=== PATIENT | male | born 1950 | race Caucasian/White ===

== ENCOUNTER 2023-11-18 13:12 | Observation (INO) | payer MEDICARE, SELFPAY ==
[2023-11-18 13:13] VITALS: BP 117/73; PULSE 103; RESP 20; TEMP 37.3; O2SAT 96; BMI 22.9
--- NOTE | 2023-11-18 14:10 | ED_ITS ---
<Statement entered by Marilyn Witt DO - 11/18/23 15:48> I was consulted by the RAMOS, and we discussed the complexity of the problems being addressed. I approved the treatment and management plan for this patient's care in the emergency department, thus performing a substantive portion of the medical decision making. Marilyn Witt DO Discharge Plan Disposition Patient Disposition: Admitted Condition: Fair Clinical Impressions Clinical Impression: Asthenia Chronic kidney disease Qualifiers: Chronic kidney disease stage: unspecified stage Qualified Code(s): N18.9 - Chronic kidney disease, unspecified Discharge ED Provider: Marilyn Witt General Adult HPI General Chief complaint: Weakness Stated complaint: Weakness Time Seen by Provider: 11/18/23 14:10 Mode of Arrival: Ambulatory Source of Information: Patient and EMS Limitations: No Limitations Description of Symptoms (Recalled from ER Triage Doc. by RN): pt [facility] and cc is weakness and dehydration, pt states he is also constipated and apolgizes for stinking as he has not been able to shower due to facility out of water. pt states only med hx is CVA and HTN. pt alox4 upon triage and vitals WNL History of Present Illness HPI narrative: [facility] after he was too weak to get off of the toilet. Patient states that he felt constipated and was sitting on the toilet for approximately 30 minutes but was unable to get up. Staff found him and called EMS for assistance. Patient denies any numbness tingling shortness of breath fever chills hemoptysis hematochezia melena nausea vomiting diarrhea. He does report having hard. Related Data Allergies Allergy/AdvReac Type Severity Reaction Status Date / Time Penicillins Allergy Verified 11/18/23 14:04 [facility] Disclaimer: The information contained in this section may have been updated after the patient was seen, as this information can be updated by other users. Social History (Updated 11/18/23 @ 15:30 by FARRAH Hill) Smoking Status: Current every day smoker alcohol intake: never current occupational status: retired Travel in the last 8 weeks: None ROS Obtained: Yes Systems reviewed as appropriate & no additional complaints except as documented Physical Exam General General appearance: alert, in no apparent distress and other (Patient has a strong odor of urine about his person) Head Head exam: atraumatic and normal inspection Eye Eye exam: Present normal appearance and EOMI ENT ENT exam: Present normal exam, normal oropharynx and mucous membranes moist Neck Neck exam: Present normal inspection and full ROM Respiratory Respiratory exam: Present normal lung sounds bilaterally Cardiovascular Cardiovascular exam: Present regular rate and normal rhythm Extremities Exam Extremities exam: Present normal inspection, full ROM (Passively) and normal capillary refill; Absent tenderness, edema or calf tenderness Back Exam Back exam: Present normal inspection and full ROM Neurological Exam Neurological exam: Present alert, oriented X3 and CN II-XII intact; Absent normal gait (Patient unable to arise unassisted from a seated position even with his cane and is unable to stand even with assistance.) or motor sensory deficit Psychiatric Psychiatric exam: Present normal affect and normal mood Skin Skin exam: Present warm, dry and normal color Medical Decision Making Medical Records Medical records reviewed: Yes I reviewed the patient's medical records. Damián Inquiry Pt receiving controlled substance: No Vital Signs: 11/18/23 13:13 Temperature 99.1 F Temperature Source Oral Pulse Rate [Right Radial] 103 H Respiratory Rate 20 Blood Pressure [Right Arm] 117/73 Blood Pressure Mean [Right Arm] 87 02 Sat by Pulse Oximetry 96 Oxygen Delivery Method Room Air Lab Data Lab results reviewed: Yes I reviewed the patient's lab results. Lab Results 11/18/23 13:25: WBC 9.3, RBC 4.73, Hgb 14.6, Hct 42.5, MCV 89.8, MCH 30.7, MCHC 34.2, RDW 14.1, Plt Count 259, MPV 7.9, Neut % (Auto) 74.5, Lymph % (Auto) 16.3, [place] % (Auto) 6.2, Eos % (Auto) 2.4, Baso % (Auto) 0.7, Neut # (Auto) 6.9, Lymph # (Auto) 1.5, [place] # (Auto) 0.6, Eos # (Auto) 0.2, Baso # (Auto) 0.1, Sodium 138, Potassium 4.1, Chloride 106, Carbon Dioxide 24, Anion Gap 12.1, BUN 30 H, C reatinine 1.80 H, Estimated Creat Clear 36, Estimated GFR 37 L, Est GFR ( Amer) 45 L, Glucose 106 H, Calcium 8.8, Magnesium 2.1, Total Bilirubin 0.7, AST 29, ALT 21, Alkaline Phosphatase 76, Total Creatine Kinase 51 L, Total Protein 7.1, Albumin 4.4, Globulin 2.7, Albumin/Globulin Ratio 1.6 11/18/23 13:25 11/18/23 13:25 Orders (Tests/Meds): ED MEDICATIONS Generic Name Dose Route Start Last Admin Trade Name Freq PRN Reason Stop Dose Admin Enoxaparin Sodium 40 mg 11/19/23 09:00 Enoxaparin 40mg/0.4ml Syringe SQ 12/19/23 08:59 DAILY JOHNATHAN Discontinued Medications Generic Name Dose Route Start Last Admin Trade Name Freq PRN Reason Stop Dose Admin Lactated Ringer's 1,000 mls @ 999 mls/hr 11/18/23 14:32 11/18/23 15:02 Lactated Ringer's 1000 Ml Bag IV 11/18/23 15:32 999 mls/hr .Q1H1M ONE Administration ORDERS Category Date Time Status CK [Creatine Kinase] Stat Lab 11/18/23 13:25 Completed CMP [Comprehensive Metabolic Panel] Stat Lab 11/18/23 13:25 Completed Complete Blood Count Auto Diff AMLAB Lab 11/19/23 06:00 Ordered Complete Blood Count Auto Diff Stat Lab 11/18/23 13:25 Completed Comprehensive Metabolic Panel AMLAB Lab 11/19/23 06:00 Ordered Hemoglobin A1C Stat Lab 11/18/23 13:25 Received Magnesium AMLAB Lab 11/19/23 06:00 Ordered Magnesium Stat Lab 11/18/23 13:25 Completed TSH [Thyroid Stimulating Hormone] Stat Lab 11/18/23 13:25 Received UA [Urinalysis and Microscopic] Stat Lab 11/18/23 14:32 Ordered Medical Decision Narrative: In summary patient is a 73-year-old male who presents to the emergency department for evaluation of dystonia. Patient is hemodynamically stable upon arrival, afebrile. Physical exam is remarkable for bilateral lower extremity asthenia without any focal deficits. Motor and sensory are intact however patient is too weak to stand unassisted, is too weak to stand assisted, cannot rise from a seated position unassisted.. Differential diagnosis includes a STEMI versus electrolyte abnormality versus urinary tract infection etc. Initial workup will be conducted with hematologic labs urinalysis PT OT evaluation. Initial interventions include crystalloid bolus. Initial workup reviewed by me shows that patient has elevated creatinine of 1.8 and a BUN of 30 with a GFR of 37 but an unknown baseline as we have no records upon review of his chart, magnesium of 2.1 calcium of 8.8 CK of 51 and the remainder of his hematologic labs are nonactionable. PT OT evaluation performed in the emergency department suggest that the patient is a high fall risk and unable to return to an assisted living which she currently resides and recommended placement. Management discussed with patient who is agreed to admission. Given that discussion with hospitalist about patient management and he has been admitted for further evaluation and care Critical Care Critical Care Time Critical Care Time: No
[2023-11-18 14:11] LABS: Basophils # 0.1 K/mm3 (0-0.2); Basophils % 0.7 % (0.1-2.0); Eosinophils # 0.2 K/mm3 (0.0-0.4); Eosinophils % 2.4 % (0.1-12.0); Hematocrit 42.5 % (42.0-52.0); Hemoglobin 14.6 g/dL (14.1-18.0); Lymphocytes # 1.5 K/mm3 (0.7-4.5); Lymphocytes % 16.3 % (10-50); Mean Corpuscular HGB Conc 34.2 g/dL (31.8-35.4); Mean Corpuscular Hemoglobin 30.7 pg (27.0-31.2); Mean Corpuscular Volume 89.8 fl (80-94); Mean Platelet Volume 7.9 fl (7.4-10.4); Monocytes # 0.6 K/mm3 (0.1-1.0); Monocytes % 6.2 % (1.7-9.3); Neutrophils # 6.9 K/mm3 (1.8-7.8); Neutrophils % 74.5 % (37.0-80.0); Platelet Count 259 K/mm3 (142-424); Red Blood Count 4.73 M/mm3 (4.60-6.20); Red Cell Distribution Width 14.1 % (11.5-17.5); White Blood Count 9.3 K/mm3 (4.8-10.8)
[2023-11-18 14:12] LABS: Albumin Level 4.4 g/dl (3.5-5.0); Chloride 106 mmol/L (98-107); Potassium 4.1 mmoL/L (3.5-5.1); Sodium 138 mmol/L (136-145)
[2023-11-18 14:15] LABS: Alanine Aminotransferase 21 U/L (12-78); Albumin/Globulin Ratio 1.6 (1.1-1.8); Alkaline Phosphatase 76 U/L (38-126); Anion Gap 12.1 mEq/L (5-15); Aspartate Amino Transferase 29 U/L (17-59); Bilirubin,Total 0.7 mg/dl (0.2-1.3); Blood Urea Nitrogen 30 mg/dl (9-20); Calcium 8.8 mg/dl (8.4-10.2); Carbon Dioxide 24 mmol/L (22.0-30.0); Creatinine Clearance Estimated 36 mL/min (50-200); Estimated Glomerular Filt Rate 37 ml/min (>60); GFR (African American) 45 ML/MIN (>60); Globulin 2.7 g/dL (1.3-3.2); Glucose 106 mg/dl (74-100); Total Protein,Serum 7.1 g/dl (6.3-8.2)
--- NOTE | 2023-11-18 14:37 | PC.NURSE ---
therapy notified of pt status
[2023-11-18 14:44] LABS: Creatine Kinase 51 U/L (55-170); Magnesium 2.1 mg/dl (1.6-2.3)
[2023-11-18] MEDS: LACTATED RINGERS 1000ML 1,000 ML 999 ML IV (15:02)
--- NOTE | 2023-11-18 15:05 | PC.NURSE ---
PER PT/OT eval patient should be placed somewhere for rehab, see the note per therapy
--- NOTE | 2023-11-18 15:06 | HMH.OTEV ---
OT Inpatient Evaluation Rehab OT IP Evaluation Start: 11/18/23 14:36 Freq: ONCE Status: Active Protocol: Document 11/18/23 15:02 PAULCONSTANCE (Rec: 11/18/23 15:06 PAULCONSTANCE [id number]) Rehab OT IP Assessment Subjective History : pt came from [facility] and cc is weakness and dehydration, pt states he is also constipated and apolgizes for stinking as he has not been able to shower due to facility out of water. pt states only med hx is CVA and HTN. pt alox4 upon triage and vitals WNL. Patient is a resident at [facility] here in [place], [place]. Patient reported being independent with ADLs and fx'l mobility prior to hospitalization. Patient uses a straight cane to ambulate. Hx of falling. Subjective I need some help. Instructed Patient on safety awareness during transfers, fx 'l mobility and dynamic standing balance requiring Mod A x2. Unsteadiness on B LE requiring Mod A to prevent fall risk. Objective Patient Orientation Person,Place,Name,Age,Year Right Upper Extremity Gross ROM WFL Left Upper Extremity Gross ROM WFL Transfer Training Sit/Stand Transfer Assist Level Moderate x 2 (50% assist) Chair Transfer Ability Moderate x 2 (50% assist) Chair Transfer Technique Sit to/from Ambulatory Chair Transfer Assistive Devices Straight Cane Rehab OT IP prob,goals,plan Problems Date of Evaluation: 11/18/23 OT IP Problems Bed Mobility,Transfers,Balance ,Self care,Safety Rehab Potential Rehab Potential Good Equipment Needs Assistive Devices Straight Cane Plan OT intervention Plan Bed Mobility,Transfers,Balance ,Self care,Safety,Therapeutic Exercise OT Plan Frequency Daily Duration LOS Discharge Goals Sit to Stand Chair Transfer Ability Moderate x 1 (50% assist) Chair Transfer Ability Moderate x 1 (50% assist) Chair Transfer Technique Sit to/from Ambulatory Chair Transfer Assistive Devices Straight Cane Discharge Plan OT Discharge Plan Due to unsteadiness balance and weakness, patient would not be safe to return back to [facility]. Recommend placement/ rehab prior to returning back to facility. Eval Complexity Eval Charge Codes 35658 - Low Complexity PHYSICIAN CERTIFICATION: I certify the specified therapy services for [facility] are required, authorized, and reviewed every 30 days.
--- NOTE | 2023-11-18 15:06 | PC.NURSE ---
I rounded on the pt, no new complaints noted. pt asked if I could call [facility] and ask if they could take his cell phone off the mixed crop farmer so it wouldn't get too hot. I attempted to call [facility] twice, I have not been able to reach them. call hart in reach.
--- NOTE | 2023-11-18 15:28 | PC.NURSE ---
ANNMARIE NIXON SPEAKING WITH DR DRIVER
--- NOTE | 2023-11-18 15:30 | PC.NURSE ---
SLAB WORKER NOTIFIED OF ADMISSION
--- NOTE | 2023-11-18 15:33 | P.HP_ITS ---
History of Present Illness *Admission Date: 11/18/23 *Reason for visit:: Constipation, weakness *History of present illness: Mr. Aguillon is a 73-year-old male who lives at [facility]. Presented to the ER after trying to go to the bathroom today, states he was on the toilet for an hour and then could not get up off the toilet. EMS brought him to the ER for further evaluation. On arrival, patient is frankly weak and unable to stand or ambulate independently. Workup concerning for ALAINA with BUN 30, creatinine 1.8. White count normal at 9.3. Patient stable on room air. States that he has been constipated and dehydrated lately. States he waited a day or 2 to go to the bathroom because they had not restocked to the bathrooms at his personal correction with toilet paper. Medicine was consulted for evaluation and placement as patient is not medically stable to discharge back to his personal care facility. On arrival to the floor, patient has not bathed in some time. His shoes have been on his feet for over a month. On room air. Afebrile. Denies any nausea, vomiting, diarrhea, chest pain, confusion beyond his baseline as he chuckles. [facility] Disclaimer: The information contained in this section may have been updated after the patient was seen, as this information can be updated by other users. Medical History (Updated 11/18/23 @ 16:56 by Deshaun Marie MD) Tobacco use disorder HTN (hypertension) Social History (Updated 11/18/23 @ 15:30 by FARRAH Hill) Smoking Status: Current every day smoker alcohol intake: never current occupational status: retired Travel in the last 8 weeks: None Review of Systems Review of Systems Review of systems (narrative): 14 point review of systems performed, pertinent positives and negatives as per HPI Meds Home Medications and Allergies New Prescriptions to Start Prescriptions: Allergies Allergy/AdvReac Type Severity Reaction Status Date / Time Penicillins Allergy Verified 11/18/23 14:04 Exam Data for Last 24 hours Vital signs and Labs for Last 24 Hours: Temp Pulse Resp BP Pulse Ox O2 Del Method 99.1 F 103 H 20 117/73 96 Room Air 11/18/23 13:13 11/18/23 13:13 11/18/23 13:13 11/18/23 13:13 11/18/23 13:13 11/18/23 13:13 Laboratory Results - last 24 hr 11/18/23 13:25: WBC 9.3, RBC 4.73, Hgb 14.6, Hct 42.5, MCV 89.8, MCH 30.7, MCHC 34.2, RDW 14.1, Plt Count 259, MPV 7.9, Neut % (Auto) 74.5, Lymph % (Auto) 16.3, [place] % (Auto) 6.2, Eos % (Auto) 2.4, Baso % (Auto) 0.7, Neut # (Auto) 6.9, Lymph # (Auto) 1.5, [place] # (Auto) 0.6, Eos # (Auto) 0.2, Baso # (Auto) 0.1, Sodium 13 8, Potassium 4.1, Chloride 106, Carbon Dioxide 24, Anion Gap 12.1, BUN 30 H, Creatinine 1.80 H, Estimated Creat Clear 36, Estimated GFR 37 L, Est GFR ( Amer) 45 L, Glucose 106 H, Calcium 8.8, Magnesium 2.1, Total Bilirubin 0.7, AST 29, ALT 21, Alkaline Phosphatase 76, Total Creatine Kinase 51 L, Total Protein 7.1, Albumin 4.4, Globulin 2.7, Albumin/Globulin Ratio 1.6 I & O for Last 24 hours: Intake & Output 11/15/23 11/16/23 11/17/23 11/18/23 23:59 23:59 23:59 23:59 Weight 72.575 kg Constitutional Constitutional: no acute distress, average body habitus, chronically ill appearing, disheveled and cooperative *Routine HEENT Exam Head: Present normocephalic Eye: Present EOMI and PERRL ENT: Present mucous membranes moist *Routine Neck Exam Neck: Present supple; Absent lymphadenopathy *Routine Respiratory Exam Respiratory: Present CTA bilaterally; Absent respiratory distress, rhonchi, stridor, wheezes or crackles *Routine Cardiovascular Exam Cardiovascular: Present RRR *Routine Abdominal Exam Abdominal: Present soft and normoactive bowel sounds; Absent tenderness *Routine Rectal Exam Rectal:: deferred *Routine Genitalia Exam Genitalia:: deferred *Routine Extremities Exam Extremities: Absent cyanosis, clubbing or edema Comments: Long unkempt toenails *Routine Skin Exam Skin: Present intact and warm; Absent rash *Routine Neurological Exam Neurological: Present alert, oriented X3 and moving all extremities; Absent altered mental status Comments: Globally weak, unable to stand independently Assessment and Plan *Assessment and plan (1) ALAINA (acute kidney injury): Status: Acute Category: Medical Code(s): N17.9 - Acute kidney failure, unspecified (2) Asthenia: Status: Acute Category: Medical Code(s): R53.1 - Weakness (3) Chronic kidney disease: Status: Acute Qualifiers: Chronic kidney disease stage: unspecified stage Qualified Code(s): N18.9 - Chronic kidney disease, unspecified Category: Medical Code(s): N18.9 - Chronic kidney disease, unspecified (4) Debility: Status: Acute Category: Medical Code(s): R53.81 - Other malaise (5) Tobacco use disorder: Status: Acute Category: Medical Code(s): F17.200 - Nicotine dependence, unspecified, uncomplicated (6) HTN (hypertension): Status: Acute Category: Medical Code(s): I10 - Essential (primary) hypertension (7) Constipation: Status: Acute Category: Medical Code(s): K59.00 - Constipation, unspecified Plan 73-year-old female who has been a resident of [facility] for the past 9 months. Presented to the ER after being unable to get off the toilet today. Was too weak to stand. Workup concerning for ALAINA and asthenia. Discussed case with ER physician, request admission for therapy eval and placement. I agreed to admit. Received liter of fluids in the ER. Problems addressed as follows: ALAINA -BUN 30, creatinine 1.8. Repeat CBC, CMP, magnesium ordered for the morning. Status post 1 L in the ER, will continue hydration orally. Constipation: Initiate MiraLAX x 1 and docusate senna tablet nightly Hypertension: Continue home regimen of carvedilol 12.5 mg twice daily, amlodipine 10 mg daily Anxiety/depression: Continue Lexapro 10 mg daily Full code Lovenox 40 mg subcu daily Cardiac diet Therapy eval for placement given patient's debility and mobility issues. These prevent him from being stable to return back to his personal [facility]
--- NOTE | 2023-11-18 15:44 | SW/DCPLANNER ---
Addendum entered by [facility] 11/20/23 14:56: Rito w/ [facility] stated that patient has been accepted for services. Addendum entered by [facility] 11/20/23 12:09: Patient will discharge back to [facility] today. I have called and updated [facility] and they will reviewing to see if transportation is available. I will also set patient up w/ [facility] services. Addendum entered by [facility] 11/20/23 09:29: Per [facility] this case did NOT meet criteria for investigation. Addendum entered by [facility] 11/19/23 13:56: Due to conditions at [facility] I have made a report to [facility] (ID#[id number]). Patient is alert and oriented stating that he has no running water at personal alf, there is no toilet paper available in bathrooms (led to him not using bathroom for a couple days), Medicaid lapsed, monthly payment taken out twice which caused him to overdraft in bank account and due to MEHNAZ lapse and no funds I am not able to establish placement for patient. PT did work with patient this afternoon and improvement shown. Per MD if improvement tomorrow the plan will be to return to [facility]. I will continue to follow up w/ patient, Yair Miller, ID# and MD. Addendum entered by [facility] 11/19/23 12:43: Delfina w/ [facility] is unable to accept this patient due to Medicaid insurance lapse and no funds in account. Jenae lerma/ [facility] stated no beds available at this time. Addendum entered by [facility] 11/19/23 09:56: Patient is alert and oriented x 4. Patient is agreeable to placement at this time. Patient information has been faxed to [facility] and [facility]. Original Note: [facility] no answer at this [facility]. Per Georgina lerma/ [facility] patient is over the income level for Medicaid. PT/OT evaluated patient and stated that patient will need SNF level of care. I will follow up w/ patient regarding placement under private pay.
--- NOTE | 2023-11-18 15:51 | PC.NURSE ---
attempted to call report to floor rn
--- NOTE | 2023-11-18 15:55 | HMH.PTEV ---
Physical Therapy Evaluation Rehab PT IP Evaluation Start: 11/18/23 14:36 Freq: ONCE Status: Active Protocol: Document 11/18/23 15:04 JAMARI (Rec: 11/18/23 15:55 JAMARI [id number]) Subjective/History History History Patient Biju Aguillon is a 73 yom presenting to the ER with chief complaint of weakness and dehydration, and constipated. Patient stated he currently resides at [facility]. Patients past medical history includes the following a CVA and HTN, he also is a smoker. Patient stated that he is unable to bathe himself but the staff [facility] do the cleaning and cooking for him. Patient states that his weakness has been occurring for a month and he has noticed that he keeps getting weaker. Patient did not verbalize any concerns with having pain at this time. He currently uses a cane to help assist him with ambulation. Subjective Subjective Patient states he is worried about his phone and was wanting to get in contact with someone, rehab staff informed him that nursing staff would be notified. Rehab PT IP Eval Objective Appearance Patient Behavior Cooperative,Passive,Talkative Patient Orientation Place,Name,Age,Birthday Speech Pattern Rambling,Patient Baseline Ambulation Patient Able to Ambulate Yes Ambulation Observation IP General Gait Pattern Observation Shuffling Step Ambulation Distance (feet) 15 Ambulation Assistive Device Straight Cane Ambulation Ability Minimal x 2 (25% assist) Balance Ability to Arise Able, uses arms to help Sitting Balance Leans or slides in chair Standing Balance Unsteady Dynamic Sitting Balance Ability Fair Dynamic Standing Balance Ability Fair Transfers Chair Transfer Ability Minimal x 2 (25% assist) Sit to Stand Chair Transfer Ability Minimal x 2 (25% assist) Rehab PT IP prob,goals,plan Problems Date of Evaluation: 11/18/23 PT IP Problems Transfers,Gait,Balance Rehab Potential Rehab Potential Good Plan PT Intervention Plan Bed Mobility,Transfers,Gait, Balance PT Plan Frequency Daily Duration LOS Discharge Goals Bed Transfer Ability Contact Guard/Hand Hold Sit to Stand Chair Transfer Ability Contact Guard/Hand Hold Ambulation Assistive Device Straight Cane Ambulation Distance (feet) 50 Discharge Plan PT Discharge Plan Patient is a good candidate at this time for skilled PT to address the concern with unsafe ambulation and unsteadiness. He will significantly benefit to address these concerns and improve gait cycle to decrease the possibility of future falls. Once medically stable it is recommended that the patient obtain home health to address LE weakness in addition to the mentioned concerns. Eval Complexity Eval Charge Codes 80622 - High Complexity PHYSICIAN CERTIFICATION: I certify the specified therapy services for [facility] are required, authorized, and reviewed every 30 days.
--- NOTE | 2023-11-18 15:57 | PC.NURSE ---
called report to Aminah on 2nd floor RN and answered all questions
[2023-11-18 15:58] VITALS: BP 117/73; PULSE 96; RESP 20; TEMP 37.2; O2SAT 96
[2023-11-18 16:00] VITALS: BP 175/83; PULSE 96; RESP 20; TEMP 36.4; O2SAT 95
--- NOTE | 2023-11-18 16:00 | PC.NURSE ---
arrived by w/c from ED
[2023-11-18 16:17] LABS: Thyroid Stimulating Hormone 2.08 uIU/mL (0.465-4.68)
[2023-11-18 17:29] LABS: Hemoglobin A1C 5.5 % (4.0-6.0)
[2023-11-18] MEDS: POLYETHYLENE GLYCOL 3350 17 GM PACKET PO (17:40)
[2023-11-18 18:05] LABS: Microscopic, Urine URINE MICROSCOPIC (MICROSCOPIC)
[2023-11-18 18:10] LABS: Appearance,Urine CLEAR (Clear); Bilirubin,Urine Negative (Negative); Blood, Urine TRACE-I (Negative); Color,Urine YELLOW (Yellow); Glucose,Urine (UA) Negative (Negative); Ketones,Urine Negative (Negative); Leukocyte Esterase,Urine Negative (Negative); Nitrate,Urine Negative (Negative); Protein,Urine 2+ (Negative); Specific Gravity, Urine 1.015 (1.005-1.030); Urobilinogen,Urine 0.2 EU/dl (0.2)
[2023-11-18 18:55] LABS: Bacteria,Urine 1+ /lpf
[2023-11-18 20:00] VITALS: BP 157/63; PULSE 91; RESP 16; TEMP 37; O2SAT 94
[2023-11-18] MEDS: CARVEDILOL 12.5MG TABLET 12.5 MG PO (20:08)
[2023-11-18] MEDS: SENNOSIDES 8.6MG/DOCUSATE 50MG TABLET 1 TAB PO (20:08)
[2023-11-19 04:00] VITALS: BP 135/71; PULSE 82; RESP 16; TEMP 36.4; O2SAT 92; BMI 24.7
--- NOTE | 2023-11-19 05:14 | PC.NURSE ---
Addendum entered by Azalia Matt RN 11/19/23 05:49: Urinal also at bedside; I myself emptied 575 mL of urine this shift. Original Note: Patient alert and oriented x4. Patient has rested well throughout the night. The skin on the patient's bilateral lower extremities was noticed to be flaky, very dry, and his feet had scattered yellow crusts on them. Lung sounds were clear upon auscultation and bowel sounds were active in all quadrants this shift. Patient stated that he was able to have a bowel movement earlier this shift and that the Miralax he received on day shift did the trick for his constipation concerns. Patient was also assisted to the bathroom to void. Patient was noticed to be very unsteady on his feet during ambulation. He requires another person on one side to hold him up while he uses his cane to assist him forward. Patient received his scheduled medications per JUN. Patient has not had any complaints this shift. He is currently resting supine in bed. Bed alarm on and call light within reach.
[2023-11-19 06:54] LABS: Basophils # 0.1 K/mm3 (0-0.2); Basophils % 0.7 % (0.1-2.0); Eosinophils # 0.2 K/mm3 (0.0-0.4); Eosinophils % 2.6 % (0.1-12.0); Hematocrit 41.1 % (42.0-52.0); Hemoglobin 13.8 g/dL (14.1-18.0); Lymphocytes % 24.1 % (10-50); Mean Corpuscular HGB Conc 33.5 g/dL (31.8-35.4); Mean Corpuscular Hemoglobin 30.5 pg (27.0-31.2); Mean Corpuscular Volume 90.9 fl (80-94); Mean Platelet Volume 7.8 fl (7.4-10.4); Monocytes # 0.7 K/mm3 (0.1-1.0); Monocytes % 8.1 % (1.7-9.3); Neutrophils # 5.2 K/mm3 (1.8-7.8); Neutrophils % 64.5 % (37.0-80.0); Platelet Count 227 K/mm3 (142-424); Red Blood Count 4.52 M/mm3 (4.60-6.20); White Blood Count 8.1 K/mm3 (4.8-10.8)
[2023-11-19 06:55] LABS: Albumin Level 3.7 g/dl (3.5-5.0); Chloride 108 mmol/L (98-107); Sodium 139 mmol/L (136-145)
[2023-11-19 06:58] LABS: Alanine Aminotransferase 14 U/L (12-78); Albumin/Globulin Ratio 1.5 (1.1-1.8); Alkaline Phosphatase 69 U/L (38-126); Aspartate Amino Transferase 26 U/L (17-59); Bilirubin,Total 0.7 mg/dl (0.2-1.3); Blood Urea Nitrogen 30 mg/dl (9-20); Calcium 8.5 mg/dl (8.4-10.2); Carbon Dioxide 28 mmol/L (22.0-30.0); Creatinine Clearance Estimated 42 mL/min (50-200); Estimated Glomerular Filt Rate 39 ml/min (>60); GFR (African American) 48 ML/MIN (>60); Globulin 2.5 g/dL (1.3-3.2); Glucose 96 mg/dl (74-100); Magnesium 2.2 mg/dl (1.6-2.3); Total Protein,Serum 6.2 g/dl (6.3-8.2)
--- NOTE | 2023-11-19 07:13 | HMH.PHAINT1 ---
Pharmacy Intervention Comments: home medication list verified using list from outpatient pharmacy
[2023-11-19 08:00] VITALS: BP 147/81; PULSE 77; RESP 17; TEMP 36.9; O2SAT 92
[2023-11-19] MEDS: ENOXAPARIN 40MG/0.4ML SYRINGE 40 MG SQ (08:33)
[2023-11-19] MEDS: AMLODIPINE 10MG TABLET 10 MG PO (08:34)
[2023-11-19] MEDS: LACTATED RINGERS 1000ML 1,000 ML 250 ML IV (08:34)
[2023-11-19] MEDS: CITALOPRAM 20MG TABLET 20 MG PO (08:34)
[2023-11-19] MEDS: CARVEDILOL 12.5MG TABLET 12.5 MG PO ×2 (08:35→20:54)
--- NOTE | 2023-11-19 15:23 | PC.NURSE ---
pt has been axox4 this shift. pt remains on room air. pt visited with pt today and advised pt to continue with activity throughout the shift. pt educated on need to walk, sit up to chair, and complete exercises to regain strength. regional education manager from [facility]( Aure Weiss) called to check up on . pt has had no complaints today. pt resting in bed with eyes closed. call light within reach, no new orders at this time.
[2023-11-19 16:00] VITALS: BP 163/74; PULSE 80; RESP 18; TEMP 36.7; O2SAT 93
--- NOTE | 2023-11-19 18:39 | P.PN_ITS ---
Subjective *Date: 11/19/23 *Time: 21:17 Interval history: Feeling a lot better this morning. Tolerated IV fluids. Tolerating p.o. intake. Had a bowel movement overnight. Denies any chest pain or shortness of breath. Medical Exam Vital signs and Labs for Last 24 Hours: Vital Signs Temp Pulse Resp BP Pulse Ox O2 Del Method 11/19/23 18:28 Room Air 11/19/23 17:00 Room Air 11/19/23 16:00 98.0 F 80 18 163/74 H 93 L Room Air 11/19/23 14:32 Room Air 11/19/23 12:40 Room Air 11/19/23 11:00 Room Air 11/19/23 09:00 Room Air 11/19/23 08:00 98.4 F 77 17 147/81 H 92 L Room Air 11/19/23 08:00 Room Air 11/19/23 06:48 Room Air 11/19/23 05:00 Room Air 11/19/23 04:00 97.6 F 82 16 135/71 92 L Room Air 11/19/23 03:00 Room Air 11/19/23 01:00 Room Air 11/18/23 23:00 Room Air 11/18/23 21:00 Room Air 11/18/23 20:00 98.6 F 91 H 16 157/63 H 94 L Room Air 11/18/23 20:00 91 H 94 L Room Air Intake and Output 11/19/23 11/19/23 11/19/23 07:59 15:59 23:59 Intake Total 100 / 1720 1200 / 1720 420 / 1720 Output Total 975 / 1525 250 / 1525 300 / 1525 Balance -875 / 195 950 / 195 120 / 195 Intake: Intake, Oral Amount 100 / 1720 1200 / 1720 420 / 1720 Output: Output, Urine Amount 975 / 1525 250 / 1525 300 / 1525 Other: Number of Unmeasured Voids 1 1 0 Number of Bowel Movements 1 Weight 78.471 kg Patient Weight 11/19/23 23:59 Weight 78.471 kg Laboratory Results - last 24 hr 11/18/23 18:00: Urine RBC 5-10, Urine WBC 3-5, Ur Squamous Epith Cells 3-5, Urine Bacteria 1+ 11/19/23 06:22: WBC 8.1, RBC 4.52 L, Hgb 13.8 L, Hct 41.1 L, MCV 90.9, MCH 30.5, MCHC 33.5, RDW 14.0, Plt Count 227, MPV 7.8, Neut % (Auto) 64.5, Lymph % (Auto) 24.1, [place] % (Auto) 8.1, Eos % (Auto) 2.6, Baso % (Auto) 0.7, Neut # (Auto) 5.2, Lymph # (Auto) 2.0, [place] # (Auto) 0.7, Eos # (Auto) 0.2, Baso # (Auto) 0.1, Sodium 139, Potassium 4.0, Chloride 108 H, Carbon Dioxide 28, Anion Gap 7.0, BUN 30 H, Creatinine 1.70 H, Estimated Creat Clear 42, Estimated GFR 39 L, Est GFR ( Amer) 48 L, Glucose 96, Calcium 8.5, Magnesium 2.2, Total Bilirubin 0.7, AST 26, ALT 14 D, Alkaline Phosphatase 69, Total Protein 6.2 L, Albumin 3.7 D, Globulin 2.5, Albumin/Globulin Ratio 1.5 I & O for Labs for Last 24 Hours: Intake & Output 11/16/23 11/17/23 11/18/23 11/19/23 23:59 23:59 23:59 23:59 Intake Total 1550 / 1650 1720 / 1720 Output Total 0 / 575 1525 / 1525 Balance 1550 / 1075 195 / 195 Weight 72.575 kg 78.471 kg Constitutional: Present no acute distress Respiratory: Present normal respiratory effort Cardiac: Present Reg Rate and Rhythm GI: Present normal bowel sounds; Absent tenderness Extremities: Present normal inspection and full ROM Skin: Present intact; Absent erythema Neuro: Present Grossly Intact, alert, awake, oriented x 3 and moves all extremities Comment:: Shuffling gait Assessment and Plan *Assessment and plan (1) ALAINA (acute kidney injury): Status: Acute Category: Medical Code(s): N17.9 - Acute kidney failure, unspecified (2) Asthenia: Status: Acute Category: Medical Code(s): R53.1 - Weakness (3) Chronic kidney disease: Status: Acute Qualifiers: Chronic kidney disease stage: unspecified stage Qualified Code(s): N18.9 - Chronic kidney disease, unspecified Category: Medical Code(s): N18.9 - Chronic kidney disease, unspecified (4) Debility: Status: Acute Category: Medical Code(s): R53.81 - Other malaise (5) Tobacco use disorder: Status: Acute Category: Medical Code(s): F17.200 - Nicotine dependence, unspecified, uncomplicated (6) HTN (hypertension): Status: Acute Category: Medical Code(s): I10 - Essential (primary) hypertension (7) Constipation: Status: Acute Category: Medical Code(s): K59.00 - Constipation, unspecified Plan 73-year-old female who has been a resident of [place] for the past 9 months. Presented to the ER after being unable to get off the toilet today. Was too weak to stand. Workup concerning for ALAINA and asthenia. Discussed case with ER physician, request admission for therapy eval and placement. I agreed to admit. Working with therapy. PT recommends placement. Case management assisting. Problems addressed as follows: ALAINA -Kidney function remains slightly abnormal, BUN 30, creatinine 1.7. Tolerating p.o. liquids. Repeat CBC, CMP, magnesium ordered for the morning. Constipation: Had a bowel movement, continue docusate senna tablet nightly Hypertension: Continue home regimen of carvedilol 12.5 mg twice daily, amlodipine 10 mg daily Anxiety/depression: Continue Lexapro 10 mg daily Full code Lovenox 40 mg subcu daily Cardiac diet
[2023-11-19 19:59] VITALS: BP 152/69; PULSE 81; RESP 16; TEMP 37.1; O2SAT 90
[2023-11-19] MEDS: SENNOSIDES 8.6MG/DOCUSATE 50MG TABLET 1 TAB PO (20:54)
[2023-11-20 04:00] VITALS: BP 148/90; PULSE 70; RESP 18; TEMP 36.6; O2SAT 93; BMI 24.4
--- NOTE | 2023-11-20 05:17 | PC.NURSE ---
73 yo male pt admitted with weakness. Pt is a/o X 3. He has been using urinal for voids through the night. Pt has been without complaints this shift and has rested most of the night.
[2023-11-20 06:55] LABS: Basophils # 0.1 K/mm3 (0-0.2); Basophils % 0.8 % (0.1-2.0); Eosinophils # 0.2 K/mm3 (0.0-0.4); Eosinophils % 2.1 % (0.1-12.0); Hematocrit 45.1 % (42.0-52.0); Hemoglobin 14.7 g/dL (14.1-18.0); Lymphocytes # 1.9 K/mm3 (0.7-4.5); Lymphocytes % 22.7 % (10-50); Mean Corpuscular HGB Conc 32.6 g/dL (31.8-35.4); Mean Corpuscular Hemoglobin 30.5 pg (27.0-31.2); Mean Corpuscular Volume 93.5 fl (80-94); Monocytes # 0.6 K/mm3 (0.1-1.0); Monocytes % 7.3 % (1.7-9.3); Neutrophils # 5.7 K/mm3 (1.8-7.8); Neutrophils % 67.2 % (37.0-80.0); Platelet Count 219 K/mm3 (142-424); Red Blood Count 4.82 M/mm3 (4.60-6.20); Red Cell Distribution Width 13.9 % (11.5-17.5); White Blood Count 8.5 K/mm3 (4.8-10.8)
[2023-11-20 07:09] LABS: Chloride 108 mmol/L (98-107)
[2023-11-20 07:10] LABS: Sodium 138 mmol/L (136-145)
[2023-11-20 07:13] LABS: Alanine Aminotransferase 15 U/L (12-78); Albumin/Globulin Ratio 1.5 (1.1-1.8); Alkaline Phosphatase 75 U/L (38-126); Aspartate Amino Transferase 28 U/L (17-59); Bilirubin,Total 0.8 mg/dl (0.2-1.3); Blood Urea Nitrogen 29 mg/dl (9-20); Calcium 8.7 mg/dl (8.4-10.2); Carbon Dioxide 24 mmol/L (22.0-30.0); Creatinine Clearance Estimated 41 mL/min (50-200); Estimated Glomerular Filt Rate 39 ml/min (>60); GFR (African American) 48 ML/MIN (>60); Globulin 2.6 g/dL (1.3-3.2); Glucose 92 mg/dl (74-100); Magnesium 2.1 mg/dl (1.6-2.3); Total Protein,Serum 6.6 g/dl (6.3-8.2)
[2023-11-20 07:40] VITALS: O2SAT 94
[2023-11-20 08:00] VITALS: BP 152/80; PULSE 76; RESP 18; TEMP 36.7; O2SAT 94
[2023-11-20] MEDS: ENOXAPARIN 40MG/0.4ML SYRINGE 40 MG SQ (08:20)
[2023-11-20] MEDS: CITALOPRAM 20MG TABLET 20 MG PO (08:20)
[2023-11-20] MEDS: AMLODIPINE 10MG TABLET 10 MG PO (08:20)
[2023-11-20] MEDS: NYSTATIN TOPICAL POWDER 30GM TP (08:20)
[2023-11-20] MEDS: CARVEDILOL 12.5MG TABLET 12.5 MG PO (08:20)
[2023-11-20] MEDS: LACTATED RINGERS 1000ML 1,000 ML 250 ML IV (10:19)
--- NOTE | 2023-11-20 12:03 | P.DS_ITS ---
General Admission date:: 11/18/23 Discharge date: 11/20/23 HPI HPI HPI: Mr. Aguillon is a 73-year-old male who lives at [facility]. Presented to the ER after trying to go to the bathroom today, states he was on the toilet for an hour and then could not get up off the toilet. EMS brought him to the ER for further evaluation. On arrival, patient is frankly weak and unable to stand or ambulate independently. Workup concerning for ALAINA with BUN 30, creatinine 1.8. White count normal at 9.3. Patient stable on room air. States that he has been constipated and dehydrated lately. States he waited a day or 2 to go to the bathroom because they had not restocked to the bathrooms at his personal f[facility] with toilet paper. Medicine was consulted for evaluation and placement as patient is not medically stable to discharge back to his personal care facility. On arrival to the floor, patient has not bathed in some time. His shoes have been on his feet for over a month. On room air. Afebrile. Denies any nausea, vomiting, diarrhea, chest pain, confusion beyond his baseline as he chuckles. Hospital Course Hospital Course Hospital Course: 73-year-old female who has been a resident of [place] for the past 9 months. Presented to the ER after being unable to get off the toilet today. Was too weak to stand. Workup concerning for ALAINA and asthenia. Discussed case with ER physician, request admission for therapy eval and placement. I agreed to admit. Worked with therapy daily. Showed improvement. Able to walk significant distance. Stable to return back to [facility] using walker. Will order home health. Problems addressed as follows: ALAINA -Kidney function remains slightly abnormal, BUN 29, creatinine 1.7 on day of discharge. Concerning may have CKD 3 versus ALAINA. Encourage hydration. Would benefit from repeat CBC, CMP, magnesium in 1 week. Constipation: Had a bowel movement during admission. Continue docusate/senna nightly to promote regular bowel movements. Hypertension: Continue home regimen of carvedilol 12.5 mg twice daily, amlodipine 10 mg daily Anxiety/depression: Continue Lexapro 10 mg daily Exam Data for Last 24 hours Vital signs and Labs for Last 24 Hours: Temp Pulse Resp BP Pulse Ox O2 Del Method 98.1 F 76 18 152/80 H 94 L Room Air 11/20/23 08:00 11/20/23 08:00 11/20/23 08:00 11/20/23 08:00 11/20/23 08:00 11/20/23 11:10 Laboratory Results - last 24 hr 11/20/23 06:06: WBC 8.5, RBC 4.82, Hgb 14.7, Hct 45.1, MCV 93.5, MCH 30.5, MCHC 32.6, RDW 13.9, Plt Count 219, MPV 8.0, Neut % (Auto) 67.2, Lymph % (Auto) 22.7, [place] % (Auto) 7.3, Eos % (Auto) 2.1, Baso % (Auto) 0.8, Neut # (Auto) 5.7, Lymph # (Auto) 1.9, [place] # (Auto) 0.6, Eos # (Auto) 0.2, Baso # (Auto) 0.1, Sodium 138, Potassium 4.0, Chloride 108 H, Carbon Dioxide 24, Anion Gap 10.0, BUN 29 H, Creatinine 1.70 H, Estimated Creat Clear 41, Estimated GFR 39 L, Est GFR ( Amer) 48 L, Glucose 92, Calcium 8.7, Magnesium 2.1, Total Bilirubin 0.8, AST 28, ALT 15, Alkaline Phosphatase 75, Total Protein 6.6, Albumin 4.0, Globulin 2.6, Albumin/Globulin Ratio 1.5 I & O for Last 24 hours: Intake & Output 11/17/23 11/18/23 11/19/23 11/20/23 23:59 23:59 23:59 23:59 Intake Total 1550 / 1650 1720 / 1960 600 / 600 Output Total 0 / 575 2125 / 2125 800 / 800 Balance 1550 / 1075 -405 / -165 -200 / -200 Weight 72.575 kg 78.471 kg 77.383 kg Constitutional Constitutional: no acute distress, average body habitus, chronically ill appearing and cooperative *Routine HEENT Exam Head: Present normocephalic Eye: Present EOMI and PERRL ENT: Present mucous membranes moist *Routine Neck Exam Neck: Present supple; Absent lymphadenopathy *Routine Respiratory Exam Respiratory: Present CTA bilaterally; Absent rhonchi, wheezes or crackles *Routine Cardiovascular Exam Cardiovascular: Present RRR *Routine Abdominal Exam Abdominal: Present soft and normoactive bowel sounds; Absent tenderness *Routine Rectal Exam Patient deferred: visual exam *Routine Exam Comments: excoriated rash in groin *Routine Extremities Exam Extremities: Absent cyanosis, clubbing or edema *Routine Skin Exam Skin: Present warm; Absent rash *Routine Neurological Exam Neurological: Present alert, oriented X3 and moving all extremities; Absent altered mental status Comments: shuffling gait Routine Psychiatric Exam Psychiatric: Present normal affect and normal thought process Results Data Completed and Pending Labs on day of discharge: Labs from last 24 hours 11/20/23 06:06 WBC 8.5 RBC 4.82 Hgb 14.7 Hct 45.1 MCV 93.5 MCH 30.5 MCHC 32.6 RDW 13.9 Plt Count 219 MPV 8.0 Neut % (Auto) 67.2 Lymph % (Auto) 22.7 [place] % (Auto) 7.3 Eos % (Auto) 2.1 Baso % (Auto) 0.8 Neut # (Auto) 5.7 Lymph # (Auto) 1.9 [place] # (Auto) 0.6 Eos # (Auto) 0.2 Baso # (Auto) 0.1 Sodium 138 Potassium 4.0 Chloride 108 H Carbon Dioxide 24 Anion Gap 10.0 BUN 29 H Creatinine 1.70 H Estimated Creat Clear 41 Estimated GFR 39 L Est GFR ( Amer) 48 L Glucose 92 Calcium 8.7 Magnesium 2.1 Total Bilirubin 0.8 AST 28 ALT 15 Alkaline Phosphatase 75 Total Protein 6.6 Albumin 4.0 Globulin 2.6 Albumin/Globulin Ratio 1.5 DS: Diagnosis Discharge Diagnosis (1) ALAINA (acute kidney injury): Status: Acute Code(s): N17.9 - Acute kidney failure, unspecified (2) Asthenia: Status: Acute Code(s): R53.1 - Weakness (3) Chronic kidney disease: Status: Acute Code(s): N18.9 - Chronic kidney disease, unspecified Qualifiers: Chronic kidney disease stage: unspecified stage Qualified Code(s): N18.9 - Chronic kidney disease, unspecified (4) Debility: Status: Acute Code(s): R53.81 - Other malaise (5) Tobacco use disorder: Status: Acute Code(s): F17.200 - Nicotine dependence, unspecified, uncomplicated (6) HTN (hypertension): Status: Acute Code(s): I10 - Essential (primary) hypertension (7) Constipation: Status: Acute Code(s): K59.00 - Constipation, unspecified Meds Home Medications and Allergies Home Medications ?Medication ?Instructions ?Recorded ?Confirmed ?Type amlodipine 10 mg tablet 10 mg PO DAILY 11/18/23 11/18/23 History aspirin 81 mg tablet,delayed 81 mg PO DAILY 11/18/23 11/18/23 History release carvedilol 12.5 mg tablet 12.5 mg PO BID 11/18/23 11/18/23 History escitalopram oxalate 10 mg tablet 15 mg PO DAILY 11/18/23 11/18/23 History multivitamin 1 cap PO DAILY 11/18/23 11/18/23 History omega-3 fatty acids 1,000 mg PO DAILY 11/18/23 11/18/23 History oxybutynin chloride 5 mg tablet 5 mg PO BID 11/18/23 11/19/23 History alprazolam 0.25 mg tablet 0.25 mg PO TIDP PRN Anxiety 11/19/23 11/19/23 History nystatin 100,000 unit/gram topical 1 unit topical QID Groin rash 10 11/20/23 Rx powder days #30 grams sennosides 8.6 mg-docusate sodium 1 tab PO HS 30 days #30 tabs 11/20/23 Rx 50 mg tablet (Stimulant Laxative Plus) New Prescriptions to Start Prescriptions: Deshaun Pond sennoclintons-docusate sodium [Stimulant Laxative Plus] Deshaun Marie Allergies Allergy/AdvReac Type Severity Reaction Status Date / Time Penicillins Allergy Verified 11/18/23 14:04 Discharge Plan Disposition Patient Disposition: Home Health Service Condition: Fair Discharge Order Discharge Orders: Discharge Order (Routine); Ordered 11/20/23 Ordered By: Deshaun Marie Follow up Plan Follow up with: Provider,Referral, [Primary Care Provider] - Enter time for follow up Prescriptions/Medication Reconciliation: New nystatin 100,000 unit/gram Powder 1 unit topical QID 10 Days Qty: 30 0RF sennosides-docusate sodium [Stimulant Laxative Plus] 8.6-50 mg Tablet 1 tab PO HS 30 Days Qty: 30 0RF Continued carvedilol 12.5 mg tablet 12.5 mg PO BID aspirin 81 mg Tablet,Delayed Release (Dr/Ec) 81 mg PO DAILY amlodipine 10 mg tablet 10 mg PO DAILY oxybutynin chloride 5 mg tablet 5 mg PO BID multivitamin Capsule 1 cap PO DAILY escitalopram oxalate 10 mg tablet 15 mg PO DAILY omega-3 fatty acids Capsule 1,000 mg PO DAILY alprazolam 0.25 mg Tablet 0.25 mg PO TIDP PRN (Reason: Anxiety) Problem Reconciliation Problems Reviewed?: Yes Patient Discharge Instructions ACTIVITY: Continue current activity DIET: continue same diet Patient Instructions: Acute Kidney Injury, DI for Muscle Weakness Print Language: Romanian Providers Primary Care Provider: Provider,Referral Admit Provider: Deshaun Marie Attending Provider: Deshaun Marie
--- NOTE | 2023-11-20 12:21 | PC.NURSE ---
called [facility] to go over discharge instructions with staff and let them know he is discharged and able to come back to their facility. staff verbalized understanding.
== END 2023-11-20 12:50 | disposition home health service (06) ==
LOC: ER 15:30 → 2ND 15:50
PROVIDERS: Physician Assistant; Admitting Provider Internal Medicine Adolescent Medicine; Emergency Provider Emergency Medicine; Visit Provider Internal Medicine Adolescent Medicine
DX: N17.9 Acute kidney failure, unspecified (principal); R53.1 Weakness; N18.9 Chronic kidney disease, unspecified; I12.9 Hypertensive chronic kidney disease with stage 1 through stage 4 chronic kidney disease, or unspecified chronic kidney disease; R53.81 Other malaise; K59.00 Constipation, unspecified; F17.210 Nicotine dependence, cigarettes, uncomplicated
CPT/HCPCS: 36415; 80053; 81001; 82550; 83036; 83735; 84443; 85025; 97530; 99285; G0378; J1650; J7120

== ENCOUNTER 2024-03-18 22:19 | Emergency (ER) | payer MEDICARE, MEDICAID, SELFPAY ==
[2024-03-18 22:19] VITALS: BP 138/72; PULSE 103; RESP 20; TEMP 36.9; O2SAT 96; BMI 24.3
[2024-03-18 23:01] VITALS: BP 127/70; PULSE 95; O2SAT 95
--- NOTE | 2024-03-18 23:28 | XR_ITS ---
PROCEDURE INFORMATION: Exam: XR Chest Exam date and time: 03/19/2024 12:32 AM Age: 73 years old Clinical indication: Cough TECHNIQUE: Imaging protocol: Radiologic exam of the chest. Views: 1 view. COMPARISON: No relevant prior studies available. FINDINGS: Lungs: Apical lucency bilaterally. Pleural spaces: Unremarkable. No pleural effusion. No pneumothorax. Heart/Mediastinum: Unremarkable. No cardiomegaly. Bones/joints: Unremarkable. Other findings: No definite effusions. IMPRESSION: Chronic lung disease and emphysema. No definite acute abnormality.
--- NOTE | 2024-03-18 23:28 | CT_ITS ---
PROCEDURE INFORMATION: Exam: CT Head Without Contrast Exam date and time: 03/19/2024 12:42 AM Age: 73 years old Clinical indication: Stroke-like symptoms; Lt lower extremity weakness; Additional info: Lle subjective weakness, nih 0 TECHNIQUE: Imaging protocol: Computed tomography of the head without contrast. Radiation optimization: All CT scans at this facility use at least one of these dose optimization techniques: automated exposure control; mA and/or kV adjustment per patient size (includes targeted exams where dose is matched to clinical indication); or iterative reconstruction. Other technique: STROKE PROTOCOL was implemented. COMPARISON: No relevant prior studies available. FINDINGS: Brain: Multiple large lacunar pattern infarcts are present in both basal ganglia. Severe diffuse decreased CT attenuation in the periventricular white matter. Cerebral ventricles: No ventriculomegaly. Paranasal sinuses: Visualized sinuses are unremarkable. No fluid levels. Mastoid air cells: Visualized mastoid air cells are well aerated. Bones: Unremarkable. No acute fracture. Soft tissues: Unremarkable. IMPRESSION: 1. No visible acute intracranial abnormality. 2. 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 ASSESSMENT: ASPECTS ([facility] Stroke Program Early CT Score) is 10.
--- NOTE | 2024-03-18 23:28 | CT_ITS ---
PROCEDURE INFORMATION: Exam: CTA Neck With Contrast Exam date and time: 03/19/2024 12:45 AM Age: 73 years old Clinical indication: Stroke-like symptoms; Lt lower extremity weakness; Additional info: Lle subjective weakness, nih 0 TECHNIQUE: Imaging protocol: Computed tomographic angiography of the neck with contrast. Exam focused on the cervical segments of the vasculature. 3D rendering (Not supervised by radiologist): MIP and/or 3D reconstructed images were created by the technologist. Radiation optimization: All CT scans at this facility use at least one of these dose optimization techniques: automated exposure control; mA and/or kV adjustment per patient size (includes targeted exams where dose is matched to clinical indication); or iterative reconstruction. Contrast material: ISOVUE; Contrast volume: 80 ml; Contrast route: INTRAVENOUS (IV); COMPARISON: CT ANGIO HEAD 03/19/2024 12:45 AM FINDINGS: Right common carotid artery: No stenosis. No dissection or occlusion. Right internal carotid artery: Heavily calcified plaque is present at the proximal right internal carotid artery causing stenosis 40%. Right external carotid artery: No occlusion or stenosis of the origin. Left common carotid artery: No stenosis. No dissection or occlusion. Left internal carotid artery: Additional calcified plaque is seen in the left proximal ICA, but no measurable stenosis. Left external carotid artery: No occlusion or stenosis of the origin. Right vertebral artery: No stenosis. No dissection or occlusion. Left vertebral artery: Chronic occlusion of left vertebral artery at the origin with intermittent segmental reconstitution via muscular collaterals. Soft tissues: See Left vertebral artery finding. Bones/joints: No acute fracture. Lungs: Emphysema demonstrated throughout both upper lobes. IMPRESSION: 1. 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 2. 40% stenosis right proximal ICA. REFERENCES: NASCET CRITERIA. The degree of stenosis in the cervical segment of the internal carotid artery is based on NASCET criteria. Normal is no stenosis. Mild is less than 50% stenosis. Moderate is 50-69% stenosis. Severe is 70% to 99% stenosis. Total occlusion is no detectable patent lumen.
--- NOTE | 2024-03-18 23:28 | CT_ITS ---
PROCEDURE INFORMATION: Exam: CT Chest With Contrast; Diagnostic Exam date and time: 03/19/2024 12:49 AM Age: 73 years old Clinical indication: Cough; Additional info: Cough, congestion, decades of smoking TECHNIQUE: Imaging protocol: Diagnostic computed tomography of the chest with contrast. Radiation optimization: All CT scans at this facility use at least one of these dose optimization techniques: automated exposure control; mA and/or kV adjustment per patient size (includes targeted exams where dose is matched to clinical indication); or iterative reconstruction. Contrast material: ISOVUE; Contrast volume: 75 ml; Contrast route: IV; COMPARISON: CR XR CHEST PORTABLE 03/19/2024 12:32 AM FINDINGS: Lungs: Diffuse airspace pattern infiltrates. No defined airspace pattern infiltrates. Pleural spaces: No pleural effusion. No pneumothorax. Heart: Unremarkable. No cardiomegaly. No pericardial effusion. Coronary arteries: Calcified coronary arteries Lymph nodes: Unremarkable. No enlarged lymph nodes. Vasculature: Unremarkable. No aortic aneurysm. Bones/joints: Unremarkable. No acute fracture. Soft tissues: Unremarkable. Other findings: No defined nodules. IMPRESSION: 1. Mild emphysema. 2. No acute airspace infiltrates or effusions.
--- NOTE | 2024-03-18 23:28 | CT_ITS ---
PROCEDURE INFORMATION: Exam: CTA Head With Contrast, Arteriography Exam date and time: 03/19/2024 12:45 AM Age: 73 years old Clinical indication: Stroke-like symptoms; Lt lower extremity weakness; Additional info: Lle subjective weakness, nih 0 TECHNIQUE: Imaging protocol: Computed tomographic angiography of the head with contrast. Exam focused on the arteries. 3D rendering (Not supervised by radiologist): MIP and/or 3D reconstructed images were created by the technologist. Radiation optimization: All CT scans at this facility use at least one of these dose optimization techniques: automated exposure control; mA and/or kV adjustment per patient size (includes targeted exams where dose is matched to clinical indication); or iterative reconstruction. Contrast material: ISOVUE; Contrast volume: 80 ml; Contrast route: INTRAVENOUS (IV); COMPARISON: CT HEAD/BRAIN WO CON 03/19/2024 12:42 AM FINDINGS: ANTERIOR CIRCULATION: Right internal carotid artery: Intracranial segment is patent with no significant stenosis. No aneurysm. Right middle cerebral artery: No occlusion or significant stenosis. No aneurysm. Right anterior cerebral artery: No occlusion or significant stenosis. No aneurysm. Left internal carotid artery: Intracranial segment is patent with no significant stenosis. No aneurysm. Left middle cerebral artery: No occlusion or significant stenosis. No aneurysm. Left anterior cerebral artery: No occlusion or significant stenosis. No aneurysm. POSTERIOR CIRCULATION: Right vertebral artery: No occlusion or significant stenosis. No aneurysm. Left vertebral artery: Chronic occlusion of the left distal vertebral artery with some degree of partial reconstitution of the V4 segment through collateral arteries. There is likely retrograde flow to the left PICA branch. Basilar artery: No occlusion or significant stenosis. No aneurysm. Right posterior cerebral artery: No occlusion or significant stenosis. No aneurysm. Left posterior cerebral artery: No occlusion or significant stenosis. No aneurysm. Brain: No definite mass, mass effect, or midline shift. Cerebral ventricles: No ventriculomegaly. Bones/joints: Unremarkable. No acute fracture. Soft tissues: Unremarkable. Other findings: Diffuse ICA terminus calcification which probably causes mild stenosis of the vessel lumen. No large vessel occlusion. IMPRESSION: 1. Diffuse atheromatous disease and bilateral ICA terminus probably causing mild stenosis. 2. No large vessel occlusion.
[2024-03-18 23:30] VITALS: BP 157/86; PULSE 94; O2SAT 94
--- NOTE | 2024-03-18 23:56 | ECG_ITS ---
APPROVED REPORT Exam: Resting ECG HR:111 bpm ECG Measurements Heart Rate 111 AXES ID 173 P 59 QRSd 77 QRS 33 QT 327 T 58 QTc 393 Conclusion SINUS TACHYCARDIA WITH FREQUENT SUPRAVENTRICULAR PREMATURE COMPLEXES ABNORMAL RHYTHM ECG No STEMI Electronically signed by : TYSON DEUTSCH, 03/19/2024 03:20:48
[2024-03-18 23:59] LABS: Basophils # 0.1 K/mm3 (0-0.2); Basophils % 0.4 % (0.1-2.0); Eosinophils # 0.1 K/mm3 (0.0-0.4); Eosinophils % 0.9 % (0.1-12.0); Hematocrit 43.2 % (42.0-52.0); Hemoglobin 14.6 g/dL (14.1-18.0); Lymphocytes # 1.4 K/mm3 (0.7-4.5); Lymphocytes % 9.8 % (10-50); Mean Corpuscular HGB Conc 33.9 g/dL (31.8-35.4); Mean Corpuscular Hemoglobin 29.9 pg (27.0-31.2); Mean Corpuscular Volume 88.3 fl (80-94); Monocytes # 0.9 K/mm3 (0.1-1.0); Neutrophils # 11.8 K/mm3 (1.8-7.8); Neutrophils % 82.9 % (37.0-80.0); Platelet Count 246 K/mm3 (142-424); Red Cell Distribution Width 13.7 % (11.5-17.5); White Blood Count 14.3 K/mm3 (4.8-10.8)
[2024-03-18 23:59] LABS: Lactate Venous 1.2 mmol/L (0.4-2.0); VBG Base Excess -2.6 mmol/L (-2.4-2.3); VBG Oxygen Saturation 60.6 % (50-70); VBG PCO2 43.1 mmol/L (35-51); VBG PH 7.35 mmol/L (7.31-7.41); VBG PO2 31.7 mmol/L (28-40); VBG Total CO2 24.4 mmol/L (23-27)
[2024-03-19] VITALS: BP 180/96; PULSE 92; O2SAT 97
[2024-03-19 00:03] LABS: Albumin Level 4.1 g/dl (3.5-5.0); Chloride 105 mmol/L (98-107); Potassium 4.9 mmoL/L (3.5-5.1); Sodium 138 mmol/L (136-145)
[2024-03-19 00:06] LABS: Alanine Aminotransferase 15 U/L (12-78); Albumin/Globulin Ratio 1.5 (1.1-1.8); Alkaline Phosphatase 84 U/L (38-126); Anion Gap 9.9 mEq/L (5-15); Aspartate Amino Transferase 28 U/L (17-59); Bilirubin,Total 0.5 mg/dl (0.2-1.3); Blood Urea Nitrogen 36 mg/dl (9-20); Calcium 9.2 mg/dl (8.4-10.2); Carbon Dioxide 28 mmol/L (22.0-30.0); Creatinine Clearance Estimated 37 mL/min (50-200); Estimated Glomerular Filt Rate 35 ml/min (>60); GFR (African American) 42 ML/MIN (>60); Globulin 2.7 g/dL (1.3-3.2); Glucose 118 mg/dl (74-100); Total Protein,Serum 6.8 g/dl (6.3-8.2)
[2024-03-19 00:18] LABS: Troponin I 0.03 ng/ml (0.00-0.034)
[2024-03-19 00:19] LABS: Adenovirus,PCR Not Detected (NotDetected); Bordetella Pertussis Not Detected (NotDetected); Chlamydophila Pneumoniae, PCR Not Detected (NotDetected); Coronavirus 19, PCR Not Detected (NotDetected); Coronavirus 229E Not Detected (NotDetected); Coronavirus NL63 Not Detected (NotDetected); Coronavirus OC43 Not Detected (NotDetected); Coronovirus HKU1,PCR Not Detected (NotDetected); Human Metapneumovirus Not Detected (NotDetected); Influenza A, PCR Not Detected (NotDetected); Influenza AH1, 2009 Not Detected (NotDetected); Influenza AH1, PCR Not Detected (NotDetected); Influenza AH3,PCR Not Detected (NotDetected); Influenza B, PCR Not Detected (NotDetected); Mycoplasma Pneumoniae, PCR Not Detected (NotDetected); Parainfluenza 1, PCR Not Detected (NotDetected); Parainfluenza 2, PCR Not Detected (NotDetected); Parainfluenza 3, PCR Not Detected (NotDetected); Parainfluenza 4, PCR Not Detected (NotDetected); Respiratory Syncytial Virus Not Detected (NotDetected); Rhinovirus/Enterovirus Not Detected (NotDetected)
[2024-03-19 00:31] VITALS: BP 180/92; PULSE 94; O2SAT 96
[2024-03-19 00:37] LABS: Microscopic, Urine URINE MICROSCOPIC (MICROSCOPIC)
[2024-03-19 00:38] LABS: Appearance,Urine CLEAR (Clear); Bilirubin,Urine Negative (Negative); Blood, Urine TRACE-I (Negative); Color,Urine YELLOW (Yellow); Glucose,Urine (UA) Negative (Negative); Ketones,Urine Negative (Negative); Leukocyte Esterase,Urine Negative (Negative); Nitrate,Urine Negative (Negative); Protein,Urine 2+ (Negative); Specific Gravity, Urine >= 1.030 (1.005-1.030); Urobilinogen,Urine 0.2 EU/dl (0.2)
[2024-03-19 00:56] LABS: Bacteria,Urine 3+ /lpf
--- NOTE | 2024-03-19 01:00 | [facility].EDGENADL ---
Discharge Plan Disposition Patient Disposition: Home, Self-Care Condition: Good Prescriptions Prescriptions: New doxycycline hyclate 100 mg capsule 100 mg PO BID 7 Days Qty: 14 0RF doxycycline hyclate 100 mg capsule 100 mg PO BID 7 Days Qty: 14 0RF No Action carvedilol 12.5 mg tablet 12.5 mg PO BID aspirin 81 mg Tablet,Delayed Release (Dr/Ec) 81 mg PO DAILY amlodipine 10 mg tablet 10 mg PO DAILY oxybutynin chloride 5 mg tablet 5 mg PO BID multivitamin Capsule 1 cap PO DAILY escitalopram oxalate 10 mg tablet 15 mg PO DAILY omega-3 fatty acids Capsule 1,000 mg PO DAILY alprazolam 0.25 mg Tablet 0.25 mg PO TIDP PRN (Reason: Anxiety) nystatin 100,000 unit/gram Powder 1 unit topical QID 10 Days Qty: 30 0RF sennosides-docusate sodium [Stimulant Laxative Plus] 8.6-50 mg Tablet 1 tab PO HS 30 Days Qty: 30 0RF Referrals Follow up/Referrals: Kip Huizar APRN [Primary Care Provider] - See instructions Activity Restrictions/Add. Instructions Additional Instructions/Restrictions: You were evaluated in the ER and are appropriate for discharge at this time. Take the prescribed doxycycline as directed, do not skip doses, do not stop taking it early. Take this medication with a full glass of water and sit upright for at least 30 minutes after taking it. Use the provided albuterol inhaler if needed for shortness of breath. Take 2 puffs up to 4 times daily if needed. Continue taking your other home medications as prescribed. Follow-up with your primary care doctor for reevaluation in a few days. Return to the ER with new, worsening, or otherwise concerning symptoms Clinical Impressions Clinical Impression: Cough, Difficulty walking, Sciatica Print Language Print Language: [place] Discharge ED Provider: Edd Lee Adult HPI General Chief complaint: Weakness Stated complaint: Left leg pain Time Seen by Provider: 03/18/24 23:11 Mode of Arrival: EMS Source of Information: Patient Limitations: No Limitations Description of Symptoms (Recalled from ER Triage Doc. by RN): pt reports left leg weakness that began today, pt has a history of this. pt denies any pain with the weakness History of Present Illness HPI narrative: 73-year-old male with a history of stroke 3 to 4 years ago that he reports did not leave him with any residual deficits, extensive smoking history, hypertension, CKD presents to the ER with complaints of left leg weakness. Patient reported to EMS and nursing staff that this is a common problem for him that comes from sitting slumped over in the chair doing his crossword puzzle. To me he states his left leg weakness was worse tonight. He states the last time he walked normally was around 4:30 PM. He states he went back to his room and sat in the chair doing crossword puzzles for many hours, after 10 PM he got up to attempt to walk outside and noticed his left leg was weak, he states with ambulation he seemed to get more weak so he called EMS and was brought to the ER for evaluation. Patient denies numbness, tingling, headache, dizziness, chest pain, nausea, vomiting, or diarrhea. He does report significant cough over the last few weeks but no shortness of breath. He denies fevers or chills. He denies hematuria or dysuria. He states he has no known history of COPD, emphysema, or cancer. Related Data Home Medications ?Medication ?Instructions ?Recorded ?Confirmed amlodipine 10 mg tablet 10 mg PO DAILY 11/18/23 11/18/23 aspirin 81 mg tablet,delayed 81 mg PO DAILY 11/18/23 11/18/23 release carvedilol 12.5 mg tablet 12.5 mg PO BID 11/18/23 11/18/23 escitalopram oxalate 10 mg tablet 15 mg PO DAILY 11/18/23 11/18/23 multivitamin 1 cap PO DAILY 11/18/23 11/18/23 omega-3 fatty acids 1,000 mg PO DAILY 11/18/23 11/18/23 oxybutynin chloride 5 mg tablet 5 mg PO BID 11/18/23 11/19/23 alprazolam 0.25 mg tablet 0.25 mg PO TIDP PRN Anxiety 11/19/23 11/19/23 Previous Rx's ?Medication ?Instructions ?Recorded nystatin 100,000 unit/gram topical 1 unit topical QID Groin rash 10 11/20/23 powder days #30 grams sennosides 8.6 mg-docusate sodium 1 tab PO HS 30 days #30 tabs 11/20/23 50 mg tablet (Stimulant Laxative Plus) doxycycline hyclate 100 mg capsule 100 mg PO BID 7 days #14 caps 03/19/24 doxycycline hyclate 100 mg capsule 100 mg PO BID 7 days #14 caps 03/19/24 Allergies Allergy/AdvReac Type Severity Reaction Status Date / Time Penicillins Allergy Verified 11/18/23 14:04 [facility] Disclaimer: The information contained in this section may have been updated after the patient was seen, as this information can be updated by other users. Medical History (Updated 03/19/24 @ 02:12 by Edd Lee MD) History of transient ischemic attack (TIA) Tobacco use disorder HTN (hypertension) Social History (Updated 11/18/23 @ 15:30 by FARRAH Hill) Smoking Status: Current every day smoker alcohol intake: never current occupational status: retired Travel in the last 8 weeks: None Other Medical History Have you received the Flu Vaccine for this season: No Have you received the Pneumonia Vaccine: No ROS Obtained: Yes Systems reviewed as appropriate & no additional complaints except as documented ROS per HPI Physical Exam General General appearance: alert and in no apparent distress Comment: Disheveled, chronically ill-appearing Head Head exam: atraumatic and normocephalic Eye Eye exam: Present PERRL, EOMI and other (Peripheral visual siegel intact); Absent jaundice, conjunctival injection or nystagmus ENT ENT exam: Present mucous membranes moist Neck Neck exam: Present normal inspection and full ROM; Absent tenderness Chest Chest inspection: Present symmetric chest wall rise Respiratory Respiratory exam: Present normal lung sounds bilaterally (Rhonchi bilaterally); Absent respiratory distress, wheezes or stridor Cardiovascular Cardiovascular exam: Present regular rate and normal rhythm Abdominal Exam Abdominal exam: Present soft; Absent distention, tenderness, guarding or rebound Extremities Exam Extremities exam: Present full ROM; Absent edema, joint swelling or calf tenderness Back Exam Back exam: Present full ROM; Absent tenderness, CVA tenderness (R) or CVA tenderness (L) Neurological Exam Neurological exam: Present alert, oriented X3 and CN II-XII intact; Absent motor sensory deficit (5/5 strength in all extremities, sensation intact throughout, negative pronator drift, normal [id number] and [id number], no neurologic deficits appreciated, NIH 0) Psychiatric Psychiatric exam: Present normal affect and normal mood Skin Skin exam: Present warm and dry Medical Decision Making Medical Records Medical records reviewed: Yes I reviewed the patient's medical records. Screening: Per USPSTF and CDC recommendations, given the prevalence of disease in our region, it is our hospital?s policy to screen for HIV and viral Hepatitis for all patients aged 18 and over and those with ongoing risk factors. Damián Inquiry Pt receiving controlled substance: No Vital Signs: 03/18/24 22:19 03/19/24 01:45 03/19/24 01:45 Temperature 98.4 F Temperature Source Oral Pulse Rate 106 H Pulse Rate [Right] 103 H Respiratory Rate 20 Blood Pressure [Right Arm] 138/72 Blood Pressure Mean [Right Arm] 94 02 Sat by Pulse Oximetry 96 100 Oxygen Delivery Method Room Air 03/19/24 01:45 Temperature Temperature Source Pulse Rate 104 H Pulse Rate [Right] Respiratory Rate Blood Pressure [Right Arm] Blood Pressure Mean [Right Arm] 02 Sat by Pulse Oximetry Oxygen Delivery Method Lab Data Lab Results 03/18/24 23:50: WBC 14.3 H, RBC 4.90, Hgb 14.6, Hct 43.2, MCV 88.3, MCH 29.9, MCHC 33.9, RDW 13.7, Plt Count 246, MPV 7.0 L, Neut % (Auto) 82.9 H, Lymph % (Auto) 9.8 L, [place] % (Auto) 6.0, Eos % (Auto) 0.9, Baso % (Auto) 0.4, Neut # (Auto) 11.8 H, Lymph # (Auto) 1.4, [place] # (Auto) 0.9, Eos # (Auto) 0.1, Baso # (Auto) 0.1, Sodium 138, Potassium 4.9, Chloride 105, Carbon Dioxide 28, Anion Gap 9.9, BUN 36 H, Creatinine 1.90 H, Estimated Creat Clear 37, Estimated GFR 35 L, Est GFR ( Amer) 42 L, Glucose 118 H, Calcium 9.2, Total Bilirubin 0.5, AST 28, ALT 15, Alkaline Phosphatase 84, Troponin I 0.03, Total Protein 6.8, Albumin 4.1, Globulin 2.7, Albumin/Globulin Ratio 1.5 03/18/24 23:53: VBG pH 7.35, VBG pCO2 43.1, VBG pO2 31.7, VBG HCO3 23.0, VBG Total CO2 24.4, VBG O2 Saturation 60.6, VBG Base Excess -2.6 L, VBG Lactic Acid 1.2 03/19/24 00:32: Urine Color Yellow, Urine Appearance Clear, Urine pH 6.0, Ur Specific [place] >= 1.030, Urine Protein 2+ A, Urine Glucose (UA) Negative, Urine Ketones Negative, Urine Blood Trace-i, Urine Nitrate Negative, Urine Bilirubin Negative, Urine Urobilinogen 0.2, Ur Leukocyte Esterase Negative, Urine WBC 5-10, Urine Bacteria 3+ 03/19/24 02:00: Troponin I 0.03 03/18/24 23:50 03/18/24 23:50 Orders (Tests/Meds): ED MEDICATIONS Discontinued Medications Generic Name Dose Route Start Last Admin Trade Name Freq PRN Reason Stop Dose Admin Albuterol Sulfate 2 puff 03/19/24 02:10 Albuterol-Hfa 90mcg/Puff Inhaler 8gm IH 03/19/24 02:11 ONCE ONE Albuterol/Ipratropium 3 ml 03/19/24 01:31 03/19/24 01:44 Ipratropium/Albuterol 3 Ml Neb IH 03/19/24 01:32 3 ml ONCE ONE Administration Doxycycline Hyclate 100 mg 03/19/24 01:31 Doxycycline Hycl 100 Mg Tablet PO 03/19/24 01:32 ONCE ONE Lactated Ringer's 1,000 mls @ 999 mls/hr 03/19/24 00:58 03/19/24 01:05 Lactated Ringer's 1000 Ml Bag IV 03/19/24 01:58 999 mls/hr .Q1H1M ONE Administration Iopamidol 155 ml 03/19/24 00:59 03/19/24 01:01 Iopamidol-370 (76%);100ml Bottle IV 03/19/24 01:00 155 ml ONCE ONE Administration Miscellaneous 1 unit 03/19/24 02:10 Aerochamber/Optihaler MC 03/19/24 02:11 ONCE ONE Sodium Chloride 50 ml 03/19/24 00:59 03/19/24 01:01 0.9 % Sodium Chloride 50 Ml Vial IV 03/19/24 01:00 50 ml ONCE ONE Administration Sodium Chloride 10 ml 03/19/24 00:59 12/05/24 01:01 Sodium Chloride 0.9% 10ml Syr (Rad Only) IV 03/19/24 01:00 10 ml ONCE ONE Administration ORDERS Category Date Time Status CT angio head Stat Cat Scan 03/18/24 23:[address] angio neck Stat Cat Scan 03/18/24 23:[address] chest w con Stat Cat Scan 03/18/24 23:[address] head/brain wo con Stat Cat Scan 03/18/24 23:28 Completed CXR --portable [XR chest portable] Stat Exams 03/18/24 23:28 Completed CBC w/Auto Diff [Complete Blood Count Auto Diff] Stat Lab 03/18/24 23:50 Completed CMP [Comprehensive Metabolic Panel] Stat Lab 03/18/24 23:50 Completed Full Resp Panel w/COVID ([facility]) Routine Lab 03/19/24 00:12 Received Trop I [Troponin I] Stat Lab 03/18/24 23:50 Completed Troponin I Q3H Lab 03/19/24 02:00 Completed Troponin I Q3H Lab 03/19/24 05:30 Ordered Urinalysis and Microscopic Stat Lab 03/19/24 00:32 Completed Urine Culture Stat Micro 03/19/24 00:32 Received VBG [Venous Blood Gas] Stat RT 03/18/24 23:53 Completed HEART Score History (anamnesis): Slightly suspicious ECG: Non-specific disturbance Age: >65 years Risk factors: 1-2 risk factors Troponin: </= normal limit HEART Score: 4 Medical Decision Narrative: In summary, this 73-year-old male with comorbidities as described in HPI presents to the emergency department today with difficulty walking, cough. On initial evaluation patient is hemodynamically stable, afebrile, he has rhonchi in his lungs but is saturating well on room air, NIH 0, no focal neurologic deficits, on further evaluation patient described sciatica type symptoms with weakness in the leg secondary to pain. He has no red flag symptoms for back pain, no midline tenderness, no saddle anesthesia, no paralysis, no bowel or bladder incontinence or retention. Differential diagnosis includes but is not limited to COPD, eczema, pneumonia, lung cancer, viral syndrome, intracranial bleed, mass, midline shift, stroke, ACS, UTI, muscle spasm, sciatica. Based on these concerns, I ordered serum labs, CT imaging, cardiac workup, urine studies. ECG personally interpreted demonstrates sinus tachycardia, rate 111, frequent PACs, normal axis, normal CT and QTc, no STEMI. Patient received IV fluids, DuoNeb, doxycycline for treatment. Doxycycline was administered due to concerns of possible atypical pneumonia with patient's extensive history of smoking and recent chronic cough that has been productive. Labs personally reviewed demonstrate leukocytosis with WBC 14.3, no anemia, normal platelets, VBG with normal pH and lactic, normal pCO2, CMP with findings of CKD which was previously known, creatinine 1.9 consistent with prior based on my review of previous labs, UA negative for findings of infection, patient's initial troponin was 0.03, repeat troponin pending. Chest x-ray personally interpreted demonstrates no acute intrathoracic abnormality, see radiology read for final rotation. CT head without contrast was personally interpreted and I do not appreciate mass, bleed, or midline shift. See radiology read for final interpretation. I discussed the CT imaging of the patient's head and head and neck vasculature with the reading radiologist. 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 He states he has multiple other chronic changes but no acute occlusion, severe stenosis, or findings of stroke. On reevaluation, patient states he feels significantly improved after using the DuoNeb, pulmonary exam is unchanged. He ambulated independently in the ER with a walker which he states he uses at home. Repeat troponin also 0.03, stable with no delta. Since patient is not having chest pain or acute shortness of breath, this is all significantly reassuring and I do not believe he has any cardiac etiology to his symptoms. Patient is appropriate for discharge at this time. Patient received albuterol MDI in the ER and was taught how to use it. This was provided to him at the time of discharge. I prescribed patient doxycycline as well. He was given instructions on symptomatic management, follow up instructions, and return precautions for the emergency department. Patient indicated understanding and was discharged in stable condition. Critical Care Critical Care Time Critical Care Time: No
[2024-03-19 01:01] VITALS: BP 180/99; PULSE 103; O2SAT 96
[2024-03-19] MEDS: SODIUM CHLORIDE 0.9% 10ML SYR (RAD ONLY) 10 ML IV (01:01)
[2024-03-19] MEDS: 0.9 % SODIUM CHLORIDE 50 ML VIAL IV (01:01)
[2024-03-19] MEDS: IOPAMIDOL-370 (76%);100ML BOTTLE 155 ML IV (01:01)
[2024-03-19] MEDS: LACTATED RINGERS 1000ML 1,000 ML 999 ML IV (01:05)
[2024-03-19] MEDS: IPRATROPIUM/ALBUTEROL 3 ML NEB IH (01:44)
[2024-03-19 01:45] VITALS: PULSE 104; PULSE 106; O2SAT 100
[2024-03-19 02:33] LABS: Troponin I 0.03 ng/ml (0.00-0.034)
[2024-03-19] MEDS: AEROCHAMBER/OPTIHALER 1 UNIT MC (02:43)
[2024-03-19] MEDS: ALBUTEROL-HFA 90MCG/PUFF INHALER 8GM 2 PUFF IH (02:43)
[2024-03-19] MEDS: DOXYCYCLINE HYCL 100 MG TABLET PO (02:43)
[2024-03-19 02:45] VITALS: BP 180/99; PULSE 101; RESP 16; TEMP 36.8; O2SAT 96
--- NOTE | 2024-03-19 02:48 | PC.NURSE ---
corwin notified that patient is ready to be discharged
== END 2024-03-19 04:20 | disposition home or self-care (01) ==
PROVIDERS: Emergency Provider Emergency Medicine; PCP Nurse Practitioner Acute Care
DX: M54.30 Sciatica, unspecified side (principal); R26.2 Difficulty in walking, not elsewhere classified; R05.9 Cough, unspecified; M79.605 Pain in left leg; R53.1 Weakness
CPT/HCPCS: 70450; 70496; 70498; 71045; 71260; 80053; 81001; 82803; 84484; 85025; 87086; 87633; 93005; 96360; 99285; J7120; J7620; Q9967

== ENCOUNTER 2024-03-27 14:42 | Observation (INO) | payer MEDICARE, MEDICAID, SELFPAY ==
[2024-03-27 14:41] VITALS: BP 131/78; PULSE 90; RESP 16; TEMP 36.4; O2SAT 99; BMI 25.1
--- NOTE | 2024-03-27 14:46 | HMH.EDGENADL ---
Discharge Plan Disposition Patient Disposition: Admitted Condition: Good Clinical Impressions Clinical Impression: Declining functional status, Sciatica Constipation Qualifiers: Constipation type: unspecified constipation type Qualified Code(s): K59.00 - Constipation, unspecified Discharge ED Provider: Koby Smith General Adult HPI <FARRAH Hill - Last Filed: 03/27/24 20:30> General Chief complaint: Recheck/Abnormal Lab/Rx Stated complaint: rectal pain Time Seen by Provider: 03/27/24 14:46 History of Present Illness HPI narrative: Patient [facility] a [facility] for acute rectal pain. Patient states that he has not had a bowel movement in 4 days. However further investigation reveals that the patient was seen here in the emergency department on March 18 or for acute sciatic pain. He was ultimately discharged back to the [facility] where it is a requirement that they be able to be self-sufficient. Patient states that he has not been and has not been out of bed for the last 4 days due to both the pain and fear of falling. He normally ambulates with a walker at baseline. He subsequently has not had a bowel movement in 4 days however he has been urinating on himself. He denies any fever chills hemoptysis hematochezia melena nausea vomiting diarrhea. Related Data Home Medications ?Medication ?Instructions ?Recorded ?Confirmed amlodipine 10 mg tablet 10 mg PO DAILY 11/18/23 03/27/24 carvedilol 12.5 mg tablet 12.5 mg PO BID 11/18/23 03/27/24 escitalopram oxalate 10 mg tablet 15 mg PO DAILY 11/18/23 03/27/24 oxybutynin chloride 5 mg tablet 5 mg PO BID 11/18/23 03/27/24 alprazolam 0.25 mg tablet 0.25 mg PO TIDP PRN Anxiety 11/19/23 03/27/24 acetaminophen 325 mg tablet 325 mg PO QIDP PRN Pain 03/27/24 03/28/24 diphenhydramine HCl 25 mg tablet 25 mg PO HS PRN ALLERGIES 03/27/24 03/27/24 (Benadryl Allergy) hydrocortisone 1 % topical cream 1 applic topical BID PRN Itching 03/27/24 03/27/24 aspirin 81 mg chewable tablet 81 mg PO DAILY 03/28/24 03/28/24 docusate sodium 100 mg capsule 100 mg PO Q8HP PRN Constipation 03/28/24 03/28/24 multivitamin 1 tab PO DAILY 03/28/24 03/28/24 omega-3 fatty acids-fish oil 300 1 cap PO BID 03/28/24 03/28/24 mg-500 mg capsule (Fish Oil) polyethylene glycol 3350 17 gram 17 g PO DAILY 03/28/24 03/28/24 oral powder packet (Miralax) Previous Rx's ?Medication ?Instructions ?Recorded nystatin 100,000 unit/gram topical 1 unit topical QID Groin rash 10 11/20/23 powder days #30 grams sennosides 8.6 mg-docusate sodium 1 tab PO HS 30 days #30 tabs 11/20/23 50 mg tablet (Stimulant Laxative Plus) doxycycline hyclate 100 mg capsule 100 mg PO BID 7 days #14 caps 03/19/24 Allergies Allergy/AdvReac Type Severity Reaction Status Date / Time Penicillins Allergy Unknown Verified 03/27/24 14:49 allergy reaction [facility] <FARRAH Hill - Last Filed: 03/27/24 20:30> [facility] Disclaimer: The information contained in this section may have been updated after the patient was seen, as this information can be updated by other users. Medical History History of transient ischemic attack (TIA) Tobacco use disorder HTN (hypertension) Social History Smoking Status: Current every day smoker alcohol intake: never current occupational status: retired Travel in the last 8 weeks: None Have you lived/traveled outside US in past 30 days?: No Contact w/someone who lives/traveled outside US past 30 days?: No Exposure to someone with infectious disease in past 14 days?: No Do you have a fever (greater than 100.4 F or 38 C)?: No Have you tested positive for COVID-19: No Exposed to someone with COVID-19 in past 14 days?: No Do you have a sore throat?: No Do you have a cough?: No Do you have any weakness?: No Do you have any diarrhea?: No Are you experiencing any unusual bleeding?: No Do you have any muscle aches/pain?: No Do you have any abdominal pain?: No Are you experiencing loss of taste or smell?: No Other Medical History Have you received the Flu Vaccine for this season: No Have you received the Pneumonia Vaccine: No <FARRAH Hill - Last Filed: 03/27/24 20:30> ROS Obtained: Yes Systems reviewed as appropriate & no additional complaints except as documented Physical Exam <FARRAH Hill - Last Filed: 03/27/24 20:30> General General appearance: alert and in no apparent distress Respiratory Respiratory exam: Present normal lung sounds bilaterally Cardiovascular Cardiovascular exam: Present regular rate Neurological Exam Neurological exam: Present alert and oriented X3 Medical Decision Making <FARRAH Hill - Last Filed: 03/27/24 20:30> Medical Records Medical records reviewed: Yes I reviewed the patient's medical records. Screening: Per USPSTF and CDC recommendations, given the prevalence of disease in our region, it is our hospital?s policy to screen for HIV and viral Hepatitis for all patients aged 18 and over and those with ongoing risk factors. Damián Inquiry Pt receiving controlled substance: No Vital Signs: 03/27/24 14:41 03/27/24 16:24 Temperature 97.6 F 98.1 F Temperature Source Oral Pulse Rate 82 Pulse Rate [Left] 90 Respiratory Rate 16 16 Blood Pressure 134/86 Blood Pressure [Right Arm] 131/78 Blood Pressure Mean [Right Arm] 95 Blood Pressure Source [Right Arm] Automatic Cuff Blood Pressure Position [Right Arm] Sitting 02 Sat by Pulse Oximetry 99 Oxygen Delivery Method Room Air Lab Data Lab results reviewed: Yes I reviewed the patient's lab results. Lab Results 03/27/24 14:15: HIV Ag/Ab Combo Qual Negative 03/27/24 14:50: WBC 12.2 H, RBC 5.23, Hgb 14.8, Hct 45.2, MCV 86.4, MCH 28.3, MCHC 32.7, RDW 13.7, Plt Count 507 H, MPV 7.0 L, Neut % (Auto) 81.0 H, Lymph % (Auto) 12.3, [place] % (Auto) 4.6, Eos % (Auto) 1.6, Baso % (Auto) 0.5, Neut # (Auto) 9.9 H, Lymph # (Auto) 1.5, [place] # (Auto) 0.6, Eos # (Auto) 0.2, Baso # (Auto) 0.1, Sodium 139, Potassium 4.3, Chloride 107, Carbon Dioxide 26, Anion Gap 10.3, BUN 38 H, Creatinine 1.70 H, Estimated Creat Clear 42, Estimated GFR 39 L, Est GFR ( Amer) 48 L, Glucose 113 H, Calcium 9.2 03/28/24 07:02 03/28/24 07:02 Orders (Tests/Meds): ED MEDICATIONS Generic Name Dose Route Start Last Admin Trade Name Freq PRN Reason Stop Dose Admin Alprazolam 0.25 mg 03/27/24 17:01 Alprazolam 0.25mg Tablet PO 04/26/24 17:00 TIDP PRN Anxiety Carvedilol 12.5 mg 03/27/24 21:00 03/28/24 09:54 Carvedilol 12.5mg Tablet PO 04/26/24 20:59 12.5 mg BID JOHNATHAN Administration Citalopram Hydrobromide 30 mg 03/28/24 09:00 03/28/24 09:54 Citalopram 20mg Tablet PO 04/27/24 08:59 30 mg DAILY JOHNATHAN Administration Enoxaparin Sodium 40 mg 03/28/24 09:00 03/28/24 09:55 Enoxaparin 40mg/0.4ml Syringe SUBCUT 04/27/24 08:59 Not Given DAILY JOHNATHAN Hydralazine HCl 10 mg 03/27/24 20:03 03/27/24 20:06 Hydralazine 20mg/Ml Vial IV 04/26/24 20:02 10 mg Q6HP PRN Administration SBP > 160 Nystatin 1 gm 03/27/24 17:00 03/28/24 12:56 Nystatin Topical Powder 30gm TP 04/26/24 16:59 1 gm QID JOHNATHAN Administration Oxybutynin Chloride 5 mg 03/27/24 21:00 03/28/24 09:54 Oxybutynin 5mg Tab PO 04/26/24 20:59 5 mg BID JOHNATHAN Administration Polyethylene Glycol 17 gm 03/27/24 16:01 03/27/24 18:31 Polyethylene Glycol 3350 17 Gm Packet PO 04/26/24 16:00 17 gm Q6H PRN Administration Constipation Senna/Docusate Sodium 2 tab 03/27/24 21:00 03/28/24 09:54 Sennosides 8.6mg/Docusate 50mg Tablet PO 04/26/24 20:59 2 tab BID JOHNATHAN Administration Discontinued Medications Generic Name Dose Route Start Last Admin Trade Name Lópezq PRN Reason Stop Dose Admin Sodium Phosphate 133 ml 03/27/24 16:01 03/27/24 17:00 Sodium Phos/Biphosphate Fleet 133ml Enema RC 03/27/24 16:02 Not Given ONCE ONE ORDERS Category Date Time Status KUB (single view) [XR KUB] Stat Exams 03/27/24 15:00 Taken BMP [Basic Metabolic Panel] Stat Lab 03/27/24 14:50 Completed CBC w/Auto Diff [Complete Blood Count Auto Diff] Stat Lab 03/27/24 14:50 Completed Complete Blood Count Auto Diff AMLAB Lab 03/28/24 07:02 Completed Comprehensive Metabolic Panel AMLAB Lab 03/28/24 07:02 Completed HIV Combo Stat Lab 03/27/24 14:15 Completed Hep C Ab with Reflex to RNA Stat Lab 03/27/24 14:50 Received Magnesium AMLAB Lab 03/28/24 07:02 Completed Medical Decision Narrative: In summary patient is a 73-year-old male who presents to the emergency department for evaluation of initially rectal pain and constipation however after initial interview functional decline. Patient is hemodynamically stable upon arrival, febrile. Physical exam is remarkable for a well-nourished well-developed 73-year-old gentleman who has a strong odor of urine about him but otherwise is in no acute distress. Patient has a mildly diffusely tender abdomen to palpation but no rebound or guarding or rigidity. Bowel sounds normal active no focal deficits no neurologic deficiencies. Differential diagnosis includes functional decline versus urinary tract infection versus sciatica etc. Initial workup will be conducted with KUB hematologic labs PT OT evaluation. Initial interventions are deferred until workup complete. Initial workup reviewed by me and PT OT evaluation shows that the patient has significant functional decline and requires at least partial assist to arise from a seated to standing position. The recommendations are for acute rehab placement. His hematologic labs are nonactionable and my informal interpretation of his KUB shows a significant rectal stool ball.. Given this I had interactive discussion with hospital medicine and patient will be admitted for further evaluation and care. <Sunny Karsner, MD - Last Filed: 03/28/24 15:53> Vital Signs: 03/27/24 14:41 03/27/24 16:24 Temperature 97.6 F 98.1 F Temperature Source Oral Pulse Rate 82 Pulse Rate [Left] 90 Respiratory Rate 16 16 Blood Pressure 134/86 Blood Pressure [Right Arm] 131/78 Blood Pressure Mean [Right Arm] 95 Blood Pressure Source [Right Arm] Automatic Cuff Blood Pressure Position [Right Arm] Sitting 02 Sat by Pulse Oximetry 99 Oxygen Delivery Method Room Air Lab Data Lab Results 03/27/24 14:15: HIV Ag/Ab Combo Qual Negative 03/27/24 14:50: WBC 12.2 H, RBC 5.23, Hgb 14.8, Hct 45.2, MCV 86.4, MCH 28.3, MCHC 32.7, RDW 13.7, Plt Count 507 H, MPV 7.0 L, Neut % (Auto) 81.0 H, Lymph % (Auto) 12.3, [place] % (Auto) 4.6, Eos % (Auto) 1.6, Baso % (Auto) 0.5, Neut # (Auto) 9.9 H, Lymph # (Auto) 1.5, [place] # (Auto) 0.6, Eos # (Auto) 0.2, Baso # (Auto) 0.1, Sodium 139, Potassium 4.3, Chloride 107, Carbon Dioxide 26, Anion Gap 10.3, BUN 38 H, Creatinine 1.70 H, Estimated Creat Clear 42, Estimated GFR 39 L, Est GFR ( Amer) 48 L, Glucose 113 H, Calcium 9.2 Orders (Tests/Meds): ED MEDICATIONS Generic Name Dose Route Start Last Admin Trade Name Freq PRN Reason Stop Dose Admin Alprazolam 0.25 mg 03/27/24 17:01 Alprazolam 0.25mg Tablet PO 04/26/24 17:00 TIDP PRN Anxiety Carvedilol 12.5 mg 03/27/24 21:00 03/28/24 09:54 Carvedilol 12.5mg Tablet PO 04/26/24 20:59 12.5 mg BID JOHNATHAN Administration Citalopram Hydrobromide 30 mg 03/28/24 09:00 03/28/24 09:54 Citalopram 20mg Tablet PO 04/27/24 08:59 30 mg DAILY JOHNATHAN Administration Enoxaparin Sodium 40 mg 03/28/24 09:00 03/28/24 09:55 Enoxaparin 40mg/0.4ml Syringe SUBCUT 04/27/24 08:59 Not Given DAILY JOHNATHAN Hydralazine HCl 10 mg 03/27/24 20:03 03/27/24 20:06 Hydralazine 20mg/Ml Vial IV 04/26/24 20:02 10 mg Q6HP PRN Administration SBP > 160 Nystatin 1 gm 03/27/24 17:00 03/28/24 12:56 Nystatin Topical Powder 30gm TP 04/26/24 16:59 1 gm QID JOHNATHAN Administration Oxybutynin Chloride 5 mg 03/27/24 21:00 03/28/24 09:54 Oxybutynin 5mg Tab PO 04/26/24 20:59 5 mg BID JOHNATHAN Administration Polyethylene Glycol 17 gm 03/27/24 16:01 03/27/24 18:31 Polyethylene Glycol 3350 17 Gm Packet PO 04/26/24 16:00 17 gm Q6H PRN Administration Constipation Senna/Docusate Sodium 2 tab 03/27/24 21:00 03/28/24 09:54 Sennosides 8.6mg/Docusate 50mg Tablet PO 04/26/24 20:59 2 tab BID JOHNATHAN Administration Discontinued Medications Generic Name Dose Route Start Last Admin Trade Name Freq PRN Reason Stop Dose Admin Sodium Phosphate 133 ml 03/27/24 16:01 03/27/24 17:00 Sodium Phos/Biphosphate Fleet 133ml Enema RC 03/27/24 16:02 Not Given ONCE ONE ORDERS Category Date Time Status KUB (single view) [XR KUB] Stat Exams 03/27/24 15:00 Taken BMP [Basic Metabolic Panel] Stat Lab 03/27/24 14:50 Completed CBC w/Auto Diff [Complete Blood Count Auto Diff] Stat Lab 03/27/24 14:50 Completed Complete Blood Count Auto Diff AMLAB Lab 03/28/24 07:02 Completed Comprehensive Metabolic Panel AMLAB Lab 03/28/24 07:02 Completed HIV Combo Stat Lab 03/27/24 14:15 Completed Hep C Ab with Reflex to RNA Stat Lab 03/27/24 14:50 Received Magnesium AMLAB Lab 03/28/24 07:02 Completed Medical Decision Narrative: In summary patient is a 73-year-old male who presents to the emergency department for evaluation of initially rectal pain and constipation however after initial interview functional decline. Patient is hemodynamically stable upon arrival, febrile. Physical exam is remarkable for a well-nourished well-developed 73-year-old gentleman who has a strong odor of urine about him but otherwise is in no acute distress. Patient has a mildly diffusely tender abdomen to palpation but no rebound or guarding or rigidity. Bowel sounds normal active no focal deficits no neurologic deficiencies. Differential diagnosis includes functional decline versus urinary tract infection versus sciatica etc. Initial workup will be conducted with KUB hematologic labs PT OT evaluation. Initial interventions are deferred until workup complete. Initial workup reviewed by me and PT OT evaluation shows that the patient has significant functional decline and requires at least partial assist to arise from a seated to standing position. The recommendations are for acute rehab placement. His hematologic labs are nonactionable and my informal interpretation of his KUB shows a significant rectal stool ball.. Given this I had interactive discussion with hospital medicine and patient will be admitted for further evaluation and care. I was consulted by the RAMOS, and we discussed the complexity of the problems being addressed. I approve the treatment and management plan for this patient's care in the emergency department, thus performing a substantive portion of the medical decision making. Sunny Fuller MD Critical Care <FARRAH Hill - Last Filed: 03/27/24 20:30> Critical Care Time Critical Care Time: No
--- NOTE | 2024-03-27 14:59 | PC.NURSE ---
PT-OT NOTIFIED OF CONSULT
--- NOTE | 2024-03-27 15:00 | XR_ITS ---
FINAL REPORT CLINICAL HISTORY: No bowel movement in 4 days FINDINGS: The visualized intestinal gas pattern appears unremarkable without evidence to suggest obstruction. No abnormal radiopacities are seen in the abdomen. There is mild fecal impaction. IMPRESSION: Mild fecal impaction. Reviewed, Interpreted and Dictated by Karlee Huston MD Transcribed by Nidhi Beltran Authenticated and [facility]
--- NOTE | 2024-03-27 15:07 | PC.NURSE ---
PT TO XR
--- NOTE | 2024-03-27 15:51 | HMH.PTEV ---
Physical Therapy Evaluation Rehab PT IP Evaluation Start: 03/27/24 15:01 Freq: ONCE Status: Active Protocol: Document 03/27/24 15:47 BILLY (Rec: 03/27/24 15:51 BILLY [id number]) Subjective/History History History Pt is a 73 y/o male who presents to [facility] for sciatica, constipation, and functional decline. Subjective Subjective Pt reports he lives at [facility]. Pt reports he is here for constipation complaints. Reports he is normally IND with all mobility but has recently been unable to walk. New diagnosis of cancer in past 12 No months? Rehab PT IP Eval Objective Appearance Patient Behavior Appropriate,Cooperative Patient Orientation Situation Difficulty following instructions none Speech Pattern Clear Ambulation Patient Able to Ambulate No Balance Ability to Arise Able, uses arms to help Sitting Balance Steady, safe Standing Balance Unsteady Transfers Bed Transfer Ability Moderate x 2 (50% assist) Sit to Stand Bed Transfer Ability Moderate x 1 (50% assist) Rehab PT IP prob,goals,plan Problems Date of Evaluation: 03/27/24 PT IP Problems Bed Mobility,Transfers,Gait, Self care,Safety Rehab Potential Rehab Potential Good Plan PT Intervention Plan Bed Mobility,Transfers,Gait, Balance,Safety,Therapeutic Exercise Discharge Goals Bed Transfer Ability Minimal x 1 (25% assist) Sit to Stand Chair Transfer Ability Minimal x 1 (25% assist) Ambulation Assistive Device Rolling Walker Ambulation Distance (feet) 10 Discharge Plan PT Discharge Plan Initial physical therapy evaluation performed. Patient presents below baseline at this time in functional mobility, transfers, and strength. Pt not safe to return home at this time d/t current level of functional mobility. Pt unable to ambulate at this time without significant assistance. Able to take side steps at EOB with Mod A x 2. PT recommending short-term rehabilitation stay upon d/c from [facility]. Pt would benefit from skilled PT while at [facility] to prevent further functional decline and maximize safety with mobility. Eval Complexity Eval Charge Codes 81753 - Moderate Complexity PHYSICIAN CERTIFICATION: I certify the specified therapy services for Biju Aguillon are required, authorized, and reviewed every 30 days.
[2024-03-27 15:52] LABS: Chloride 107 mmol/L (98-107); Potassium 4.3 mmoL/L (3.5-5.1); Sodium 139 mmol/L (136-145)
[2024-03-27 15:55] LABS: Anion Gap 10.3 mEq/L (5-15); Blood Urea Nitrogen 38 mg/dl (9-20); Calcium 9.2 mg/dl (8.4-10.2); Carbon Dioxide 26 mmol/L (22.0-30.0); Creatinine Clearance Estimated 42 mL/min (50-200); Estimated Glomerular Filt Rate 39 ml/min (>60); GFR (African American) 48 ML/MIN (>60); Glucose 113 mg/dl (74-100)
[2024-03-27 15:57] LABS: Basophils # 0.1 K/mm3 (0-0.2); Basophils % 0.5 % (0.1-2.0); Eosinophils # 0.2 K/mm3 (0.0-0.4); Eosinophils % 1.6 % (0.1-12.0); Hematocrit 45.2 % (42.0-52.0); Hemoglobin 14.8 g/dL (14.1-18.0); Lymphocytes # 1.5 K/mm3 (0.7-4.5); Lymphocytes % 12.3 % (10-50); Mean Corpuscular HGB Conc 32.7 g/dL (31.8-35.4); Mean Corpuscular Hemoglobin 28.3 pg (27.0-31.2); Mean Corpuscular Volume 86.4 fl (80-94); Monocytes # 0.6 K/mm3 (0.1-1.0); Monocytes % 4.6 % (1.7-9.3); Neutrophils # 9.9 K/mm3 (1.8-7.8); Platelet Count 507 K/mm3 (142-424); Red Blood Count 5.23 M/mm3 (4.60-6.20); Red Cell Distribution Width 13.7 % (11.5-17.5); White Blood Count 12.2 K/mm3 (4.8-10.8)
--- NOTE | 2024-03-27 16:00 | HMH.OTEV ---
OT Inpatient Evaluation Rehab OT IP Evaluation Start: 03/27/24 15:01 Freq: ONCE Status: Active Protocol: Document 03/27/24 15:50 [id number] Rehab OT IP Assessment Subjective History Pt oriented x 2 on arrival. Pt agreeable to engage in therapy evaluation. Pt presents to the ER today due to sciatica pain and constipation. Pt's appearance is not well kept and has obvious urine soaked pants. Pt reports he has been bed ridden for several days due to his sciatica pain and he has been unable to get up and complete daily activities. He currently resides at [facility]. Pt claims he is normally independent with all ADLs and functional transfers; he does use a rolling walker. Subjective When am I going to go home. Pt resting in bed on arrival. Pt agreeable to engage in therapy session. Therapist instructed patient on bed mobility to go from supine to sitting at eob with mod assist (lower extremities). Pt complained of significant sciatic pain during this transfer. Pt was able to sit at eob with good static sitting balance and sba. Pt completed sit to stand with mod assist x 2. Pt able to stand with min assist x 2 for ~30 seconds with forward lean. Pt then completed 3 side steps with mod assist x 2 and sat back down at eob. Pt reports he did not feel comfortable walking further due to pain. Mod assist x 2 required to go from sitting to supine in bed. Pt was left in bed with call hart and all other needs in reach. Objective Patient Orientation Person,Birthday Right Upper Extremity Gross ROM Min Limitation <25% Left Upper Extremity Gross ROM Min Limitation <25% Shoulder ROM Limitations Muscle Weakness Elbow ROM Limitations Muscle Weakness Wrist Limitations of Range of Motion Muscle Weakness Bed Mobility bed mobility-scooting,bed mobility - supine/sit,bed mobility - rolling Assist Level Moderate x 2 (50% assist) Transfer Training Sit/Stand Transfer Assist Level Moderate x 2 (50% assist) Rehab OT IP prob,goals,plan Problems Date of Evaluation: 03/27/24 OT IP Problems Bed Mobility,Transfers,Balance ,Self care,Safety Rehab Potential Rehab Potential Good Equipment Needs Assistive Devices Rolling / Wheeled Walker Plan OT intervention Plan Bed Mobility,Transfers,Balance ,Self care,Safety,Therapeutic Exercise OT Plan Frequency Daily Duration LOS Discharge Goals Bed Mobility Ability Assistance x1 Sit to Stand Chair Transfer Ability Moderate x 1 (50% assist) Chair Transfer Ability Moderate x 1 (50% assist) Chair Transfer Technique Sit to/from Ambulatory Chair Transfer Assistive Devices Rolling Walker Feeding Ability Assist with Tray Set Up Lower Body Dressing Ability Minimal Assistance Upper Body Dressing Ability Contact Guard Bathing Ability Moderate Assistance Performing Toilet Hygiene Ability Moderate Assistance Overall Commode/Toilet Transfer Ability Minimal Assistance Commode/Toilet Transfer Technique Sit to/from Ambulatory Commode/Toilet Transfer Assistive Raised Toilet Seat,Grab Bars Devices Oral Care Assist Minimal Assistance Decrease in Endurance No Discharge Plan OT Discharge Plan Pt will continue to be seen for OT services while at [facility]. At this time, pt would benefit most from short term rehab at SNF following discharge from hospital. Continued skilled therapy is important in order for patient to improve strength, safety, endurance, ADL independence, and functional transfers to reach PLOF. Eval Complexity Eval Charge Codes 80237 - Moderate Complexity PHYSICIAN CERTIFICATION: I certify the specified therapy services for Biju Aguillon are required, authorized, and reviewed every 30 days.
--- NOTE | 2024-03-27 16:03 | P.HP_ITS ---
History of Present Illness *Admission Date: 03/27/24 *Reason for visit:: rectal pain, failure to thrive, constipation *History of present illness: Mr. Aguillon is a 73-year-old male who lives at [facility]. Presented to the ER via EMS due to pain in his bottom and inability to walk. Was previously admitted 4 months ago for concern for ALAINA and severe constipation. Also having difficulty walking, had been on the toilet for an hour and was unable to get off the toilet under his own power. On presentation today, patient having severe abdominal and rectal pain with spasms. Denies any chest pain or shortness of breath. Labs stable with chronic kidney disease. Mild elevation of white count but otherwise no signs of infection. Abdominal x- ray obtained showing severe constipation and stool burden. Therapy evaluated patient in the ER, unable to ambulate independently. Would benefit from placement. Not safe to return back to his personal shelter. Medicine consulted for admission and further management. On arrival to the floor, patient has not bathed in some time. Pants soiled with urine. On room air. Afebrile. Denies any nausea, vomiting, diarrhea, chest pain, confusion beyond his baseline as he chuckles. Recognizes me from several months ago. [facility] Disclaimer: The information contained in this section may have been updated after the patient was seen, as this information can be updated by other users. Medical History History of transient ischemic attack (TIA) Tobacco use disorder HTN (hypertension) Social History Smoking Status: Current every day smoker alcohol intake: never current occupational status: retired Travel in the last 8 weeks: None Have you lived/traveled outside US in past 30 days?: No Contact w/someone who lives/traveled outside US past 30 days?: No Exposure to someone with infectious disease in past 14 days?: No Do you have a fever (greater than 100.4 F or 38 C)?: No Have you tested positive for COVID-19: No Exposed to someone with COVID-19 in past 14 days?: No Do you have a sore throat?: No Do you have a cough?: No Do you have any weakness?: No Do you have any diarrhea?: No Are you experiencing any unusual bleeding?: No Do you have any muscle aches/pain?: No Do you have any abdominal pain?: No Are you experiencing loss of taste or smell?: No Other Medical History Have you received the Flu Vaccine for this season: No Have you received the Pneumonia Vaccine: No Review of Systems Review of Systems Review of systems (narrative): 14 point review of systems performed, pertinent positives and negatives as per H PI Meds Home Medications and Allergies Home Medications ?Medication ?Instructions ?Recorded ?Confirmed ?Type amlodipine 10 mg tablet 10 mg PO DAILY 11/18/23 11/18/23 History aspirin 81 mg tablet,delayed 81 mg PO DAILY 11/18/23 11/18/23 History release carvedilol 12.5 mg tablet 12.5 mg PO BID 11/18/23 11/18/23 History escitalopram oxalate 10 mg tablet 15 mg PO DAILY 11/18/23 11/18/23 History multivitamin 1 cap PO DAILY 11/18/23 11/18/23 History omega-3 fatty acids 1,000 mg PO DAILY 11/18/23 11/18/23 History oxybutynin chloride 5 mg tablet 5 mg PO BID 11/18/23 11/19/23 History alprazolam 0.25 mg tablet 0.25 mg PO TIDP PRN Anxiety 11/19/23 11/19/23 History nystatin 100,000 unit/gram topical 1 unit topical QID Groin rash 10 11/20/23 Rx powder days #30 grams sennosides 8.6 mg-docusate sodium 1 tab PO HS 30 days #30 tabs 11/20/23 Rx 50 mg tablet (Stimulant Laxative Plus) doxycycline hyclate 100 mg capsule 100 mg PO BID 7 days #14 caps 03/19/24 Rx doxycycline hyclate 100 mg capsule 100 mg PO BID 7 days #14 caps 03/19/24 Rx New Prescriptions to Start Prescriptions: Allergies Allergy/AdvReac Type Severity Reaction Status Date / Time Penicillins Allergy Unknown Verified 03/27/24 14:49 allergy reaction Exam Data for Last 24 hours Vital signs and Labs for Last 24 Hours: Temp Pulse Resp BP Pulse Ox O2 Del Method 97.6 F 90 16 131/78 99 Room Air 03/27/24 14:41 03/27/24 14:41 03/27/24 14:41 03/27/24 14:41 03/27/24 14:41 03/27/24 14:41 I & O for Last 24 hours: Intake & Output 03/24/24 03/25/24 03/26/24 03/27/24 23:59 23:59 23:59 23:59 Weight 79.379 kg Constitutional Constitutional: no acute distress, average body habitus, chronically ill appearing, disheveled and cooperative *Routine HEENT Exam Head: Present normocephalic Eye: Present EOMI and PERRL ENT: Present mucous membranes moist *Routine Neck Exam Neck: Present supple; Absent lymphadenopathy *Routine Respiratory Exam Respiratory: Present CTA bilaterally; Absent respiratory distress, rhonchi, stridor, wheezes or crackles *Routine Cardiovascular Exam Cardiovascular: Present RRR *Routine Abdominal Exam Abdominal: Present soft and normoactive bowel sounds; Absent tenderness *Routine Rectal Exam Rectal:: deferred *Routine Genitalia Exam Genitalia:: deferred *Routine Extremities Exam Extremities: Absent cyanosis, clubbing or edema Comments: Long unkempt toenails *Routine Skin Exam Skin: Present intact and warm; Absent rash *Routine Neurological Exam Neurological: Present alert, oriented X3 and moving all extremities; Absent altered mental status Comments: Globally weak, unable to stand independently Assessment and Plan *Assessment and plan (1) Declining functional status: Status: Acute Category: Medical Code(s): R53.81 - Other malaise (2) Sciatica: Status: Acute Category: Medical Code(s): M54.30 - Sciatica, unspecified side (3) Constipation: Status: Acute Category: Medical Code(s): K59.00 - Constipation, unspecified (4) Chronic kidney disease: Status: Acute Qualifiers: Chronic kidney disease stage: unspecified stage Qualified Code(s): N18.9 - Chronic kidney disease, unspecified Category: Medical Code(s): N18.9 - Chronic kidney disease, unspecified (5) Debility: Status: Acute Category: Medical Code(s): R53.81 - Other malaise (6) Tobacco use disorder: Status: Acute Category: Medical Code(s): F17.200 - Nicotine dependence, unspecified, uncomplicated (7) HTN (hypertension): Status: Acute Category: Medical Code(s): I10 - Essential (primary) hypertension Plan 73-year-old male who has been a resident of [place] for the past year, presented to the ER with weakness, constipation, rectal spasms. Found to be unstable and too weak to return to his personal shelter. Discussed case with ER physician, request admission for placement and further therapy treatment along with regimen for bowels. I agreed to admit. Initiate aggressive bowel regimen. Necessitating admission. Problems addressed as follows: Constipation Rectal spasm -Will initiate enema x 1, MiraLAX every 6 hours, docusate senna 2 capsules twice daily -Per my review of abdominal x-ray has large stool burden -White count elevated at 12, no clear source of infection. Holding on antibiotics. Will reevaluate with morning labs if has bowel movements. Candidal dermatitis: Continue nystatin powder and skin folds CKD -Kidney function appears to be his baseline With creatinine 1.7, BUN 38. Tolerating p.o. liquids. Repeat CBC, CMP, magnesium ordered for the morning. Hypertension: Continue home regimen of carvedilol 12.5 mg twice daily, amlodipine 10 mg daily Anxiety/depression: Continue Lexapro 10 mg daily Full code Lovenox 40 mg subcu daily Cardiac diet
--- NOTE | 2024-03-27 16:03 | PC.NURSE ---
called house for admission and waiting for bed assignment
--- NOTE | 2024-03-27 16:19 | PC.NURSE ---
Report called to Manohar MULLEN
[2024-03-27 16:24] VITALS: BP 134/86; PULSE 82; RESP 16; TEMP 36.7; O2SAT 97
[2024-03-27 16:30] VITALS: BP 135/81; PULSE 66; RESP 16; TEMP 36.6; O2SAT 96; BMI 25.1
--- NOTE | 2024-03-27 17:18 | PC.NURSE ---
upon assessment of pt on arrival to room, pt was soiled with urine and had not been bathed for quite some time, while pt was being given a shower he had large bowel movement, pt stated he felt much better.
[2024-03-27] MEDS: NYSTATIN TOPICAL POWDER 30GM TP ×2 (17:50→20:06)
[2024-03-27] MEDS: POLYETHYLENE GLYCOL 3350 17 GM PACKET PO (18:31)
[2024-03-27 19:44] VITALS: BP 185/101; PULSE 88; RESP 20; TEMP 36.4; O2SAT 98
[2024-03-27] MEDS: CARVEDILOL 12.5MG TABLET 12.5 MG PO (20:05)
[2024-03-27] MEDS: OXYBUTYNIN 5MG TAB 5 MG PO (20:05)
[2024-03-27] MEDS: SENNOSIDES 8.6MG/DOCUSATE 50MG TABLET 2 TAB PO (20:05)
[2024-03-27] MEDS: HYDRALAZINE 20MG/ML VIAL 10 MG IV (20:06)
[2024-03-27 22:00] VITALS: BP 135/67; PULSE 85
--- NOTE | 2024-03-27 22:22 | PC.NURSE ---
1950:Contacted Dr. Carter Pt BP-185/101 MANUAL, orders received see 2199: Pt BP- 135/67, Pt resting comfortably
[2024-03-28 04:00] VITALS: BP 143/64; PULSE 75; RESP 16; TEMP 36.6; O2SAT 93; BMI 24.7
[2024-03-28 07:47] LABS: Basophils # 0.1 K/mm3 (0-0.2); Basophils % 0.6 % (0.1-2.0); Eosinophils # 0.2 K/mm3 (0.0-0.4); Eosinophils % 1.8 % (0.1-12.0); Hematocrit 39.7 % (42.0-52.0); Hemoglobin 13.4 g/dL (14.1-18.0); Lymphocytes # 2.2 K/mm3 (0.7-4.5); Lymphocytes % 20.3 % (10-50); Mean Corpuscular HGB Conc 33.7 g/dL (31.8-35.4); Mean Corpuscular Hemoglobin 28.9 pg (27.0-31.2); Mean Corpuscular Volume 85.8 fl (80-94); Monocytes # 0.8 K/mm3 (0.1-1.0); Monocytes % 7.3 % (1.7-9.3); Neutrophils # 7.5 K/mm3 (1.8-7.8); Neutrophils % 69.9 % (37.0-80.0); Platelet Count 443 K/mm3 (142-424); Red Blood Count 4.62 M/mm3 (4.60-6.20); Red Cell Distribution Width 13.7 % (11.5-17.5); White Blood Count 10.7 K/mm3 (4.8-10.8)
--- NOTE | 2024-03-28 07:52 | P.PN_ITS ---
Subjective *Date: 03/28/24 *Time: 17:34 Interval history: Patient feeling little better today. Remains on room air. Has had multiple bowel movements. Seeing some improvement in abdominal pain. No longer having rectal spasms Medical Exam Vital signs and Labs for Last 24 Hours: Vital Signs Temp Pulse Pulse Resp BP BP Pulse Ox 03/28/24 06:40 03/28/24 05:00 03/28/24 04:00 97.8 F 75 16 143/64 H 93 L 03/28/24 02:52 03/28/24 01:00 03/27/24 23:00 03/27/24 22:00 85 135/67 03/27/24 21:00 03/27/24 20:00 03/27/24 19:44 97.5 F L 88 20 185/101 H 98 03/27/24 18:48 03/27/24 17:00 03/27/24 16:30 97.8 F 66 16 135/81 96 03/27/24 16:24 98.1 F 82 16 134/86 03/27/24 14:41 97.6 F 90 16 131/78 99 O2 Del Method 03/28/24 06:40 Room Air 03/28/24 05:00 Room Air 03/28/24 04:00 Room Air 03/28/24 02:52 Room Air 03/28/24 01:00 Room Air 03/27/24 23:00 Room Air 03/27/24 22:00 03/27/24 21:00 Room Air 03/27/24 20:00 Room Air 03/27/24 19:44 Room Air 03/27/24 18:48 Room Air 03/27/24 17:00 Room Air 03/27/24 16:30 Room Air 03/27/24 16:24 03/27/24 14:41 Room Air Intake and Output 03/27/24 03/27/24 03/28/24 15:59 23:59 07:59 Intake Total 535 / 535 Output Total 180 / 300 540 / 540 Balance 355 / 235 -540 / -540 Intake: Intake, Oral Amount 535 / 535 Output: Output, Urine Amount 180 / 300 540 / 540 Other: Number of Voids 1 Number of Unmeasured Voids 1 Number of Bowel Movements 1 Weight 79.379 kg 79.379 kg 78.245 kg Patient Weight 03/28/24 23:59 Weight 78.245 kg Laboratory Results - last 24 hr 03/27/24 14:50: WBC 12.2 H, RBC 5.23, Hgb 14.8, Hct 45.2, MCV 86.4, MCH 28.3, MCHC 32.7, RDW 13.7, Plt Count 507 H, MPV 7.0 L, Neut % (Auto) 81.0 H, Lymph % (Auto) 12.3, [place] % (Auto) 4.6, Eos % (Auto) 1.6, Baso % (Auto) 0.5, Neut # (Auto) 9.9 H, Lymph # (Auto) 1.5, [place] # (Auto) 0.6, Eos # (Auto) 0.2, Baso # (Auto) 0.1, Sodium 139, Potassium 4.3, Chloride 107, Carbon Dioxide 26, Anion Gap 10.3, BUN 38 H, Creatinine 1.70 H, Estimated Creat Clear 42, Estimated GFR 39 L, Est GFR ( Amer) 48 L, Glucose 113 H, Calcium 9.2 03/28/24 07:02: WBC 10.7, RBC 4.62, Hgb 13.4 L, Hct 39.7 L, MCV 85.8, MCH 28.9, MCHC 33.7, RDW 13.7, Plt Count 443 H, MPV 7.0 L, Neut % (Auto) 69.9, Lymph % (Auto) 20.3, [place] % (Auto) 7.3, Eos % (Auto) 1.8, Baso % (Auto) 0.6, Neut # (Auto) 7.5, Lymph # (Auto) 2.2, [place] # (Auto) 0.8, Eos # (Auto) 0.2, Baso # (Auto) 0.1 I & O for Labs for Last 24 Hours: Intake & Output 03/25/24 03/26/24 03/27/24 03/28/24 23:59 23:59 23:59 23:59 Intake Total 535 / 535 Output Total 180 / 300 540 / 540 Balance 355 / 235 -540 / -540 Weight 79.379 kg 78.245 kg Constitutional: Present no acute distress, average body habitus and chronically ill appearing Head: Present atraumatic and normocephalic Respiratory: Present normal respiratory effort; Absent rhonchi, wheezes or crackles Cardiac: Present Reg Rate and Rhythm GI: Present soft, distention, tenderness (Improving) and normal bowel sounds Extremities: Present normal inspection and full ROM Skin: Present intact; Absent erythema Neuro: Present Grossly Intact, alert, awake, oriented x 3 and moves all extremities Comment:: Shuffling gait Assessment and Plan *Assessment and plan (1) Declining functional status: Status: Acute Category: Medical Code(s): R53.81 - Other malaise (2) Sciatica: Status: Acute Category: Medical Code(s): M54.30 - Sciatica, unspecified side (3) Constipation: Status: Acute Category: Medical Code(s): K59.00 - Constipation, unspecified (4) Chronic kidney disease: Status: Acute Qualifiers: Chronic kidney disease stage: unspecified stage Qualified Code(s): N18.9 - Chronic kidney disease, unspecified Category: Medical Code(s): N18.9 - Chronic kidney disease, unspecified (5) Debility: Status: Acute Category: Medical Code(s): R53.81 - Other malaise (6) Tobacco use disorder: Status: Acute Category: Medical Code(s): F17.200 - Nicotine dependence, unspecified, uncomplicated (7) HTN (hypertension): Status: Acute Category: Medical Code(s): I10 - Essential (primary) hypertension Plan 73-year-old male who has been a resident of [place] for the past year, pres ented to the ER with weakness, constipation, rectal spasms. Found to be unstable and too weak to return to his personal [facility]. Discussed case with ER physician, request admission for placement and further therapy treatment along with regimen for bowels. I agreed to admit. Continue aggressive bowel regimen, having response. Multiple bowel movements in the past 24 hours with improvement in abdominal pain and rectal spasms. Problems addressed as follows: Constipation Rectal spasm -Has had multiple bowel movements, did not require enema. Continue MiraLAX every 6 hours with docusate senna 2 capsules twice daily -White count improved to 10.7. Continue to hold antibiotics. Declining functional status: Evaluated by therapy, recommend placement. Case management assisting. candidal dermatitis: Continue nystatin powder and skin folds CKD -Kidney function remained stable with BUN 37, creatinine 1.6. Potassium 3.5 magnesium 1.9. Repeat CBC, CMP, magnesium ordered for the morning. Hypertension: Continue home regimen of carvedilol 12.5 mg twice daily, amlodipine 10 mg daily Anxiety/depression: Continue Lexapro 10 mg daily Full code Lovenox 40 mg subcu daily Cardiac diet
[2024-03-28 08:00] VITALS: BP 131/57; PULSE 74; RESP 18; TEMP 36.6; O2SAT 95
[2024-03-28 08:02] LABS: Albumin Level 3.3 g/dl (3.5-5.0); Chloride 108 mmol/L (98-107); Potassium 3.5 mmoL/L (3.5-5.1); Sodium 138 mmol/L (136-145)
[2024-03-28 08:05] LABS: Alanine Aminotransferase 19 U/L (12-78); Albumin/Globulin Ratio 1.3 (1.1-1.8); Alkaline Phosphatase 75 U/L (38-126); Anion Gap 7.5 mEq/L (5-15); Aspartate Amino Transferase 30 U/L (17-59); Bilirubin,Total 0.4 mg/dl (0.2-1.3); Blood Urea Nitrogen 37 mg/dl (9-20); Carbon Dioxide 26 mmol/L (22.0-30.0); Creatinine Clearance Estimated 44 mL/min (50-200); Estimated Glomerular Filt Rate 42 ml/min (>60); GFR (African American) 51 ML/MIN (>60); Globulin 2.6 g/dL (1.3-3.2); Total Protein,Serum 5.9 g/dl (6.3-8.2)
[2024-03-28 08:06] LABS: Calcium 8.8 mg/dl (8.4-10.2); Glucose 96 mg/dl (74-100); Magnesium 1.9 mg/dl (1.6-2.3)
[2024-03-28] MEDS: OXYBUTYNIN 5MG TAB 5 MG PO ×2 (09:54→20:32)
[2024-03-28] MEDS: SENNOSIDES 8.6MG/DOCUSATE 50MG TABLET 2 TAB PO ×2 (09:54→20:32)
[2024-03-28] MEDS: NYSTATIN TOPICAL POWDER 30GM TP ×4 (09:54→20:33)
[2024-03-28] MEDS: CITALOPRAM 20MG TABLET 30 MG PO (09:54)
[2024-03-28] MEDS: CARVEDILOL 12.5MG TABLET 12.5 MG PO ×2 (09:54→20:32)
[2024-03-28 14:59] LABS: HIV Combo NEGATIVE (Negative)
[2024-03-28 16:00] VITALS: BP 160/79; PULSE 72; RESP 18; TEMP 36.6; O2SAT 95
--- NOTE | 2024-03-28 18:01 | PC.NURSE ---
Pt is aox 4, 90's on RA, 20G L AC SL, uses a urinal, bed alarm active, up with assistance times one, PT and OT following.
[2024-03-28 20:00] VITALS: BP 153/76; PULSE 82; RESP 18; TEMP 36.8; O2SAT 96
[2024-03-29 04:00] VITALS: BP 161/70; PULSE 67; RESP 16; TEMP 36.7; O2SAT 95; BMI 24.4
[2024-03-29 08:00] VITALS: BP 142/77; PULSE 78; RESP 18; TEMP 36.8; O2SAT 96
--- NOTE | 2024-03-29 08:02 | P.PN_ITS ---
Subjective *Date: 03/29/24 *Time: 15:26 Interval history: More bowel movements overnight. No nausea or vomiting. Belly pain resolved. Continues to be weak necessitating therapy and possible placement. Stable on room air. Tolerating p.o. intake. Afebrile Medical Exam Vital signs and Labs for Last 24 Hours: Vital Signs Temp Pulse Resp BP Pulse Ox O2 Del Method 03/29/24 07:45 Room Air 03/29/24 06:35 Room Air 03/29/24 05:00 Room Air 03/29/24 04:00 98.1 F 67 16 161/70 H 95 Room Air 03/29/24 03:00 Room Air 03/29/24 01:00 Room Air 03/28/24 22:57 Room Air 03/28/24 21:00 Room Air 03/28/24 20:00 Room Air 03/28/24 20:00 98.3 F 82 18 153/76 H 96 Room Air 03/28/24 18:06 Room Air 03/28/24 16:12 Room Air 03/28/24 16:00 98 F 72 18 160/79 H 95 Room Air 03/28/24 15:00 Room Air 03/28/24 13:00 Room Air 03/28/24 10:32 Room Air 03/28/24 09:00 Room Air Intake and Output 03/28/24 03/29/24 03/29/24 23:59 07:59 15:59 Intake Total 480 / 960 Output Total 400 / 2090 825 / 825 Balance 80 / -1130 -825 / -825 Intake: Intake, Oral Amount 480 / 960 Output: Output, Urine Amount 400 / 2090 825 / 825 Other: Number of Bowel Movements 1 Weight 77.337 kg Patient Weight 03/29/24 23:59 Weight 77.337 kg Laboratory Results - last 24 hr 03/27/24 14:15: HIV Ag/Ab Combo Qual Negative 03/28/24 07:02: Sodium 138, Potassium 3.5, Chloride 108 H, Carbon Dioxide 26, Anion Gap 7.5, BUN 37 H, Creatinine 1.60 H, Estimated Creat Clear 44, Estimated GFR 42 L, Est GFR ( Amer) 51 L, Glucose 96, Calcium 8.8, Magnesium 1.9, Total Bilirubin 0.4, AST 30, ALT 19, Alkaline Phosphatase 75, Total Protein 5.9 L, Albumin 3.3 L, Globulin 2.6, Albumin/Globulin Ratio 1.3 I & O for Labs for Last 24 Hours: Intake & Output 03/26/24 03/27/24 03/28/24 03/29/24 23:59 23:59 23:59 23:59 Intake Total 535 / 535 960 / 960 Output Total 180 / 300 1490 / 2090 825 / 825 Balance 355 / 235 -530 / -1130 -825 / -825 Weight 79.379 kg 78.245 kg 77.337 kg Constitutional: Present no acute distress, average body habitus and chronically ill appearing Head: Present atraumatic and normocephalic Respiratory: Present normal respiratory effort; Absent rhonchi, wheezes or crackles Cardiac: Present Reg Rate and Rhythm GI: Present soft, distention, tenderness (Improving) and normal bowel sounds Extremities: Present normal inspection and full ROM Skin: Present intact; Absent erythema Neuro: Present Grossly Intact, alert, awake, oriented x 3 and moves all extremities Comment:: Shuffling gait Assessment and Plan *Assessment and plan (1) Declining functional status: Status: Acute Category: Medical Code(s): R53.81 - Other malaise (2) Sciatica: Status: Acute Category: Medical Code(s): M54.30 - Sciatica, unspecified side (3) Constipation: Status: Acute Category: Medical Code(s): K59.00 - Constipation, unspecified (4) Chronic kidney disease: Status: Acute Qualifiers: Chronic kidney disease stage: unspecified stage Qualified Code(s): N18.9 - Chronic kidney disease, unspecified Category: Medical Code(s): N18.9 - Chronic kidney disease, unspecified (5) Debility: Status: Acute Category: Medical Code(s): R53.81 - Other malaise (6) Tobacco use disorder: Status: Acute Category: Medical Code(s): F17.200 - Nicotine dependence, unspecified, uncomplicated (7) HTN (hypertension): Status: Acute Category: Medical Code(s): I10 - Essential (primary) hypertension Plan 73-year-old male who has been a resident of [place] for the past year, presented to the ER with weakness, constipation, rectal spasms. Found to be unstable and too weak to return to his personal senior living. Discussed case with ER physician, request admission for placement and further therapy treatment along with regimen for bowels. I agreed to admit. Continue aggressive bowel regimen, having response. Multiple bowel movements in the past 24 hours with improvement in abdominal pain and rectal spasms. Problems addressed as follows: Constipation Rectal spasm -Has had multiple bowel movements, did not require enema. Continues to have 1-2 bowel movements daily. Continue MiraLAX 17 g daily with docusate senna 2 capsules twice daily -White count normal at 10. Kidney function at baseline with BUN 41, creatinine 1.7. Electrolytes stable with potassium 3.9, magnesium 2.0. Repeat CBC, CMP, magnesium ordered for the morning. Declining functional status: Evaluated by therapy, recommend placement. Case management assisting. Candidal dermatitis: Continue nystatin powder and skin folds CKD: Kidney function remained stable with BUN 41, creatinine 1.7. Hypertension: Continue home regimen of carvedilol 12.5 mg twice daily, amlodipine 10 mg daily Anxiety/depression: Continue Lexapro 10 mg daily Full code Lovenox 40 mg subcu daily Cardiac diet
[2024-03-29 08:04] LABS: Hematocrit 37.7 % (42.0-52.0); Hemoglobin 12.8 g/dL (14.1-18.0); Mean Corpuscular Hemoglobin 29.2 pg (27.0-31.2); Mean Corpuscular Volume 86.1 fl (80-94); Red Blood Count 4.38 M/mm3 (4.60-6.20); Red Cell Distribution Width 12.7 % (11.5-17.5)
[2024-03-29 08:05] LABS: Basophils # 0.1 K/mm3 (0-0.2); Basophils % 0.5 % (0.1-2.0); Eosinophils # 0.2 K/mm3 (0.0-0.4); Eosinophils % 1.8 % (0.1-12.0); Lymphocytes # 2.3 K/mm3 (0.7-4.5); Lymphocytes % 22.9 % (10-50); Mean Platelet Volume 8.8 fl (7.4-10.4); Monocytes # 0.9 K/mm3 (0.1-1.0); Monocytes % 9.3 % (1.7-9.3); Neutrophils # 6.4 K/mm3 (1.8-7.8); Neutrophils % 64.2 % (37.0-80.0); Platelet Count 376 K/mm3 (142-424)
[2024-03-29 08:07] LABS: Albumin Level 3.3 g/dl (3.5-5.0); Chloride 108 mmol/L (98-107)
[2024-03-29 08:08] LABS: Potassium 3.9 mmoL/L (3.5-5.1); Sodium 138 mmol/L (136-145)
[2024-03-29 08:10] LABS: Alanine Aminotransferase 19 U/L (12-78); Albumin/Globulin Ratio 1.3 (1.1-1.8); Anion Gap 6.9 mEq/L (5-15); Aspartate Amino Transferase 32 U/L (17-59); Blood Urea Nitrogen 41 mg/dl (9-20); Carbon Dioxide 27 mmol/L (22.0-30.0); Creatinine Clearance Estimated 41 mL/min (50-200); Estimated Glomerular Filt Rate 39 ml/min (>60); GFR (African American) 48 ML/MIN (>60); Globulin 2.5 g/dL (1.3-3.2); Total Protein,Serum 5.8 g/dl (6.3-8.2)
[2024-03-29 08:11] LABS: Alkaline Phosphatase 73 U/L (38-126); Bilirubin,Total 0.4 mg/dl (0.2-1.3); Calcium 8.8 mg/dl (8.4-10.2); Glucose 95 mg/dl (74-100)
[2024-03-29] MEDS: CITALOPRAM 20MG TABLET 30 MG PO (09:46)
[2024-03-29] MEDS: CARVEDILOL 12.5MG TABLET 12.5 MG PO ×2 (09:47→20:21)
[2024-03-29] MEDS: OXYBUTYNIN 5MG TAB 5 MG PO ×2 (09:47→20:21)
[2024-03-29] MEDS: NYSTATIN TOPICAL POWDER 30GM TP ×4 (09:47→20:22)
[2024-03-29 11:15] LABS: HCV Ab Non Reactive (Non Reactive)
[2024-03-29 16:00] VITALS: BP 161/72; PULSE 68; RESP 18; TEMP 36.9; O2SAT 94
[2024-03-29 20:00] VITALS: BP 149/76; PULSE 72; RESP 16; TEMP 37.2; O2SAT 94
[2024-03-29] MEDS: SENNOSIDES 8.6MG/DOCUSATE 50MG TABLET 2 TAB PO (20:21)
[2024-03-29] MEDS: ACETAMINOPHEN 325MG TAB 650 MG PO (20:25)
[2024-03-30 04:00] VITALS: BP 161/92; PULSE 69; RESP 18; TEMP 36.5; O2SAT 96; BMI 24.7
[2024-03-30 07:19] LABS: Basophils # 0.1 K/mm3 (0-0.2); Basophils % 0.8 % (0.1-2.0); Eosinophils # 0.2 K/mm3 (0.0-0.4); Eosinophils % 2.2 % (0.1-12.0); Hematocrit 41.3 % (42.0-52.0); Lymphocytes # 2.2 K/mm3 (0.7-4.5); Lymphocytes % 24.3 % (10-50); Mean Corpuscular HGB Conc 33.8 g/dL (31.8-35.4); Mean Corpuscular Hemoglobin 29.3 pg (27.0-31.2); Mean Corpuscular Volume 86.7 fl (80-94); Mean Platelet Volume 7.2 fl (7.4-10.4); Monocytes # 0.6 K/mm3 (0.1-1.0); Monocytes % 6.7 % (1.7-9.3); Platelet Count 380 K/mm3 (142-424); Red Blood Count 4.77 M/mm3 (4.60-6.20); Red Cell Distribution Width 13.8 % (11.5-17.5); White Blood Count 9.1 K/mm3 (4.8-10.8)
[2024-03-30 07:25] LABS: Chloride 107 mmol/L (98-107)
[2024-03-30 07:26] LABS: Albumin Level 3.5 g/dl (3.5-5.0); Sodium 133 mmol/L (136-145)
[2024-03-30 07:28] LABS: Alanine Aminotransferase 20 U/L (12-78); Aspartate Amino Transferase 32 U/L (17-59); Blood Urea Nitrogen 40 mg/dl (9-20); Carbon Dioxide 25 mmol/L (22.0-30.0); Creatinine Clearance Estimated 44 mL/min (50-200); Estimated Glomerular Filt Rate 42 ml/min (>60); GFR (African American) 51 ML/MIN (>60); Total Protein,Serum 6.1 g/dl (6.3-8.2)
[2024-03-30 07:29] LABS: Albumin/Globulin Ratio 1.3 (1.1-1.8); Alkaline Phosphatase 80 U/L (38-126); Bilirubin,Total 0.4 mg/dl (0.2-1.3); Calcium 8.8 mg/dl (8.4-10.2); Globulin 2.6 g/dL (1.3-3.2); Glucose 90 mg/dl (74-100)
[2024-03-30 08:00] VITALS: BP 145/60; PULSE 68; RESP 18; TEMP 36.6; O2SAT 94
--- NOTE | 2024-03-30 09:59 | SW/DCPLANNER ---
Addendum entered by Melissa Ortiz 03/30/24 13:10: [facility] is able to accept this patient. I have updated MD kushal and [facility]li [facility]/ [facility]. Original Note: I spoke w/ this patient regarding plans once medically stable for discharge. PT/OT evaluated patient and recommended SNF level of care. Patient currently resides at [facility] and will need a higher level of care prior to returning. Patient is alert/oriented and agreeable to placement. Per [facility] and Jenae lerma/ [facility] and [facility] they currently have a male bed available. Patient information will be faxed to these three facilities this AM. Discharge date is unknown at this time. I have updated [facility]li l[facility]a/ [facility] regarding situation. I will continue to follow up w/ MD kushal, [facility] and facilities.
[2024-03-30] MEDS: SENNOSIDES 8.6MG/DOCUSATE 50MG TABLET 2 TAB PO (10:05)
[2024-03-30] MEDS: ENOXAPARIN 40MG/0.4ML SYRINGE 40 MG SUBCUT (10:05)
[2024-03-30] MEDS: AMLODIPINE 10MG TABLET 10 MG PO (10:06)
[2024-03-30] MEDS: OXYBUTYNIN 5MG TAB 5 MG PO (10:06)
[2024-03-30] MEDS: POLYETHYLENE GLYCOL 3350 17 GM PACKET PO (10:06)
[2024-03-30] MEDS: CITALOPRAM 20MG TABLET 30 MG PO (10:06)
[2024-03-30] MEDS: NYSTATIN TOPICAL POWDER 30GM TP ×2 (10:06→13:22)
[2024-03-30] MEDS: CARVEDILOL 12.5MG TABLET 12.5 MG PO (10:06)
[2024-03-30 12:17] VITALS: BMI 24.7
--- NOTE | 2024-03-30 13:12 | EXP.DC.SUM ---
General Admission date:: 03/27/24 Discharge date: 03/30/24 HPI HPI HPI: Mr. Aguillon is a 73-year-old male who lives at [facility]. Presented to the ER via EMS due to pain in his bottom and inability to walk. Was previously admitted 4 months ago for concern for ALAINA and severe constipation. Also having difficulty walking, had been on the toilet for an hour and was unable to get off the toilet under his own power. On presentation today, patient having severe abdominal and rectal pain with spasms. Denies any chest pain or shortness of breath. Labs stable with chronic kidney disease. Mild elevation of white count but otherwise no signs of infection. Abdominal x-ray obtained showing severe constipation and stool burden. Therapy evaluated patient in the ER, unable to ambulate independently. Would benefit from placement. Not safe to return back to his personal senior living. Medicine consulted for admission and further management. On arrival to the floor, patient has not bathed in some time. Pants soiled with urine. On room air. Afebrile. Denies any nausea, vomiting, diarrhea, chest pain, confusion beyond his baseline as he chuckles. Recognizes me from several months ago. Hospital Course Hospital Course Hospital Course: 73-year-old male who has been a resident of [facility] for the past year, presented to the ER with weakness, constipation, rectal spasms. Found to be unstable and too weak to return to his personal senior living. Discussed case with ER physician, request admission for placement and further therapy treatment along with regimen for bowels. I agreed to admit. Patient had wonderful response to bowel regimen. Has had multiple bowel movements and feeling much better. Belly is soft. Tolerating p.o. intake without difficulty. Stable to discharge to rehab given his progressive debility for further management. Problems addressed as follows: Constipation Rectal spasm, resolved -Presented with severe pain and spasming. Had multiple large bowel movements in the first 24 hours of admission. Initiated on aggressive regimen with MiraLAX and docusate, weaned to MiraLAX daily and docusate 1 capsule twice daily. Continue to wean as tolerated at nursing facility after discharge. Goal for 1-2 soft bowel movements a day. Labs have remained stable. White count normal at 9. Kidney function at baseline with BUN of 40 creatinine 1.6. Electrolytes stable. Tolerating p.o. intake without difficulty. Would benefit from repeat labs in 1 to 2 weeks. Declining functional status: Evaluated by therapy, recommend placement. Graciously excepted by Mohan for further management Candidal dermatitis: Continue nystatin powder in skin folds CKD: Kidney function remained stable with BUN 40 and creatinine 1.6 on day of discharge. This appears to be patient's baseline Hypertension: Continue home regimen of carvedilol 12.5 mg twice daily, amlodipine 10 mg daily Anxiety/depression: Continue Lexapro 10 mg daily Total time spent on discharge 32 minutes in counseling, documentation, chart review, and direct care with patient. Exam Data for Last 24 hours Vital signs and Labs for Last 24 Hours: Temp Pulse Resp BP Pulse Ox O2 Del Method 97.8 F 68 18 145/60 H 94 L Room Air 03/30/24 08:00 03/30/24 08:00 03/30/24 08:00 03/30/24 08:00 03/30/24 08:00 03/30/24 08:00 Laboratory Results - last 24 hr 03/30/24 06:17: WBC 9.1, RBC 4.77, Hgb 14.0 L, Hct 41.3 L, MCV 86.7, MCH 29.3, MCHC 33.8, RDW 13.8, Plt Count 380, MPV 7.2 L, Neut % (Auto) 66.0, Lymph % (Auto) 24.3, Floyd % (Auto) 6.7, Eos % (Auto) 2.2, Baso % (Auto) 0.8, Neut # (Auto) 6.0, Lymph # (Auto) 2.2, Floyd # (Auto) 0.6, Eos # (Auto) 0.2, Baso # (Auto) 0.1, Sodium 133 L, Potassium 4.0, Chloride 107, Carbon Dioxide 25, Anion Gap 5.0, BUN 40 H, Creatinine 1.60 H, Estimated Creat Clear 44, Estimated GFR 42 L, Est GFR ( Amer) 51 L, Glucose 90, Calcium 8.8, Total Bilirubin 0.4, AST 32, ALT 20, Alkaline Phosphatase 80, Total Protein 6.1 L, Albumin 3.5, Globulin 2.6, Albumin/Globulin Ratio 1.3 I & O for Last 24 hours: Intake & Output 03/27/24 03/28/24 03/29/24 12/16/24 23:59 23:59 23:59 23:59 Intake Total 535 / 535 960 / 960 1200 / 1680 960 / 960 Output Total 180 / 300 1490 / 2090 2725 / 2875 775 / 775 Balance 355 / 235 -530 / -1130 -1525 / -1195 185 / 185 Weight 79.379 kg 78.245 kg 77.337 kg 78.33 kg Constitutional Constitutional: no acute distress, average body habitus, chronically ill appearing and cooperative *Routine HEENT Exam Head: Present normocephalic Eye: Present EOMI and PERRL ENT: Present mucous membranes moist *Routine Neck Exam Neck: Present supple; Absent lymphadenopathy *Routine Respiratory Exam Respiratory: Present CTA bilaterally; Absent rhonchi, wheezes or crackles *Routine Cardiovascular Exam Cardiovascular: Present RRR *Routine Abdominal Exam Abdominal: Present soft and normoactive bowel sounds; Absent tenderness *Routine Rectal Exam Patient deferred: visual exam *Routine Exam Patient deferred: penile exam Comments: excoriated rash in groin *Routine Extremities Exam Extremities: Absent cyanosis, clubbing or edema *Routine Skin Exam Skin: Present warm; Absent rash *Routine Neurological Exam Neurological: Present alert, oriented X3 and moving all extremities; Absent altered mental status Comments: shuffling gait Routine Psychiatric Exam Psychiatric: Present normal affect and normal thought process Results Data Completed and Pending Labs on day of discharge: Labs from last 24 hours 03/30/24 06:17 WBC 9.1 RBC 4.77 Hgb 14.0 L Hct 41.3 L MCV 86.7 MCH 29.3 MCHC 33.8 RDW 13.8 Plt Count 380 MPV 7.2 L Neut % (Auto) 66.0 Lymph % (Auto) 24.3 Floyd % (Auto) 6.7 Eos % (Auto) 2.2 Baso % (Auto) 0.8 Neut # (Auto) 6.0 Lymph # (Auto) 2.2 Floyd # (Auto) 0.6 Eos # (Auto) 0.2 Baso # (Auto) 0.1 Sodium 133 L Potassium 4.0 Chloride 107 Carbon Dioxide 25 Anion Gap 5.0 BUN 40 H Creatinine 1.60 H Estimated Creat Clear 44 Estimated GFR 42 L Est GFR ( Amer) 51 L Glucose 90 Calcium 8.8 Total Bilirubin 0.4 AST 32 ALT 20 Alkaline Phosphatase 80 Total Protein 6.1 L Albumin 3.5 Globulin 2.6 Albumin/Globulin Ratio 1.3 DS: Diagnosis Discharge Diagnosis (1) Declining functional status: Status: Acute Code(s): R53.81 - Other malaise (2) Sciatica: Status: Acute Code(s): M54.30 - Sciatica, unspecified side (3) Constipation: Status: Acute Code(s): K59.00 - Constipation, unspecified (4) Chronic kidney disease: Status: Acute Code(s): N18.9 - Chronic kidney disease, unspecified Qualifiers: Chronic kidney disease stage: unspecified stage Qualified Code(s): N18.9 - Chronic kidney disease, unspecified (5) Debility: Status: Acute Code(s): R53.81 - Other malaise (6) Tobacco use disorder: Status: Acute Code(s): F17.200 - Nicotine dependence, unspecified, uncomplicated (7) HTN (hypertension): Status: Acute Code(s): I10 - Essential (primary) hypertension Meds Home Medications and Allergies Home Medications ?Medication ?Instructions ?Recorded ?Confirmed ?Type amlodipine 10 mg tablet 10 mg PO DAILY 11/18/23 03/27/24 History carvedilol 12.5 mg tablet 12.5 mg PO BID 11/18/23 03/27/24 History escitalopram oxalate 10 mg tablet 15 mg PO DAILY 11/18/23 03/27/24 History oxybutynin chloride 5 mg tablet 5 mg PO BID 11/18/23 03/27/24 History nystatin 100,000 unit/gram topical 1 unit topical QID Groin rash 10 11/20/23 03/27/24 Rx powder days #30 grams acetaminophen 325 mg tablet 325 mg PO QIDP PRN Pain 03/27/24 03/28/24 History diphenhydramine HCl 25 mg tablet 25 mg PO HS PRN ALLERGIES 03/27/24 03/27/24 History (Benadryl Allergy) hydrocortisone 1 % topical cream 1 applic topical BID PRN Itching 03/27/24 03/27/24 History aspirin 81 mg chewable tablet 81 mg PO DAILY 03/28/24 03/28/24 History multivitamin 1 tab PO DAILY 03/28/24 03/28/24 History omega-3 fatty acids-fish oil 300 1 cap PO BID 03/28/24 03/28/24 History mg-500 mg capsule (Fish Oil) polyethylene glycol 3350 17 gram 17 g PO DAILY 03/28/24 03/28/24 History oral powder packet (Miralax) alprazolam 0.25 mg tablet 0.25 mg PO DAILYP PRN Anxiety 10 03/30/24 Rx days #10 tabs sennosides 8.6 mg-docusate sodium 1 tab PO BID 30 days #60 tabs 03/30/24 03/27/24 Rx 50 mg tablet (Stimulant Laxative Plus) New Prescriptions to Start Prescriptions: alprazoDeshaun Smith Allergies Allergy/AdvReac Type Severity Reaction Status Date / Time Penicillins Allergy Unknown Verified 03/27/24 14:49 allergy reaction Discharge Plan Disposition Patient Disposition: er [facility] Condition: Good Discharge Order Discharge Orders: Discharge Order (Routine); Ordered 03/30/24 Ordered By: Deshaun Marie Follow up Plan Prescriptions/Medication Reconciliation: Continued carvedilol 12.5 mg tablet 12.5 mg PO BID amlodipine 10 mg tablet 10 mg PO DAILY oxybutynin chloride 5 mg tablet 5 mg PO BID escitalopram oxalate 10 mg tablet 15 mg PO DAILY nystatin 100,000 unit/gram Powder 1 unit topical QID 10 Days Qty: 30 0RF acetaminophen 325 mg Tablet 325 mg PO QIDP PRN (Reason: Pain) diphenhydramine HCl [Benadryl Allergy] 25 mg Tablet 25 mg PO HS PRN (Reason: ALLERGIES) hydrocortisone 1 % Cream 1 applic TOPICAL BID PRN (Reason: Itching) aspirin 81 mg Tablet,Chewable 81 mg PO DAILY multivitamin Tablet 1 tab PO DAILY polyethylene glycol 3350 [Miralax] 17 gram Powder In Packet 17 g PO DAILY Fish Oil 300-500 mg Capsule 1 cap PO BID Changed sennosides-docusate sodium [Stimulant Laxative Plus] 8.6-50 mg Tablet 1 tab PO BID 30 Days Qty: 60 0RF alprazolam 0.25 mg Tablet 0.25 mg PO DAILYP PRN (Reason: Anxiety) 10 Days Qty: 10 0RF Discontinued doxycycline hyclate 100 mg capsule 100 mg PO BID 7 Days Qty: 14 0RF docusate sodium 100 mg Capsule 100 mg PO Q8HP PRN (Reason: Constipation) Problem Reconciliation Problems Reviewed?: Yes Patient Discharge Instructions ACTIVITY: Continue current activity DIET: continue same diet Patient Instructions: DI for Constipation Print Language: Kinyarwanda Providers Primary Care Provider: Kip Huizar Admit Provider: Deshaun Marie Attending Provider: Deshaun Maire
== END 2024-03-30 15:45 ==
LOC: ER 16:04 → 2ND 16:07
PROVIDERS: Physician Assistant; Admitting Provider Internal Medicine Adolescent Medicine; Emergency Provider Student in an Organized Health Care Education/Training Program; PCP Nurse Practitioner Acute Care; Visit Provider Internal Medicine Adolescent Medicine
DX: K59.09 Other constipation (principal); R53.81 Other malaise; M54.32 Sciatica, left side; I12.9 Hypertensive chronic kidney disease with stage 1 through stage 4 chronic kidney disease, or unspecified chronic kidney disease; N18.9 Chronic kidney disease, unspecified; F17.210 Nicotine dependence, cigarettes, uncomplicated; Z79.899 Other long term (current) drug therapy; Z74.1 Need for assistance with personal care; Z74.09 Other reduced mobility; B37.2 Candidiasis of skin and nail
CPT/HCPCS: 36415; 74018; 80048; 80053; 83735; 85025; 86803; 87389; 97110; 97116; 97530; 99285; G0378; J0360; J1650

== ENCOUNTER 2024-07-10 08:30 | Outpatient (CLI) | payer MEDICARE, MEDICAID, SELFPAY ==
[2024-07-10 09:03] LABS: Albumin Level 3.9 g/dl (3.5-5.0); Anion Gap 11.7 mEq/L (5-15); Blood Urea Nitrogen 29 mg/dl (9-20); Calcium 9.1 mg/dl (8.4-10.2); Carbon Dioxide 27 mmol/L (22.0-30.0); Chloride 103 mmol/L (98-107); Estimated Glomerular Filt Rate 42 ml/min (>60); GFR (African American) 51 ML/MIN (>60); Glucose 83 mg/dl (74-100); Phosphorous 3.4 mg/dl (2.5-4.5); Potassium 4.7 mmoL/L (3.5-5.1); Sodium 137 mmol/L (136-145)
== END 2024-07-10 23:59 | disposition home or self-care (01) ==
PROVIDERS: PCP Family Medicine; Visit Provider Family Medicine
DX: Z13.29 Encounter for screening for other suspected endocrine disorder (principal)
CPT/HCPCS: 36415; 80069

== ENCOUNTER 2024-09-25 07:09 | Outpatient (CLI) | payer MEDICARE, SELFPAY ==
--- OUTSIDE RECORDS SUMMARY | 2022-10-03 10:01 | XMS_ITS | Continuity of Care Document ---
Author Organization [address] [place] [address] Address [address] [facility] [address] [place] [address] Phone Care Team Providers Care Grinder Outside Diameter Name Role Phone Manish Meade DPM Unavailable [...] Diagnoses Date Provider Providers Copied on Encounter [facility], [address] [facility] [address], [place], [place], [id number], tel:[phone] [facility] No Information 3 Deshaun Hammond. [address] [facility], [address], [place], [place], [id number], [place]. tel:[phone] [place] [address], [address], [place], [place], [id number], [place] tel:[phone] [facility] Cataract (chief complaint) Age-related nuclear cataract, bilateral 3 Cindi John. [address] [facility], [address], [place], [address], [place]. Referring Provider: Vahe Bhatt [facility], [address] [facility] [address], [place], [place], [id number], tel:[phone] [facility] Onychogryphosis Other specified peripheral vascular diseases 3 Meadenamita Hammond. [address] [facility], [address], [place], [place], [id number], [place]. tel:[phone] Referring Provider: Vahe Bhatt [facility], [address] [facility], [place], [place], [id number], tel:[phone] [facility] Other specified peripheral vascular diseasesOnychog ryphosisNail dystrophy 2 Sangita Mayen. [address] [facility], [address], [place], [place], [address], [place]. tel:[phone] Referring Provider: Kevin Ward . [address] [place] [address], [address] [facility] [address], [place], [place], [address], [place] tel:[phone] [facility] Blurry vision (chief complaint) Age-related nuclear cataract, bilateral 2 Cindi John. [address] [facility], [address], [place], [address], [place]. Referring Provider: Vahe Bhatt [facility], [address] [place], [place] [address], [place], [place], [id number], [place] tel:[phone] [facility] Other specified peripheral vascular diseasesTinea unguium 2 [place] [address]. , [place]. Referring Provider: Sylvia Burr. [facility], [address] [facility] [address], [place], [place], [address], [place] tel:[phone] [facility] Tinea unguiumOther specified peripheral vascular diseases 1 [place], [place]. Referring Provider: Vahe Bhatt NURSING [facility] [address], [address] [facility] [address], [place], [place], [address], [place] tel:[phone] ZZ Iliana Ball unguiumOther specified peripheral vascular diseasesPain in left toe(s)Pain in right toe(s)Other hammer toe(s) (acquired), left footOther hammer toe(s) (acquired), right foot Jun- 1 [place], [place]. Referring Provider: Mohsen Burkett. Family History Family Member Type Diagnosis Age At Onset No Information Payers Payer name Insurance type Covered republican ID Authoriza tion(s) Medicare [facility] [id number] Medicaid [facility] [id number] Social History Type Description Quantity Date Captured [...] to Other specified peripheral vascular diseases All dystrophic nails were reduced in length as needed to prevent pain and other symptoms. Related to Nail dystrophy All of the thickened or mycotic nails described were debrided to prevent pain and infection. The nails were debrided using a rotary tool and nail nipper. The patient tolerated the procedure well. Related to Onychogryphosis We will schedule an appoinment in 12-15 months for a dilated fundus exam. Related to Age-related nuclear cataract, bilateral Impression/Plan - Ca taracts are mild; we will monitor for progression. Related to Age-related nuclear cataract, bilateral Follow up - We will schedule an appoinment in 12-15 months for a dilated fundus exam. Related to Age-related nuclear cataract, bilateral Patient [...] to Other hammer toe(s) (acquired), right foot Etiology, presentati on and treatment options regarding [...] to Other hammer toe(s) (acquired), left foot Discussed wider-toe box shoes that are accommodative, supportive and functional to help reduce frictional rubbing of hammertoes to top of shoe as well as alleviate symptomatic pain. Patient advised to continue daily pedal checks to monitor for any integumentary breakdown or progression of redness. Patient to report increase in pain or symptoms, if any, at next appointment. Related to Pain in right toe(s) Discussed wider-toe box shoes that are [...] appointment. Related to Pain in left toe(s) Patient was examined , evaluated and treated [...] sooner as needed. Related to Tinea unguium Assessments Type Assessment Date No Information Patient Care Teams Name Effective Dates (start - stop) Status Members No Information
[2024-09-25 09:45] LABS: Blood Urea Nitrogen 33 mg/dl (9-20); Estimated Glomerular Filt Rate 42 ml/min (>60); GFR (African American) 51 ML/MIN (>60)
[2024-09-26 08:21] LABS: PSA, Free 1.21 ng/mL; Prostate Specific Ag 3.8 ng/mL (0.0-4.0)
== END 2024-09-25 23:59 | disposition home or self-care (01) ==
PROVIDERS: PCP Family Medicine; Visit Provider Urology
DX: N40.1 Benign prostatic hyperplasia with lower urinary tract symptoms (principal); N13.8 Other obstructive and reflux uropathy
CPT/HCPCS: 82565; 84153; 84154; 84520

== ENCOUNTER 2024-11-23 11:24 | Outpatient (CLI) | payer MEDICARE, SELFPAY ==
--- OUTSIDE RECORDS SUMMARY | 2022-10-03 10:01 | XMS_ITS | Continuity of Care Document ---
Author Organization [address] [place] [address] Address [address] [facility] [address] [place] [address] Phone Care Team Providers Care Hardware Engineering Manager Name Role Phone Manish Meade DPM Unavailable [...] Diagnoses Date Provider Providers Copied on Encounter [facility], [address] [facility] [address], [place], [place], [id number], tel:[phone] [facility] No Information 3 Deshaun Hammond. [address] [facility] [place], [address], [place], [place], [id number], [place]. tel:[phone] [place] [address], [address], [place], [place], [id number], [place] tel:[phone] [facility] Cataract (chief complaint) Age-related nuclear cataract, bilateral 3 Cindi John. [address] [facility] [place], [address], [place], [address], [place]. Referring Provider: Vahe Bhatt [facility], [address] [facility] [address], [place], [place], [id number], tel:[phone] [facility] Onychogryphosis Other specified peripheral vascular diseases 3 Meadenamita Hammond. [address] [facility] [place], [address], [place], [place], [id number], [place]. tel:[phone] Referring Provider: Vahe Bhatt [facility], [address] [facility], [place], [place], [id number], tel:[phone] [facility] Other specified peripheral vascular diseasesOnychog ryphosisNail dystrophy 2 Sangita Mayen. [address] [facility] [place], [address], [place], [place], [address], [place]. tel:[phone] Referring Provider: Kevin Ward . [address] [place] [address], [address] [facility] [address], [place], [place], [id number], [place] tel:[phone] [facility] Blurry vision (chief complaint) Age-related nuclear cataract, bilateral 2 Cindi John. [address] [facility] [place], [address], [place], [address], [place]. Referring Provider: Vahe Bhatt [facility], [address] [place], [place] [address], [place], [place], [id number], [place] tel:[phone] [facility] Other specified peripheral vascular diseasesTinea unguium 2 [address] , [place]. Referring Provider: Sylvia Burr. [facility], [address] [facility] [address], [place], [place], [id number], [place] tel:[phone] [facility] Tinea unguiumOther specified peripheral vascular diseases 1 [place], [place]. Referring Provider: Vahe Bhatt NURSING [facility] [address], [address] [facility] [address], [place], [place], [address], [place] tel:[phone] Z[facility] Iliana Ball unguiumOther specified peripheral vascular diseasesPain in left toe(s)Pain in right toe(s)Other hammer toe(s) (acquired), left footOther hammer toe(s) (acquired), right foot Jun- 1 [place], [place]. Referring Provider: Mohsen Burkett. Family History Family Member Type Diagnosis Age At Onset No Information Payers Payer name Insurance type Covered libertarian ID Authoriza tion(s) Medicare [facility] [id number] Medicaid [facility] [id number] Social History Type Description Quantity Date Captured [...] progression. Related to Age-related nuclear cataract, bilateral All [...]
[2024-11-23 12:55] LABS: Blood Urea Nitrogen 30 mg/dl (9-20); Creatinine,Serum 1.80 mg/dl (0.66-1.25); Estimated Glomerular Filt Rate 37 ml/min (>60); GFR (African American) 45 ML/MIN (>60)
[2024-11-24 12:18] LABS: PSA, Free 1.55 ng/mL
== END 2024-11-23 23:59 | disposition home or self-care (01) ==
LOC: LAB 11:25
PROVIDERS: PCP Family Medicine; Visit Provider Urology
DX: N40.1 Benign prostatic hyperplasia with lower urinary tract symptoms (principal); N13.8 Other obstructive and reflux uropathy; R79.89 Other specified abnormal findings of blood chemistry
CPT/HCPCS: 36415; 82565; 84153; 84154; 84520

== ENCOUNTER 2024-11-30 10:58 | Outpatient (CLI) | payer MEDICARE, MEDICAID, SELFPAY ==
--- NOTE | 2024-11-30 11:00 | US_ITS ---
FINAL REPORT TECHNIQUE: Ultrasound images of the kidneys were obtained. CLINICAL HISTORY: .diff urination COMPARISON: None FINDINGS: The right kidney measures 9.5 cm in length. There is increased echogenicity in the kidney, that is likely secondary to medical renal disease. There is no hydronephrosis. The left kidney measures 9.8 cm in length. There is increased echogenicity in the kidney, likely secondary to medical renal disease. There is no hydronephrosis. Hepatic cysts are present, measuring up to 3.7 x 3.5 cm in size. There are also multiple small cysts in the bilateral kidneys, that appear to be simple and complex. IMPRESSION: Increased echogenicity in the kidneys bilaterally, likely secondary to medical renal disease. Simple and complex cysts are present in the kidneys bilaterally. Suggest renal mass protocol CT for further evaluation. Reviewed, Interpreted and Dictated by Luis Mir MD Transcribed by Isaura Arboleda Authenticated and [facility]
== END 2024-11-30 23:59 | disposition home or self-care (01) ==
LOC: RAD 10:59
PROVIDERS: PCP Family Medicine; Visit Provider Urology
DX: Q61.02 Congenital multiple renal cysts (principal); R39.198 Other difficulties with micturition; R93.422 Abnormal radiologic findings on diagnostic imaging of left kidney; R93.421 Abnormal radiologic findings on diagnostic imaging of right kidney
CPT/HCPCS: 76770

== ENCOUNTER 2024-12-17 13:44 | Outpatient (CLI) | payer MEDICARE, MEDICAID, SELFPAY ==
--- OUTSIDE RECORDS SUMMARY | 2022-10-03 10:01 | XMS_ITS | Continuity of Care Document ---
Author Organization [address] [place] [address] Address [address] [facility] [address] [place] [address] Phone Care Team Providers Care Hospice Coordinator Name Role Phone Manish Meade DPM Unavailable Unavailable Allergies, Adverse Reactions, Alerts Substance Reaction Status Criticality PENICILLIN Active No Information Medications Medication Instructions Dosage Effective Dates (start - stop) Status Comments amlodipine 5 mg tablet take 1 tablet by oral route every day 5 MG - Active atorvastatin 10 mg tablet take 1 tablet by oral route every day 10 MG - Active hydralazine 25 mg tablet take 1 tablet by oral route 2 times every day with food 25 MG - Active Procedures Procedure Date EYE EXAM & TREATMENT DEBRIDE NAIL 6 OR MORE DEBRIDE NAIL 1-5 TRIM NAIL(S) EYE EXAM NEW PATIENT DEBRIDE NAIL 1-5 DEBRIDE NAIL 6 OR MORE DEBRIDE NAIL 6 OR MORE NURSING FAC CARE SUBSEQ Advance Directives Directive Yes / No Effective Date File Name No Information Encounters Encounter Description Practice Location Reason(s) For Visit Diagnoses Date Provider Providers Copied on Encounter [facility], [address] [facility], [place], [place], [id number], tel:[phone] [facility] No Information 3 Deshaun Hammond. [address] [facility], [address], [place], [place], [id number], [place]. tel:[phone] [place] [address], [address], [place], [place], [id number], [place] tel:[phone] [facility] Cataract (chief complaint) Age-related nuclear cataract, bilateral 3 Cindi John. [address] [facility], [address], [place], [address], [place]. Referring Provider: Vahe Bhatt [facility], [address] [facility] [address], [place], [place], [id number], tel:[phone] [facility] Onychogryphosis Other specified peripheral vascular diseases 3 Meadenamita Hammond. [address] [facility], [address], [place], [place], [id number], [place]. tel:[phone] Referring Provider: Vahe Bhatt [facility], [address] [facility] [address], [place], [place], [id number], tel:[phone] [facility] Other specified peripheral vascular diseasesOnychog ryphosisNail dystrophy 2 Sangita Mayen. [address] [facility], [address], [place], [place], [address], [place]. tel:[phone] Referring Provider: Kevin Ward . [address] [place] [address], [address] [facility] [address], [place], [place], [id number], [place] tel:[phone] [facility] Blurry vision (chief complaint) Age-related nuclear cataract, bilateral 2 Cindi John. [address] [facility], [address], [place], [address], [place]. Referring Provider: Vahe Bhatt [facility], [address] [place], [place] [address], [place], [place], [id number], [place] tel:[phone] [facility] Other specified peripheral vascular diseasesTinea unguium 2 [place]. , [place]. Referring Provider: Sylvia Burr. [facility], [address] [facility], [place], [place], [address], [place] tel:[phone] [facility] Tinea unguiumOther specified peripheral vascular diseases 1 [place], [place]. Referring Provider: Vahe Bhatt NURSING [facility] [address], [address] [facility] [address], [place], [place], [id number], [place] tel:[phone] [facility] Iliana Ball unguiumOther specified peripheral vascular diseasesPain in left toe(s)Pain in right toe(s)Other hammer toe(s) (acquired), left footOther hammer toe(s) (acquired), right foot Jun- 1 [place], [place]. Referring Provider: Mohsen Burkett. Family History Family Member Type Diagnosis Age At Onset No Information Payers Payer name Insurance type Covered republican ID Authoriza tion(s) Medicare [facility] [id number] Medicaid [facility] [id number] Social History Type Description Quantity Date Captured Comments Sex Male Smoking Status No Information Chief Complaint And Reason For Visit No Information Reason For Referral Reason For Referral No Information Plan Of Treatment Date Type Action Status Patient Education Toenail Fungus: Care In structions completed History Of Present Illness Encounter Date Complaint History Of Prese nt Illness Cataract The 71 year old patient presents for evaluation of Cataract in the right eye and left eye. It occurs all the time. The onset was gradual. It affects VA not affected. Blurry vision The 70 year old male presents for evaluation of Blurry vision in the right eye and left eye. It occurs doing close work. The onset was gradual. It affects near vision. The symptom is frequent. The condition is mild. Functional Status Date Functional Assessmen t No Information Instructions Date Instruction Additional Infor mation We will schedule an appoinment in 12-15 months for a dilated fundus exam. Related to Age-related nuclear cataract, bilateral Impression/Plan - Ca taracts are moderate and are affecting visual acuity; however, no treatment recommended at this time. We will monitor for progression. Related to Age-related nuclear cataract, bilateral Follow up - We will schedule an appoinment in 12-15 months for a dilated fundus exam. Related to Age-related nuclear cataract, bilateral All of the onychogry photic nails described were debrided in both length and thickness as needed. Related to Onychogryphosis I will follow up in 2-3 months for continued at risk foot care. Related to Other specified peripheral vascular diseases All of the thickened or mycotic nails described were debrided to prevent pain and infection. The nails were debrided using a rotary tool and nail nipper. The patient tolerated the procedure well. Related to Onychogryphosis All dystrophic nails were reduced in length as needed to prevent pain and other symptoms. Related to Nail dystrophy We will schedule an appoinment in 12-15 months for a dilated fundus exam. Related to Age-related nuclear cataract, bilateral Follow up - We will schedule an appoinment in 12-15 months for a dilated fundus exam. Related to Age-related nuclear cataract, bilateral Impression/Plan - Ca taracts are mild; we will monitor for progression. Related to Age-related nuclear cataract, bilateral Patient was examined , evaluated and treated with all questions and concerns addressed.All mycotic nails were sharply debrided in length, thickness, and width using a sterile nail nipper and rotary tool. Offending margins were carefully removed.Patient related immediate comfort and relief of pain after procedure.Patient was educated on pedal health and hygiene.Patient instructed on daily pedal checks and to notify staff of any significant changes.Patient advised to continue all medications and therapeutic modalities as instructed.Patient is amenable to all instruction provided today. Will follow-up with patient in 2-3 months or sooner as needed. Related to Tinea unguium Patient was examined , evaluated and treated with all questions and concerns addressed.All mycotic nails were sharply debrided in length, thickness, and width using a sterile nail nipper and rotary tool. Offending margins were carefully removed.Patient related immediate comfort and relief of pain after procedure.Patient was educated on pedal health and hygiene.Patient instructed on daily pedal checks and to notify staff of any significant changes.Patient advised to continue all medications and therapeutic modalities as instructed.Patient is amenable to all instruction provided today. Will follow-up with patient in 2-3 months or sooner as needed. Related to Tinea unguium Etiology, presentati on and treatment options regarding hammertoe deformity were discussed with patient. Due to patient being asymptomatic from deformity no additional treatment indicated at this time.Patient was instructed to continue to monitor site for any dermal changes and to monitor symptoms that would indicate progression.Patient advised on appropriate shoe gear that has a wider toe-box, accommodative, supportive and functional. Related to Other hammer toe(s) (acquired), right foot Patient was examined , evaluated and treated with all questions and concerns addressed.All mycotic nails were sharply debrided in length, thickness, and width using a sterile nail nipper and rotary tool. Offending margins were carefully removed.Patient related immediate comfort and relief of pain after procedure.Patient was educated on pedal health and hygiene.Patient instructed on daily pedal checks and to notify staff of any significant changes.Patient advised to continue all medications and therapeutic modalities as instructed.Patient is amenable to all instruction provided today. Will follow-up with patient in 2-3 months or sooner as needed. Related to Tinea unguium Discussed wider-toe box shoes that are accommodative, supportive and functional to help reduce frictional rubbing of hammertoes to top of shoe as well as alleviate symptomatic pain. Patient advised to continue daily pedal checks to monitor for any integumentary breakdown or progression of redness. Patient to report increase in pain or symptoms, if any, at next appointment. Related to Pain in left toe(s) Discussed wider-toe box shoes that are accommodative, supportive and functional to help reduce frictional rubbing of hammertoes to top of shoe as well as alleviate symptomatic pain. Patient advised to continue daily pedal checks to monitor for any integumentary breakdown or progression of redness. Patient to report increase in pain or symptoms, if any, at next appointment. Related to Pain in right toe(s) Etiology, presentati on and treatment options regarding hammertoe deformity were discussed with patient. Due to patient being asymptomatic from deformity no additional treatment indicated at this time.Patient was instructed to continue to monitor site for any dermal changes and to monitor symptoms that would indicate progression.Patient advised on appropriate shoe gear that has a wider toe-box, accommodative, supportive and functional. Related to Other hammer toe(s) (acquired), left foot Assessments Type Assessment Date No Information Patient Care Teams Name Effective Dates (start - stop) Status Members No Information
--- OUTSIDE RECORDS SUMMARY | 2024-12-17 13:47 | XMS_ITS | Encounter Summary ---
Author Organization [facility] Address [address] [id number] Care Team Providers Care Patient Coordinator Front Desk Name Role Phone Frankie De Leon MD Primary Care Provider [phone]- [phone] Encounter Details Date Type Department Care Team (Late Contact Info) Description 12/11/2024 Orders Only [facility] [address] [place] [address] Leona Herrera Vitamin D insufficiency (Primary Dx); Stage 3 chronic kidney disease, unspecified whether stage 3a or 3b CKD (CMS/HCC) Social History Tobacco Use Types Packs/Day Years Used Date Smoking Tobacco: Never Assessed Sex and Gender Information Value Date Recorded Sex Assigned at Not on file Legal Sex Male 9:59 AM EDT Gender Identity Not on file Sexual Orientation Not on file documented as of this encounter Plan of Treatment Upcoming Encounters Date Type Department Care Team (Late Contact Info) Description 01/06/2025 3:00 PM EDT Office Visit [facility] Nephrology, Bone & Mineral Metabolism [address] [facility], [address] [place] [address] Tal Zaman MD [address] [place] [phone] Scheduled Orders Name Type Priority Associated Diagnoses Orde r Schedule Renal Function Panel, Plasma Lab Routine Stage 3 chronic kidney disease, unspecified whether stage 3a or 3b CKD (CMS/HCC) Expected: 12/11/2024 (Approximate), Expires: 06/12/2026 CBC and Differential Lab Routine Stage 3 chronic kidney disease, unspecified whether stage 3a or 3b CKD (CMS/HCC) Expected: 12/11/2024 (Approximate), Expires: 06/12/2026 Creatinine, Random, Urine Lab Routine Stage 3 chronic kidney disease, unspecified whether stage 3a or 3b CKD (CMS/HCC) Expected: 12/11/2024 (Approximate), Expires: 06/12/2026 Protein, Random, Urine with Creatinine Lab Routine Stage 3 chronic kidney disease, unspecified whether stage 3a or 3b CKD (CMS/HCC) Expected: 12/11/2024 (Approximate), Expires: 06/12/2026 Urinalysis with reflex microscopic (Culture NOT Included) Lab Routine Stage 3 chronic kidney disease, unspecified whether stage 3a or 3b CKD (CMS/HCC) Expected: 12/11/2024 (Approximate), Expires: 06/12/2026 PTH Intact Total Lab Routine Vitamin D insufficiency Stage 3 chronic kidney disease, unspecified whether stage 3a or 3b CKD (CMS/HCC) Expected: 12/11/2024 (Approximate), Expires: 06/12/2026 Vitamin D 25 Hydroxy Lab Routine Vitamin D insufficiency Stage 3 chronic kidney disease, unspecified whether stage 3a or 3b CKD (CMS/HCC) Expected: 12/11/2024 (Approximate), Expires: 06/12/2026 documented as of this encounter Visit Diagnoses Diagnosis Vitamin D insufficiency- Primary Stage 3 chronic kidney disease, unspecified whether stage 3a or 3b CKD (CMS/HCC) documented in this encounter Care Teams Patient Coordinator Front Desk Relationship Specialty Start Date End Date Frankie De Leon MD [address] [place] [address] PCP - General 12/11/24 documented as of this encounter
--- OUTSIDE RECORDS SUMMARY | 2024-12-17 13:47 | XMS_ITS | Clinical Summary ---
Author Organization Healthcare Address [facility] [address] [id number] Care Team Providers Care Medical Translator Name Role Phone Frankie De Leon MD Primary Care Provider [phone]- [phone] Encounters Date Type Department Care Team Description 12/11/2024 Orders Only [facility] [address] [place] [address] Leona Herrera Vitamin D insufficiency (Primary Dx); Stage 3 chronic kidney disease, unspecified whether stage 3a or 3b CKD (CMS/HCC) from Last 3 Months Social History Tobacco Use Types Packs/Day Years Used Date Smoking Tobacco: Never Assessed Sex and Gender Information Value Date Recorded Sex Assigned at Not on file Legal Sex Male 9:59 AM EDT Gender Identity Not on file Sexual Orientation Not on file Plan of Treatment Upcoming Encounters Date Type Department Care Team (Late st Contact Info) Description 01/06/2025 3:00 PM EDT Office Visit [facility] Nephrology, Bone & Mineral Metabolism [address], [address] [place] [address] Tal Zaman MD [address] [place] [phone] Health Maintenance Due Date Last Done Comments [facility]-Depression Screening 1950 [facility]-Hepatitis C Screening 1950 [facility]-Infant/Child/Adol SDOH Screenings 1950 [facility]- SDOH Screenings 1966 [facility]-Adult SDOH Screenings 1966 [facility]-DTaP,Tdap,and Td Vaccines (1 - Tdap) 09/22/1967 [facility]-Pneumococcal Vaccine: 50+ Years (1 of 1 - PCV) 1998 [facility]-Zoster Vaccines (1 of 2) 1998 [facility]-RSV Vaccine: 60+ Years or (1 - 1-dose 75+ series) 09/22/2023 [id number] Vaccine (5 - season) 2023 02/12/2023, 02/23/2022, 06/08/2020, Additional history exists [facility]-Influenza Vaccine (#1) 12/14/202402/12, 02/23/2022, 07/21/2021, Additional history exists HPV Vaccines Aged Out No longer eligi ble based on patient's age to complete this topic [facility]-HIB Vaccines Aged Out No longer e ligible based on patient's age to complete this topic [facility]-Hepatitis A Vaccines Aged Out No longer eligible based on patient's age to complete this topic [facility]-IPV Vaccines Aged Out No longer e ligible based on patient's age to complete this topic [facility]-Rotavirus Vaccines Aged Out No lo nger eligible based on patient's age to complete this topic Care Teams Medical Translator Relationship Specialty Start Date End Date Frankie De Leon MD [address] [place] [address] PCP - General 12/11/24
--- NOTE | 2024-12-17 14:30 | CT_ITS ---
FINAL REPORT TECHNIQUE: Axial images through the abdomen and pelvis were performed without contrast. This study was performed with techniques to keep radiation doses as low as reasonably achievable, (ALARA). Individualized dose reduction techniques using automated exposure control or adjustment of mA and/or kV according to the patient's size were employed. CLINICAL HISTORY: Renal cyst COMPARISON: Chest CT dated 03/19/2024 FINDINGS: Abdomen: The lung bases are clear. There are multiple cystic structures in the liver, largest in the anterior right lobe measures 3.9 x 2.8 cm consistent with a benign cyst. The gallbladder is partially contracted with gallstones. The spleen and pancreas are unremarkable. There is a small periampullary duodenal diverticulum. There is mild bilateral adrenal hyperplasia. There is a cystic structure in the superior pole of the left kidney measuring 2.7 cm in diameter with a mean attenuation value of 1 Hounsfield unit consistent with a simple cyst. There is a small exophytic focus in the lower pole of the left kidney measuring 1 cm. There is dense vascular calcification of the abdominal aorta and iliac vessels. Pelvis: The urinary bladder is unremarkable. The appendix is not visualized. There is no pelvic mass or inflammation. Advanced hypertrophic changes of degenerative disc disease are seen at L5-S1. There is a 40% compression deformity of L1, appears chronic. IMPRESSION: Gallstones and a partially contracted gallbladder. Benign cyst in the superior pole of the left kidney. Advanced degenerative changes at L5-S1 with a chronic compression deformity of L1. Reviewed, Interpreted and Dictated by Luis Mir MD Transcribed by Nidhi Beltran Authenticated and [facility]
== END 2024-12-17 23:59 | disposition home or self-care (01) ==
LOC: RAD 13:44
PROVIDERS: PCP Family Medicine; Visit Provider Urology
DX: N28.1 Cyst of kidney, acquired (principal); K80.20 Calculus of gallbladder without cholecystitis without obstruction; M47.817 Spondylosis without myelopathy or radiculopathy, lumbosacral region; M48.56XA Collapsed vertebra, not elsewhere classified, lumbar region, initial encounter for fracture; N19 Unspecified kidney failure
CPT/HCPCS: 74176

== ENCOUNTER 2025-01-01 07:11 | Outpatient (CLI) | payer MEDICARE, MEDICAID, SELFPAY ==
--- OUTSIDE RECORDS SUMMARY | 2025-01-01 07:13 | XMS_ITS | Clinical Summary ---
Author Organization [facility] Address [facility] [address] [id number] Care Team Providers Care Projects Manager Name Role Phone Frankie De Leon MD Primary Care Provider +1- [phone] Encounters Date Type Department Care Team Description 12/11/2024 Orders Only [facility] [address] [place] [...] Description 01/06/2025 3:00 PM EDT Office Visit [facility] Nephrology, Bone & Mineral Metabolism [address] [address] [facility] [address], [address] [place] [address] Tal Zaman MD [address] [place] [phone] Health Maintenance Due Date Last Done Comments [facility]-Depression Screening 1950 [facility]-Hepatitis C Screening 1948 [facility]-Medicare Annual Wellness (AWV) 1948 [facility]-Infant/Child/Adol SDOH Screenings 1948 [facility]- SDOH Screenings 1966 [facility]-Adult SDOH Screenings 1966 [facility]-DTaP,Tdap,and Td Vaccines (1 - Tdap) 09/22/1967 [facility]-Pneumococcal Vaccine: 50+ Years (1 of 1 - PCV) 1998 [facility]-Zoster Vaccines (1 of 2) 1998 [facility]-RSV Vaccine: 60+ Years or (1 - 1-dose 75+ series) 09/22/2023 [id number] Vaccine (5 - 2024- season) 2024 02/12/2023, 02/23/2022, 06/08/2020, Additional history exists [facility]-Influenza [...] on patient's age to complete this topic Insurance MEDICARE [place] Care Teams Projects Manager Relationship Specialty Start Date End Date Frankie De Leon MD [address] [place] [address] PCP - General 12/11/24
--- OUTSIDE RECORDS SUMMARY | 2025-01-01 07:13 | XMS_ITS | Encounter Summary ---
Author Organization [facility] Address [address] [id number] Care Team Providers Care System Safety Manager Name Role Phone Frankie De Leon MD Primary Care Provider +1- [phone] Encounter Details Date Type Department Care Team (Late Contact Info) Description 12/11/2024 Orders Only [facility] [address] [place] [...] Description 01/06/2025 3:00 PM EDT Office Visit [facility] Nephrology, Bone & Mineral Metabolism [address] [facility] [address] [facility], [address] [place] [address] Tal Zaman MD [address] [place] [phone] Scheduled Orders Name Type Priority Associated [...] (CMS/HCC) documented in this encounter Care Teams System Safety Manager Relationship Specialty Start Date End Date Frankie De Leon MD [address] [place] [address] PCP - General 12/11/24 documented as of this encounter
[2025-01-01 07:15] LABS: Microscopic, Urine URINE MICROSCOPIC (MICROSCOPIC)
[2025-01-01 07:18] LABS: Hematocrit 40.2 % (42.0-52.0); Hemoglobin 13.8 g/dL (14.1-18.0); Mean Corpuscular HGB Conc 34.3 g/dL (31.8-35.4); Mean Corpuscular Hemoglobin 30.2 pg (27.0-31.2); Mean Corpuscular Volume 88.0 fl (80-94); Nucleated Red Blood Cells % 0 %; Platelet Count 188 K/mm3 (142-424); Red Blood Count 4.57 M/mm3 (4.60-6.20); Red Cell Distribution Width-SD 39.5 fL; White Blood Count 9.1 K/mm3 (4.8-10.8)
[2025-01-01 10:30] LABS: Chloride 102 mmol/L (98-107); Sodium 138 mmol/L (136-145)
[2025-01-01 10:31] LABS: Albumin Level 3.9 g/dl (3.5-5.0); Potassium 4.1 mmoL/L (3.5-5.1)
[2025-01-01 10:33] LABS: Anion Gap 12.1 mEq/L (5-15); Blood Urea Nitrogen 28 mg/dl (9-20); Carbon Dioxide 28 mmol/L (22.0-30.0); Creatinine,Serum 1.60 mg/dl (0.66-1.25); Estimated Glomerular Filt Rate 42 ml/min (>60); GFR (African American) 51 ML/MIN (>60)
[2025-01-01 10:34] LABS: Calcium 8.7 mg/dl (8.4-10.2); Glucose 91 mg/dl (74-100); Phosphorous 3.8 mg/dl (2.5-4.5)
[2025-01-01 10:41] LABS: 25-OH Vitamin D, Total 47.5 ng/mL (30-100)
[2025-01-01 11:21] LABS: Bilirubin,Urine Negative (Negative); Color,Urine YELLOW (Yellow); Glucose,Urine (UA) Negative (Negative); Ketones,Urine Negative (Negative); Leukocyte Esterase,Urine Negative (Negative); PH,Urine 7.0 (5.0-8.5); Protein,Urine 1+ (Negative); Specific Gravity, Urine 1.010 (1.005-1.030); Urobilinogen,Urine 0.2 EU/dl (0.2)
[2025-01-01 11:58] LABS: Bacteria,Urine 3+ /lpf
[2025-01-01 11:59] LABS: Triple Phosphate Crystal,Urine Trace /lpf
== END 2025-01-01 23:59 | disposition home or self-care (01) ==
PROVIDERS: PCP Nurse Practitioner Family; Visit Provider Nurse Practitioner Family
DX: N18.30 Chronic kidney disease, stage 3 unspecified (principal); E55.9 Vitamin D deficiency, unspecified
CPT/HCPCS: 36415; 80069; 81001; 82306; 82570; 83970; 84156; 85027; 87086; 87088

== ENCOUNTER 2025-01-26 09:45 | Day surgery (SDC) | payer MEDICARE, MEDICAID, SELFPAY ==
[2025-01-26 11:31] VITALS: BP 137/72; PULSE 67; RESP 17; TEMP 36.2; O2SAT 96
[2025-01-26] MEDS: TETRACAINE 0.5% OPTH SOL 15ML OP ×3 (11:35→11:45)
[2025-01-26] MEDS: PHENYLEPHRINE 2.5% OPHTH SOLN 2ML OP ×3 (11:35→11:45)
[2025-01-26] MEDS: CYCLOPENTOLATE 2% OPHTH SOLN 2ML BOTTLE OP ×3 (11:35→11:45)
[2025-01-26 13:12] VITALS: BP 157/57; PULSE 61; RESP 16; O2SAT 97
[2025-01-26] MEDS: MIDAZOLAM 2MG/2ML VIAL 1 MG IV (13:16)
[2025-01-26 13:17] VITALS: BP 168/92; PULSE 64; RESP 16; O2SAT 98
[2025-01-26] MEDS: TIMOLOL 0.5% OPTH SOLN 5ML OP (13:17)
[2025-01-26] MEDS: LIDOCAINE 1% PF 2ML VIAL 2 ML IJ (13:17)
[2025-01-26] MEDS: TOBRAMYCIN/DEX OPTH SUSP 2.5ML OP (13:17)
[2025-01-26 13:22] VITALS: BP 175/91; PULSE 67; RESP 16; O2SAT 98
[2025-01-26 13:27] VITALS: BP 169/94; PULSE 61; RESP 16; O2SAT 98
[2025-01-26 13:35] VITALS: BP 143/74; PULSE 63; RESP 18; TEMP 36.3; O2SAT 95
--- NOTE | 2025-01-26 14:56 | HMH.PROCNOTE ---
[facility] Procedure Note Date: 01/26/25 Time: 14:56 Procedure Note:: Preoperative Diagnosis: Cataract combined NS Cortical Complex [Left] Eye Postop diagnosis: same Operation: Microscopic phacoemulsification with intraocular lens implant [Left] Eye Specimen: None Blood Loss: None The patient was examined in the office with a complaint of poor vision in the [left] eye. The patient reports that this interferes with ADLs such as reading, watching TV and/or driving or the vision is like looking through a foggy haze and is very troubling. The patient was examined and found to have a visually significant cataract with best corrected vision of [20/400] by refraction and/or glare testing. Treatment options, risks and benefits were explained and the patient elected to have cataract surgery in an attempt to improve their vision. The patient had the eye anesthetized with topical tetracaine, the eye ways prepped and draped in the usual fashion for cataract surgery. A paracentesis and a temporal keratotomy were made. 0.2cc of 1% lidocaine PF was placed into the anterior chamber. And aqueous/viscoelastic exchange was done and a 360 degree capsulorexis was performed. Through hydrodissection and delineation with BSS on a cannula was done. The lens nucleus was phecoemulsified with CDE of [18.42]. Residual cortical material was removed using automated I&A The capsular bag was deepened with viscoelastica and a PCIOL was placed in the capsular bag with good centration and stability. Residual viscoelastic was removed using automated I&A. The keratotomy incision was hydrated with BSS on a cannula. The wound were checked and found to be water tight. IOP was checked digitally and adjusted as needed so as not to be too high. 1 drop of timolol 0.5%, ofloxacin, prednisolone acetate and ketorolac was instilled and eye shield taped over the eye. The patient was taken to recovery in good condition and will be seen postoperatively.
== END 2025-01-26 13:54 | disposition home or self-care (01) ==
PROVIDERS: PCP Family Medicine; Visit Provider Ophthalmology
DX: H25.812 Combined forms of age-related cataract, left eye (principal); F41.9 Anxiety disorder, unspecified; I12.9 Hypertensive chronic kidney disease with stage 1 through stage 4 chronic kidney disease, or unspecified chronic kidney disease; N18.9 Chronic kidney disease, unspecified; F17.210 Nicotine dependence, cigarettes, uncomplicated; Z86.73 Personal history of transient ischemic attack (TIA), and cerebral infarction without residual deficits; Z88.0 Allergy status to penicillin; Z79.899 Other long term (current) drug therapy
CPT/HCPCS: 66984; J2250; V2632

== ENCOUNTER 2025-02-09 07:13 | Day surgery (SDC) | payer MEDICARE, MEDICAID, SELFPAY ==
--- NOTE | 2025-02-04 14:16 | SUR.PREOP ---
Per Odette at [facility], pt is able to sign his own consent. Odette will be faxing over pt's med list
[2025-02-09 08:43] VITALS: BP 149/66; PULSE 65; RESP 18; TEMP 36.1; O2SAT 94; BMI 27.3
[2025-02-09] MEDS: PHENYLEPHRINE 2.5% OPHTH SOLN 2ML OP ×3 (08:55→09:05)
[2025-02-09] MEDS: CYCLOPENTOLATE 2% OPHTH SOLN 2ML BOTTLE OP ×3 (08:55→09:05)
[2025-02-09] MEDS: TETRACAINE 0.5% OPTH SOL 15ML OP ×3 (08:55→09:05)
[2025-02-09 09:36] VITALS: BP 182/78; PULSE 58; RESP 16; O2SAT 96
[2025-02-09] MEDS: MIDAZOLAM 2MG/2ML VIAL 1 MG IV (09:39)
[2025-02-09] MEDS: LIDOCAINE 1% PF 2ML VIAL 2 ML IJ (09:39)
[2025-02-09] MEDS: TOBRAMYCIN/DEX OPTH SUSP 2.5ML OP (09:40)
[2025-02-09] MEDS: TIMOLOL 0.5% OPTH SOLN 5ML OP (09:40)
[2025-02-09 09:41] VITALS: BP 155/66; PULSE 60; RESP 16; O2SAT 96
[2025-02-09 09:46] VITALS: BP 153/72; PULSE 58; RESP 16; O2SAT 96
[2025-02-09 09:51] VITALS: BP 163/69; PULSE 61; RESP 16; O2SAT 97
[2025-02-09 09:55] VITALS: BP 132/69; PULSE 72; RESP 18; TEMP 36.6; O2SAT 98
--- NOTE | 2025-02-09 11:20 | P.PCN_ITS ---
[facility] Procedure Note Date: 02/09/25 Time: 11:20 Procedure Note:: Preoperative Diagnosis: Cataract combined NS Cortical Complex [Right] Eye Postop diagnosis: same Operation: Microscopic phacoemulsification with intraocular lens implant [Right] Eye Specimen: None Blood Loss: None The patient was examined in the office with a complaint of poor vision in the [right] eye. The patient reports that this interferes with ADLs such as reading, watching TV and/or driving or the vision is like looking through a foggy haze and is very troubling. The patient was examined and found to have a visually significant cataract with best corrected vision of [20/400] by refraction and/or glare testing. Treatment options, risks and benefits were explained and the patient elected to have cataract surgery in an attempt to improve their vision. The patient had the eye anesthetized with topical tetracaine, the eye ways prepped and draped in the usual fashion for cataract surgery. A paracentesis and a temporal keratotomy were made. 0.2cc of 1% lidocaine PF was placed into the anterior chamber. And aqueous/viscoelastic exchange was done and a 360 degree capsulorexis was performed. Through hydrodissection and delineation with BSS on a cannula was done. The lens nucleus was phecoemulsified with CDE of [11.35]. Residual cortical material was removed using automated I&A The capsular bag was deepened with viscoelastica and a PCIOL was placed in the capsular bag with good centration and stability. Residual viscoelastic was removed using automated I&A. The keratotomy incision was hydrated with BSS on a cannula. The wound were checked and found to be water tight. IOP was checked digitally and adjusted as needed so as not to be too high. 1 drop of timolol 0.5%, ofloxacin, prednisolone acetate and ketorolac was instilled and eye shield taped over the eye. The patient was taken to recovery in good condition and will be seen postoperatively.
--- NOTE | 2025-02-09 11:21 | P.PCN_ITS ---
[facility] Procedure Note Date: 02/09/25 Time: 11:21 Procedure Note:: Preoperative Diagnosis: Cataract combined NS Cortical Complex [Right] Eye Postop diagnosis: same Operation: Microscopic phacoemulsification with intraocular lens implant [Right] Eye Specimen: None Blood Loss: None The patient was examined in the office with a complaint of poor vision in the [right] eye. The patient reports that this interferes with ADLs such as reading, watching TV and/or driving or the vision is like looking through a foggy haze and is very troubling. The patient was examined and found to have a visually significant cataract with best corrected vision of [20/400] by refraction and/or glare testing. Treatment options, risks and benefits were explained and the patient elected to have cataract surgery in an attempt to improve their vision. The patient had the eye anesthetized with topical tetracaine, the eye ways prepped and draped in the usual fashion for cataract surgery. A paracentesis and a temporal keratotomy were made. 0.2cc of 1% lidocaine PF was placed into the anterior chamber. And aqueous/viscoelastic exchange was done and a 360 degree capsulorexis was performed. Through hydrodissection and delineation with BSS on a cannula was done. The lens nucleus was phecoemulsified with CDE of [4.87]. Residual cortical material was removed using automated I&A The capsular bag was deepened with viscoelastica and a PCIOL was placed in the capsular bag with good centration and stability. Residual viscoelastic was removed using automated I&A. The keratotomy incision was hydrated with BSS on a cannula. The wound were checked and found to be water tight. IOP was checked digitally and adjusted as needed so as not to be too high. 1 drop of timolol 0.5%, ofloxacin, prednisolone acetate and ketorolac was instilled and eye shield taped over the eye. The patient was taken to recovery in good condition and will be seen postoperatively.
--- NOTE | 2025-02-09 11:22 | P.PCN_ITS ---
[facility] Procedure Note Date: 02/09/25 Time: 11:22 Procedure Note:: Preoperative Diagnosis: Cataract combined NS Cortical Complex [Right] Eye Postop diagnosis: same Operation: Microscopic phacoemulsification with intraocular lens implant [Right] Eye Specimen: None Blood Loss: None The patient was examined in the office with a complaint of poor vision in the [right] eye. The patient reports that this interferes with ADLs such as reading, watching TV and/or driving or the vision is like looking through a foggy haze and is very troubling. The patient was examined and found to have a visually significant cataract with best corrected vision of [20/400] by refraction and/or glare testing. Treatment options, risks and benefits were explained and the patient elected to have cataract surgery in an attempt to improve their vision. The patient had the eye anesthetized with topical tetracaine, the eye ways prepped and draped in the usual fashion for cataract surgery. A paracentesis and a temporal keratotomy were made. 0.2cc of 1% lidocaine PF was placed into the anterior chamber. And aqueous/viscoelastic exchange was done and a 360 degree capsulorexis was performed. Through hydrodissection and delineation with BSS on a cannula was done. The lens nucleus was phecoemulsified with CDE of [7.96]. Residual cortical material was removed using automated I&A The capsular bag was deepened with viscoelastica and a PCIOL was placed in the capsular bag with good centration and stability. Residual viscoelastic was removed using automated I&A. The keratotomy incision was hydrated with BSS on a cannula. The wound were checked and found to be water tight. IOP was checked digitally and adjusted as needed so as not to be too high. 1 drop of timolol 0.5%, ofloxacin, prednisolone acetate and ketorolac was instilled and eye shield taped over the eye. The patient was taken to recovery in good condition and will be seen postoperatively.
== END 2025-02-09 10:05 | disposition home or self-care (01) ==
PROVIDERS: PCP Family Medicine; Visit Provider Ophthalmology
DX: H25.811 Combined forms of age-related cataract, right eye (principal); H02.836 Dermatochalasis of left eye, unspecified eyelid; H02.833 Dermatochalasis of right eye, unspecified eyelid; I10 Essential (primary) hypertension; F41.9 Anxiety disorder, unspecified; F17.210 Nicotine dependence, cigarettes, uncomplicated; Z86.73 Personal history of transient ischemic attack (TIA), and cerebral infarction without residual deficits; Z88.0 Allergy status to penicillin; Z79.1 Long term (current) use of non-steroidal anti-inflammatories (NSAID); Z79.899 Other long term (current) drug therapy
CPT/HCPCS: 66982; J2250; V2632

== ENCOUNTER 2025-02-10 18:42 | Inpatient (IN) | payer MEDICARE, MEDICAID, SELFPAY ==
--- OUTSIDE RECORDS SUMMARY | 2025-02-08 09:00 | XMS_ITS | Encounter Summary ---
Author Organization Healthcare Address [facility] [address] [place] [id number] Care Team Providers Care Engineering Associate Name Role Phone Frankie De Leon MD Primary Care Provider [phone]- [phone] Reason for Visit * Reason Comments Consult Encounter Details Date Type Department Care Team (Latest Contact Info) Description 02/08/2025 9:00 AM EDT Office Visit [facility] Nephrology, Bone & Mineral Metabolism [address], [address] [place] [address] Tal Zaman MD [address] [place] [address] CKD stage 3b, GFR 30-44 ml/min ([facility]) (Primary Dx); Chronic kidney disease-mineral and bone [...] so slowly that other people could have noticed? Or the opposite - being so fidgety or restless that you have been moving around a lot more than usual. Not at all 02/08/2025 9:53 AM EDT Evelio Benavides Thoughts that you would be better off [...] Miscellaneous Notes * Progress Notes - Sarabjit Alcaraz DO - 02/08/2025 9:00 AM EDT Nephrology [...] w/ structural abnormalities. Mr. Aguillon comes from [place]. He has never been told his he [...] , CAUR , CALCIUMUR , PHOSUR , [id number] , [id number] , CREATUR MBD: No results found for: [...] , LH , PROLACTIN , TSH , [id number] , FREET4 , CORTISOL Imaging: Impression & [...] months Tal Zaman MD Division of Nephrology [facility] Counseling Documentation: The patient was counseled regarding COUNSELING TOPICS: diagnostic results, prognosis, risks and benefit of treatment options, risk factor reductions, instructions for management, patient and family education, medication changes, diagnostic impressions, Heart healthy diet, regular physical activity and weight control, Avoidance of NSAIDs and other nephrotoxins, and joint terminal attack controller nature of condition. Education provided was verbal [...] Expiration Date: 08/13/2026 [facility] Immediate Urinalysis with reflex microscopic (Culture NOT Included) Standing Status: Future Expected Date: 08/08/2025 Expiration Date: 08/13/20[facility] Vitamin D 25 Hydroxy Standing Status: Future Expected Date: 08/08/2025 Expiration Date: 08/13/2026 Release to patient in [facility]: Immediate PTH Intact Total Standing Status: Future Expected Date: 08/08/2025 Expiration Date: 08/13/2026 Release to patient in [facility]: Immediate Albumin-creatinine ratio, urine, random Standing Status: Future Expected Date: 08/08/2025 Expiration Date: 08/13/2026 Release to patient in [facility]: Immediate Protein, Random, Urine with Creatinine Standing Status: Future Expected Date: 08/08/2025 Expiration Date: 08/13/2026 Release to patient in [facility]: Immediate Renal Function Panel, Plasma Standing Status: Future Expected Date: 08/08/2025 Expiration Date: 08/13/2026 Release to patient in [facility]: Immediate Problem List Items Addressed [...] Description 08/13/2025 1:00 PM EDT Office Visit [facility] [address] [place] [address] Tal Zaman MD [address] [place] [phone] Scheduled Orders Name Type Priority Associated Diagnoses Orde r Schedule CBC W/O Differential Lab Routine CKD stage 3b, GFR 30-44 ml/min ([facility]) 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-MBD) Expected: 08/08/2025 (Approximate), Expires: 08/13/2026 Urinalysis with reflex microscopic (Culture NOT Included) Lab Routine CKD stage 3b, GFR 30-44 ml/min (CMS/HCC) 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-MBD) Expected: 08/08/2025 (Approximate), Expires: 08/13/2026 Vitamin D 25 Hydroxy Lab Routine CKD stage 3b, GFR 30-44 ml/min ([facility]) 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-MBD) Expected: 08/08/2025 (Approximate), Expires: 08/13/2026 PTH Intact Total Lab Routine CKD stage 3b, GFR 30-44 ml/min ([facility]) 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-MBD) Expected: 08/08/2025 (Approximate), Expires: 08/13/2026 Albumin-creatinine ratio, urine, random Lab Routine CKD stage 3b, GFR 30-44 ml/min ([facility]) 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-MBD) Expected: 08/08/2025 (Approximate), Expires: 08/13/2026 Protein, Random, Urine with Creatinine Lab Routine CKD stage 3b, GFR 30-44 ml/min ([facility]) 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-MBD) Expected: 08/08/2025 (Approximate), Expires: 08/13/2026 Renal Function Panel, Plasma Lab Routine CKD stage 3b, GFR 30-44 ml/min ([facility]) 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-MBD) Expected: 08/08/2025 (Approximate), Expires: 08/13/2026 documented as of this encounter Visit Diagnoses Diagnosis CKD stage 3b, GFR 30-44 ml/min ([facility])- Primary Chronic kidney disease-mineral and bone disorder [...] documented as of this encounter Care Teams Engineering Associate Relationship Specialty Start Date End Date Frankie De Leon MD [address] [place] [address] PCP - General 12/11/24 documented as of this encounter
--- OUTSIDE RECORDS SUMMARY | 2025-02-08 09:00 | XMS_ITS | Encounter Summary ---
Author Organization Healthcare Address [facility] [address] [place] [id number] Care Team Providers Care Crystalizer Operator Name Role Phone Frankie De Leon MD Primary Care Provider +1- [phone] Reason for Visit * Reason Comments Consult Encounter Details Date Type Department Care Team (Latest Contact Info) Description 02/08/2025 9:00 AM EDT Office Visit [facility] [place] Nephrology, Bone & Mineral Metabolism [address], [address] [place] [address] Tal Zaman MD [address] [place] [address] CKD stage 3b, GFR 30-44 ml/min ([facility]) (Primary Dx); Chronic kidney disease-mineral and [...] w/ structural abnormalities. Mr. Aguillon comes from [place]. He has never been told his he [...] , CAUR , CALCIUMUR , PHOSUR , [id number] , [id number] , CREATUR MBD: No results found for: [...] , LH , PROLACTIN , TSH , [id number] , FREET4 , CORTISOL Imaging: Impression & [...] MD Division of Nephrology [facility] Counseling Documentation: The patient was counseled regarding COUNSELING TOPICS: diagnostic results, prognosis, risks and benefit of treatment options, risk factor reductions, instructions for management, patient and family education, medication changes, diagnostic impressions, Heart healthy diet, regular physical activity and weight control, Avoidance of NSAIDs and other nephrotoxins, and assistant terminal manager nature of condition. Education provided was verbal [...] Expiration Date: 08/13/2026 [facility] Immediate Urinalysis with reflex microscopic (Culture NOT Included) Standing Status: Future Expected Date: 08/08/2025 Expiration Date: 08/13/2026 [facility] Vitamin D 25 Hydroxy Standing Status: Future Expected Date: 08/08/2025 Expiration Date: 08/13/2026 Release to patient in [facility]: Immediate PTH Intact Total Standing Status: Future Expected Date: 08/08/2025 Expiration Date: 08/13/2026 Release to patient in [facility]: Immediate Albumin-creatinine ratio, urine, random Standing Status: Future Expected Date: 08/08/2025 Expiration Date: 08/13/2026 Release to patient in [facility]: Immediate Protein, Random, Urine with Creatinine Standing Status: Future Expected Date: 08/08/2025 Expiration Date: 08/13/2026 Release to patient in [facility]: Immediate Renal Function Panel, Plasma Standing Status: Future Expected Date: 08/08/2025 Expiration Date: 08/13/2026 Release to patient in [facility]: Immediate Problem List Items Addressed [...] Description 08/13/2025 1:00 PM EDT Office Visit [facility] [address] [place] [address] Tal Zaman MD [address] [place] [phone] Scheduled Orders Name Type Priority Associated Diagnoses Orde r Schedule CBC W/O Differential Lab Routine CKD stage 3b, GFR 30-44 ml/min ([facility]) 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-MBD) Expected: 08/08/2025 (Approximate), Expires: 08/13/2026 Urinalysis with reflex microscopic (Culture NOT Included) Lab Routine CKD stage 3b, GFR 30-44 ml/min (CMS/HCC) 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-MBD) Expected: 08/08/2025 (Approximate), Expires: 08/13/2026 Vitamin D 25 Hydroxy Lab Routine CKD stage 3b, GFR 30-44 ml/min ([facility]) 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-MBD) Expected: 08/08/2025 (Approximate), Expires: 08/13/2026 PTH Intact Total Lab Routine CKD stage 3b, GFR 30-44 ml/min ([facility]) 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-MBD) Expected: 08/08/2025 (Approximate), Expires: 08/13/2026 Albumin-creatinine ratio, urine, random Lab Routine CKD stage 3b, GFR 30-44 ml/min ([facility]) 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-MBD) Expected: 08/08/2025 (Approximate), Expires: 08/13/2026 Protein, Random, Urine with Creatinine Lab Routine CKD stage 3b, GFR 30-44 ml/min ([facility]) 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-MBD) Expected: 08/08/2025 (Approximate), Expires: 08/13/2026 Renal Function Panel, Plasma Lab Routine CKD stage 3b, GFR 30-44 ml/min ([facility]) 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-MBD) Expected: 08/08/2025 (Approximate), Expires: 08/13/2026 documented as of this encounter Visit Diagnoses Diagnosis CKD stage 3b, GFR 30-44 ml/min ([facility])- Primary Chronic kidney disease-mineral and bone [...] documented as of this encounter Care Teams Crystalizer Operator Relationship Specialty Start Date End Date Frankie De Leon MD [address] [place] [address] PCP - General 12/11/24 documented as of this encounter
[2025-02-10] VITALS (8 sets, daily range): BP systolic 100–153; BP diastolic 57–75; PULSE 75–117; RESP 14–18; TEMP 36.8–39.6; O2SAT 88–95; BMI 24.1; BMI 25.0
--- NOTE | 2025-02-10 18:43 | ECG_ITS ---
APPROVED REPORT Exam: Resting ECG HR:110 bpm ECG Measurements Heart Rate 110 AXES MD 138 P 33 QRSd 79 QRS 49 QT 303 T 84 QTc 368 Conclusion Sinus tachycardia without acute ST or T wave changes concerning for ischemia Electronically signed by : Terra Cunningham, 02/11/2025 00:40:59
--- OUTSIDE RECORDS SUMMARY | 2025-02-10 18:53 | XMS_ITS | Encounter Summary ---
Author Organization Healthcare Address [address] [place] [address] Care Team Providers Care Parking Control Officer Name Role Phone Frankie De Leon MD Primary Care Provider +1- [phone] Encounter Details Date Type Department Care Team (Latest Contact Info) Description 02/08/2025 Travel Social History Tobacco Use Types Packs/Day Years Used Date Smoking Tobacco: Every Day Cigarettes Smokeless Tobacco: Current Alcohol Use Standard Drinks/Week Comments Not Currently [...] on file documented as of this encounter Functional Status * Over the [...] difficult at all 02/08/2025 9:53 AM EDT Drew sonNazaninrenan Primitivo documented as of this encounter Plan of Treatment Upcoming Encounters Date Type Department Care Team (Late st Contact Info) Description 08/13/2025 1:00 PM EDT Office Visit [place] [address] [place] [address] Tal Zaman MD [address] [place] [phone] documented as of this encounter Visit Diagnoses Not on filedocumented in this encounter Additional Health Concerns Assessment Noted Time PHQ-9 Depression Total Score: 0 02/09/20 9:53 AM EDT A fall risk assessment has been complete d for the patient 02/08/2025 9:55 AM EDT A Body Mass Index follow-up plan has been documented for the patient 02/09/2025 11:56 AM EDT documented as of this encounter Care Teams Parking Control Officer Relationship Specialty Start Date End Date Frankie De Leon MD [address] [place] [address] PCP - General 12/11/24 documented as of this encounter
--- OUTSIDE RECORDS SUMMARY | 2025-02-10 18:53 | XMS_ITS | Clinical Summary ---
Author Organization Healthcare Address [address] [id number] Care Team Providers Care Jewel Oliving Machine Operator Name Role Phone Frankie De Leon MD Primary Care Provider [phone] Medications acetaminophen (Tylenol) 325 MG tablet 10/31/2024 Active amLODIPine (Norvasc) 10 MG tablet 01/16/2025 Active Aspirin Low Dose 81 MG chewable tablet 01/11/2025 Active carvedilol (Coreg) 12.5 MG tablet 01/25/2025 Acti ve escitalopram (Lexapro) 10 MG tablet 01/13/2025 Active ketorolac (Acular) 0.5 % ophthalmic solution 01/23/2025 Active polyethylene glycol (Miralax) 17 GM/SCOOP powder 09/28/2024 Active prednisoLONE acetate (Pred-Forte) 1 % ophthalmic suspension 01/23/2025 Active Senexon-S 8.6-50 MG tablet 01/07/2025 Active tamsulosin (Flomax) 0.4 MG 24 hr capsule 01/29/2025 Active Active Problems Problem Noted Date Diagnosed Date Anemia in stage 3b chronic kidney disease 2024 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-MBD) 02/09/2025 Hypertensive chronic kidney disease with stage 1 through stage 4 chronic kidney disease, or unspecified chronic kidney disease 02/09/2025 Hyperlipidemia 02/09/2025 Encounters Date Type Department Care Team Description 02/08/2025 9:00 AM EDT Office Visit Professional [facility] Nephrology, Bone & Mineral Metabolism [address], [address] [place] [address] Tal Zaman MD CKD stage 3b, GFR 30-44 ml/min ([facility]) (Primary Dx); 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-MBD); Hypertensive chronic kidney disease with stage 1 through stage 4 chronic kidney disease, or unspecified chronic kidney disease; Anemia in stage 3b chronic kidney disease; Hyperlipidemia, unspecified hyperlipidemia type 02/08/2025 Travel 12/11/2024 Orders Only [facility] [address] [place] [phone] Leona Herrera Vitamin D insufficiency (Primary Dx); Stage 3 chronic kidney disease, unspecified whether stage 3a or 3b CKD ([facility]) from Last 3 Months Social History Tobacco [...] on file Sexual Orientation Not on file Last Filed Vital Signs Vital Sign Reading [...] Mass Index 27 02/08/2025 9:37 AM EDT Plan of Treatment Upcoming Encounters Date Type Department Care Team (Late st Contact Info) Description 08/13/2025 1:00 PM EDT Office Visit [facility] [address] [place] [address] Tal Zaman MD [address] [place] [phone] Health Maintenance Due Date Last Done Comments [facility]-Hepatitis C Screening 1950 [facility]-Medicare Annual Wellness (AWV) 1950 [facility]-/Child/Adol SDOH Screenings 1950 [facility]- SDOH Screenings 1966 [facility]-Adult SDOH Screenings 1966 [facility]-DTaP,Tdap,and Td Vaccines (1 - Tdap) 09/22/1967 [facility]-Pneumococcal Vaccine: 50+ Years (1 of 2 - PCV) 09/22/1967 [facility]-Zoster Vaccines (1 of 2) 1998 [facility]-RSV Vaccine: 60+ Years or (1 - 1-dose 75+ series) 09/22/2023 [id number] Vaccine (2024- season) 2024 02/12/2023, 02/23/2022, 06/08/2020, Additional history exists [facility]-Influenza Vaccine (#1) 12/14/202402/12, 02/23/2022, 07/21/2021, Additional history exists [facility]-Depression Screening 02/08/2026 02/08/2025, 01/14 [facility]-Obesity Intervention Completed 02/08/2025 HPV Vaccines Aged Out No longer eligi [...] on patient's age to complete this topic Procedures Procedure Name Priority Date/Time Associated Diagnosis Comments RENAL FUNCTION PANEL, PLASMA Routine 02/08/2025 11:03 AM EDT Stage 3 chronic kidney disease, unspecified whether stage 3a or 3b CKD (CMS/HCC) CBC WITH AUTO DIFFERENTIAL Routine 02/08/2025 11:03 AM EDT Stage 3 chronic kidney disease, unspecified whether stage 3a or 3b CKD (CMS/HCC) PTH INTACT TOTAL Routine 02/08/2025 11:0 3 AM EDT Vitamin D insufficiency Stage 3 chronic kidney disease, unspecified whether stage 3a or 3b CKD (CMS/HCC) VITAMIN D 25 HYDROXY Routine 02/08/2025 11:03 AM EDT Vitamin D insufficiency Stage 3 chronic kidney disease, unspecified whether stage 3a or 3b CKD (CMS/HCC) PROTEIN, URINE, RANDOM WITH CREATININE Routine 02/08/2025 11:02 AM EDT Stage 3 chronic kidney disease, unspecified whether stage 3a or 3b CKD (CMS/HCC) URINALYSIS WITH REFLEX MICROSCOPIC Routine 02/08/2025 11:02 AM EDT Stage 3 chronic kidney disease, unspecified whether stage 3a or 3b CKD (CMS/HCC) from Last 3 Months Results * Vitamin D 25 Hydroxy (02/08/2025 11:03 AM EDT) Vitamin D 25 Hydroxy 61.0 20.0 - 80.0 ng/mL 02/08/2025 4:31 PM EDT [facility] Comment:This is you lab orde r and it needs to be done 3 to Blood Venous blood specimen / Unknown Venipuncture / Unknown 02/08/2025 11:03 AM EDT 02/08/2025 11:03 AM EDT Narrative [facility] - 02/08/2025 4:31 PM EDT Testing performed on Asencio Whip Operator, standardized against NIST SRM 2972. When testing samples from patients whose predominant form of vitamin D is vitamin D2, such as patients receiving vitamin D2 supplementation, results that are subtherapeutic should be confirmed with another method, such as LC-MS/MS, before being used for patient management. Vitamin D, 25-Hydroxy reference range, age 18 years and up: Deficiency: <12 ng/mL Insufficiency: 12 to 19 ng/mL Sufficiency: 20 to 80 ng/mL Possible toxicity: >100 ng/mL us Tal Zaman MD LAB BLOOD ORDERABLES Final Resul t [facility] [address] [place] [address] * CBC and Differential (02/08/2025 11:03 AM EDT) WBC Count 9.57 3.70 - 10.30 10*3/uL LAB HEMATOLOGY METHOD 02/08/2025 2:31 PM EDT [facility] RBC Count 4.99 4.60 - 6.10 10*6/uL LAB HEMATOLOGY METHOD 02/08/2025 2:31 PM EDT [facility] HGB 14.9 13.7 - 17.5 g/dL LAB HEMATOLOGY METHOD 02/08/2025 2:31 PM EDT [facility] HCT 44.5 40.0 - 51.0 % LAB HEMATOLOGY METHOD 02/08/2025 2:31 PM EDT [facility] Platelet Count 221 155 - 369 10*3/uL LAB HEMATOLOGY METHOD 02/08/2025 2:31 PM EDT [facility] MCV 89 79 - 98 fL LAB HEMATOLOGY METHOD 02/08/2025 2:31 PM EDT [facility] MCH 29.9 26.0 - 32.0 pg LAB HEMATOLOGY METHOD 02/08/2025 2:31 PM EDT [facility] MCHC 33.5 30.7 - 35.5 g/dL LAB HEMATOLOGY METHOD 02/08/2025 2:31 PM EDT [facility] RDW 12.4 11.5 - 14.5 % LAB HEMATOLOGY METHOD 02/08/2025 2:31 PM EDT [facility] MPV 10.1 8.8 - 12.5 fL LAB HEMATOLOGY METHOD 02/08/2025 2:31 PM EDT [facility] nRBC 0.0 <=0.0 per 100 WBCs LAB HEMATOLOGY METHOD 02/08/2025 2:31 PM EDT [facility] Differential Type Automated LAB HEMATOLOGY METHOD 02/08/2025 2:31 PM EDT [facility] Neutrophils % 64 % LAB HEMATOLOGY METHOD 02/08/2025 2:31 PM EDT [facility] Lymphocytes % 24 % LAB HEMATOLOGY METHOD 02/08/2025 2:31 PM EDT [facility] Monocytes % 9 % LAB HEMATOLOGY METHOD 02/08/2025 2:31 PM EDT [facility] Eosinophils % 2 % LAB HEMATOLOGY METHOD 02/08/2025 2:31 PM EDT [facility] Basophils % 1 % LAB HEMATOLOGY METHOD 02/08/2025 2:31 PM EDT [facility] Immature Granulocytes % 0 % LAB HEMATOLOGY METHOD 02/08/2025 2:31 PM EDT [facility] Neutrophils Absolute 6.06 1.60 - 6.10 10*3/uL LAB HEMATOLOGY METHOD 02/08/2025 2:31 PM EDT [facility] Lymphocytes Absolute 2.31 1.20 - 3.90 10*3/uL LAB HEMATOLOGY METHOD 02/08/2025 2:31 PM EDT [facility] Monocytes Absolute 0.88 0.30 - 0.90 10*3/uL LAB HEMATOLOGY METHOD 02/08/2025 2:31 PM EDT [facility] Eosinophils Absolute 0.22 0.00 - 0.50 10*3/uL LAB HEMATOLOGY METHOD 02/08/2025 2:31 PM EDT [facility] Basophils Absolute 0.07 0.00 - 0.10 10*3/uL LAB HEMATOLOGY METHOD 02/08/2025 2:31 PM EDT [facility] Immature Granulocytes Absolute 0.03 0.00 - 0.06 10*3/uL LAB HEMATOLOGY METHOD 02/08/2025 2:31 PM EDT [facility] Blood Venous blood specimen / Unknown Venipuncture / Unknown 02/08/2025 11:03 AM EDT 02/08/2025 11:03 AM EDT Narrative [facility] - 02/08/2025 2:31 PM EDT Therapeutic decision making should be based on absolute values, rather than percentages. us Tal Zaman MD LAB BLOOD ORDERABLES Final Resul t [facility] [address] [place] [id number] * (ABNORMAL) PTH Intact Total (02/08/2025 11:03 AM EDT) PTH Intact Total 93(H) 9 - 77 pg/mL 02/08/2025 4:45 PM EDT [facility] Comment:This is you lab orde r and it needs to be done 3 to Blood Venous blood specimen / Unknown Venipuncture / Unknown 02/08/2025 11:03 AM EDT 02/08/2025 11:03 AM EDT Narrative [facility] - 02/08/2025 4:45 PM EDT Assay performed by immunoassay at the [facility]. Performed on Asencio Whip Operator chemiluminescent immunoassay, tractable to the World Health Organization's first international standard for PTH from the NIBS, Code 79/500. Results obtained from different test methods or kits cannot be used interchangeably. us Tal Zaman MD LAB BLOOD ORDERABLES Final Resul t [facility] [address] [place] [address] * (ABNORMAL) Renal Function Panel, Plasma (02/08/2025 11:03 AM EDT) Glucose, Plasma 83 74 - 99 mg/dL 02/08/2025 3:20 PM EDT [facility] BUN, Plasma 25(H) 8 - 23 mg/dL 02/08/2025 3:20 PM EDT [facility] Creatinine, Plasma 1.90(H) 0.70 - 1.20 mg/dL 02/08/2025 3:20 PM EDT [facility] BUN/Creatinine Ratio 13 02/08/2025 3:20 PM EDT [facility] Sodium, Plasma 141 136 - 145 mmol/L 02/08/2025 3:20 PM EDT [facility] Potassium, Plasma 4.7 3.6 - 4.9 mmol/L 02/08/2025 3:20 PM EDT [facility] Chloride, Plasma 103 97 - 107 mmol/L 02/08/2025 3:20 PM EDT [facility] CO2, Plasma 26 22 - 29 mmol/L 02/08/2025 3:20 PM EDT [facility] Anion Gap 12 6 - 16 mmol/L 02/08/2025 3:20 PM EDT [facility] Total Calcium, Plasma 9.4 8.9 - 10.2 mg/dL 02/08/2025 3:20 PM EDT [facility] Phosphorus, Plasma 3.7 2.5 - 4.5 mg/dL 02/08/2025 3:20 PM EDT [facility] Albumin, Plasma 4.4 3.5 - 5.2 g/dL 02/08/2025 3:20 PM EDT [facility] eGFRcr 36.1 mL/min/1.7 3m*2 02/08/2025 3:20 PM EDT [facility] Comment:Reported eGFRcr in m L/min/1.73m2 is based the CKD-EPI 2020 equation that does not use a race coefficient. Blood Venous blood specimen / Unknown Venipuncture / Unknown 02/08/2025 11:03 AM EDT 02/08/2025 11:03 AM EDT us Tal Zaman MD LAB BLOOD ORDERABLES Final Resul t Performing Organization Address City/[facility]/ZIP Co de Phone Number [facility] [address] [place] [address] * Protein, Random, Urine with Creatinine (02/08/2025 11:02 AM EDT) Protein, Urine 42 mg/dL 02/08/2025 3:03 PM EDT [facility] Creatinine, Urine 95 mg/dL 02/08/2025 3:03 PM EDT [facility] Protein/Creati nine Ratio 0.4 mg/mg Creat 02/08/2025 3:03 PM EDT [facility] Urine Urine specimen obtained by clean catch procedure / Unknown Non-blood Collection / Unknown 02/08/2025 11:02 AM EDT 02/08/2025 11:02 AM EDT us Tal Zaman MD LAB URINE ORDERABLES Final Resul t Performing Organization Address City/[facility]/ZIP Co de Phone Number [facility] [address] [place] [address] * (ABNORMAL) Urinalysis with reflex microscopic (Culture NOT Included) (02/08/2025 11:02 AM EDT) Color, Urine Yellow LAB URINALYSIS - AUTOMATED METHOD 02/08/2025 2:26 PM EDT [facility] Clarity, Urine Clear LAB URINALYSIS - AUTOMATED METHOD 02/08/2025 2:26 PM EDT [facility] Spec [place], Urine 1.016 1.005 - 1.030 LAB URINALYSIS - AUTOMATED METHOD 02/08/2025 2:26 PM EDT [facility] pH, Urine 6.5 5.0 - 8.0 LAB URINALYSIS - AUTOMATED METHOD 02/08/2025 2:26 PM EDT [facility] Protein, Urine 100(A) Negative mg/dL LAB URINALYSIS - AUTOMATED METHOD 02/08/2025 2:26 PM EDT [facility] Glucose, Urine Negative Negative mg/dL LAB URINALYSIS - AUTOMATED METHOD 02/08/2025 2:26 PM EDT [facility] Ketones, Urine Negative Negative mg/dL LAB URINALYSIS - AUTOMATED METHOD 02/08/2025 2:26 PM EDT [facility] Blood, Urine Negative Negative LAB URINALYSIS - AUTOMATED METHOD 02/08/2025 2:26 PM EDT [facility] Bilirubin, Urine Negative Negative LAB URINALYSIS - AUTOMATED METHOD 02/08/2025 2:26 PM EDT [facility] Urobilinogen, Urine 0.2 0.2 to 1.0 mg/dL LAB URINALYSIS - AUTOMATED METHOD 02/08/2025 2:26 PM EDT [facility] Leukocytes, Urine Negative Negative LAB URINALYSIS - AUTOMATED METHOD 02/08/2025 2:26 PM EDT [facility] Nitrite, Urine Negative Negative LAB URINALYSIS - AUTOMATED METHOD 02/08/2025 2:26 PM EDT [facility] Urine Urine specimen obtained by clean catch procedure / Unknown Non-blood Collection / Unknown 02/08/2025 11:02 AM EDT 02/08/2025 11:02 AM EDT us Tal Zaman MD LAB URINE ORDERABLES Final Resul t [facility] [address] [place] [address] from Last 3 Months Insurance [address] [id number] MEDICARE Member Subscriber Plan / Payer (Ef fective 2019-Present) Name:Biju Aguillon Member ID:[id number] Relation to Subscriber:Self Name:Biju Aguillon Subscriber ID:[id number] Payer ID:MEDICARE Group ID:Not on file Type:Medicare Address: [address] [phone] Care Teams Jewel Oliving Machine Operator Relationship Specialty Start Date End Date Frankie De Leon MD [address] [place] [address] PCP - General 12/11/24
--- NOTE | 2025-02-10 19:02 | XR_ITS ---
PROCEDURE INFORMATION: Exam: XR Chest Exam date and time: 02/10/2025 7:10 PM Age: 74 years old Clinical indication: Fever and other: Tachycardia; Additional info: Tachycardia, fever TECHNIQUE: Imaging protocol: Radiologic exam of the chest. Views: 1 view. COMPARISON: CT CHEST W CON 03/19/2024 12:49 AM FINDINGS: Lungs: There are moderate centrilobular emphysematous changes of the lungs with an apical gradient. Pleuroparenchymal scarring of the lung bases with subsegmental atelectasis is present without consolidations or pleural effusions that project above the diaphragm. Pleural spaces: Unremarkable. No pleural effusion. No pneumothorax. Heart/Mediastinum: Unremarkable. No cardiomegaly. Bones/joints: Unremarkable. IMPRESSION: Pleuroparenchymal scarring of the lung bases with subsegmental atelectasis is present without consolidations or pleural effusions that project above the diaphragm.
[2025-02-10 19:10] LABS: Hematocrit 39.2 % (42.0-52.0); Hemoglobin 13.6 g/dL (14.1-18.0); Immature Granulocytes % 3.2 %; Lactate Venous 1.8 mmol/L (0.4-2.0); Mean Corpuscular HGB Conc 34.7 g/dL (31.8-35.4); Mean Corpuscular Hemoglobin 30.2 pg (27.0-31.2); Mean Corpuscular Volume 87.1 fl (80-94); Nucleated Red Blood Cells % 0 %; Platelet Count 177 K/mm3 (142-424); Red Blood Count 4.50 M/mm3 (4.60-6.20); Red Cell Distribution Width-SD 39.8 fL; VBG HCO3 22.1 mmol/L (23-30); VBG PCO2 30.5 mmol/L (35-51); VBG PH 7.48 mmol/L (7.31-7.41); VBG PO2 73.6 mmol/L (28-40); White Blood Count 22.7 K/mm3 (4.8-10.8)
--- NOTE | 2025-02-10 19:19 | HMH.EDGENADL ---
Discharge Plan Disposition Patient Disposition: Admitted Clinical Impressions Clinical Impression: AMS (altered mental status), UTI (urinary tract infection) Discharge ED Provider: Terra Cunningham General Adult HPI General Chief complaint: Altered Mental Status Stated complaint: AMS Time Seen by Provider: 02/10/25 18:44 Mode of Arrival: EMS Source of Information: Patient and EMS Description of Symptoms (Recalled from ER Triage Doc. by RN): EMS was called to [facility] for pt with AMS and fever. Pt A&O x4 at baseline. pt A&O x1 at this time. Denies pain. pt had cataract surgery on his right eye yesterday. Pt was give Tylenol 30 mins prior to EMS being called. History of Present Illness HPI narrative: Patient is a 74-year-old male with no significant past medical history who presented to the emergency department with altered mental status and fever from his nursing facility. Per EMS, patient is alert and oriented x 3 at baseline, GCS of 15. Patient was more altered today than usual and patient had a fever at the nursing facility therefore patient was sent here for further evaluation and workup. On arrival, patient is alert and oriented x 1 patient states that he has not having any pain. Patient is unable to tell me any further history. Related Data Home Medications ?Medication ?Instructions ?Recorded ?Confirmed amlodipine 10 mg tablet 10 mg PO DAILY 11/18/23 02/10/25 carvedilol 12.5 mg tablet 12.5 mg PO BID 11/18/23 02/10/25 acetaminophen 325 mg tablet 325 mg PO QIDP PRN Pain 03/27/24 02/10/25 aspirin 81 mg chewable tablet 81 mg PO DAILY 03/28/24 02/10/25 multivitamin 1 tab PO DAILY 03/28/24 02/10/25 omega-3 fatty acids-fish oil 300 1 cap PO BID 03/28/24 02/10/25 mg-500 mg capsule (Fish Oil) guaifenesin 100 mg/5 mL oral liquid 200 mg PO Q6H PRN Congestion 09/22/24 02/10/25 escitalopram oxalate 5 mg tablet 5 mg PO DAILY 11/23/24 02/10/25 escitalopram oxalate 10 mg tablet 10 mg PO DAILY 12/01/24 02/10/25 ketorolac 0.5 % eye drops 1 drp Eye-Right QID 02/09/25 02/10/25 ofloxacin 0.3 % eye drops 1 drp Eye-Right QID 02/09/25 02/10/25 polyethylene glycol 3350 17 17 g PO DAILY PRN Constipation 02/09/25 02/10/25 gram/dose oral powder (Miralax) prednisolone acetate 1 % eye 1 drp Eye-Right QID 02/09/25 02/10/25 drops,suspension (Pred Forte) Previous Rx's ?Medication ?Instructions ?Recorded sennosides 8.6 mg-docusate sodium 1 tab PO BID 30 days #60 tabs 03/30/24 50 mg tablet (Stimulant Laxative Plus) oxybutynin chloride 10 mg 10 mg PO DAILY #90 tabs 12/07/24 tablet,extended release 24 hr tamsulosin 0.4 mg capsule (Flomax) 0.4 mg PO DAILY 90 days #90 caps 01/18/25 Allergies Allergy/AdvReac Type Severity Reaction Status Date / Time Penicillins Allergy Unknown Verified 02/09/25 15:00 allergy reaction [facility] Disclaimer: The information contained in this section may have been updated after the patient was seen, as this information can be updated by other users. Medical History Compression fracture of L1 lumbar vertebra Cataracts, bilateral Urinary tract infection Elevated PSA Difficulty in urination Alcoholism in remission Chronic kidney disease Difficulty walking Declining functional status Sciatica Constipation History of transient ischemic attack (TIA) Tobacco use disorder HTN (hypertension) Surgical History No significant past surgical history Family History Other No significant family history Social History Smoking Status: Current every day smoker tobacco type: cigarettes packs per day: 2 pack-years: 134 years smoked: 65 alcohol intake: former current occupational status: retired Travel in the last 8 weeks?: None Other Medical History Have you received the Flu Vaccine for this season: No Have you received the Pneumonia Vaccine: No (unknown) ROS Obtained: Yes All systems reviewed & no additional complaints except as documented and Yes Systems reviewed as appropriate & no additional complaints except as documented Physical Exam General General appearance: alert and in no apparent distress Head Head exam: atraumatic, normocephalic and normal inspection Eye Eye exam: Present normal appearance, PERRL and EOMI; Absent scleral icterus ENT ENT exam: Present normal exam, mucous membranes dry and normal external ear exam Neck Neck exam: Present normal inspection and full ROM Chest Chest inspection: Present normal inspection and symmetric chest wall rise Respiratory Respiratory exam: Present normal lung sounds bilaterally and wheezes (Subtle wheezing in the right lung field); Absent respiratory distress Cardiovascular Cardiovascular exam: Present normal rhythm, tachycardia and normal heart sounds Abdominal Exam Abdominal exam: Present soft and distention; Absent tenderness, guarding or rebound Extremities Exam Extremities exam: Present normal inspection and full ROM Back Exam Back exam: Present normal inspection and full ROM Neurological Exam Neurological exam: Present alert and oriented X3 Psychiatric Psychiatric exam: Present normal affect and normal mood Skin Skin exam: Present warm and dry Medical Decision Making Medical Records Medical records reviewed: Yes I reviewed the patient's medical records. Screening: Per USPSTF and CDC recommendations, given the prevalence of disease in our region, it is our hospital?s policy to screen for HIV and viral Hepatitis for all patients aged 18 and over and those with ongoing risk factors. Damián Inquiry Pt receiving controlled substance: No Vital Signs: 02/10/25 18:36 02/10/25 18:36 02/10/25 19:02 Temperature 103.2 F H 103.2 F H Temperature Source Oral Oral Pulse Rate 117 H Pulse Rate [Right] 117 H Respiratory Rate 16 16 Blood Pressure 153/75 H Blood Pressure [Right Arm] 153/75 H Blood Pressure Mean [Right Arm] 101 Blood Pressure Source Automatic Cuff Blood Pressure Source [Right Arm] Automatic Cuff Blood Pressure Position Supine Blood Pressure Position [Right Arm] Supine 02 Sat by Pulse Oximetry 94 L 94 L 95 Oxygen Delivery Method Room Air Room Air Room Air 02/10/25 19:17 02/10/25 21:58 02/10/25 22:24 Temperature 98.3 F 98.3 F Temperature Source Oral Oral Pulse Rate 101 H 77 77 Pulse Rate [Right] Respiratory Rate 16 18 18 Blood Pressure 100/69 L 115/73 115/73 Blood Pressure [Right Arm] Blood Pressure Mean [Right Arm] Blood Pressure Source Automatic Cuff Automatic Cuff Blood Pressure Source [Right Arm] Blood Pressure Position Sitting Sitting Blood Pressure Position [Right Arm] 02 Sat by Pulse Oximetry 93 L 95 Oxygen Delivery Method Room Air Room Air Room Air Lab Data Lab results reviewed: Yes I reviewed the patient's lab results. Lab Results 02/10/25 18:43: Chlamy pneumoniae PCR Not detected, Adenovirus (PCR) Not detected, B. pertussis DNA (PCR) Not detected, Coronavirus OC43 (PCR) Not detected, Coronavirus HKU1 (PCR) Not detected, Coronavirus 229E (PCR) Not detected, SARS-CoV-2 (PCR) Not detected, Coronavirus NL63 (PCR) Not detected, Human Metapneumovir PCR Not detected, Influenza A (H1) PCR Not detected, Influ A (H1N1/09) PCR Not detected, Influenza A (H3) PCR Not detected, Influenza Type A (PCR) Not detected, Influenza Type B (PCR) Not detected, M. pneumoniae (PCR) Not detected, Parainfluenza 1 (PCR) Not detected, Parainfluenza 2 (PCR) Not detected, Parainfluenza 3 (PCR) Not detected, Parainfluenza 4 (PCR) Not detected, RSV (PCR) Not detected, Entero/Rhino (PCR) Not detected 02/10/25 18:47: WBC 22.7 H*, RBC 4.50 L, Hgb 13.6 L, Hct 39.2 L, MCV 87.1, MCH 30.2, MCHC 34.7, RDW 12.6, Plt Count 177, MPV 9.5, Neut % (Auto) 83.6 H, Lymph % (Auto) 4.0 L, [place] % (Auto) 9.0, Eos % (Auto) 0.0 L, Baso % (Auto) 0.2, Neut # (Auto) 19.0 H, Lymph # (Auto) 0.9, [place] # (Auto) 2.0 H, Eos # (Auto) 0.0, Baso # (Auto) 0.0, Total Counted 100, Neutrophils % (Manual) 83 H, Lymphocytes % (Manual) 11, Monocytes % (Manual) 6, Platelet Estimate Normal, RBC Morphology Normal, ESR 22 H, PT 11.3, INR 1.02, APTT 28.5, D-Dimer 1.09 H, VBG pH 7.48 H, VBG pCO2 30.5 L, VBG pO2 73.6 H, VBG HCO3 22.1 L, VBG Total CO2 23.0, VBG O2 Saturation 95.8 H, VBG Base Excess -1.4, VBG Lactic Acid 1.8, Sodium 133 L, Potassium 3.8, Chloride 103, Carbon Dioxide 22, Anion Gap 11.8, BUN 35 H, Creatinine 2.20 H, Estimated Creat Clear 33, Estimated GFR 29 L, Est GFR ( Amer) 35 L, Glucose 129 H, Calcium 8.9, Magnesium 1.8, Total Bilirubin 0.8, AST 27, ALT 16, Alkaline Phosphatase 89, Total Creatine Kinase 159, Troponin I 0.04 H, C-Reactive Protein 96.1 H, NT-Pro-B Natriuret Pep 3900 H, Total Protein 7.2, Albumin 3.4 L, Globulin 3.8 H, Albumin/Globulin Ratio 0.9 L, Lipase 35, Procalcitonin 8.78 H, HCV Ab SHANNAN w/Rflx PCR Qn Negative, HIV Ag/Ab Combo Qual Negative 02/10/25 20:40: Urine Color Yellow, Urine Appearance Sl cloudy, Urine pH 6.0, Ur Specific [place] 1.015, Urine Protein 2+ A, Urine Glucose (UA) Negative, Urine Ketones Negative, Urine Blood 3+ A, Urine Nitrate Positive A, Urine Bilirubin Negative, Urine Urobilinogen 0.2, Ur Leukocyte Esterase 2+ A, Urine RBC 50-100, Urine WBC Tntc, Ur Squamous Epith Cells 20-50, Urine Bacteria 4+ 02/10/25 18:47 02/10/25 18:47 Orders (Tests/Meds): ED MEDICATIONS Generic Name Dose Route Start Last Admin Trade Name Tay PRN Reason Stop Dose Admin Acetaminophen 650 mg 02/10/25 22:57 Acetaminophen 325mg Tab PO 03/12/25 22:56 Q4HP PRN Fever or Mild Pain (1-3) Docusate Sodium 100 mg 02/11/25 09:00 Docusate Sodium 100 Mg Capsule PO 03/13/25 08:59 DAILY [facility] Heparin Sodium (Porcine) 5,000 unit 02/11/25 09:00 Heparin Sodium 5,000 Unit/Ml Vial SUBCUT 03/13/25 08:59 TID [facility] Cefepime HCl 2 gm/ Sodium 100 mls @ 200 mls/hr 02/11/25 08:00 Chloride IV 02/21/25 07:59 Q12H [facility] Miscellaneous 1 each 02/10/25 20:00 02/10/25 23:03 Vancomycin Consult Request NOTAPPLIC 03/12/25 19:59 Not Given CONSULT PHARMACY [facility] Miscellaneous 1 each 02/11/25 00:13 Pharmacy Consult Request NOTAPPLIC 02/11/25 00:14 CONSULT PHARMACY ONE Nystatin 30 gm 02/11/25 09:00 Nystatin Topical Powder 30gm TP 03/13/25 08:59 QID [facility] Sodium Chloride 10 ml 02/10/25 20:27 02/10/25 20:29 Sodium Chloride 0.9% 10ml Syr (Rad Only) IV 03/12/25 20:26 10 ml NEEDED PRN Administration Maintain IV Site Discontinued Medications Generic Name Dose Route Start Last Admin Trade Name Freq PRN Reason Stop Dose Admin Acetaminophen 500 mg 02/10/25 19:02 02/10/25 19:26 Acetaminophen 500mg Tab PO 02/10/25 19:03 500 mg ONCE ONE Administration Lactated Ringer's 1,000 mls @ 999 mls/hr 02/10/25 19:02 02/10/25 21:07 Lactated Ringer's 1000 Ml Bag IV 02/10/25 20:02 Infused .Q1H1M ONE Infusion Cefepime HCl 2 gm/ Sodium 100 mls @ 200 mls/hr 02/10/25 19:48 02/10/25 21:03 Chloride IV 02/10/25 20:17 Infused ONCE ONE Infusion Vancomycin/PEG/NA[place]/Lysine/Water 1.75 gm in 350 mls @ 175 mls/hr 02/10/25 20:00 02/10/25 23:17 Vancomycin 1.75gm/350ml (Peg) Premix IV 02/10/25 21:59 Infused ONCE ONE Infusion Lactated Ringer's 1,000 mls @ 999 mls/hr 02/10/25 20:39 02/10/25 23:01 Lactated Ringer's 1000 Ml Bag IV 02/10/25 21:39 Infused .Q1H1M ONE Infusion Ibuprofen 800 mg 02/10/25 19:02 02/10/25 19:26 Ibuprofen 400 Mg Tablet PO 02/10/25 19:03 800 mg ONCE ONE Administration Iopamidol 75 ml 02/10/25 20:27 02/10/25 20:28 Iopamidol-370 (76%);100ml Bottle IV 02/10/25 20:28 75 ml ONCE ONE Administration Sodium Chloride 50 ml 02/10/25 20:27 02/10/25 20:29 0.9 % Sodium Chloride 50 Ml Vial IV 02/10/25 20:28 50 ml ONCE ONE Administration ORDERS Category Date Time Status CT abdomen pelvis w con Stat Cat Scan 02/10/25 19:[address] angio chest PE protocol Stat Cat Scan 02/10/25 19:[address] head/brain wo con Stat Cat Scan 02/10/25 19:36 Completed CXR --portable [XR chest portable] Stat Exams 02/10/25 19:02 Completed Activated Partial Thrombo Time Stat Lab 02/10/25 18:47 Completed BNP [NT Pro Brain Natriuretic Pep.] Stat Lab 02/10/25 18:47 Completed C-Reactive Protein Stat Lab 02/10/25 18:47 Completed CBC w/Auto Diff [Complete Blood Count Auto Diff] Stat Lab 02/10/25 18:47 Completed CMP [Comprehensive Metabolic Panel] Stat Lab 02/10/25 18:47 Completed Creatine Kinase Stat Lab 02/10/25 18:47 Completed D-Dimer Stat Lab 02/10/25 18:47 Completed Erythrocyte Sedimentation Rate Stat Lab 02/10/25 18:47 Completed Full Resp Panel w/COVID (H) Routine Lab 02/10/25 18:43 Completed HIV Combo Stat Lab 02/10/25 18:47 Completed Hepatitis C Ab Qual. W/ RFX Stat Lab 02/10/25 18:47 Completed Lipase Stat Lab 02/10/25 18:47 Completed MAG [Magnesium] Stat Lab 02/10/25 18:47 Completed Procalcitonin Stat Lab 02/10/25 18:47 Completed Prothrombin Time INR Stat Lab 02/10/25 18:47 Completed Trop I [Troponin I] Stat Lab 02/10/25 18:47 Completed Troponin I Q3H Lab 02/10/25 21:50 Completed Troponin I Q3H Lab 02/11/25 01:15 Ordered UA [Urinalysis and Microscopic] Stat Lab 02/10/25 20:40 Completed Blood Culture Stat Micro 02/10/25 18:55 Received Urine Culture Stat Micro 02/10/25 20:40 Received VBG [Venous Blood Gas] Stat RT 02/10/25 18:47 Completed Medical Decision Narrative: Patient is a 74-year-old male with no significant past medical history who presented to the emergency department with fever and altered mental status. On arrival, patient was tachycardic, febrile but hemodynamically stable. Patient was saturating appropriately on room air. Differential includes but not limited to: UTI, pneumonia, sepsis, dehydration, intra-abdominal process, intracranial pathology, amongst others. On exam, patient was alert and oriented x 1, had a nonfocal neuroexam. Patient's mucous membranes were dry. Exam was otherwise unremarkable. Labs were reviewed and interpreted by myself: CBC showed a leukocytosis of 22, hemoglobin was stable. ESR was 22. D-dimer elevated at 1.09. INR normal at 1. VBG showed no acidosis normal lactate. CMP showed mildly elevated creatinine at 2.20, baseline of 1.6. Glucose normal. Initial troponin elevated at 0.04. CRP 96. BNP elevated at 3900. Procalcitonin 8.78. Given the patient was tachycardic with a leukocytosis and febrile, sepsis order set was intiated and patient was ordered vancomycin and cefepime. Patient's UA was grossly infected with 2+ blood, nitrite positive, 2+ leuk esterase, too numerous to count white blood cells and 50-100 red blood cells as well as 4+ bacteria. CT head, CT chest and CT abdomen pelvis were obtained which showed no acute pathology. Patient was ordered a second liter of IV fluids and patient's tachycardia significantly improved. Patient continued to be altered from his baseline. Concern for sepsis without urinary source, I felt the patient warranted admission. I discussed the case with the hospitalist and patient was ultimately admitted to their service for further evaluation workup. Critical Care Critical Care Time Critical Care Time: No
[2025-02-10 19:24] LABS: Alanine Aminotransferase 16 U/L (12-78); Albumin Level 3.4 g/dl (3.5-5.0); Albumin/Globulin Ratio 0.9 (1.1-1.8); Alkaline Phosphatase 89 U/L (38-126); Anion Gap 11.8 mEq/L (5-15); Aspartate Amino Transferase 27 U/L (17-59); Bilirubin,Total 0.8 mg/dl (0.2-1.3); Blood Urea Nitrogen 35 mg/dl (9-20); Calcium 8.9 mg/dl (8.4-10.2); Carbon Dioxide 22 mmol/L (22.0-30.0); Chloride 103 mmol/L (98-107); Creatinine Clearance Estimated 33 mL/min (50-200); Creatinine,Serum 2.20 mg/dl (0.66-1.25); Estimated Glomerular Filt Rate 29 ml/min (>60); GFR (African American) 35 ML/MIN (>60); Globulin 3.8 g/dL (1.3-3.2); Glucose 129 mg/dl (74-100); Magnesium 1.8 mg/dl (1.6-2.3); Potassium 3.8 mmoL/L (3.5-5.1); Sodium 133 mmol/L (136-145); Total Protein,Serum 7.2 g/dl (6.3-8.2)
[2025-02-10] MEDS: LACTATED RINGERS 1000ML 1,000 ML 999 ML IV ×2 (19:26→21:07)
[2025-02-10] MEDS: IBUPROFEN 400 MG TABLET 800 MG PO (19:26)
[2025-02-10] MEDS: ACETAMINOPHEN 500MG TAB 500 MG PO (19:26)
[2025-02-10 19:28] LABS: D-Dimer 1.09 ug/mL (0.0-0.5)
[2025-02-10 19:35] LABS: Troponin I 0.04 ng/ml (0.00-0.034)
--- NOTE | 2025-02-10 19:36 | CT_ITS ---
PROCEDURE INFORMATION: Exam: CT Head Without Contrast Exam date and time: 02/10/2025 7:54 PM Age: 74 years old Clinical indication: Altered mental status/memory loss and fever; Additional info: AMS, fever TECHNIQUE: Imaging protocol: Computed tomography of the head without contrast. Radiation optimization: All CT scans at this facility use at least one of these dose optimization techniques: automated exposure control; mA and/or kV adjustment per patient size (includes targeted exams where dose is matched to clinical indication); or iterative reconstruction. COMPARISON: CT ANGIO HEAD 03/19/2024 12:45 AM FINDINGS: Brain: Advanced chronic brain volume loss and chronic small vessel ischemic changes. Chronic bilateral basal ganglia lacunar infarctions. Cerebral ventricles: No ventriculomegaly. Paranasal sinuses: Mild mucosal thickening in the paranasal sinuses. Mastoid air cells: Visualized mastoid air cells are well aerated. Orbital cavities: Status post bilateral cataract surgery. Bones: Unremarkable. No acute fracture. Soft tissues: Unremarkable. IMPRESSION: No acute intracranial findings. If there is high clinical concern for acute infarction, consider MRI for further evaluation. ASSESSMENT: ASPECTS score ([place] Stroke Program Early CT Score) is 10.
--- NOTE | 2025-02-10 19:36 | CT_ITS ---
PROCEDURE INFORMATION: Exam: CTA Chest Without And With Contrast Exam date and time: 02/10/2025 7:57 PM Age: 74 years old Clinical indication: Fever and other: AMS; Additional info: AMS, fever TECHNIQUE: Imaging protocol: Computed tomographic angiography of the chest without and with contrast. Exam focused on the arteries. 3D rendering (Not supervised by radiologist): MIP and/or 3D reconstructed images were created by the technologist. Radiation optimization: All CT scans at this facility use at least one of these dose optimization techniques: automated exposure control; mA and/or kV adjustment per patient size (includes targeted exams where dose is matched to clinical indication); or iterative reconstruction. Contrast material: ISOVUE; Contrast volume: 75 ml; Contrast route: INTRAVENOUS (IV); COMPARISON: CT CHEST W CON 03/19/2024 12:49 AM FINDINGS: Pulmonary arteries: Normal. No pulmonary emboli. Aorta: There is moderate calcific atherosclerotic disease of the thoracic aorta without aneurysmal dilatation. Lungs: There are moderate centrilobular emphysematous changes of the lungs with an apical gradient. Pleural spaces: Unremarkable. No pneumothorax. No pleural effusion. Heart: Unremarkable. No cardiomegaly. No pericardial effusion. Coronary arteries: Moderate three-vessel calcific atherosclerotic disease of the coronary arteries. Lymph nodes: Prominent mediastinal and hilar lymph nodes are likely reactive. Liver: Multiple hypoattenuating circumscribed structures of the liver compatible with simple hepatic cysts with the largest measuring 3.7 cm in diameter. Gallbladder and biliary ducts: Hyperattenuating material dependently layering within the gallbladder fossa compatible with biliary sludge. Spleen: Multiple benign-appearing calcific densities of the spleen. Kidneys: Multiple Bosniak 1 renal cystic lesions defined as homogeneous and fluid density (-9 to 20 HU), no septations or calcifications, having ji smooth and thin. Largest cyst measures 2.7 cm. No follow-up recommended. Bones/joints: Chronic appearing compression fracture of L1 with 20% loss of anterior height. Soft tissues: Unremarkable. IMPRESSION: No acute findings. COMMENTS: 1. Consistent with the [employer]'s Incidental Findings Committee white paper (J Am Tari Radiol 2018): Any incidental renal lesion less than 1 cm or classified as too small to characterize, or any incidental cystic renal lesion characterized as simple-appearing, is likely benign. No follow-up imaging is recommended for these lesions per consensus recommendations based on imaging criteria. 2. The presence of pulmonary emphysema on CT is an independent risk factor for lung cancer. In the absence of a history or active diagnosis of lung cancer, it is recommended that this patient with emphysema be evaluated for enrollment in a low dose CT lung cancer screening program.
--- NOTE | 2025-02-10 19:36 | CT_ITS ---
PROCEDURE INFORMATION: Exam: CT Abdomen And Pelvis With Contrast Exam date and time: 02/10/2025 8:10 PM Age: 74 years old Clinical indication: Fever and other: Altered; Additional info: Altered, fever TECHNIQUE: Imaging protocol: Computed tomography of the abdomen and pelvis with contrast. 3D rendering (Not supervised by radiologist): MIP and/or 3D reconstructed images were created by the technologist. Radiation optimization: All CT scans at this facility use at least one of these dose optimization techniques: automated exposure control; mA and/or kV adjustment per patient size (includes targeted exams where dose is matched to clinical indication); or iterative reconstruction. Contrast material: ISOVUE; Contrast volume: 75 ml; Contrast route: IV; COMPARISON: CT ABDOMEN PELVIS WO CON 12/17/2024 1:49 PM FINDINGS: Liver: Multiple hypoattenuating circumscribed structures of the liver compatible with simple hepatic cysts with the largest measuring 3.7 cm in diameter. Gallbladder and biliary ducts: Normal. No calcified stones. No ductal dilation. Pancreas: Normal. No ductal dilation. Spleen: Multiple benign-appearing calcific densities of the spleen. Adrenal glands: Normal. No mass. Kidneys and ureters: Multiple Bosniak 1 renal cystic lesions defined as homogeneous and fluid density (-9 to 20 HU), no septations or calcifications, having ji smooth and thin. Largest cyst measures 2.7 cm. No follow-up recommended. Stomach and bowel: Unremarkable. No obstruction. No mucosal thickening. Appendix: No evidence of appendicitis. Intraperitoneal space: Unremarkable. No free air. No significant fluid collection. Vasculature: Moderate calcific atherosclerotic disease of the abdominal aorta without aneurysmal dilatation is present. Lymph nodes: Unremarkable. No enlarged lymph nodes. Urinary bladder: Inflammatory stranding of the urinary bladder wall favors cystitis versus neoplastic process. Reproductive: Large right sided hydrocele within the scrotum measures 7 cm in diameter is incompletely imaged. Bones/joints: Chronic appearing compression fracture of L1 with 20% loss of anterior height. Soft tissues: Normal. IMPRESSION: 1. Inflammatory stranding of the urinary bladder wall favors cystitis versus neoplastic process. Recommend urology referral. 2. Large right sided hydrocele within the scrotum measures 7 cm in diameter is incompletely imaged. Recommend further evaluation with a scrotal ultrasound. COMMENTS: Consistent with the [employer]'s Incidental Findings Committee white paper (J Am Tari Radiol 2018): Any incidental renal lesion less than 1 cm or classified as too small to characterize, or any incidental cystic renal lesion characterized as simple-appearing, is likely benign. No follow-up imaging is recommended for these lesions per consensus recommendations based on imaging criteria.
[2025-02-10 19:39] LABS: Creatine Kinase 159 U/L (55-170)
[2025-02-10 19:43] LABS: Adenovirus,PCR Not Detected (NotDetected); Chlamydophila Pneumoniae, PCR Not Detected (NotDetected); Coronavirus 19, PCR Not Detected (NotDetected); Coronovirus HKU1,PCR Not Detected (NotDetected); Influenza A, PCR Not Detected (NotDetected); Influenza AH1, 2009 Not Detected (NotDetected); Influenza AH1, PCR Not Detected (NotDetected); Influenza AH3,PCR Not Detected (NotDetected); Influenza B, PCR Not Detected (NotDetected); Mycoplasma Pneumoniae, PCR Not Detected (NotDetected); Parainfluenza 1, PCR Not Detected (NotDetected); Parainfluenza 2, PCR Not Detected (NotDetected); Parainfluenza 3, PCR Not Detected (NotDetected); Parainfluenza 4, PCR Not Detected (NotDetected)
[2025-02-10 19:47] LABS: C-Reactive Protein 96.1 mg/L (0-4); Lipase 35 U/L (23-300)
[2025-02-10 19:54] LABS: Activated Partial Thrombo Time 28.5 seconds (22.8-30.6); INR 1.02 (0.9-1.1); Prothrombin Time 11.3 seconds (10.1-12.5)
[2025-02-10 20:13] LABS: Hepatitis C Ab Qual. W/ RFX NEGATIVE (Negative)
[2025-02-10] MEDS: CEFEPIME HCL 2 GM in 0.9 % SODIUM CHLORIDE 100 ML IV (20:23)
[2025-02-10 20:27] LABS: NT Pro Brain Natriuretic Pep. 3900 pg/mL (0-450)
[2025-02-10] MEDS: IOPAMIDOL-370 (76%);100ML BOTTLE 75 ML IV (20:28)
[2025-02-10] MEDS: SODIUM CHLORIDE 0.9% 10ML SYR (RAD ONLY) 10 ML IV (20:29)
[2025-02-10] MEDS: 0.9 % SODIUM CHLORIDE 50 ML VIAL IV (20:29)
[2025-02-10 20:45] LABS: Microscopic, Urine URINE MICROSCOPIC (MICROSCOPIC)
--- NOTE | 2025-02-10 20:48 | PC.NURSE ---
Pt in/out cathed for UA, unable to urinate in urinal, bladder scan shows 220ml
--- NOTE | 2025-02-10 20:49 | PC.NURSE ---
Pt groins and perineal are is very excoriated, cleansed, applied barrier cream and dry brief
[2025-02-10 21:04] LABS: Procalcitonin 8.78 ng/mL (0.0-2.0)
[2025-02-10 21:04] LABS: Bilirubin,Urine Negative (Negative); Color,Urine YELLOW (Yellow); Glucose,Urine (UA) Negative (Negative); Ketones,Urine Negative (Negative); Leukocyte Esterase,Urine 2+ (Negative); PH,Urine 6.0 (5.0-8.5); Protein,Urine 2+ (Negative); Specific Gravity, Urine 1.015 (1.005-1.030); Urobilinogen,Urine 0.2 EU/dl (0.2)
[2025-02-10] MEDS: VANCOMYCIN/WATER FOR INJ (PEG) 1.75 GM/350 ML PIGGYBACK IV (21:04)
[2025-02-10 21:05] LABS: Total Cells Counted 100
[2025-02-10 21:06] LABS: RBC Morphology Normal
[2025-02-10 21:32] LABS: Bacteria,Urine 4+ /lpf; RBC,Urine 50-100 #/hpf (0-3); Squamous Epithelial Cell,Urine 20-50 #/hpf (0-5); WBC,Urine TNTC #/hpf (0-3)
[2025-02-10 22:24] LABS: Troponin I 0.04 ng/ml (0.00-0.034)
--- NOTE | 2025-02-10 22:25 | PC.NURSE ---
Pt report called to stu spoke to Yee
--- NOTE | 2025-02-10 23:13 | P.HP_ITS ---
<Statement entered by Hu Nava MD - 02/14/25 15:38> Agree with plan of care as outlined by the MEDICAL LAB ASSISTANT. History of Present Illness *Admission Date: 02/10/25 *Reason for visit:: AMS *History of present illness: Patient is a 74-year-old male with a past medical history significant for chronic renal failure, hypertension, BPH with urinary obstruction, renal cyst, alcoholism is in remission. Presents to [facility] from his nursing facility for further evaluation of fever and AMS. Due to underlying confusion patient is a poor historian. History provided per staff and chart review. Nursing facility concerned due to fever and decline in mental status. Baseline patient typically is A&O x 3 and and was A&O x 1 on arrival to the emergency department. Evaluation of patient at bedside resting in bed comfortably. Patient was able to tell me his date of and knew he was at the hospital, but unaware of how and why he ultimately transitioned to the hospital. Patient assessed at bedside. Resting in bed without acute distress. Hemodynamically stable. Denies chest pain, shortness breath, diarrhea, abdominal pain, nausea or vomiting. Initial ED workup included laboratory studies and imaging. Significant laboratory findings WBC 22.7, D-dimer 1.09, sodium 133, creatinine 2.20, GFR 29, CRP 96, BNP 3900, procalcitonin 8.78, UA with 2+ protein, blood 3+, nitrate positive, leukocyte esterase 2+, 4+ bacteria. Imaging study included CTA, unremarkable. CT abdomen and pelvis showing inflammatory stranding of the urinary bladder wall favors cystitis versus neoplastic process. Recommend urology referral. Large right sided hydrocele within the scrotum measures 7 cm in diameter is incompletely imaged. Chest x-ray, pleuroparenchymal scarring of the lung bases with subsegmental atelectasis is present without consolidations or pleural effusions that project above the diaphragm. Patient met sepsis criteria upon evaluation in the emergency department, (WBC 22.7, 103.3 ?F, HR 117, creatinine 2.2) blood cultures obtained, received sepsis IV bolus infusion and broad-spectrum antibiotics that included cefepime and vancomycin. [facility] Disclaimer: The information contained in this section may have been updated after the patient was seen, as this information can be updated by other users. Medical History Compression fracture of L1 lumbar vertebra Cataracts, bilateral Urinary tract infection Elevated PSA Difficulty in urination Alcoholism in remission Chronic kidney disease Difficulty walking Declining functional status Sciatica Constipation History of transient ischemic attack (TIA) Tobacco use disorder HTN (hypertension) Surgical History No significant past surgical history Family History Other No significant family history Social History Smoking Status: Current every day smoker tobacco type: cigarettes packs per day: 2 pack-years: 134 years smoked: 65 alcohol intake: former current occupational status: retired Travel in the last 8 weeks?: None Other Medical History Have you received the Flu Vaccine for this season: No Have you received the Pneumonia Vaccine: No (unknown) Review of Systems Review of Systems Review of systems:: pertinent systems reviewed and negative unless documented below Constitutional Constitutional: Reports system reviewed and no additional complaints, except as documented and Reports as per HPI Eyes Eyes: Reports system reviewed and no additional complaints, except as documented and Reports as per HPI Comments: Underwent bilateral cataract surgery. 01/26-left eye cataract surgery and 02/09 right eye cataract surgery. ENT Ears, Nose, Mouth, and Throat: Reports system reviewed and no additional complaints, except as documented and Reports as per HPI *Cardiovascular Cardiovascular: Reports system reviewed and no additional complaints, except as documented and Reports as per HPI *Respiratory Respiratory: Reports system reviewed and no additional complaints, except as documented and Reports as per HPI *Gastrointestinal Gastrointestinal: Reports system reviewed and no additional complaints, except as documented and Reports as per HPI *Genitourinary Genitourinary: Reports system reviewed and no additional complaints, except as documented and Reports as per HPI *Musculoskeletal Musculoskeletal: Reports as per HPI and Reports limited range of motion Integumentary/Breasts Skin/Breast: Reports as per HPI and Reports dry skin *Neurologic Neurologic: Reports as per HPI Psychiatric Psychiatric: Reports as per HPI Endocrine Endocrine: Reports system reviewed and no additional complaints, except as documented Hematologic/Lymphatic Hematologic/Lymphatic: Reports system reviewed and no additional complaints, except as documented Allergic/Immunologic Allergic/Immunologic: Reports system reviewed and no additional complaints, except as documented Meds Home Medications and Allergies Home Medications ?Medication ?Instructions ?Recorded ?Confirmed ?Type amlodipine 10 mg tablet 10 mg PO DAILY 11/18/2301/14 History carvedilol 12.5 mg tablet 12.5 mg PO BID 11/18/2301/14 History acetaminophen 325 mg tablet 325 mg PO QIDP PRN Pain 02/10/25 History aspirin 81 mg chewable tablet 81 mg PO DAILY 03/28/24 02/10/25 History multivitamin 1 tab PO DAILY 03/28/2401/14 History omega-3 fatty acids-fish oil 300 1 cap PO BID 03/28/24 02/10/25 History mg-500 mg capsule (Fish Oil) sennosides 8.6 mg-docusate sodium 1 tab PO BID 30 days #60 tabs 03/30/24 02/10/25 Rx 50 mg tablet (Stimulant Laxative Plus) guaifenesin 100 mg/5 mL oral liquid 200 mg PO Q6H PRN Congestion 09/22/24 02/10/25 History escitalopram oxalate 5 mg tablet 5 mg PO DAILY 5 02/10/25 History escitalopram oxalate 10 mg tablet 10 mg PO DAILY 12/0102/10/25 History oxybutynin chloride 10 mg 10 mg PO DAILY #90 tabs 11/1402/10/25 Rx tablet,extended release 24 hr tamsulosin 0.4 mg capsule (Flomax) 0.4 mg PO DAILY 90 days #90 caps 01/18/25 02/10/25 Rx ketorolac 0.5 % eye drops 1 drp Eye-Right QID 02/09/25 02/10/25 History ofloxacin 0.3 % eye drops 1 drp Eye-Right QID 02/09/25 02/10/25 History polyethylene glycol 3350 17 17 g PO DAILY PRN Constipa tion 02/09/25 02/10/25 History gram/dose oral powder (Miralax) prednisolone acetate 1 % eye 1 drp Eye-Right QID 02/0902/10/25 History drops,suspension (Pred Forte) New Prescriptions to Start Prescriptions: Allergies Allergy/AdvReac Type Severity Reaction Status Date / Time Penicillins Allergy Unknown Verified 02/09/25 15:00 allergy reaction Exam Data for Last 24 hours Vital signs and Labs for Last 24 Hours: Temp Pulse Resp BP Pulse Ox O2 Del Method 98.3 F 77 18 115/73 95 Room Air 02/10/25 22:24 02/10/25 22:24 02/10/25 22:24 02/10/25 22:24 02/10/25 21:58 02/10/25 22:24 Laboratory Results - last 24 hr 02/10/25 18:43: Chlamy pneumoniae PCR Not detected, Adenovirus (PCR) Not detected, B. pertussis DNA (PCR) Not detected, Coronavirus OC43 (PCR) Not detected, Coronavirus HKU1 (PCR) Not detected, Coronavirus 229E (PCR) Not detected, SARS-CoV-2 (PCR) Not detected, Coronavirus NL63 (PCR) Not detected, Human Metapneumovir PCR Not detected, Influenza A (H1) PCR Not detected, Influ A (H1N1/09) PCR Not detected, Influenza A (H3) PCR Not detected, Influenza Type A (PCR) Not detected, Influenza Type B (PCR) Not detected, M. pneumoniae (PCR) Not detected, Parainfluenza 1 (PCR) Not detected, Parainfluenza 2 (PCR) Not detected, Parainfluenza 3 (PCR) Not detected, Parainfluenza 4 (PCR) Not detected, RSV (PCR) Not detected, Entero/Rhino (PCR) Not detected 02/10/25 18:47: WBC 22.7 H*, RBC 4.50 L, Hgb 13.6 L, Hct 39.2 L, MCV 87.1, MCH 30.2, MCHC 34.7, RDW 12.6, Plt Count 177, MPV 9.5, Neut % (Auto) 83.6 H, Lymph % (Auto) 4.0 L, [place] % (Auto) 9.0, Eos % (Auto) 0.0 L, Baso % (Auto) 0.2, Neut # (Auto) 19.0 H, Lymph # (Auto) 0.9, [place] # (Auto) 2.0 H, Eos # (Auto) 0.0, Baso # (Auto) 0.0, Total Counted 100, Neutrophils % (Manual) 83 H, Lymphocytes % (Manual) 11, Monocytes % (Manual) 6, Platelet Estimate Normal, RBC Morphology Normal, ESR 22 H, PT 11.3, INR 1.02, APTT 28.5, D-Dimer 1.09 H, VBG pH 7.48 H, VBG pCO2 30.5 L, VBG pO2 73.6 H, VBG HCO3 22.1 L, VBG Total CO2 23.0, VBG O2 Saturation 95.8 H, VBG Base Excess -1.4, VBG Lactic Acid 1.8, Sodium 133 L, Potassium 3.8, Chloride 103, Carbon Dioxide 22, Anion Gap 11.8, BUN 35 H, Creatinine 2.20 H, Estimated Creat Clear 33, Estimated GFR 29 L, Est GFR ( Amer) 35 L, Glucose 129 H, Calcium 8.9, Magnesium 1.8, Total Bilirubin 0.8, AST 27, ALT 16, Alkaline Phosphatase 89, Total Creatine Kinase 159, Troponin I 0.04 H, C-Reactive Protein 96.1 H, NT-Pro-B Natriuret Pep 3900 H, Total Protein 7.2, Albumin 3.4 L, Globulin 3.8 H, Albumin/Globulin Ratio 0.9 L, Lipase 35, Procalcitonin 8.78 H, HCV Ab SHANNAN w/Rflx PCR Qn Negative, HIV Ag/Ab Combo Qual Negative 02/10/25 20:40: Urine Color Yellow, Urine Appearance Sl cloudy, Urine pH 6.0, Ur Specific [place] 1.015, Urine Protein 2+ A, Urine Glucose (UA) Negative, Urine Ketones Negative, Urine Blood 3+ A, Urine Nitrate Positive A, Urine Bilirubin Negative, Urine Urobilinogen 0.2, Ur Leukocyte Esterase 2+ A, Urine RBC 50-100, Urine WBC Tntc, Ur Squamous Epith Cells 20-50, Urine Bacteria 4+ 02/10/25 21:50: Troponin I 0.04 H I & O for Last 24 hours: Intake & Output 02/07/25 02/08/25 02/09/25 02/10/25 23:59 23:59 23:59 23:59 Intake Total 2099 Balance 2099 Weight 80.739 kg Constitutional Constitutional: no acute distress *Routine HEENT Exam Head: Present normocephalic Eye: Present EOMI and PERRL ENT: Present mucous membranes moist Comments: Status post cataract surgery, left eye cataract surgery 01/26, right eye cataract surgery 02/09 *Routine Neck Exam Neck: Present supple and full ROM *Routine Respiratory Exam Respiratory: Present normal respiratory effort *Routine Cardiovascular Exam Cardiovascular: Present Normal S1, Normal S2 and tachycardia *Routine Abdominal Exam Abdominal: Present soft and normoactive bowel sounds *Routine Rectal Exam Rectal:: deferred *Routine Genitalia Exam Genitalia:: deferred *Routine Extremities Exam Extremities: Present full ROM, pulses intact and normal capillary refill Routine Back/Spine/Pelvis Exam Back/Spine: Present full ROM *Routine Skin Exam Skin: Present intact and dry *Routine Neurological Exam Neurological: Present altered mental status Routine Psychiatric Exam Psychiatric: Present normal affect Assessment and Plan *Assessment and plan (1) Sepsis due to urinary tract infection: Status: Acute Category: Medical Code(s): A41.9 - Sepsis, unspecified organism; N39.0 - Urinary tract infection, site not specified (2) Acute metabolic encephalopathy: Status: Acute Category: Medical Code(s): G93.41 - Metabolic encephalopathy (3) Acute kidney injury superimposed on chronic kidney disease: Status: Acute Category: Medical Code(s): N17.9 - Acute kidney failure, unspecified; N18.9 - Chronic kidney disease, unspecified (4) Emphysema/COPD: Status: Acute Category: Medical Code(s): J43.9 - Emphysema, unspecified (5) HTN (hypertension): Status: Acute Qualifiers: Hypertension type: unspecified Qualified Code(s): I10 - Essential (primary) hypertension Category: Medical Code(s): I10 - Essential (primary) hypertension (6) BPH w urinary obs/LUTS: Status: Acute Category: Medical Code(s): N40.1 - Benign prostatic hyperplasia with lower urinary tract symptoms; N13.8 - Other obstructive and reflux uropathy (7) Complex renal cyst: Status: Acute Category: Medical Code(s): N28.1 - Cyst of kidney, acquired (8) Cataracts, bilateral: Status: Acute Qualifiers: Age-related cataract type: unspecified Cataract type: age-related Qualified Code(s): H25.9 - Unspecified age-related cataract Category: Medical Code(s): H26.9 - Unspecified cataract Plan 1. Sepsis due to urinary tract infection: Positive urine analysis with 2+ urine protein, blood 3+, nitrate positive, leukocyte esterase 2+, urine bacteria 4+. Sepsis criteria met upon evaluation in the emergency department, (WBC 22.7, 103.3 ?F, HR 117, creatinine 2.2) blood cultures obtained, received sepsis IV bolus infusion and broad-spectrum antibiotics that included cefepime and vancomycin. Follow cultures and de-escalate antibiotics as appropriate. 2. Acute metabolic encephalopathy: Suspected cause urinary tract infection. CT head obtained without any acute findings. Resume treatment plan as noted above. Patient appeared to improve mentation by the time he transferred to or from the emergency department. Continue to monitor. 3. BPH/complex renal cyst: Patient follows Dr. Chuckie lerma/urology. Recent follow-up on January 18, following renal cyst-noted patient will need a CT mass protocol, but due to his renal failure he has not been able to obtain. PSA was noted to be 4.3 on 12/07. Patient denies any urinary incontinence but reports some occasional urinary leakage at times. Home medication includes Ditropan and Flomax. 4. Acute kidney injury superimposed on chronic kidney disease: Creatinine 2.20, baseline creatinine appears to be approximately 1.6?1.8. Established with a administrative analyst at [facility]. Last appointment February 08, patient to follow-up in 6 months. Continue to monitor, with nephrotoxic medication. Monitor with morning labs. 5. Bilateral cataract surgery: Underwent left eye cataract surgery on 01/26, and right eye cataract surgery 02/[address] Crandall. No acute issues patient without complaint. 6. Emphysema/COPD: Stable-DuoNebs as needed, pulmonary hygiene. Monitor oxygen saturation. 7. Hypertension: Normotensive blood pressures-stable. Resume antihypertensive medication. Healthy heart diet. 9. DVT prophylaxis: Subq heparin Full code I personally discussed the management of this with the emergency department provider. Patient to be admitted for continued treatment of sepsis due to urinary tract infection. IV sepsis fluids, IV antibiotics initiated in the emergency department. Continue antibiotic therapy, labs. Follow urine and blood culture.
[2025-02-11 02:05] LABS: Troponin I 0.04 ng/ml (0.00-0.034)
[2025-02-11 04:00] VITALS: BP 130/62; PULSE 71; RESP 16; TEMP 36.9; O2SAT 98; BMI 25.0
[2025-02-11 06:18] LABS: Hematocrit 36.3 % (42.0-52.0); Immature Granulocytes % 8.0 %; Mean Corpuscular HGB Conc 33.3 g/dL (31.8-35.4); Mean Corpuscular Hemoglobin 29.9 pg (27.0-31.2); Mean Corpuscular Volume 89.6 fl (80-94); Nucleated Red Blood Cells % 0 %; Platelet Count 146 K/mm3 (142-424); Red Blood Count 4.05 M/mm3 (4.60-6.20); Red Cell Distribution Width-SD 42.3 fL; White Blood Count 20.7 K/mm3 (4.8-10.8)
[2025-02-11 06:31] LABS: Hemoglobin 12.0 g/dL (14.1-18.0)
[2025-02-11 06:32] LABS: Albumin Level 2.4 g/dl (3.5-5.0); Chloride 104 mmol/L (98-107); Potassium 3.6 mmoL/L (3.5-5.1); Sodium 133 mmol/L (136-145)
[2025-02-11 06:35] LABS: Alanine Aminotransferase 11 U/L (12-78); Albumin/Globulin Ratio 0.7 (1.1-1.8); Alkaline Phosphatase 65 U/L (38-126); Anion Gap 8.6 mEq/L (5-15); Aspartate Amino Transferase 27 U/L (17-59); Bilirubin,Total 0.5 mg/dl (0.2-1.3); Carbon Dioxide 24 mmol/L (22.0-30.0); Globulin 3.3 g/dL (1.3-3.2); Total Protein,Serum 5.7 g/dl (6.3-8.2)
[2025-02-11 06:36] LABS: Calcium 8.1 mg/dl (8.4-10.2); Glucose 111 mg/dl (74-100)
--- NOTE | 2025-02-11 07:38 | EXP.PHA.CONS ---
Pharmacy Consult Date: 02/11/25 Time: 07:38 Referring provider: MARILYN IRWIN Reason for Consult:: VANCOMYCIN DOSING Allergies Allergy/AdvReac Type Severity Reaction Status Date / Time Penicillins Allergy Unknown Verified 02/09/25 15:00 allergy reaction Home Medications ?Medication ?Instructions ?Recorded ?Confirmed ?Type amlodipine 10 mg tablet 10 mg PO DAILY 11/18/23 02/10/25 History carvedilol 12.5 mg tablet 12.5 mg PO BID 11/18/23 02/10/25 History acetaminophen 325 mg tablet 325 mg PO QIDP PRN Pain 03/27/24 02/10/25 History aspirin 81 mg chewable tablet 81 mg PO DAILY 03/28/24 02/10/25 History multivitamin 1 tab PO DAILY 03/28/24 02/10/25 History omega-3 fatty acids-fish oil 300 1 cap PO BID 03/28/24 02/10/25 History mg-500 mg capsule (Fish Oil) sennosides 8.6 mg-docusate sodium 1 tab PO BID 30 days #60 tabs 03/30/24 02/10/25 Rx 50 mg tablet (Stimulant Laxative Plus) guaifenesin 100 mg/5 mL oral liquid 200 mg PO Q6H PRN Congestion 09/22/24 02/10/25 History escitalopram oxalate 5 mg tablet 5 mg PO DAILY 11/23/24 02/10/25 History escitalopram oxalate 10 mg tablet 10 mg PO DAILY 12/01/24 02/10/25 History oxybutynin chloride 10 mg 10 mg PO DAILY #90 tabs 12/07/24 02/10/25 Rx tablet,extended release 24 hr tamsulosin 0.4 mg capsule (Flomax) 0.4 mg PO DAILY 90 days #90 caps 01/18/25 02/10/25 Rx ketorolac 0.5 % eye drops 1 drp Eye-Right QID 02/09/25 02/10/25 History ofloxacin 0.3 % eye drops 1 drp Eye-Right QID 02/09/25 02/10/25 History polyethylene glycol 3350 17 17 g PO DAILY PRN Constipation 02/09/25 02/10/25 History gram/dose oral powder (Miralax) prednisolone acetate 1 % eye 1 drp Eye-Right QID 10/28/25 10/29/25 History drops,suspension (Pred Forte) New Prescriptions to Start Prescriptions: Height: 1.83 m Weight: 83.642 kg Laboratory Results:: Laboratory Results - last 24 hr 02/10/25 18:43: Chlamy pneumoniae PCR Not detected, Adenovirus (PCR) Not detected, B. pertussis DNA (PCR) Not detected, Coronavirus OC43 (PCR) Not detected, Coronavirus HKU1 (PCR) Not detected, Coronavirus 229E (PCR) Not detected, SARS-CoV-2 (PCR) Not detected, Coronavirus NL63 (PCR) Not detected, Human Metapneumovir PCR Not detected, Influenza A (H1) PCR Not detected, Influ A (H1N1/09) PCR Not detected, Influenza A (H3) PCR Not detected, Influenza Type A (PCR) Not detected, Influenza Type B (PCR) Not detected, M. pneumoniae (PCR) Not detected, Parainfluenza 1 (PCR) Not detected, Parainfluenza 2 (PCR) Not detected, Parainfluenza 3 (PCR) Not detected, Parainfluenza 4 (PCR) Not detected, RSV (PCR) Not detected, Entero/Rhino (PCR) Not detected 02/10/25 18:47: WBC 22.7 H*, RBC 4.50 L, Hgb 13.6 L, Hct 39.2 L, MCV 87.1, MCH 30.2, MCHC 34.7, RDW 12.6, Plt Count 177, MPV 9.5, Neut % (Auto) 83.6 H, Lymph % (Auto) 4.0 L, [place] % (Auto) 9.0, Eos % (Auto) 0.0 L, Baso % (Auto) 0.2, Neut # (Auto) 19.0 H, Lymph # (Auto) 0.9, [place] # (Auto) 2.0 H, Eos # (Auto) 0.0, Baso # (Auto) 0.0, Total Counted 100, Neutrophils % (Manual) 83 H, Lymphocytes % (Manual) 11, Monocytes % (Manual) 6, Platelet Estimate Normal, RBC Morphology Normal, ESR 22 H, PT 11.3, INR 1.02, APTT 28.5, D-Dimer 1.09 H, VBG pH 7.48 H, VBG pCO2 30.5 L, VBG pO2 73.6 H, VBG HCO3 22.1 L, VBG Total CO2 23.0, VBG O2 Saturation 95.8 H, VBG Base Excess -1.4, VBG Lactic Acid 1.8, Sodium 133 L, Potassium 3.8, Chloride 103, Carbon Dioxide 22, Anion Gap 11.8, BUN 35 H, Creatinine 2.20 H, Estimated Creat Clear 33, Estimated GFR 29 L, Est GFR ( Amer) 35 L, Glucose 129 H, Calcium 8.9, Magnesium 1.8, Total Bilirubin 0.8, AST 27, ALT 16, Alkaline Phosphatase 89, Total Creatine Kinase 159, Troponin I 0.04 H, C-Reactive Protein 96.1 H, NT-Pro-B Natriuret Pep 3900 H, Total Protein 7.2, Albumin 3.4 L, Globulin 3.8 H, Albumin/Globulin Ratio 0.9 L, Lipase 35, Procalcitonin 8.78 H, HCV Ab SHANNAN w/Rflx PCR Qn Negative, HIV Ag/Ab Combo Qual Negative 02/10/25 20:40: Urine Color Yellow, Urine Appearance Sl cloudy, Urine pH 6.0, Ur Specific [place] 1.015, Urine Protein 2+ A, Urine Glucose (UA) Negative, Urine Ketones Negative, Urine Blood 3+ A, Urine Nitrate Positive A, Urine Bilirubin Negative, Urine Urobilinogen 0.2, Ur Leukocyte Esterase 2+ A, Urine RBC 50-100, Urine WBC Tntc, Ur Squamous Epith Cells 20-50, Urine Bacteria 4+ 02/10/25 21:50: Troponin I 0.04 H 02/11/25 01:31: Troponin I 0.04 H 02/11/25 05:55: WBC 20.7 H*, RBC 4.05 L, Hgb 12.0 L D, Hct 36.3 L, MCV 89.6, MCH 29.9, MCHC 33.3, RDW 12.9, Plt Count 146, MPV 9.9, Neut % (Auto) 78.6, Lymph % (Auto) 5.1 L, [place] % (Auto) 8.2, Eos % (Auto) 0.0 L, Baso % (Auto) 0.1, Neut # (Auto) 16.3 H, Lymph # (Auto) 1.1, [place] # (Auto) 1.7 H, Eos # (Auto) 0.0, Baso # (Auto) 0.0, Sodium 133 L, Potassium 3.6, Chloride 104, Carbon Dioxide 24, Anion Gap 8.6, Glucose 111 H, Calcium 8.1 L, Total Bilirubin 0.5, AST 27, ALT 11 L D, Alkaline Phosphatase 65, Total Protein 5.7 L, Albumin 2.4 L D, Globulin 3.3 H, Albumin/Globulin Ratio 0.7 L Medical History: Medical History (Updated 02/11/25 @ 03:03 by Marilyn Irwin APRN) Compression fracture of L1 lumbar vertebra Cataracts, bilateral Urinary tract infection Elevated PSA Difficulty in urination Alcoholism in remission Chronic kidney disease Difficulty walking Declining functional status Sciatica Constipation History of transient ischemic attack (TIA) Tobacco use disorder HTN (hypertension) Assessment and Plan Assessment and plan all Dx Assessment and Plan for all problems:: Pharmacokinetic dosing service Objective: Patient: Floor: Age: 74 yo Serum creatinine: 2.20 mg/dL Height: 72.0 Inches Weight (kg): 83.6 Assessment: IBW (kg): 77.60 Dosing wt(kg): 83.6 Estimated Creatinine clearance (ml/min): 31.4 CRCL method: Cockcroft and Gault using ibw(default). Drug selected: Vancomycin Loading dose (mg): Vd (liters): 66.9 (factor used: 0.8 L/kg) Akshat (hr-1): 0.030 Half life (hrs): 23.10 CLvanco=?? 2.007 L/hr Recommended dose: 1500 mg Interval: 36 hrs Infusion time (hrs): 2.0 Predicted peak (mcg/mL): 33.0 Predicted trough (mcg/mL): 11.90 Total body weight is being used for vancomycin dosing. Recommendations: Give Vancomycin 1500 mg q 36 hrs with an expected Cpeak of 33.0 mcg/ml and an expected Ctrough of 11.90 mcg/ml AUC 0-24 /MODESTA Data: MODESTA 0.5 mcg/mL:?? AUC/MODESTA:? 996.5 MODESTA 1.0 mcg/mL:?? AUC/MODESTA:? 498.3 --------- MODESTA 1.5 mcg/mL:?? AUC/MODESTA:? 332.2 MODESTA 2.0 mcg/mL:?? AUC/MODESTA:? 249.1 Thank you for the consult, will continue to follow. -SOSA LEMA, ERICKAD
[2025-02-11 07:39] LABS: RBC Morphology Normal; Total Cells Counted 100
--- NOTE | 2025-02-11 07:55 | SW/DCPLANNER ---
Addendum entered by Melissa Ortiz 02/12/25 10:36: I have updated Jenae lerma/ Mohan Miller that patient will return [facility] level of care today. I have asked Jenae to please arrange outpatient PT services. Addendum entered by Melissa Ortiz 02/12/25 07:46: Updated patient information faxed to Jenae lerma/ Mohan Miller. Original Note: Patient currently resides at [facility] level of care. Updated patient information has been faxed to Jenae Preston. Discharge date is unknown at this time. CM will continue to follow up.
[2025-02-11 08:00] VITALS: BP 130/71; PULSE 78; RESP 19; TEMP 36.9; O2SAT 98
--- NOTE | 2025-02-11 08:30 | P.CONPHA_ITS ---
Pharmacy Intervention Comments: MEDICATION RECONCILIATION COMPLETED ON PATIENT USING MAR FROM [facility]. -SOSA LEMA, ERICKAD
--- NOTE | 2025-02-11 08:30 | HMH.PHAINT1 ---
Pharmacy Intervention Comments: MEDICATION RECONCILIATION COMPLETED ON PATIENT USING MAR FROM [facility]. -SOSA LEMA, ERICKAD
--- NOTE | 2025-02-11 08:39 | HMH.PTEV ---
Physical Therapy Evaluation Rehab PT IP Evaluation Start: 02/10/25 23:14 Freq: ONCE Status: Active Protocol: Document 02/11/25 08:33 BILLY (Rec: 02/11/25 08:39 BILLY [id number]) Subjective/History History History Per H&P: Patient is a 74-year-old male with a past medical history significant for chronic renal failure, hypertension, BPH with urinary obstruction, renal cyst, alcoholism is in remission. Presents to [facility] from his nursing facility for further evaluation of fever and AMS. Due to underlying confusion patient is a poor historian. History provided per staff and chart review. Nursing facility concerned due to fever and decline in mental status. Baseline patient typically is A&O x 3 and and was A&O x 1 on arrival to the emergency department. Evaluation of patient at bedside resting in bed comfortably. Patient was able to tell me his date of and knew he was at the hospital, but unaware of how and why he ultimately transitioned to the hospital. Patient assessed at bedside. Resting in bed without acute distress. Hemodynamically stable. Denies chest pain, shortness breath, diarrhea, abdominal pain, nausea or vomiting. Initial ED workup included laboratory studies and imaging. Significant laboratory findings WBC 22.7, D- dimer 1.09, sodium 133, creatinine 2.20, GFR 29, CRP 96 , BNP 3900, procalcitonin 8.78, UA with 2+ protein, blood 3+, nitrate positive, leukocyte esterase 2+, 4+ bacteria. Imaging study included CTA, unremarkable. CT abdomen and pelvis showing inflammatory stranding of the urinary bladder wall favors cystitis versus neoplastic process. Recommend urology referral. Large right sided hydrocele within the scrotum measures 7 cm in diameter is incompletely imaged. Chest x-ray, pleuroparenchymal scarring of the lung bases with subsegmental atelectasis is present without consolidations or pleural effusions that project above the diaphragm. Patient met sepsis criteria upon evaluation in the emergency department, (WBC 22.7, 103.3 ?F, HR 117, creatinine 2.2) blood cultures obtained, received sepsis IV bolus infusion and broad-spectrum antibiotics that included cefepime and vancomycin. Subjective Subjective Pt reports he lives at [facility]. Pt normally uses a RW for household level ambulation. Pt reports he sometimes needs staff assistance for mobility but is usually IND. Pt denies any falls in past 30 days. New diagnosis of No cancer in past 12 months? [facility] How much help from another person do you currently need... Turning from your A little back to your side while in a flat bed without using bedrails? Moving from lying on A little back to sitting on the side of a flat bed without using bedrails? Moving to and from a A little bed to a chair ( including a wheelchair)? Standing up from a A little chair using your arms? (e.g., wheelchair, bedside chair) Walking in hospital A little room? Climbing 3-5 steps A lot with a railing? Mobility Score 17 Mobility Level [facility] 5 Stand (1 or more minutes) Mobility Calculator Rehab PT IP Eval Objective Appearance Patient Behavior Appropriate,Cooperative Patient Orientation Person Difficulty following mild instructions Speech Pattern Clear Ambulation Patient Able to No Ambulate Balance Ability to Arise Able, uses arms to help Sitting Balance Leans or slides in chair Standing Balance Unsteady Transfers Bed Transfer Ability Minimal x 1 (25% assist) Sit to Stand Bed Minimal x 1 (25% assist) Transfer Ability Rehab PT IP prob,goals,plan Problems Date of Evaluation: 02/11/25 PT IP Problems Bed Mobility,Transfers,Gait,Balance,Self care,Safety Rehab Potential Rehab Potential Good Plan PT Intervention Plan Bed Mobility,Transfers,Gait,Balance,Self care,Safety, Therapeutic Exercise Other Intervention 1-2 times Plan PT Plan Frequency Daily Duration LOS Discharge Goals Bed Transfer Ability Independent Sit to Stand Chair Independent Transfer Ability Ambulation Distance 10 (feet) Discharge Plan PT Discharge Plan Initial physical therapy evaluation performed. Patient presents below baseline at this time in functional mobility, transfers, and strength. PT recommending pt receive skilled PT at retirement upon d/c to address deficits and return to PLOF. Pt would benefit from skilled PT while at [facility] to prevent further functional decline and maximize safety with mobility. Eval Complexity Eval Charge Codes 40315 - Moderate Complexity PHYSICIAN CERTIFICATION: I certify the specified therapy services for Biju Aguillon are required, authorized, and reviewed every 30 days.
[2025-02-11] MEDS: CEFEPIME HCL 2 GM in 0.9 % SODIUM CHLORIDE 100 ML IV ×2 (09:07→20:47)
[2025-02-11] MEDS: HEPARIN SODIUM 5,000 UNIT/ML VIAL 5000 UNIT SUBCUT ×3 (09:08→20:48)
[2025-02-11] MEDS: NYSTATIN TOPICAL POWDER 30GM TP ×4 (09:09→20:49)
[2025-02-11 09:18] LABS: Blood Urea Nitrogen 35 mg/dl (9-20); Creatinine Clearance Estimated 34 mL/min (50-200); Creatinine,Serum 2.20 mg/dl (0.66-1.25); Estimated Glomerular Filt Rate 29 ml/min (>60); GFR (African American) 35 ML/MIN (>60)
--- NOTE | 2025-02-11 09:42 | HMH.OTEV ---
OT Evaluation Rehab OT IP Evaluation Start: 02/10/25 23:14 Freq: ONCE Status: Active Protocol: Document 02/11/25 09:08 PAULCONSTANCE (Rec: 02/11/25 09:42 KIM [id number]) Rehab OT IP Assessment Subjective History Patient is a 74-year-old male with a past medical history significant for chronic renal failure, hypertension, BPH with urinary obstruction, renal cyst, alcoholism is in remission. Presents to [facility] from his nursing facility for further evaluation of fever and AMS. Due to underlying confusion patient is a poor historian. History provided per staff and chart review. Nursing facility concerned due to fever and decline in mental status. Baseline patient typically is A&O x 3 and and was A&O x 1 on arrival to the emergency department. Evaluation of patient at bedside resting in bed comfortably. Patient was able to tell me his date of and knew he was at the hospital, but unaware of how and why he ultimately transitioned to the hospital. Patient assessed at bedside. Resting in bed without acute distress. Hemodynamically stable. Denies chest pain, shortness breath, diarrhea, abdominal pain, nausea or vomiting. Initial ED workup included laboratory studies and imaging. Significant laboratory findings WBC 22.7, D- dimer 1.09, sodium 133, creatinine 2.20, GFR 29, CRP 96 , BNP 3900, procalcitonin 8.78, UA with 2+ protein, blood 3+, nitrate positive, leukocyte esterase 2+, 4+ bacteria. Imaging study included CTA, unremarkable. CT abdomen and pelvis showing inflammatory stranding of the urinary bladder wall favors cystitis versus neoplastic process. Recommend urology referral. Large right sided hydrocele within the scrotum measures 7 cm in diameter is incompletely imaged. Chest x-ray, pleuroparenchymal scarring of the lung bases with subsegmental atelectasis is present without consolidations or pleural effusions that project above the diaphragm. Patient met sepsis criteria upon evaluation in the emergency department, (WBC 22.7, 103.3 ?F, HR 117, creatinine 2.2) blood cultures obtained, received sepsis IV bolus infusion and broad-spectrum antibiotics that included cefepime and vancomycin. Subjective I can get up. Instructed Patient on safety awareness to complete bed mobility, transfers and TB drsg during initial evaluation. Patient incontinent of bowel and bladder mgt tr. Patient required Mod A to sit @ EOB and Min A to complete STS transfer with RW. Instructed Patient Mod A to TB drsg. Patient requested to lay back in bed with needs met at end of session. Objective Right Upper WFL Extremity Gross ROM Left Upper Extremity WFL Gross ROM Bed Mobility bed mobility - supine/sit Assist Level Moderate x 1 (50% assist) Transfer Training Sit/Stand Transfer,Sit/Stand/Step Transfer Assist Level Moderate x 1 (50% assist) Chair Transfer Moderate x 1 (50% assist) Ability Chair Transfer Sit to/from Ambulatory Technique Rehab OT IP prob,goals,plan Problems Date of Evaluation: 02/11/25 OT IP Problems Bed Mobility,Transfers,Balance,Self care,Safety Rehab Potential Rehab Potential Good Equipment Needs Assistive Devices Rolling / Wheeled Walker Plan OT intervention Plan Bed Mobility,Transfers,Balance,Self care,Safety, Therapeutic Exercise OT Plan Frequency Daily Duration LOS Discharge Goals Bed Mobility Ability Assistance x1 Sit to Stand Chair Minimal x 2 (25% assist) Transfer Ability Chair Transfer Minimal x 2 (25% assist) Ability Chair Transfer Rolling Walker Assistive Devices Performing Toilet Maximum Assistance Hygiene Ability Discharge Plan OT Discharge Plan Recommend Patient return back to [facility] after medical d/c. Patient to continue skilled OT IP services while here at [facility] in order to improve safety awareness with ADLS and fx'l mobility tasks. Eval Complexity Eval Charge Codes 88278 - Low Complexity PHYSICIAN CERTIFICATION: I certify the specified therapy services for Biju Aguillon are required, authorized, and reviewed every 30 days.
--- OUTSIDE RECORDS SUMMARY | 2025-02-11 11:02 | XMS_ITS | Encounter Summary ---
Author Organization Healthcare Address [address] [place] [address] Care Team Providers Care Statistical Assistant Name Role Phone Frankie De Leon MD Primary Care Provider [phone]- [phone] Encounter Details Date Type Department Care Team [...] Description 08/13/2025 1:00 PM EDT Office Visit [place] [id number] [place] [address] Tal Zaman MD [address] [place] [phone] documented as of this encounter Visit [...] documented as of this encounter Care Teams Statistical Assistant Relationship Specialty Start Date End Date Frankie De Leon MD [address] [place] [address] PCP - General 12/11/24 documented as of this encounter
--- OUTSIDE RECORDS SUMMARY | 2025-02-11 11:02 | XMS_ITS | Clinical Summary ---
Author Organization Healthcare Address [address] [place] [id number] Care Team Providers Care Service Bar Cashier Name Role Phone Frankie De Leon MD Primary Care Provider [phone]- [phone] Medications acetaminophen (Tylenol) 325 MG tablet 10/31/2024 [...] 02/08/2025 9:00 AM EDT Office Visit [facility] Nephrology, Bone & Mineral Metabolism [address], [address] [place] [address] Tal Zaman MD CKD stage 3b, GFR 30-44 ml/min ([facility]) (Primary Dx); 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-MBD); Hypertensive chronic kidney disease with stage 1 through stage 4 chronic kidney disease, or unspecified chronic kidney disease; Anemia in stage 3b chronic kidney disease; Hyperlipidemia, unspecified hyperlipidemia type 02/08/2025 Travel 12/11/2024 Orders Only [facility] [address] [place] [address] Leona Herrera Vitamin D insufficiency (Primary Dx); Stage 3 chronic kidney disease, unspecified whether stage 3a or 3b CKD ([facility]) from Last 3 Months Social History Tobacco [...] Description 08/13/2025 1:00 PM EDT Office Visit [facility] [address] [place] [address] Tal Zaman MD [address] [place] [phone] Health Maintenance Due Date Last Done Comments [facility]-Hepatitis C Screening 1950 [facility]-Medicare Annual Wellness (AWV) 1950 [facility]-/Child/Adol SDOH Screenings 1950 [facility]- SDOH Screenings 1966 [facility]-Adult SDOH Screenings 1966 [facility]-DTaP,Tdap,and Td Vaccines (1 - Tdap) 09/22/1967 [facility]-Pneumococcal Vaccine: 50+ Years (1 of 2 - PCV) 09/22/1967 [facility]-Zoster Vaccines (1 of 2) 1998 [facility]-RSV Vaccine: 60+ Years or (1 - 1-dose 75+ series) 09/22/2023 IQL-[id number]-80 Vaccine (2024- season) 2024 02/12/2023, 02/23/2022, 06/08/2020, [...] - 80.0 ng/mL 02/08/2025 4:31 PM EDT [facility] Comment:This is you lab orde r and it needs to be done 3 to Blood Venous blood specimen / Unknown Venipuncture / Unknown 02/08/2025 11:03 AM EDT 02/08/2025 11:03 AM EDT Narrative [facility] - 02/08/2025 4:31 PM EDT Testing performed on [employer], standardized against NIST SRM 2972. When testing [...] MD LAB BLOOD ORDERABLES Final Resul t [facility] [address] [place] [address] * CBC and Differential (02/08/2025 11:03 AM EDT) WBC Count 9.57 3.70 - 10.30 10*3/uL LAB HEMATOLOGY METHOD 02/08/2025 2:31 PM EDT [facility] RBC Count 4.99 4.60 - 6.10 10*6/uL LAB HEMATOLOGY METHOD 02/08/2025 2:31 PM EDT [facility] HGB 14.9 13.7 - 17.5 g/dL LAB HEMATOLOGY METHOD 02/08/2025 2:31 PM EDT [facility] HCT 44.5 40.0 - 51.0 % LAB HEMATOLOGY METHOD 02/08/2025 2:31 PM EDT [facility] Platelet Count 221 155 - 369 10*3/uL LAB HEMATOLOGY METHOD 02/08/2025 2:31 PM EDT [facility] MCV 89 79 - 98 fL LAB HEMATOLOGY METHOD 02/08/2025 2:31 PM EDT [facility] MCH 29.9 26.0 - 32.0 pg LAB HEMATOLOGY METHOD 02/08/2025 2:31 PM EDT [facility] MCHC 33.5 30.7 - 35.5 g/dL LAB HEMATOLOGY METHOD 02/08/2025 2:31 PM EDT [facility] RDW 12.4 11.5 - 14.5 % LAB HEMATOLOGY METHOD 02/08/2025 2:31 PM EDT [facility] MPV 10.1 8.8 - 12.5 fL LAB HEMATOLOGY METHOD 02/08/2025 2:31 PM EDT [facility] nRBC 0.0 <=0.0 per 100 WBCs LAB HEMATOLOGY METHOD 02/08/2025 2:31 PM EDT [facility] Differential Type Automated LAB HEMATOLOGY METHOD 02/08/2025 2:31 PM EDT [facility] Neutrophils % 64 % LAB HEMATOLOGY METHOD 02/08/2025 2:31 PM EDT [facility] Lymphocytes % 24 % LAB HEMATOLOGY METHOD 02/08/2025 2:31 PM EDT [facility] Monocytes % 9 % LAB HEMATOLOGY METHOD 02/08/2025 2:31 PM EDT [facility] Eosinophils % 2 % LAB HEMATOLOGY METHOD 02/08/2025 2:31 PM EDT [facility] Basophils % 1 % LAB HEMATOLOGY METHOD 02/08/2025 2:31 PM EDT [facility] Immature Granulocytes % 0 % LAB HEMATOLOGY METHOD 02/08/2025 2:31 PM EDT [facility] Neutrophils Absolute 6.06 1.60 - 6.10 10*3/uL LAB HEMATOLOGY METHOD 02/08/2025 2:31 PM EDT [facility] Lymphocytes Absolute 2.31 1.20 - 3.90 10*3/uL LAB HEMATOLOGY METHOD 02/08/2025 2:31 PM EDT [facility] Monocytes Absolute 0.88 0.30 - 0.90 10*3/uL LAB HEMATOLOGY METHOD 02/08/2025 2:31 PM EDT [facility] Eosinophils Absolute 0.22 0.00 - 0.50 10*3/uL LAB HEMATOLOGY METHOD 02/08/2025 2:31 PM EDT [facility] Basophils Absolute 0.07 0.00 - 0.10 10*3/uL LAB HEMATOLOGY METHOD 02/08/2025 2:31 PM EDT [facility] Immature Granulocytes Absolute 0.03 0.00 - 0.06 10*3/uL LAB HEMATOLOGY METHOD 02/08/2025 2:31 PM EDT [facility] Blood Venous blood specimen / Unknown Venipuncture / Unknown 02/08/2025 11:03 AM EDT 02/08/2025 11:03 AM EDT Narrative [facility] - 02/08/2025 2:31 PM EDT Therapeutic decision making should be based on absolute values, rather than percentages. us Tal Zaman MD LAB BLOOD ORDERABLES Final Resul t [facility] [address] [place] [id number] * (ABNORMAL) PTH Intact Total (02/08/2025 11:03 AM EDT) PTH Intact Total 93(H) 9 - 77 pg/mL 02/08/2025 4:45 PM EDT [facility] Comment:This is you lab orde r and it needs to be done 3 to Blood Venous blood specimen / Unknown Venipuncture / Unknown 02/08/2025 11:03 AM EDT 02/08/2025 11:03 AM EDT Narrative [facility] - 02/08/2025 4:45 PM EDT Assay performed by immunoassay at the [facility]. Performed on [employer] chemiluminescent immunoassay, tractable to the World Health Organization's first international standard for PTH from the NIBS, Code 79/500. Results obtained from different test methods or kits cannot be used interchangeably. us Tal Zaman MD LAB BLOOD ORDERABLES Final Resul t [facility] [address] [place] [address] * (ABNORMAL) Renal Function Panel, Plasma (02/08/2025 11:03 AM EDT) Glucose, Plasma 83 74 - 99 mg/dL 02/08/2025 3:20 PM EDT [facility] BUN, Plasma 25(H) 8 - 23 mg/dL 02/08/2025 3:20 PM EDT [facility] Creatinine, Plasma 1.90(H) 0.70 - 1.20 mg/dL 02/08/2025 3:20 PM EDT [facility] BUN/Creatinine Ratio 13 02/08/2025 3:20 PM EDT [facility] Sodium, Plasma 141 136 - 145 mmol/L 02/08/2025 3:20 PM EDT [facility] Potassium, Plasma 4.7 3.6 - 4.9 mmol/L 02/08/2025 3:20 PM EDT [facility] Chloride, Plasma 103 97 - 107 mmol/L 02/08/2025 3:20 PM EDT [facility] CO2, Plasma 26 22 - 29 mmol/L 02/08/2025 3:20 PM EDT [facility] Anion Gap 12 6 - 16 mmol/L 02/08/2025 3:20 PM EDT [facility] Total Calcium, Plasma 9.4 8.9 - 10.2 mg/dL 02/08/2025 3:20 PM EDT [facility] Phosphorus, Plasma 3.7 2.5 - 4.5 mg/dL 02/08/2025 3:20 PM EDT [facility] Albumin, Plasma 4.4 3.5 - 5.2 g/dL 02/08/2025 3:20 PM EDT [facility] eGFRcr 36.1 mL/min/1.7 3m*2 02/08/2025 3:20 PM EDT [facility] Comment:Reported eGFRcr in m L/min/1.73m2 is based the CKD-EPI 2020 equation that does not use a race coefficient. Blood Venous blood specimen / Unknown Venipuncture / Unknown 02/08/2025 11:03 AM EDT 02/08/2025 11:03 AM EDT us Tal Zaman MD LAB BLOOD ORDERABLES Final Resul t Performing Organization Address City/[facility]/ZIP Co de Phone Number [facility] [address] [place] [address] * Protein, Random, Urine with Creatinine (02/08/2025 11:02 AM EDT) Protein, Urine 42 mg/dL 02/08/2025 3:03 PM EDT [facility] Creatinine, Urine 95 mg/dL 02/08/2025 3:03 PM EDT [facility] Protein/Creati nine Ratio 0.4 mg/mg Creat 02/08/2025 3:03 PM EDT [facility] Urine Urine specimen obtained by clean catch procedure / Unknown Non-blood Collection / Unknown 02/08/2025 11:02 AM EDT 02/08/2025 11:02 AM EDT us Tal Zaman MD LAB URINE ORDERABLES Final Resul t Performing Organization Address City/[facility]/ZIP Co de Phone Number [facility] [address] [place] [address] * (ABNORMAL) Urinalysis with reflex microscopic (Culture NOT Included) (02/08/2025 11:02 AM EDT) Color, Urine Yellow LAB URINALYSIS - AUTOMATED METHOD 02/08/2025 2:26 PM EDT [facility] Clarity, Urine Clear LAB URINALYSIS - AUTOMATED METHOD 02/08/2025 2:26 PM EDT [facility] Spec [place], Urine 1.016 1.005 - 1.030 LAB URINALYSIS - AUTOMATED METHOD 02/08/2025 2:26 PM EDT [facility] pH, Urine 6.5 5.0 - 8.0 LAB URINALYSIS - AUTOMATED METHOD 02/08/2025 2:26 PM EDT [facility] Protein, Urine 100(A) Negative mg/dL LAB URINALYSIS - AUTOMATED METHOD 02/08/2025 2:26 PM EDT [facility] Glucose, Urine Negative Negative mg/dL LAB URINALYSIS - AUTOMATED METHOD 02/08/2025 2:26 PM EDT [facility] Ketones, Urine Negative Negative mg/dL LAB URINALYSIS - AUTOMATED METHOD 02/08/2025 2:26 PM EDT [facility] Blood, Urine Negative Negative LAB URINALYSIS - AUTOMATED METHOD 02/08/2025 2:26 PM EDT [facility] Bilirubin, Urine Negative Negative LAB URINALYSIS - AUTOMATED METHOD 02/08/2025 2:26 PM EDT [facility] Urobilinogen, Urine 0.2 0.2 to 1.0 mg/dL LAB URINALYSIS - AUTOMATED METHOD 02/08/2025 2:26 PM EDT [facility] Leukocytes, Urine Negative Negative LAB URINALYSIS - AUTOMATED METHOD 02/08/2025 2:26 PM EDT [facility] Nitrite, Urine Negative Negative LAB URINALYSIS - AUTOMATED METHOD 02/08/2025 2:26 PM EDT [facility] Urine Urine specimen obtained by clean catch procedure / Unknown Non-blood Collection / Unknown 02/08/2025 11:02 AM EDT 02/08/2025 11:02 AM EDT us Tal Zaman MD LAB URINE ORDERABLES Final Resul t [facility] [address] [place] [address] from Last 3 Months Insurance [place] [id number] MEDICARE Member Subscriber Plan / Payer (Ef fective 2019-Present) Name:Biju Aguillon Member ID:[id number] Relation to Subscriber:Self Name:Biju Aguillon Subscriber ID:[id number] Payer ID:MEDICARE Group ID:Not on file Type:Medicare Address: [place] [phone] Care Teams Service Bar Cashier Relationship Specialty Start Date End Date Frankie De Leon MD [address] [place] [address] PCP - General 12/11/24
[2025-02-11 11:48] VITALS: BP 143/73; PULSE 85; RESP 20; TEMP 37.4; O2SAT 92
--- NOTE | 2025-02-11 12:31 | P.PN_ITS ---
Subjective *Date: 02/11/25 *Time: 12:31 Interval history: Patient feeling better today, but continues to be intermittently confused and weak. WBC improving, continue IV antibiotics and reevaluate tomorrow. Exam Data for Last 24 hours Vital signs and Labs for Last 24 Hours: Temp Pulse Resp BP Pulse Ox O2 Del Method O2 Flow Rate 99.3 F 85 20 143/73 H 92 L Room Air 2 02/11/25 11:48 02/11/25 11:48 02/11/25 11:48 02/11/25 11:48 02/11/25 11:48 02/11/25 11:48 02/11/25 07:00 Laboratory Results - last 24 hr 02/10/25 18:43: Chlamy pneumoniae PCR Not detected, Adenovirus (PCR) Not detected, B. pertussis DNA (PCR) Not detected, Coronavirus OC43 (PCR) Not detected, Coronavirus HKU1 (PCR) Not detected, Coronavirus 229E (PCR) Not detected, SARS-CoV-2 (PCR) Not detected, Coronavirus NL63 (PCR) Not detected, Human Metapneumovir PCR Not detected, Influenza A (H1) PCR Not detected, Influ A (H1N1/09) PCR Not detected, Influenza A (H3) PCR Not detected, Influenza Type A (PCR) Not detected, Influenza Type B (PCR) Not detected, M. pneumoniae (PCR) Not detected, Parainfluenza 1 (PCR) Not detected, Parainfluenza 2 (PCR) Not detected, Parainfluenza 3 (PCR) Not detected, Parainfluenza 4 (PCR) Not detected, RSV (PCR) Not detected, Entero/Rhino (PCR) Not detected 02/10/25 18:47: WBC 22.7 H*, RBC 4.50 L, Hgb 13.6 L, Hct 39.2 L, MCV 87.1, MCH 30.2, MCHC 34.7, RDW 12.6, Plt Count 177, MPV 9.5, Neut % (Auto) 83.6 H, Lymph % (Auto) 4.0 L, [place] % (Auto) 9.0, Eos % (Auto) 0.0 L, Baso % (Auto) 0.2, Neut # (Auto) 19.0 H, Lymph # (Auto) 0.9, [place] # (Auto) 2.0 H, Eos # (Auto) 0.0, Baso # (Auto) 0.0, Total Counted 100, Neutrophils % (Manual) 83 H, Lymphocytes % (Man ual) 11, Monocytes % (Manual) 6, Platelet Estimate Normal, RBC Morphology Normal, ESR 22 H, PT 11.3, INR 1.02, APTT 28.5, D-Dimer 1.09 H, VBG pH 7.48 H, VBG pCO2 30.5 L, VBG pO2 73.6 H, VBG HCO3 22.1 L, VBG Total CO2 23.0, VBG O2 Saturation 95.8 H, VBG Base Excess -1.4, VBG Lactic Acid 1.8, Sodium 133 L, Potassium 3.8, Chloride 103, Carbon Dioxide 22, Anion Gap 11.8, BUN 35 H, C reatinine 2.20 H, Estimated Creat Clear 33, Estimated GFR 29 L, Est GFR ( Amer) 35 L, Glucose 129 H, Calcium 8.9, Magnesium 1.8, Total Bilirubin 0.8, AST 27, ALT 16, Alkaline Phosphatase 89, Total Creatine Kinase 159, Troponin I 0.04 H, C-Reactive Protein 96.1 H, NT-Pro-B Natriuret Pep 3900 H, Total Protein 7.2, Albumin 3.4 L, Globulin 3.8 H, Albumin/Globulin Ratio 0.9 L, Lipase 35, Procalcitonin 8.78 H, HCV Ab SHANNAN w/Rflx PCR Qn Negative, HIV Ag/Ab Combo Qual Negative 02/10/25 20:40: Urine Color Yellow, Urine Appearance Sl cloudy, Urine pH 6.0, Ur Specific [place] 1.015, Urine Protein 2+ A, Urine Glucose (UA) Negative, Urine Ketones Negative, Urine Blood 3+ A, Urine Nitrate Positive A, Urine Bilirubin Negative, Urine Urobilinogen 0.2, Ur Leukocyte Esterase 2+ A, Urine RBC 50-100, Urine WBC Tntc, Ur Squamous Epith Cells 20-50, Urine Bacteria 4+ 02/10/25 21:50: Troponin I 0.04 H 02/11/25 01:31: Troponin I 0.04 H 02/11/25 05:55: WBC 20.7 H*, RBC 4.05 L, Hgb 12.0 L D, Hct 36.3 L, MCV 89.6, MCH 29.9, MCHC 33.3, RDW 12.9, Plt Count 146, MPV 9.9, Neut % (Auto) 78.6, Lymph % (Auto) 5.1 L, [place] % (Auto) 8.2, Eos % (Auto) 0.0 L, Baso % (Auto) 0.1, Neut # (Auto) 16.3 H, Lymph # (Auto) 1.1, [place] # (Auto) 1.7 H, Eos # (Auto) 0.0, Baso # (Auto) 0.0, Total Counted 100, Neutrophils % (Manual) 86 H, Band Neutrophils % 1.0, Lymphocytes % (Manual) 9 L, Monocytes % (Manual) 4, Platelet Estimate Slight decrease, RBC Morphology Normal, Sodium 133 L, Potassium 3.6, Chloride 104, Carbon Dioxide 24, Anion Gap 8.6, BUN 35 H, Creatinine 2.20 H, Estimated Creat Clear 34, Estimated GFR 29 L, Est GFR ( Amer) 35 L, Glucose 111 H, Calcium 8.1 L, Total Bilirubin 0.5, AST 27, ALT 11 L D, Alkaline Phosphatase 65, Total Protein 5.7 L, Albumin 2.4 L D, Globulin 3.3 H, Albumin/Globulin Ratio 0.7 L I & O for Last 24 hours: Intake & Output 02/08/25 02/09/25 02/10/25 02/11/25 23:59 23:59 23:59 23:59 Intake Total 2450 / 2450 600 / 600 Output Total 0 / 0 550 / 550 Balance 2450 / 2450 50 / 50 Weight 83.869 kg 83.642 kg Microbiology Reports for the Last 24 Hours: Microbiology 02/10/25 20:40 Urine,Clean Catch Urine Culture - Preliminary Gram Negative Rods Constitutional Constitutional: no acute distress Comments: Pleasantly intermittently confused *Routine HEENT Exam Head: Present normocephalic Eye: Present EOMI and PERRL ENT: Present mucous membranes moist *Routine Neck Exam Neck: Present supple; Absent lymphadenopathy *Routine Respiratory Exam Respiratory: Present CTA bilaterally *Routine Cardiovascular Exam Cardiovascular: Present RRR *Routine Abdominal Exam Abdominal: Present soft and normoactive bowel sounds; Absent tenderness *Routine Extremities Exam Extremities: Absent cyanosis, clubbing or edema *Routine Skin Exam Skin: Present warm; Absent rash *Routine Neurological Exam Neurological: Present alert Assessment and Plan *Assessment and plan (1) Acute kidney injury superimposed on chronic kidney disease: Status: Acute Category: Medical Code(s): N17.9 - Acute kidney failure, unspecified; N18.9 - Chronic kidney disease, unspecified (2) Acute metabolic encephalopathy: Status: Acute Category: Medical Code(s): G93.41 - Metabolic encephalopathy (3) Sepsis due to urinary tract infection: Status: Acute Category: Medical Code(s): A41.9 - Sepsis, unspecified organism; N39.0 - Urinary tract infection, site not specified (4) UTI (urinary tract infection): Status: Acute Category: Medical Code(s): N39.0 - Urinary tract infection, site not specified Plan Biju Aguillon is a 74-year-old male who presented with altered mentation, fevers from [facility] and was admitted for sepsis secondary to UTI. #Acute metabolic encephalopathy, resolving #Sepsis, resolved #UTI ? Presented from [facility] with altered mentation, fevers and found to have abnormal UA. History of obstructive uropathy. ? Patient feels better today, continues to be slightly confused and weak. WBC improved from 22-20.7. Tachycardia, fevers resolved. ? Continue IV ceftriaxone 1 g daily pending cultures. ? Follow-up blood, urine cultures. ? Follow-up morning CBC. #BPH #Complex renal cyst ? Patient follows Dr. Chuckie lerma/urology for complex renal cyst. Recent follow-up on January 18, following renal cyst-noted patient will need a CT mass protocol, but due to his renal failure he has not been able to obtain. ? PSA was noted to be 4.3 on 12/07. Patient denies any urinary incontinence but reports some occasional urinary leakage at times. ? Continue home oxybutynin, tamsulosin. #ALAINA on CKD ? Initial creatinine 2.2, GFR 29. Continues to be 2.2 today. ? Ordered 500 cc LR bolus. Follow-up RFT's. #Hypertension ? Continue home carvedilol 12.5 mg twice daily, amlodipine 10 mg. #History of cataract surgery: Underwent left eye cataract surgery on 01/26, and right eye cataract surgery 02/[address] Crandall. No acute issues patient without complaint. #Emphysema/COPD: Stable-DuoNebs as needed, pulmonary hygiene. Monitor oxygen saturation. Full code DVT prophylaxis: Lovenox 40 mg
[2025-02-11] MEDS: LACTATED RINGERS 1000ML 500 ML IV (13:49)
[2025-02-11] MEDS: ESCITALOPRAM 10MG TABLET 15 MG PO (13:53)
[2025-02-11] MEDS: prednisoLONE 1% OPTH SOL 5ML OP ×3 (13:53→21:02)
[2025-02-11 16:00] VITALS: BP 142/70; PULSE 84; RESP 16; TEMP 37.2; O2SAT 93
[2025-02-11 20:00] VITALS: BP 131/64; PULSE 82; RESP 17; RESP 18; TEMP 37.7; O2SAT 92
[2025-02-11] MEDS: SENNOSIDES 8.6MG/DOCUSATE 50MG TABLET 1 TAB PO (20:48)
[2025-02-11] MEDS: CARVEDILOL 12.5MG TABLET 12.5 MG PO (20:49)
[2025-02-11] MEDS: TAMSULOSIN 0.4MG CAPSULE 0.4 MG PO (20:49)
[2025-02-12] VITALS: BP 133/64; PULSE 77; RESP 17; TEMP 37.7; O2SAT 91
[2025-02-12 04:00] VITALS: BP 118/52; PULSE 74; RESP 16; TEMP 36.7; O2SAT 94; BMI 24.5
[2025-02-12 06:21] LABS: Hematocrit 33.9 % (42.0-52.0); Hemoglobin 11.4 g/dL (14.1-18.0); Immature Granulocytes % 8.5 %; Mean Corpuscular HGB Conc 33.6 g/dL (31.8-35.4); Mean Corpuscular Hemoglobin 29.8 pg (27.0-31.2); Mean Corpuscular Volume 88.7 fl (80-94); Nucleated Red Blood Cells % 0 %; Platelet Count 141 K/mm3 (142-424); Red Blood Count 3.82 M/mm3 (4.60-6.20); Red Cell Distribution Width-SD 42.2 fL; White Blood Count 15.0 K/mm3 (4.8-10.8)
[2025-02-12 06:43] LABS: Albumin Level 3.5 g/dl (3.5-5.0); Chloride 104 mmol/L (98-107); Potassium 3.4 mmoL/L (3.5-5.1); Sodium 131 mmol/L (136-145)
[2025-02-12 06:46] LABS: Alanine Aminotransferase 11 U/L (12-78); Albumin/Globulin Ratio 1.7 (1.1-1.8); Alkaline Phosphatase 69 U/L (38-126); Anion Gap 6.4 mEq/L (5-15); Aspartate Amino Transferase 31 U/L (17-59); Bilirubin,Total 0.5 mg/dl (0.2-1.3); Calcium 8.1 mg/dl (8.4-10.2); Carbon Dioxide 24 mmol/L (22.0-30.0); Globulin 2.1 g/dL (1.3-3.2); Glucose 96 mg/dl (74-100); Total Protein,Serum 5.6 g/dl (6.3-8.2)
[2025-02-12 08:00] VITALS: BP 127/67; PULSE 80; RESP 18; TEMP 37; O2SAT 95
[2025-02-12 08:12] LABS: RBC Morphology Normal; Total Cells Counted 100
[2025-02-12] MEDS: CEFEPIME HCL 2 GM in 0.9 % SODIUM CHLORIDE 100 ML IV (09:42)
[2025-02-12] MEDS: ASPIRIN 81MG CHEWABLE TABLET 81 MG PO (09:44)
[2025-02-12] MEDS: AMLODIPINE 10MG TABLET 10 MG PO (09:44)
[2025-02-12] MEDS: ESCITALOPRAM 10MG TABLET 15 MG PO (09:45)
[2025-02-12] MEDS: SENNOSIDES 8.6MG/DOCUSATE 50MG TABLET 1 TAB PO (09:46)
[2025-02-12] MEDS: CARVEDILOL 12.5MG TABLET 12.5 MG PO (09:46)
[2025-02-12] MEDS: POTASSIUM CHLORIDE 20MEQ TAB 40 MEQ PO (09:47)
[2025-02-12] MEDS: HEPARIN SODIUM 5,000 UNIT/ML VIAL 5000 UNIT SUBCUT (09:48)
[2025-02-12] MEDS: NYSTATIN TOPICAL POWDER 30GM TP (09:48)
[2025-02-12] MEDS: prednisoLONE 1% OPTH SOL 5ML OP (09:48)
[2025-02-12 10:03] LABS: Blood Urea Nitrogen 37 mg/dl (9-20); Creatinine Clearance Estimated 35 mL/min (50-200); Creatinine,Serum 2.10 mg/dl (0.66-1.25); Estimated Glomerular Filt Rate 31 ml/min (>60); GFR (African American) 37 ML/MIN (>60)
[2025-02-12 10:36] LABS: Thyroid Stimulating Hormone 0.82 uIU/mL (0.465-4.68)
--- NOTE | 2025-02-12 11:58 | EXP.DC.SUM ---
General Admission date:: 02/10/25 HPI HPI HPI: Patient is a 74-year-old male with a past medical history significant for chronic renal failure, hypertension, BPH with urinary obstruction, renal cyst, alcoholism is in remission. Presents to [facility] from his nursing facility for further evaluation of fever and AMS. Due to underlying confusion patient is a poor historian. History provided per staff and chart review. Nursing facility concerned due to fever and decline in mental status. Baseline patient typically is A&O x 3 and and was A&O x 1 on arrival to the emergency department. Evaluation of patient at bedside resting in bed comfortably. Patient was able to tell me his date of and knew he was at the hospital, but unaware of how and why he ultimately transitioned to the hospital. Patient assessed at bedside. Resting in bed without acute distress. Hemodynamically stable. Denies chest pain, shortness breath, diarrhea, abdominal pain, nausea or vomiting. Initial ED workup included laboratory studies and imaging. Significant laboratory findings WBC 22.7, D-dimer 1.09, sodium 133, creatinine 2.20, GFR 29, CRP 96, BNP 3900, procalcitonin 8.78, UA with 2+ protein, blood 3+, nitrate positive, leukocyte esterase 2+, 4+ bacteria. Imaging study included CTA, unremarkable. CT abdomen and pelvis showing inflammatory stranding of the urinary bladder wall favors cystitis versus neoplastic process. Recommend urology referral. Large right sided hydrocele within the scrotum measures 7 cm in diameter is incompletely imaged. Chest x-ray, pleuroparenchymal scarring of the lung bases with subsegmental atelectasis is present without consolidations or pleural effusions that project above the diaphragm. Patient met sepsis criteria upon evaluation in the emergency department, (WBC 22.7, 103.3 ?F, HR 117, creatinine 2.2) blood cultures obtained, received sepsis IV bolus infusion and broad-spectrum antibiotics that included cefepime and vancomycin. Hospital Course Hospital Course Hospital Course: Biju Aguillon is a 74-year-old male who presented with altered mentation, fevers from [facility] and was admitted for sepsis secondary to UTI. #Acute metabolic encephalopathy, resolving #Sepsis, resolved #UTI ? Presented from [facility] with altered mentation, fevers and found to have abnormal UA. History of obstructive uropathy. ? Clinically improved with IV cefepime, urine culture growing Providencia stuartii sensitive for ceftriaxone. ? Patient feels better today, alert and oriented, afebrile. WBC improved from 22-15. Tachycardia, fevers resolved. ?Discharged with cefdinir 300 mg twice daily for 5 more days. ? Follow-up blood, urine cultures. ? Follow-up morning CBC. #BPH #Complex renal cyst ? Patient follows Dr. Noguera w/urology for complex renal cyst. Recent follow-up on January 18, following renal cyst-noted patient will need a CT mass protocol, but due to his renal failure he has not been able to obtain. ? PSA was noted to be 4.3 on 12/07. Patient denies any urinary incontinence but reports some occasional urinary leakage at times. ? Continue home oxybutynin, tamsulosin. # CKD stage IIIb ? Creatinine 2.1, GFR 31. Stable. Will need nephrology follow-up. Referred to Dr. Zaman. #Hypertension ? Continue home carvedilol 12.5 mg twice daily, amlodipine 10 mg. #History of cataract surgery: Underwent left eye cataract surgery on 01/26, and right eye cataract surgery 02/[address] Crandall. No acute issues patient without complaint. #Emphysema/COPD: Started Anoro Ellipta due to increased cough over the past few months. Exam Data for Last 24 hours Vital signs and Labs for Last 24 Hours: Temp Pulse Resp BP Pulse Ox O2 Del Method O2 Flow Rate 98.6 F 80 18 127/67 95 Nasal Cannula 2 02/12/25 08:00 02/12/25 08:00 02/12/25 08:00 02/12/25 08:00 02/12/25 08:00 02/12/25 08:00 02/12/25 08:00 Laboratory Results - last 24 hr 02/12/25 05:47: WBC 15.0 H D, RBC 3.82 L, Hgb 11.4 L, Hct 33.9 L, MCV 88.7, MCH 29.8, MCHC 33.6, RDW 12.9, Plt Count 141 L, MPV 10.5 H, Neut % (Auto) 75.9, Lymph % (Auto) 7.9 L, [place] % (Auto) 7.4, Eos % (Auto) 0.1, Baso % (Auto) 0.2, Neut # (Auto) 11.4 H, Lymph # (Auto) 1.2, [place] # (Auto) 1.1 H, Eos # (Auto) 0.0, Baso # (Auto) 0.0, Total Counted 100, Neutrophils % (Manual) 82 H, Lymphocytes % (Manual) 14, Monocytes % (Manual) 4, Platelet Estimate Normal, RBC Morphology Normal, Sodium 131 L, Potassium 3.4 L, Chloride 104, Carbon Dioxide 24, Anion Gap 6.4, BUN 37 H, Creatinine 2.10 H, Estimated Creat Clear 35, Estimated GFR 31 L, Est GFR ( Amer) 37 L, Glucose 96, Calcium 8.1 L, Total Bilirubin 0.5, AST 31, ALT 11 L, Alkaline Phosphatase 69, Total Protein 5.6 L, Albumin 3.5 D, Globulin 2.1, Albumin/Globulin Ratio 1.7, TSH 0.82 I & O for Last 24 hours: Intake & Output 02/09/25 02/10/25 02/11/25 02/12/25 23:59 23:59 23:59 23:59 Intake Total 2450 / 2450 1720 / 1960 520 / 520 Output Total 0 / 0 1750 / 1750 350 / 350 Balance 2450 / 2450 -30 / 210 170 / 170 Weight 83.869 kg 83.642 kg 81.964 kg Microbiology Reports for the Last 24 Hours: Microbiology 02/10/25 20:40 Urine,Clean Catch Urine Culture - Final Providencia stuartii 02/10/25 18:55 Blood Blood Culture - Preliminary NO GROWTH AFTER 24 HOURS 02/10/25 18:47 Blood Blood Culture - Preliminary NO GROWTH AFTER 24 HOURS Constitutional Constitutional: no acute distress *Routine HEENT Exam Head: Present normocephalic Eye: Present EOMI and PERRL ENT: Present mucous membranes moist *Routine Neck Exam Neck: Present supple; Absent lymphadenopathy *Routine Respiratory Exam Respiratory: Present CTA bilaterally *Routine Cardiovascular Exam Cardiovascular: Present RRR *Routine Abdominal Exam Abdominal: Present soft and normoactive bowel sounds; Absent tenderness *Routine Extremities Exam Extremities: Absent cyanosis, clubbing or edema *Routine Skin Exam Skin: Present warm; Absent rash *Routine Neurological Exam Neurological: Present alert and oriented X3 Results Data Completed and Pending Labs on day of discharge: Labs from last 24 hours 02/12/25 05:47 WBC 15.0 H D RBC 3.82 L Hgb 11.4 L Hct 33.9 L MCV 88.7 MCH 29.8 MCHC 33.6 RDW 12.9 Plt Count 141 L MPV 10.5 H Neut % (Auto) 75.9 Lymph % (Auto) 7.9 L [place] % (Auto) 7.4 Eos % (Auto) 0.1 Baso % (Auto) 0.2 Neut # (Auto) 11.4 H Lymph # (Auto) 1.2 [place] # (Auto) 1.1 H Eos # (Auto) 0.0 Baso # (Auto) 0.0 Total Counted 100 Neutrophils % (Manual) 82 H Lymphocytes % (Manual) 14 Monocytes % (Manual) 4 Platelet Estimate Normal RBC Morphology Normal Sodium 131 L Potassium 3.4 L Chloride 104 Carbon Dioxide 24 Anion Gap 6.4 BUN 37 H Creatinine 2.10 H Estimated Creat Clear 35 Estimated GFR 31 L Est GFR ( Amer) 37 L Glucose 96 Calcium 8.1 L Total Bilirubin 0.5 AST 31 ALT 11 L Alkaline Phosphatase 69 Total Protein 5.6 L Albumin 3.5 D Globulin 2.1 Albumin/Globulin Ratio 1.7 TSH 0.82 Preliminary micro results at discharge 02/10/25 18:55 Blood Culture - Preliminary Blood NO GROWTH AFTER 24 HOURS 02/10/25 18:47 Blood Culture - Preliminary Blood NO GROWTH AFTER 24 HOURS DS: Diagnosis Discharge Diagnosis (1) Acute kidney injury superimposed on chronic kidney disease: Status: Acute Code(s): N17.9 - Acute kidney failure, unspecified; N18.9 - Chronic kidney disease, unspecified (2) Acute metabolic encephalopathy: Status: Acute Code(s): G93.41 - Metabolic encephalopathy (3) Sepsis due to urinary tract infection: Status: Acute Code(s): A41.9 - Sepsis, unspecified organism; N39.0 - Urinary tract infection, site not specified (4) UTI (urinary tract infection): Status: Acute Code(s): N39.0 - Urinary tract infection, site not specified Meds Home Medications and Allergies Home Medications ?Medication ?Instructions ?Recorded ?Confirmed ?Type amlodipine 10 mg tablet 10 mg PO DAILY 11/18/23 02/10/25 History carvedilol 12.5 mg tablet 12.5 mg PO BID 11/18/23 02/10/25 History acetaminophen 325 mg tablet 325 mg PO QIDP PRN Mild Pain 03/27/24 02/10/25 History (Scale Score 1-4) aspirin 81 mg chewable tablet 81 mg PO DAILY 03/28/24 02/10/25 History multivitamin 1 tab PO DAILY 03/28/24 02/10/25 History omega-3 fatty acids-fish oil 300 1 cap PO BID 03/28/24 02/10/25 History mg-500 mg capsule (Fish Oil) sennosides 8.6 mg-docusate sodium 1 tab PO BID 30 days #60 tabs 03/30/24 02/10/25 Rx 50 mg tablet (Stimulant Laxative Plus) guaifenesin 100 mg/5 mL oral liquid 200 mg PO Q6HP PRN Congestion 09/22/24 02/11/25 History escitalopram oxalate 5 mg tablet 5 mg PO DAILY 11/23/24 02/10/25 History escitalopram oxalate 10 mg tablet 10 mg PO DAILY 12/01/24 02/10/25 History oxybutynin chloride 10 mg 10 mg PO DAILY #90 tabs 12/07/24 02/10/25 Rx tablet,extended release 24 hr tamsulosin 0.4 mg capsule (Flomax) 0.4 mg PO DAILY 90 days #90 caps 01/18/25 02/10/25 Rx ketorolac 0.5 % eye drops 1 drp Eye-Right QID 02/09/25 02/10/25 History ofloxacin 0.3 % eye drops 1 drp Eye-Right QID 02/09/25 02/10/25 History polyethylene glycol 3350 17 17 g PO DAILYP PRN Constipation 02/09/25 02/11/25 History gram/dose oral powder (Miralax) prednisolone acetate 1 % eye 1 drp Eye-Right QID 02/09/25 02/10/25 History drops,suspension (Pred Forte) cefdinir 300 mg capsule 300 mg PO BID 5 days #10 caps 02/12/25 Rx umeclidinium 62.5 mcg-vilanterol 1 inh inhalation DAILY #60 ea 02/12/25 Rx 25 mcg/actuation powdr for inhalation (Anoro Ellipta) New Prescriptions to Start Prescriptions: Hu Nevarez umeclidinium-vilanterol [Anoro Ellipta] Hu Nava Allergies Allergy/AdvReac Type Severity Reaction Status Date / Time Penicillins Allergy Unknown Verified 02/09/25 15:00 allergy reaction Discharge Plan Disposition Patient Disposition: er Intermediate Care Fac Condition: Fair Discharge Order Discharge Orders: Discharge Order (Routine); Ordered 02/12/25 Ordered By: Hu Nava Follow up Plan Follow up with: Tal Zaman MD [Referring, Nephrology] - 2 weeks Prescriptions/Medication Reconciliation: New cefdinir 300 mg capsule 300 mg PO BID 5 Days Qty: 10 0RF umeclidinium-vilanterol [Anoro Ellipta] 62.5-25 mcg/actuation blister with device 1 inh inhalation DAILY Qty: 60 0RF Continued guaifenesin 100 mg/5 mL liquid 200 mg PO Q6HP PRN (Reason: Congestion) escitalopram oxalate 5 mg tablet 5 mg PO DAILY oxybutynin chloride 10 mg tablet extended release 24hr 10 mg PO DAILY Qty: 90 1RF tamsulosin [Flomax] 0.4 mg capsule 0.4 mg PO DAILY 90 Days Qty: 90 1RF ofloxacin 0.3 % drops 1 drp Eye-Right QID ketorolac 0.5 % drops 1 drp Eye-Right QID prednisolone acetate [Pred Forte] 1 % drops,suspension 1 drp Eye-Right QID polyethylene glycol 3350 [Miralax] 17 gram/dose powder 17 g PO DAILYP PRN (Reason: Constipation) carvedilol 12.5 mg tablet 12.5 mg PO BID amlodipine 10 mg tablet 10 mg PO DAILY escitalopram oxalate 10 mg tablet 10 mg PO DAILY acetaminophen 325 mg Tablet 325 mg PO QIDP PRN (Reason: Mild Pain (Scale Score 1-4)) aspirin 81 mg Tablet,Chewable 81 mg PO DAILY multivitamin Tablet 1 tab PO DAILY Fish Oil 300-500 mg Capsule 1 cap PO BID sennosides-docusate sodium [Stimulant Laxative Plus] 8.6-50 mg Tablet 1 tab PO BID 30 Days Qty: 60 0RF Problem Reconciliation Problems Reviewed?: Yes Patient Discharge Instructions Patient Instructions: DI for Urinary Tract Infection (UTI), DI for Sepsis in Adults, Stop Light Infection Print Language: Irish Providers Primary Care Provider: Provider,Referral Admit Provider: Hu Nava Attending Provider: Hu Nava
[2025-02-12 12:24] VITALS: BP 140/66; PULSE 63; RESP 14; TEMP 36.9; O2SAT 91
--- NOTE | 2025-02-12 14:21 | PC.NURSE ---
report called to Terra at [facility], facility notified that patient will need some assistance getting out of the vehicle.
--- NOTE | 2025-02-13 07:49 | PC.NURSE ---
Urine culture forwarded to hospitalist.
== END 2025-02-12 14:23 | DRG 871 ==
LOC: ER 18:54 → 2ND 21:32
PROVIDERS: Nurse Practitioner Acute Care; Admitting Provider Student in an Organized Health Care Education/Training Program; Emergency Provider Student in an Organized Health Care Education/Training Program; Visit Provider Student in an Organized Health Care Education/Training Program
DX: A41.9 Sepsis, unspecified organism (principal); G93.41 Metabolic encephalopathy; N39.0 Urinary tract infection, site not specified; N13.8 Other obstructive and reflux uropathy; N17.9 Acute kidney failure, unspecified; R65.20 Severe sepsis without septic shock; B96.89 Other specified bacterial agents as the cause of diseases classified elsewhere; I12.9 Hypertensive chronic kidney disease with stage 1 through stage 4 chronic kidney disease, or unspecified chronic kidney disease; N18.32 Chronic kidney disease, stage 3b; J43.9 Emphysema, unspecified; F10.21 Alcohol dependence, in remission; N40.1 Benign prostatic hyperplasia with lower urinary tract symptoms; N28.1 Cyst of kidney, acquired; F17.210 Nicotine dependence, cigarettes, uncomplicated; F41.9 Anxiety disorder, unspecified; Z96.1 Presence of intraocular lens; Z98.42 Cataract extraction status, left eye; Z86.73 Personal history of transient ischemic attack (TIA), and cerebral infarction without residual deficits; Z88.0 Allergy status to penicillin; Z79.1 Long term (current) use of non-steroidal anti-inflammatories (NSAID); Z79.82 Long term (current) use of aspirin; Z79.899 Other long term (current) drug therapy
CPT/HCPCS: 0223U; 36415; 70450; 71045; 71275; 74177; 80053; 81001; 82550; 82803; 83690; 83735; 83880; 84145; 84443; 84484; 85007; 85025; 85378; 85610; 85651; 85730; 86140; 86803; 87040; 87086; 87088; 87186; 87389; 93005; 97162; 97165; 97530; 99285; J0692; J1644; J2250; J3375; J7120; Q9967; V2632

== ENCOUNTER 2025-02-22 11:17 | Outpatient (CLI) | payer MEDICARE, MEDICAID, SELFPAY ==
[2025-02-22 12:36] LABS: Blood Urea Nitrogen 29 mg/dl (9-20); Creatinine,Serum 1.90 mg/dl (0.66-1.25); Estimated Glomerular Filt Rate 35 ml/min (>60); GFR (African American) 42 ML/MIN (>60)
== END 2025-02-22 23:59 | disposition home or self-care (01) ==
LOC: LAB 11:18
PROVIDERS: PCP Family Medicine; Visit Provider Urology
DX: N39.0 Urinary tract infection, site not specified (principal)
CPT/HCPCS: 36415; 82565; 84520

== ENCOUNTER → 2025-03-05 07:48 | Day surgery (SDC) | payer MEDICARE, MEDICAID, SELFPAY ==
[2025-03-02 15:11] VITALS: BMI 29.6
--- NOTE | 2025-03-05 08:05 | SUR.PREOP ---
procedure cancelled per Dr Noguera pt states he is voiding well now on his own.
--- NOTE | 2025-03-05 08:13 | EXP.MED.CON ---
History of Present Illness *History of present illness: Bladder outlet obstruction: The patient presented for cystoscopy today. When I last saw him he was having fairly refractory response to alpha blockers and finasteride. He was then complaining still of hesitation and intermittency. It has been a few weeks since I last saw him and today he says that his urinary flow to max have improved significantly. He denies urinary hesitation, incontinence, dysuria, hematuria, or feeling of incomplete emptying of the bladder. I am going to postpone and cancel cystoscopy today as the patient is doing well and cystoscopy will not add to his treatment plan he will return to see me in 3 months. [facility] Disclaimer: The information contained in this section may have been updated after the patient was seen, as this information can be updated by other users. Medical History Compression fracture of L1 lumbar vertebra Cataracts, bilateral Urinary tract infection Elevated PSA Difficulty in urination Alcoholism in remission Chronic kidney disease Difficulty walking Declining functional status Sciatica Constipation History of transient ischemic attack (TIA) Tobacco use disorder HTN (hypertension) Surgical History No significant past surgical history Family History Other No significant family history Social History Smoking Status: Current every day smoker tobacco type: cigarettes packs per day: 2 pack-years: 134 years smoked: 65 alcohol intake: former current occupational status: retired Travel in the last 8 weeks?: None Have you lived/traveled outside US in past 30 days?: No Contact w/someone who lives/traveled outside US past 30 days?: No Exposure to someone with infectious disease in past 14 days?: No Do you have a fever (greater than 100.4 F or 38 C)?: No Have you tested positive for COVID-19?: No Exposed to someone with COVID-19 in past 14 days?: No Do you have a sore throat?: No Do you have a cough?: No Do you have any weakness?: No Do you have any diarrhea?: No Are you experiencing any unusual bleeding?: No Do you have any muscle aches/pain?: No Do you have any abdominal pain?: No Are you experiencing loss of taste or smell?: No Exam Data for Last 24 hours I & O for Last 24 hours: Intake & Output 03/02/25 03/03/25 03/04/25 03/05/25 23:59 23:59 23:59 23:59 Weight 80.739 kg Meds Home Medications and Allergies Home Medications ?Medication ?Instructions ?Recorded ?Confirmed ?Type amlodipine 10 mg tablet 10 mg PO DAILY 11/18/23 02/22/25 History carvedilol 12.5 mg tablet 12.5 mg PO BID 11/18/23 02/22/25 History acetaminophen 325 mg tablet 325 mg PO QIDP PRN Mild Pain 03/27/24 02/22/25 History (Scale Score 1-4) aspirin 81 mg chewable tablet 81 mg PO DAILY 03/28/24 02/22/25 History multivitamin 1 tab PO DAILY 03/28/24 02/22/25 History omega-3 fatty acids-fish oil 300 1 cap PO BID 03/28/24 02/22/25 History mg-500 mg capsule (Fish Oil) sennosides 8.6 mg-docusate sodium 1 tab PO BID 30 days #60 tabs 03/30/24 02/22/25 Rx 50 mg tablet (Stimulant Laxative Plus) guaifenesin 100 mg/5 mL oral liquid 200 mg PO Q6HP PRN Congestion 09/22/24 02/22/25 History escitalopram oxalate 5 mg tablet 5 mg PO DAILY 11/23/24 02/22/25 History escitalopram oxalate 10 mg tablet 10 mg PO DAILY 12/01/24 02/22/25 History ketorolac 0.5 % eye drops 1 drp Eye-Right QID 02/09/25 02/22/25 History ofloxacin 0.3 % eye drops 1 drp Eye-Right QID 02/09/25 02/22/25 History polyethylene glycol 3350 17 17 g PO DAILYP PRN Constipation 02/09/25 02/22/25 History gram/dose oral powder (Miralax) prednisolone acetate 1 % eye 1 drp Eye-Right QID 02/09/25 02/22/25 History drops,suspension (Pred Forte) cefdinir 300 mg capsule 300 mg PO BID 5 days #10 caps 02/12/25 02/22/25 Rx umeclidinium 62.5 mcg-vilanterol 1 inh inhalation DAILY #60 ea 02/12/25 02/22/25 Rx 25 mcg/actuation powdr for inhalation (Anoro Ellipta) tamsulosin 0.4 mg capsule (Flomax) 0.4 mg PO DAILY 90 days #90 caps 02/22/25 02/22/25 Rx finasteride 5 mg tablet (Proscar) 5 mg PO DAILY #90 tabs 03/05/25 Rx New Prescriptions to Start Prescriptions: Allergies Allergy/AdvReac Type Severity Reaction Status Date / Time Penicillins Allergy Unknown Verified 02/22/25 10:52 allergy reaction Results Labs Labs: All other labs normal. Assessment and Plan *Assessment and plan (1) BPH w urinary obs/LUTS: Status: Acute Category: Medical Code(s): N40.1 - Benign prostatic hyperplasia with lower urinary tract symptoms; N13.8 - Other obstructive and reflux uropathy
== END ==
LOC: OUTP 07:52
PROVIDERS: PCP Family Medicine; Visit Provider Urology
PROC: 0TJB8ZZ Inspection of Bladder, Via Natural or Artificial Opening Endoscopic (ICD-10-PCS; CPT 52000; principal; 2025-03-05 08:45)
DX: N40.1 Benign prostatic hyperplasia with lower urinary tract symptoms (principal); N13.8 Other obstructive and reflux uropathy; I12.9 Hypertensive chronic kidney disease with stage 1 through stage 4 chronic kidney disease, or unspecified chronic kidney disease; N18.9 Chronic kidney disease, unspecified; F17.210 Nicotine dependence, cigarettes, uncomplicated; Z79.82 Long term (current) use of aspirin; Z88.0 Allergy status to penicillin

== ENCOUNTER 2025-03-31 08:41 | Outpatient (CLI) | payer MEDICARE, MEDICAID, SELFPAY ==
--- OUTSIDE RECORDS SUMMARY | 2025-02-08 08:00 | XMS_ITS | Encounter Summary ---
Author Organization Healthcare Address [facility] [address] [place] [id number] Care Team Providers Care Tube Handler Name Role Phone Frankie De Leon MD Primary Care Provider + [phone] Reason for Visit * Reason Comments Consult Encounter Details Date Type Department Care Team (Latest Contact Info) Description 02/08/2025 9:00 AM EDT Office Visit [facility] [address], [address] [place] [address] Tal Zaman MD [address] [place] [id number] CKD stage 3b, GFR 30-44 ml/min (CMS/[facility]) (Primary Dx); 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-MBD); Hypertensive chronic kidney disease with stage 1 through stage 4 chronic kidney disease, or unspecified chronic kidney disease; Anemia in stage 3b chronic kidney disease; Hyperlipidemia, unspecified hyperlipidemia type Social History Tobacco Use Types Packs/Day Years Used Date Smoking Tobacco: Every Day Cigarettes Smokeless Tobacco: Current Tobacco Cessation:Ready to Q uit: Not Asked; Counseling Given: Yes Alcohol Use Standard Drinks/Week Comments Not Currently 0 (1 standard drink = 0.6 oz pur e alcohol) PHQ-2 Answer Date Recorded Patient Health Questionnaire-2 Score 0 02/08/2025 PHQ-9 Answer Date Recorded Patient Health Questionnaire-9 Score 0 02/08/2025 Sex and Gender Information Value Date Recorded Sex Assigned at Not on file Legal Sex Male 9:59 AM EDT Gender Identity Not on file Sexual Orientation Not on file documented as of this encounter Last Filed Vital Signs Vital Sign Reading Time Taken Comments Blood Pressure 132/70 02/08/2025 10:21 AM EDT Verified with manual by resident Pulse 68 02/08/2025 9:37 AM EDT Temperature 36.6 C (97.9 F) 02/08/2025 9:37 AM EDT Respiratory Rate - - Oxygen Saturation 96% 02/08/2025 9:3 7 AM EDT Inhaled Oxygen Concentration - - Weight 79.4 kg (175 lb) 02/08/2025 9:37 AM EDT Height 171.5 cm (5' 7.5 ) 02/08/2025 9: 37 AM EDT Body Mass Index 27 02/08/2025 9:37 AM EDT documented in this encounter Functional Status * Over the past 2 weeks, how often have you been bothered by any of the following problems? Question Answer Date of Assessment Author Little interest or pleasure in doing things Not at all 02/08/2025 9:53 AM EDT Melania Benavides Feeling down, depressed, or hopeless Not at all 02/08/2025 9:53 AM EDT Melania Benavides Patient Health Questionnaire -2 Score 0 02/08/2025 9:53 AM EDT Melania Benavides * Question Answer Date of Assessment Author Trouble falling or staying asleep, or sleeping too much Not at all 02/08/2025 9:53 AM EDT Evelio Benavides Feeling tired or having ernestine le energy Not at all 02/08/2025 9:53 AM EDT Melania Benavides Poor appetite or overeating Not at all 02/08/2025 9: 53 AM EDT Evelio Benavides Feeling bad about yourself - or that you are a failure or have let yourself or your family down Not at all 02/08/2025 9:53 AM EDT Melania Benavides Trouble concentrating on things, such as reading the newspaper or watching television Not at all 02/08/2025 9:53 AM EDT Melania Benavides Moving or speaking so slowly that other people could have noticed. Or the opposite - being so fidgety or restless that you have been moving around a lot more than usual Not at all 02/08/2025 9:53 AM EDEvelio Rangel Thoughts that you would be better off or hurting yourself in some way Not at all 02/08/2025 9:53 AM EDT Nena Benavides Patient Health Questionnaire -9 Score 0 02/08/2025 9:53 AM EDT Melania Benavides * How difficult have these problems made it for you to do your work, take care of things at home, or get along with other people? Answer Date of Assessment Author Not difficult at all 02/08/2025 9:53 AM EDT Simp sonEvelio documented as of this encounter Miscellaneous Notes * Progress Notes - Sarabjit Alcaraz, DO - 02/08/2025 9:00 AM EDT [facility] New Consult Note Chronic Patient: Biju Aguillon Primary Care Provider: Frankie De Leon MD Referring Provider: Frankie De Leon MD Reason for consult: CKD HPI/Subjective Biju Aguillon is a 74 y.o. male with a PMH of HTN, BPH, cataracts and recently discovered renal cysts who was referred by his urologist for further evaluation of CKD w/ structural abnormalities. Mr. Aguillon comes from [place]. He has never been told his he had kidney disease before. His was sent by PCP to urology for BPH, urology ordered VARSHA which showed multiple cysts both simple and complex appearing. Recommended follow up with CT mass protocol but patient had elevated Cr of 1.6 and later 1.8 so patient was sent to nephrology for worsening kidney function. Patient denies dysuria, incontinence, weak stream, dribbling, hematuria, abdominal pain, nausea, vomiting, lower extremity edema. Prior to moving into his current facility the patient smoked 2-3 packs per day but is now down to 7-8 cigarettes daily due to facility regulation. Patient also reports a history of heavy alcohol use in the past but he is a reformed alcoholic at present and is not drinking. CKD Risk Factors: Medical comorbidities: HTN and tobacco use. Medications: N/A Anatomy: Renal ultrasound done by urologist showed multiple simple and complex cysts with a recommendation for CT mass protocol. BPH: Family history: None. Social history: Current smoker with 80-100 pack year history. ROS Review of Systems History: Past Medical History[1] Problem List[2] Surgical History[3] Family History[4] Social History Socioeconomic History Marital status: Single Spouse name: Not on file Number of children: Not on file Years of education: Not on file Highest education level: Not on file Occupational History Not on file Tobacco Use Smoking status: Every Day Current packs/day: 1.00 Types: Cigarettes Smokeless tobacco: Current Substance and Sexual Activity Alcohol use: Not Currently Drug use: Never Sexual activity: Defer Other Topics Concern Not on file Social History Narrative Not on file Social Drivers of Health Financial Resource Strain: Not on file Food Insecurity: Not on file Transportation Needs: Not on file Physical Activity: Not on file Stress: Not on file Social Connections: Not on file Intimate Partner Violence: Not on file Housing Stability: Not on file Allergies[5] Medications: Current Medications: Current Outpatient Medications Medication Instructions acetaminophen (Tylenol) 325 MG tablet amLODIPine (Norvasc) 10 MG tablet Aspirin Low Dose 81 MG chewable tablet carvedilol (Coreg) 12.5 MG tablet escitalopram (Lexapro) 10 MG tablet ketorolac (Acular) 0.5 % ophthalmic solution polyethylene glycol (Miralax) 17 GM/SCOOP powder prednisoLONE acetate (Pred-Forte) 1 % ophthalmic suspension Senexon-S 8.6-50 MG tablet tamsulosin (Flomax) 0.4 MG 24 hr capsule Objective Visit Vitals Pulse 68 Temp 36.6 ??C (97.9 ??F) (Oral) Ht 1.715 m (5' 7.5 ) Wt 79.4 kg (175 lb) SpO2 96% BMI 27.00 kg/m?? Smoking Status Every Day BSA 1.94 m?? Temp: [36.6 ??C (97.9 ??F)] 36.6 ??C (97.9 ??F) Heart Rate: [68] 68 Physical Exam: Physical Exam Constitutional: Appearance: He is normal weight. He is ill-appearing. HENT: Mouth/Throat: Mouth: Mucous membranes are moist. Eyes: Conjunctiva/sclera: Conjunctivae normal. Cardiovascular: Rate and Rhythm: Normal rate and regular rhythm. Pulses: Normal pulses. Heart sounds: Normal heart sounds. Pulmonary: Effort: Pulmonary effort is normal. Breath sounds: Normal breath sounds. Abdominal: General: Abdomen is flat. Palpations: Abdomen is soft. Musculoskeletal: Right lower leg: No edema. Left lower leg: No edema. Skin: General: Skin is warm and dry. Neurological: Mental Status: He is alert. Laboratory: I have personally reviewed these lab results and discuss their significance below. LAB RESULTS Renal Panel: No results found for: NA , K , CL , CO2 , BUN , BUNPRE , BUNPOST , CREATININE , EGFR , CA , GLU , PHOS , ALBUMIN CBC: No results found for: WBC , RBC , HGB , HCT , PLT , MCV , MCH , MCHC , RDW , NRBC Iron studies: No results found for: FERRITIN , IRON , IRONSAT , TIBC Urine studies: No results found for: CAR , CAUR , CALCIUMUR , PHOSUR , [id number] , [id number] , CREATUR MBD: No results found for: PTH , CA , CALCIUM , ICAS , PHOS , MG VITAMIN D 25 No results found for: VITD25 VITAMIN D 1,25 No results found for: VITD32 Paraproteinemia Labs: No results found for: SPEP , KAPPALAMBDA Nutritional: No results found for: PREALBUMIN , VITD25 Endocrine profile: No results found for: TESTOSTERONE , TESTOST , FSH , LH , PROLACTIN , TSH , [id number] , FREET4 , CORTISOL Imaging: Impression & Plan: #CKD Stage III Etiology: Likely Hypertensive, though can't rule out structural causes as patient has recently discovered simple and complex renal cysts. Baseline serum creatinine: Unsure, 1.6-1.8 between 10/07 and 12/07. Most recent Scr: 1.8 11/23/24 Electrolytes, acid/base, volume status wnl Anatomy: VARSHA done at outside facility with multiple simple and complex cysts bilaterally. Increasedechogenicity consistent with renal disease. Risk factor reduction to slow progression of kidney disease: -BP Control goal BP <130/80 -DM control goal A1c <7.0% -Lifestyle management: ---Maintain healthy weight: ---Diet recommendations: Heart healthy and Low sodium <2g/day ---Daily exercise 20-30 minutes as tolerated -Avoid NSAIDs -DULCE blockade: Not currently on TOMY/ARB -SGLT2 inhibitor: Not currently taking #HTN in CKD -Reported to be well controlled with BP's 120's-130's/60-70's at home facility -Currently on amlodipine 10mg and coreg 6.25mg BID #Anemia in CKD -Unsure as to baseline Hgb #CKD Bone and Mineral Disease -Will check Vitamin D and PTH #BPH w/ LUTS -Patient is followed by Urology -Currently on tamsulosin .4mg -Symptoms are reportedly well controlled with current treatment. #Current tobacco use - Smoking 7-8 cigarettes daily, which is an improvement from 2-3 packs daily. - 80-100+ pack year history. - Discussed cessation and the benefits to the kidneys. Recommendations and plan: - Will check basic lab work up for CKD including CBC, RFP, Vitamin D, PTH, UA. - Patient can proceed with CT Mass protocol for further evaluation of findings from Renal ultrasound. - Continue with current antihypertensive medications, amlodipine and carvedilol. - Continue with current treatment for BPH per urology. RTC in 6 months Tal Zaman MD Division of Nephrology [facility] Counseling Documentation: The patient was counseled regarding COUNSELING TOPICS: diagnostic results, prognosis, risks and benefit of treatment options, risk factor reductions, instructions for management, patient and family education, medication changes, diagnostic impressions, Heart healthy diet, regular physical activity and weight control, Avoidance of NSAIDs and other nephrotoxins, and manager intermediate nature of condition. Education provided was verbal counseling.Additional time was spent in care coordination including medical record review. ENCOUNTER TIMING: I personally spent a total of 60 minutes on this encounter. This time includes face to face with patient, counseling and discussion, lab/result interpretation, coordination of follow-up care, document review. The total time of encounter was 60 minutes. . MDM: - was based on the following: Nursing notes reviewed and incorporated Labs reviewed Metabolic profile: renal panel and Imaging: renal ultrasound Past imaging reviewed Old chart reviewed Comorbidities complicating the care of the patient HTN, Tobacco use, former Alcohol use ORDERS PLACED THIS ENCOUNTER Orders Placed This Encounter Procedures CBC W/O Differential Standing Status: Future Expected Date: 08/08/2025 Expiration Date: 08/13/2026 [facility] Urinalysis with reflex microscopic (Culture NOT Included) Standing Status: Future Expected Date: 08/08/2025 Expiration Date: 08/13/2026 [facility] Vitamin D 25 Hydroxy Standing Status: Future Expected Date: 08/08/2025 Expiration Date: 08/13/2026 Release to patient in MyChart: Immediate PTH Intact Total Standing Status: Future Expected Date: 08/08/2025 Expiration Date: 08/13/2026 Release to patient in [facility]: Immediate Albumin-creatinine ratio, urine, random Standing Status: Future Expected Date: 08/08/2025 Expiration Date: 08/13/2026 Release to patient in [facility]: Immediate Protein, Random, Urine with Creatinine Standing Status: Future Expected Date: 08/08/2025 Expiration Date: 08/13/2026 Release to patient in [facility]: Immediate Renal Function Panel, Plasma Standing Status: Future Expected Date: 08/08/2025 Expiration Date: 08/13/2026 Release to patient in [facility]: Immediate Problem List Items Addressed This Visit Anemia in stage 3b chronic kidney disease - Primary Relevant Medications amLODIPine (Norvasc) 10 MG tablet carvedilol (Coreg) 12.5 MG tablet tamsulosin (Flomax) 0.4 MG 24 hr capsule 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-MBD) Relevant Medications amLODIPine (Norvasc) 10 MG tablet carvedilol (Coreg) 12.5 MG tablet tamsulosin (Flomax) 0.4 MG 24 hr capsule Other Relevant Orders CBC W/O Differential Urinalysis with reflex microscopic (Culture NOT Included) Vitamin D 25 Hydroxy PTH Intact Total Albumin-creatinine ratio, urine, random Protein, Random, Urine with Creatinine Renal Function Panel, Plasma Hypertensive chronic kidney disease with stage 1 through stage 4 chronic kidney disease, or unspecified chronic kidney disease Relevant Medications amLODIPine (Norvasc) 10 MG tablet carvedilol (Coreg) 12.5 MG tablet tamsulosin (Flomax) 0.4 MG 24 hr capsule Hyperlipidemia I confirm that I have addressed the patient's longitudinal multifaceted and complex health related active and chronic conditions that will require ongoing care with myself or someone on my team. [1] Past Medical History: Diagnosis Date Hypertension Sciatica [2] There is no problem list on file for this patient. [3] Past Surgical History: Procedure Laterality Date CATARACT EXTRACTION HERNIA REPAIR [4] History reviewed. No pertinent family history. [5] Not on File Cosigned by Tal Zaman MD at 02/09/2025 11:56 AM EDT Associated attestation - Tal Zaman MD - 02/09/2025 11:56 AM EDT I saw and evaluated the patient with the resident/fellow. I discussed the case with the resident/fellow and agree with the findings and plan as documented. Mr. Aguillon with BPH, Cataracts, HTN, presents ofre valuation of Ckd. Creatinine around 1.4-1.9 Overall feels well, no significant edema. We will check RFP, CBC, UA, Urine protein, to ensure no significant active damage of kidneys is ongoing. Otherwise will recommend maximum CKD supportive carewhich includes good blood pressure control (<130/80 on average), good glycemic control, avoidingnephrotoxins. His eGFR is above 30 and I believe he would tolerate a CT renal mass protocol with contrast to check on these renal cysts documented in this encounter Plan of Treatment Upcoming Encounters Date Type Department Care Team (Late st Contact Info) Description 08/13/2025 1:00 PM EDT Office Visit [facility] [address] [place] [address] Tal Zaman MD [address] [place] [address] Scheduled Orders Name Type Priority Associated Diagnoses Orde r Schedule CBC W/O Differential Lab Routine CKD stage 3b, GFR 30-44 ml/min ([facility]/HCC) 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-MBD) Expected: 08/08/2025 (Approximate), Expires: 08/13/2026 Urinalysis with reflex microscopic (Culture NOT Included) Lab Routine CKD stage 3b, GFR 30-44 ml/min (CMS/HCC) 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-MBD) Expected: 08/08/2025 (Approximate), Expires: 08/13/2026 Vitamin D 25 Hydroxy Lab Routine CKD stage 3b, GFR 30-44 ml/min (CMS/HCC) 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-MBD) Expected: 08/08/2025 (Approximate), Expires: 08/13/2026 PTH Intact Total Lab Routine CKD stage 3b, GFR 30-44 ml/min ([facility]) 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-MBD) Expected: 08/08/2025 (Approximate), Expires: 08/13/2026 Albumin-creatinine ratio, urine, random Lab Routine CKD stage 3b, GFR 30-44 ml/min ([facility]) 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-MBD) Expected: 08/08/2025 (Approximate), Expires: 08/13/2026 Protein, Random, Urine with Creatinine Lab Routine CKD stage 3b, GFR 30-44 ml/min ([facility]) 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-MBD) Expected: 08/08/2025 (Approximate), Expires: 08/13/2026 Renal Function Panel, Plasma Lab Routine CKD stage 3b, GFR 30-44 ml/min ([facility]) 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-MBD) Expected: 08/08/2025 (Approximate), Expires: 08/13/2026 documented as of this encounter Visit Diagnoses Diagnosis CKD stage 3b, GFR 30-44 ml/min ([facility])- Primary 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-MBD) Hypertensive chronic kidney disease with stage 1 through stage 4 chronic kidney disease, or unspecified chronic kidney disease Anemia in stage 3b chronic kidney disease Hyperlipidemia, unspecified hyperlipidemia type documented in this encounter Additional Health Concerns Assessment Noted Time PHQ-9 Depression Total Score: 0 02/09/20 9:53 AM EDT A fall risk assessment has been complete d for the patient 02/08/2025 9:55 AM EDT A Body Mass Index follow-up plan has been documented for the patient 02/09/2025 11:56 AM EDT documented as of this encounter Care Teams Tube Handler Relationship Specialty [place] [id number] PCP - General 12/11/24 documented as of this encounter
--- OUTSIDE RECORDS SUMMARY | 2025-03-31 08:54 | XMS_ITS | Clinical Summary ---
Author Organization Healthcare Address [address] [id number] Care Team Providers Care Windrower Operator Name Role Phone Frankie De Leon MD Primary Care Provider + [phone] Medications acetaminophen (Tylenol) 325 MG tablet 10/31/2024 [...] 02/08/2025 9:00 AM EDT Office Visit Professional [facility] Nephrology, Bone & Mineral Metabolism [address], [address] [place] [address] Tal Zaman MD CKD stage 3b, GFR 30-44 ml/min (CMS/HCC) (Primary Dx); 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-MBD); Hypertensive chronic kidney disease with stage 1 through stage 4 chronic kidney disease, or unspecified chronic kidney disease; Anemia in stage 3b chronic kidney disease; Hyperlipidemia, unspecified hyperlipidemia type 02/08/2025 Travel from Last 3 Months Social History Tobacco [...] Office Visit [facility] [address] [place] [address] Tal Zaman MD [address] [place] [phone] Health Maintenance Due Date Last Done Comments [facility]-Diabetes: Hemoglobin A1C 1948 [facility]-Hepatitis C Screening 1948 [facility]-Medicare Annual Wellness (AWV) 1948 [facility]-Infant/Child/Adol SDOH Screenings 1948 Diabetes: Dental Exam 1958 [facility]- SDOH Screenings 1966 [facility]-Adult SDOH Screenings 1966 [facility]-DTaP,Tdap,and Td Vaccines (1 - Tdap) 09/22/1967 [facility]-Pneumococcal Vaccine: 50+ Years (1 of 2 - PCV) 09/22/1967 [facility]-Zoster Vaccines (1 of 2) 1998 [facility]-RSV Vaccine: 60+ Years or (1 - 1-dose 75+ series) 09/22/2023 [id number] Vaccine ( - 2024- season) 2024 02/12/2023, 02/23/2022, 06/08/2020, Additional history exists [facility]-Influenza Vaccine (#1) 12/14/202402/12, 02/23/2022, 07/21/2021, Additional history exists [facility]-Depression Screening 02/08/2026 02/08/2025, 01/14 [facility]-Obesity Intervention Completed 02/08/2025 HPV Vaccines (No Doses Required) Completed [facility]-HIB Vaccines Aged Out No longer e [...] - 80.0 ng/mL 02/08/2025 4:31 PM EDT [facility] Comment:This is you lab orde r and it needs to be done 3 to Blood Venous blood specimen / Unknown Venipuncture / Unknown 02/08/2025 11:03 AM EDT 02/08/2025 11:03 AM EDT Narrative [facility] - 02/08/2025 4:31 PM EDT Testing performed on Asencio Water Use Inspector, standardized against NIST SRM 2972. When testing [...] MD LAB BLOOD ORDERABLES Final Resul t [facility] [address] [place] [address] * CBC and Differential (02/08/2025 11:03 AM EDT) [facility] Signature WBC Count 9.57 3.70 - 10.30 10*3/uL LAB HEMATOLOGY METHOD 02/08/2025 2:31 PM EDT [facility] RBC Count 4.99 4.60 - 6.10 10*6/uL LAB HEMATOLOGY METHOD 02/08/2025 2:31 PM EDT [facility] HGB 14.9 13.7 - 17.5 g/dL LAB HEMATOLOGY METHOD 02/08/2025 2:31 PM EDT [facility] HCT 44.5 40.0 - 51.0 % LAB HEMATOLOGY METHOD 02/08/2025 2:31 PM EDT [facility] Platelet Count 221 155 - 369 10*3/uL LAB HEMATOLOGY METHOD 02/08/2025 2:31 PM EDT [facility] MCV 89 79 - 98 fL LAB HEMATOLOGY METHOD 02/08/2025 2:31 PM EDT [facility] MCH 29.9 26.0 - 32.0 pg LAB HEMATOLOGY METHOD 02/08/2025 2:31 PM EDT [facility] MCHC 33.5 30.7 - 35.5 g/dL LAB HEMATOLOGY METHOD 02/08/2025 2:31 PM EDT [facility] RDW 12.4 11.5 - 14.5 % LAB HEMATOLOGY METHOD 02/08/2025 2:31 PM EDT [facility] MPV 10.1 8.8 - 12.5 fL LAB HEMATOLOGY METHOD 02/08/2025 2:31 PM EDT [facility] nRBC 0.0 <=0.0 per 100 WBCs LAB HEMATOLOGY METHOD 02/08/2025 2:31 PM EDT [facility] Differential Type Automated LAB HEMATOLOGY METHOD 02/08/2025 2:31 PM EDT [facility] Neutrophils % 64 % LAB HEMATOLOGY METHOD 02/08/2025 2:31 PM EDT [facility] Lymphocytes % 24 % LAB HEMATOLOGY METHOD 02/08/2025 2:31 PM EDT [facility] Monocytes % 9 % LAB HEMATOLOGY METHOD 02/08/2025 2:31 PM EDT [facility] Eosinophils % 2 % LAB HEMATOLOGY METHOD 02/08/2025 2:31 PM EDT [facility] Basophils % 1 % LAB HEMATOLOGY METHOD 02/08/2025 2:31 PM EDT [facility] Immature Granulocytes % 0 % LAB HEMATOLOGY METHOD 02/08/2025 2:31 PM EDT [facility] Neutrophils Absolute 6.06 1.60 - 6.10 10*3/uL LAB HEMATOLOGY METHOD 02/08/2025 2:31 PM EDT [facility] Lymphocytes Absolute 2.31 1.20 - 3.90 10*3/uL LAB HEMATOLOGY METHOD 02/08/2025 2:31 PM EDT [facility] Monocytes Absolute 0.88 0.30 - 0.90 10*3/uL LAB HEMATOLOGY METHOD 02/08/2025 2:31 PM EDT [facility] Eosinophils Absolute 0.22 0.00 - 0.50 10*3/uL LAB HEMATOLOGY METHOD 02/08/2025 2:31 PM EDT [facility] Basophils Absolute 0.07 0.00 - 0.10 10*3/uL LAB HEMATOLOGY METHOD 02/08/2025 2:31 PM EDT [facility] Immature Granulocytes Absolute 0.03 0.00 - 0.06 10*3/uL LAB HEMATOLOGY METHOD 02/08/2025 2:31 PM EDT [facility] Blood Venous blood specimen / Unknown Venipuncture / Unknown 02/08/2025 11:03 AM EDT 02/08/2025 11:03 AM EDT [facility] - 02/08/2025 2:31 PM EDT Therapeutic decision making should be based on absolute values, rather than percentages. us Tal Zaman MD LAB BLOOD ORDERABLES Final Resul t [facility] [address] [place] [id number] * (ABNORMAL) PTH Intact Total (02/08/2025 11:03 AM EDT) PTH Intact Total 93(H) 9 - 77 pg/mL 02/08/2025 4:45 PM EDT [facility] Comment:This is you lab orde r and it needs to be done 3 to Blood Venous blood specimen / Unknown Venipuncture / Unknown 02/08/2025 11:03 AM EDT 02/08/2025 11:03 AM EDT Narrative [facility] - 02/08/2025 4:45 PM EDT Assay performed by immunoassay at the [facility]. Performed on Asencio Water Use Inspector chemiluminescent immunoassay, tractable to the World Health Organization's first international standard for PTH from the BS, Code 79/500. Results obtained from different test methods or kits cannot be used interchangeably. us Tal Zaman MD LAB BLOOD ORDERABLES Final Resul t [facility] [address] [place] [address] * (ABNORMAL) Renal Function Panel, Plasma (02/08/2025 11:03 AM EDT) Glucose, Plasma 83 74 - 99 mg/dL 02/08/2025 3:20 PM EDT [facility] BUN, Plasma 25(H) 8 - 23 mg/dL 02/08/2025 3:20 PM EDT [facility] Creatinine, Plasma 1.90(H) 0.70 - 1.20 mg/dL 02/08/2025 3:20 PM EDT [facility] BUN/Creatinine Ratio 13 02/08/2025 3:20 PM EDT [facility] Sodium, Plasma 141 136 - 145 mmol/L 02/08/2025 3:20 PM EDT [facility] Potassium, Plasma 4.7 3.6 - 4.9 mmol/L 02/08/2025 3:20 PM EDT [facility] Chloride, Plasma 103 97 - 107 mmol/L 02/08/2025 3:20 PM EDT [facility] CO2, Plasma 26 22 - 29 mmol/L 02/08/2025 3:20 PM EDT [facility] Anion Gap 12 6 - 16 mmol/L 02/08/2025 3:20 PM EDT [facility] Total Calcium, Plasma 9.4 8.9 - 10.2 mg/dL 02/08/2025 3:20 PM EDT [facility] Phosphorus, Plasma 3.7 2.5 - 4.5 mg/dL 02/08/2025 3:20 PM EDT [facility] Albumin, Plasma 4.4 3.5 - 5.2 g/dL 02/08/2025 3:20 PM EDT [facility] eGFRcr 36.1 mL/min/1.7 3m*2 02/08/2025 3:20 PM EDT [facility] Comment:Reported eGFRcr in m L/min/1.73m2 is based the CKD-EPI 2020 equation that does not use a race coefficient. Blood Venous blood specimen / Unknown Venipuncture / Unknown 02/08/2025 11:03 AM EDT 02/08/2025 11:03 AM EDT us Tal Zaman MD LAB BLOOD ORDERABLES Final Resul t Performing Organization Address [facility] de Phone Number [facility] [address] [place] [address] * Protein, Random, Urine with Creatinine (02/08/2025 11:02 AM EDT) Protein, Urine 42 mg/dL 02/08/2025 3:03 PM EDT [facility] Creatinine, Urine 95 mg/dL 02/08/2025 3:03 PM EDT [facility] Protein/Creati nine Ratio 0.4 mg/mg Creat 02/08/2025 3:03 PM EDT [facility] Urine Urine specimen obtained by clean catch procedure / Unknown Non-blood Collection / Unknown 02/08/2025 11:02 AM EDT 02/08/2025 11:02 AM EDT us Tal Zaman MD LAB URINE ORDERABLES Final Resul t Performing Organization Address [facility] de Phone Number [facility] [address] [place] [address] * (ABNORMAL) Urinalysis with reflex microscopic (Culture NOT Included) (02/08/2025 11:02 AM EDT) Color, Urine Yellow LAB URINALYSIS - AUTOMATED METHOD 02/08/2025 2:26 PM EDT [facility] Clarity, Urine Clear LAB URINALYSIS - AUTOMATED METHOD 02/08/2025 2:26 PM EDT [facility] Spec [place], Urine 1.016 1.005 - 1.030 LAB URINALYSIS - AUTOMATED METHOD 02/08/2025 2:26 PM EDT [facility] pH, Urine 6.5 5.0 - 8.0 LAB URINALYSIS - AUTOMATED METHOD 02/08/2025 2:26 PM EDT [facility] Protein, Urine 100(A) Negative mg/dL LAB URINALYSIS - AUTOMATED METHOD 02/08/2025 2:26 PM EDT [facility] Glucose, Urine Negative Negative mg/dL LAB URINALYSIS - AUTOMATED METHOD 02/08/2025 2:26 PM EDT [facility] Ketones, Urine Negative Negative mg/dL LAB URINALYSIS - AUTOMATED METHOD 02/08/2025 2:26 PM EDT [facility] Blood, Urine Negative Negative LAB URINALYSIS - AUTOMATED METHOD 02/08/2025 2:26 PM EDT [facility] Bilirubin, Urine Negative Negative LAB URINALYSIS - AUTOMATED METHOD 02/08/2025 2:26 PM EDT [facility] Urobilinogen, Urine 0.2 0.2 to 1.0 mg/dL LAB URINALYSIS - AUTOMATED METHOD 02/08/2025 2:26 PM EDT [facility] Leukocytes, Urine Negative Negative LAB URINALYSIS - AUTOMATED METHOD 02/08/2025 2:26 PM EDT [facility] Nitrite, Urine Negative Negative LAB URINALYSIS - AUTOMATED METHOD 02/08/2025 2:26 PM EDT [facility] Urine Urine specimen obtained by clean catch procedure / Unknown Non-blood Collection / Unknown 02/08/2025 11:02 AM EDT 02/08/2025 11:02 AM EDT Tal Zaman MD LAB URINE ORDERABLES Final Resul t Performing Organization Address City/State/[facility] de Phone Number [facility] [address] [place] [phone] from Last 3 Months Insurance MEDICARE Care Teams Windrower Operator Relationship Specialty [place] [id number] PCP - General 12/11/24
--- OUTSIDE RECORDS SUMMARY | 2025-03-31 08:54 | XMS_ITS | Encounter Summary ---
Author Organization Healthcare Address [address] [place] [address] Care Team Providers Care Adzing And Boring Machine Feeder Name Role Phone Frankie De Leon MD Primary Care Provider + [phone] Encounter Details Date Type Department Care Team [...] 0 02/08/2025 9:53 AM EDT Melania Benavides a * Question Answer Date of Assessment Author [...] at all 02/08/2025 9:53 AM EDT Evelio Sousa Trouble concentrating on thi ngs, such as reading the newspaper or watching television Not at all 02/08/2025 9:53 AM EDT Melania Benavides Moving or speaking so slowly that other people could have noticed. Or the opposite - being so fidgety or restless that you have been moving around a lot more than usual Not at all 02/08/2025 9:53 AM EDT Melania Benavides Thoughts that you would be better [...] difficult at all 02/08/2025 9:53 AM EDT Evelio Sousa documented as of this encounter Plan of Treatment Upcoming Encounters Date Type Department Care Team (Late st Contact Info) Description 08/13/2025 1:00 PM EDT Office Visit [facility] [address] [place] [address] Tal Zaman MD [address] [place] [phone] documented as of this encounter Visit [...] documented as of this encounter Care Teams Adzing And Boring Machine Feeder Relationship Specialty [place] [id number] PCP - General 12/11/24 documented as of this encounter
[2025-03-31 09:50] LABS: Anion Gap 12.3 mEq/L (5-15); Blood Urea Nitrogen 42 mg/dl (9-20); Calcium 8.9 mg/dl (8.4-10.2); Carbon Dioxide 23 mmol/L (22.0-30.0); Chloride 108 mmol/L (98-107); Creatinine,Serum 2.20 mg/dl (0.66-1.25); Estimated Glomerular Filt Rate 29 ml/min (>60); GFR (African American) 35 ML/MIN (>60); Glucose 83 mg/dl (74-100); Potassium 5.3 mmoL/L (3.5-5.1); Sodium 138 mmol/L (136-145)
== END 2025-03-31 23:59 | disposition home or self-care (01) ==
LOC: LAB.DROPOF 08:41
PROVIDERS: PCP Family Medicine; Visit Provider Nurse Practitioner Family
DX: N18.9 Chronic kidney disease, unspecified (principal)
CPT/HCPCS: 36415; 80048

== ENCOUNTER 2025-04-09 09:43 | Outpatient (CLI) | payer MEDICARE, MEDICAID, SELFPAY ==
--- OUTSIDE RECORDS SUMMARY | 2025-02-08 08:00 | XMS_ITS | Encounter Summary ---
Author Organization Healthcare Address [facility] [address] [place] [id number] Care Team Providers Care Care Aide Name Role Phone Frankie De Leon MD Primary Care Provider + [phone] Reason for Visit * Reason Comments Consult Encounter Details Date Type Department Care Team (Latest Contact Info) Description 02/08/2025 9:00 AM EDT Office Visit [facility] Nephrology, Bone & Mineral Metabolism [address], [address] [place] [address] Tal Zaman MD [address] [place] [id number] CKD stage 3b, GFR 30-44 ml/min (CMS/[facility]) (Primary Dx); Chronic kidney disease-mineral and bone [...] documented in this encounter Functional Status * BP Answer Date of Assessment Author 132/70 02/08/2025 10:21 AM EDT Veronica Rahman RN * Temp Answer Date of Assessment Author 97.9 02/08/2025 9:37 AM EDT Evelio Benavides * Temp src Answer Date of Assessment Author Oral 02/08/2025 9:37 AM EDT Evelio Benavides * Pulse Answer Date of Assessment Author 68 02/08/2025 9:37 AM EDT Evelio Benavides * SpO2 Answer Date of Assessment Author 96 02/08/2025 9:37 AM EDT Evelio Benavides * Height Answer Date of Assessment Author 67.5 02/08/2025 9:37 AM EDT Evelio Benavides * Weight Answer Date of Assessment Author 2800 02/08/2025 9:37 AM EDT Evelio Benavides * BMI (Calculated) Answer Date of Assessment Author 27.1 02/08/2025 9:37 AM EDT Evelio Benavides * Percent Excess Weight Loss Answer Date of Assessment Author 0 02/08/2025 9:37 AM EDT Evelio Benavides * Total Weight Change Percent Answer Date of Assessment Author 2222 02/08/2025 9:37 AM EDT Evelio Benavides * Weight Change Since Preop Answer Date of Assessment Author 79.36 02/08/2025 9:37 AM EDT Evelio Benavides * Initial Excess Weight Answer Date of Assessment Author -68.49 02/08/2025 9:37 AM EDT Benavides, Shemetria * IBW in lbs (Bariatric) Answer Date of Assessment Author 151 02/08/2025 9:37 AM EDT Evelio Benavides * Weight Change Since Last Visit Answer Date of Assessment Author 79.36 02/08/2025 9:37 AM EDT Melania Benavidesa * IBW in kg (Bariatric) Answer Date of Assessment Author 68.49 02/08/2025 9:37 AM EDT Evelio Benavides * Percent of IBW Answer Date of Assessment Author 4,088.19 02/08/2025 9:37 AM EDT Evelio Benavides * EBW (kg) Answer Date of Assessment Author 2,798.06 02/08/2025 9:37 AM EDT Melania Benavidesa * EBW (lbs) Answer Date of Assessment Author 2,790.56 02/08/2025 9:37 AM EDT Evelio Benavides * Weight Change 24 hrs Answer Date of Assessment Author 79.379 02/08/2025 9:37 AM EDT Evelio Benavides * Depression Screening Question Answer Date of Assessment Author Will the patient answer the depression risk questions? Yes 02/08/2025 9:53 AM EDT Carlos Benavides hemetria * BSA (Calculated - sq m) Answer Date of Assessment Author 1.94 02/08/2025 9:37 AM EDT Evelio Benavides * BMI (Calculated) Answer Date of Assessment Author 26.99 02/08/2025 9:37 AM EDT Evelio Benavides * BP Location Answer Date of Assessment Author Left arm 02/08/2025 9:56 AM EDT Evelio Benavides * IBW/kg (Calculated) Male Answer Date of Assessment Author 67.25 02/08/2025 9:37 AM EDT Evelio Benavides * IBW/kg (Calculated) Female Answer Date of Assessment Author 62.75 02/08/2025 9:37 AM EDT Evelio Benavides * IBW/kg (Calculated) Answer Date of Assessment Author 67.25 02/08/2025 9:37 AM EDT Evelio Benavides * Over the past 2 weeks, how often have you been bothered by any of the following problems? Question Answer Date of Assessment Author Little interest or pleasure in doing things Not at all 02/08/2025 9:53 AM Melania Phillips Feeling down, depressed, or hopeless Not at all 02/08/2025 9:53 AM Melania Phillips Patient Health Questionnaire -2 Score 0 02/08/2025 9:53 AM EDMelania Rangel * Over the past 2 weeks, how often have you been bothered by any of the following problems? Question Answer Date of Assessment Author Trouble falling or staying asleep, or sleeping too much Not at all 02/08/2025 9:53 AM Evelio Phillips Feeling tired or having ernestine le energy Not at all 02/08/2025 9:53 AM Melania Phillips Poor appetite or overeating Not at all 02/08/2025 9: 53 AM EDEvelio Rangel Feeling bad about yourself - or that you are a failure or have let yourself or your family down Not at all 02/08/2025 9:53 AM TIASHA WeirMelania gaitanquinn Trouble concentrating on thi ngs, such as reading the newspaper or watching television Not at all 02/08/2025 9:53 AM Melania Phillips Moving or speaking so slowly that other people could have noticed. Or the opposite - being so fidgety or restless that you have been moving around a lot more than usual Not at all 02/08/2025 9:53 AM Melania Phillips Thoughts that you would be better off or hurting yourself in some way Not at all 02/08/2025 9:53 AM Nena Phillips Patient Health Questionnaire -9 Score 0 02/08/2025 9:53 AM Melania Phillips * How difficult have these problems made it for you to do your work, take care of things at home, or get along with other people? Answer Date of Assessment Author Not difficult at all 02/08/2025 9:53 AM TAISHA Evelio Sousa * Weight in (lb) to have BMI = 25 Answer Date of Assessment Author 161.7 02/08/2025 9:37 AM Evelio Phillips * BMI (Calculated) Answer Date of Assessment Author 27.1 02/08/2025 9:37 AM EDT Melania Benavidesa * Percent Excess Weight Loss Answer Date of Assessment Author 0 02/08/2025 9:37 AM EDT Evelio Benavides * Weight Change Since Preop Answer Date of Assessment Author 79.38 02/08/2025 9:37 AM EDT Nazanin Benavidesmetria * Initial Excess Weight Answer Date of Assessment Author -68.49 02/08/2025 9:37 AM EDT Devon Benavidesria * IBW in kg (Bariatric) Answer Date of Assessment Author 68.49 02/08/2025 9:37 AM EDT Devon Benavidesria * IBW in lb (Bariatric) Answer Date of Assessment Author 151 02/08/2025 9:37 AM EDT Evelio Benavides * Weight Change Since Last Visit Answer Date of Assessment Author 79.38 02/08/2025 9:37 AM EDT Evelio Benavides * Percent of IBW Answer Date of Assessment Author 115.89 02/08/2025 9:37 AM EDT Evelio Benavides * EBW (kg) Answer Date of Assessment Author 10.87 02/08/2025 9:37 AM EDT Evelio Benavides * EBW (lb) Answer Date of Assessment Author 24 02/08/2025 9:37 AM EDT Evelio Benavides * Difference in Weight Since Last Visit Answer Date of Assessment Author 79.38 02/08/2025 9:37 AM EDT Evelio Bneavides * Temp (in Celsius) for LOWER ELWHA IV Answer Date of Assessment Author 36.6 02/08/2025 9:37 AM EDT Evelio Benavides * IBW/kg (Calculated) Answer Date of Assessment Author 67.25 02/08/2025 9:37 AM EDT Evelio Benavides * Adult Low Range Vt 6mL/kg Answer Date of Assessment Author 403.5 02/08/2025 9:37 AM EDT Evelio Benavides * Adult Moderate Range Vt 8mL/kg Answer Date of Assessment Author 538 02/08/2025 9:37 AM EDT Evelio Benavides * Adult High Range Vt 10mL/kg Answer Date of Assessment Author 672.5 02/08/2025 9:37 AM EDT Evelio Benavides * Pain Score Answer Date of Assessment Author 0 02/08/2025 9:41 AM EDT Evelio Benavides * Patient Position Answer Date of Assessment Author Sitting 02/08/2025 9:56 AM EDT Evelio Benavides * Pain Screening/Additional Assessments Question Answer Date of Assessment Author Pain Screening/Assessments Pain Screening 02/08/2025 9 :41 AM EDT Evelio Benavides * Pain Screening Answer Date of Assessment Author 0-10 02/08/2025 9:41 AM EDT Evelio Benavides * BP Answer Date of Assessment Author 132/70 02/08/2025 10:21 AM EDT Veronica Rahman RN * Temp Answer Date of Assessment Author 97.9 02/08/2025 9:37 AM EDT Evelio Benavides * Temp src Answer Date of Assessment Author Oral 02/08/2025 9:37 AM EDT Evelio Benavides * Pulse Answer Date of Assessment Author 68 02/08/2025 9:37 AM EDT Evelio Benavides * SpO2 Answer Date of Assessment Author 96 02/08/2025 9:37 AM EDT Evelio Benavides * Height Answer Date of Assessment Author 67.5 02/08/2025 9:37 AM EDT Evelio Benavides * Weight Answer Date of Assessment Author 2800 02/08/2025 9:37 AM EDT Evelio Benavides * BSA (Calculated - sq m) Answer Date of Assessment Author 1.94 02/08/2025 9:37 AM EDT Evelio Benavides * BMI (Calculated) Answer Date of Assessment Author 26.99 02/08/2025 9:37 AM EDT Evelio Benavides * BP Location Answer Date of Assessment Author Left arm 02/08/2025 9:56 AM EDEvelio Rangel * Over the past 2 weeks, how often have you been bothered by any of the following problems? Question Answer Date of Assessment Author Little interest or pleasure in doing things Not at all 02/08/2025 9:53 AM EDMelania Rangel Feeling down, depressed, or hopeless Not at all 02/08/2025 9:53 AM Melania Phillips Patient Health Questionnaire -2 Score 0 02/08/2025 9:53 AM EDMelania Rangel * Over the past 2 weeks, how often have you been bothered by any of the following problems? Question Answer Date of Assessment Author Trouble falling or staying asleep, or sleeping too much Not at all 02/08/2025 9:53 AM EDEvelio Rangel Feeling tired or having ernestine le energy Not at all 02/08/2025 9:53 AM EDMelania Rangel a Poor appetite or overeating Not at all 02/08/2025 9: 53 AM EDEvelio Rangel Feeling bad about yourself - or that you are a failure or have let yourself or your family down Not at all 02/08/2025 9:53 AM EDMelania Rangel Trouble concentrating on things, such as reading the newspaper or watching television Not at all 02/08/2025 9:53 AM Melania Phillips Moving or speaking so slowly that other people could have noticed. Or the opposite - being so fidgety or restless that you have been moving around a lot more than usual Not at all 02/08/2025 9:53 AM Evelio Phillips Thoughts that you would be better off or hurting yourself in some way Not at all 02/08/2025 9:53 AM Nena Phillips Patient Health Questionnaire -9 Score 0 02/08/2025 9:53 AM EDMelania Rangel * How difficult have these problems made it for you to do your work, take care of things at home, or get along with other people? Answer Date of Assessment Author Not difficult at all 02/08/2025 9:53 AM EDT Simp son Evelio * Weight in (lb) to have BMI = 25 Answer Date of Assessment Author 161.7 02/08/2025 9:37 AM Evelio Phillips * Pain Score Answer Date of Assessment Author 0 02/08/2025 9:41 AM Evelio Phillips * Patient Position Answer Date of Assessment Author Sitting 02/08/2025 9:56 AM Evelio Phillips * Learning Needs Screening Question Answer Date of Assessment Author Are there things (barriers) that make it harder for this patient to learn? No Barriers 02/08/2025 9:53 AM EDT Melania Benavides What is the best language to use for teaching this patient about his/her health? S[place] Tomean 02/08/2025 9:53 AM EDT Melania Benavides What format does this patient think is most helpful for learning? Listening;Reading 02/08/2025 9:53 AM EDT Evelio Benavides Primary Learner Patient 02/08/2025 9:53 AM EDT Si Evelio holley * Readiness to Learn Question Answer Date of Assessment Author Readiness Acceptance 02/08/2025 9:53 AM EDT Evelio Daily documented as of this encounter Mental Status * BP Answer Entry Date Author 132/70 02/08/2025 10:21 AM EDT Veronica Rahman RN * Temp Answer Entry Date Author 97.9 02/08/2025 9:37 AM EDT Evelio Benavides * Temp src Answer Entry Date Author Oral 02/08/2025 9:37 AM EDT Evelio Benavides * Pulse Answer Entry Date Author 68 02/08/2025 9:37 AM EDT Evelio Benavides * SpO2 Answer Entry Date Author 96 02/08/2025 9:37 AM EDT Evelio Benavides * Height Answer Entry Date Author 67.5 02/08/2025 9:37 AM EDT Evelio Benavides * Weight Answer Entry Date Author 2800 02/08/2025 9:37 AM EDT Evelio Benavides * BMI (Calculated) Answer Entry Date Author 27.1 02/08/2025 9:37 AM EDT Evelio Benavides * Percent Excess Weight Loss Answer Entry Date Author 0 02/08/2025 9:37 AM EDT Evelio Benavides * Total Weight Change Percent Answer Entry Date Author 22202/08/2025 9:37 AM EDT Evelio Benavides * Weight Change Since Preop Answer Entry Date Author 79.36 02/08/2025 9:37 AM EDT Evelio Benavides * Initial Excess Weight Answer Entry Date Author -68.49 02/08/2025 9:37 AM EDT Kennedy Shemetria * IBW in lbs (Bariatric) Answer Entry Date Author 151 02/08/2025 9:37 AM EDT Nazanin Benavidesmetria * Weight Change Since Last Visit Answer Entry Date Author 79.36 02/08/2025 9:37 AM EDT Kennedy Shemetria * IBW in kg (Bariatric) Answer Entry Date Author 68.49 02/08/2025 9:37 AM EDT Nazanin Benavidesmetria * Percent of IBW Answer Entry Date Author 4,088.19 02/08/2025 9:37 AM EDT Kennedy Shemetria * EBW (kg) Answer Entry Date Author 2,798.06 02/08/2025 9:37 AM EDT Kennedy Shemetria * EBW (lbs) Answer Entry Date Author 2,790.56 02/08/2025 9:37 AM EDT Nazanin Benavidesmetria * Weight Change 24 hrs Answer Entry Date Author 79.379 02/08/2025 9:37 AM EDT Kennedy Shemetria * Depression Screening Question Answer Entry Date Author Will the patient answer the depression risk questions? Yes 02/08/2025 9:53 AM EDT Kennedy S hemetria * BSA (Calculated - sq m) Answer Entry Date Author 1.94 02/08/2025 9:37 AM EDT Nazanin Benavidesmetria * BMI (Calculated) Answer Entry Date Author 26.99 02/08/2025 9:37 AM EDT Nazanin Benavidesmetria * BP Location Answer Entry Date Author Left arm 02/08/2025 9:56 AM EDT Kennedy Shemetria * IBW/kg (Calculated) Male Answer Entry Date Author 67.25 02/08/2025 9:37 AM EDT Kennedy Shemetria * IBW/kg (Calculated) Female Answer Entry Date Author 62.75 02/08/2025 9:37 AM EDT Kennedy Shemetria * IBW/kg (Calculated) Answer Entry Date Author 67.25 02/08/2025 9:37 AM EDT Kennedy Shemetria * Over the past 2 weeks, how often have you been bothered by any of the following problems? Question Answer Entry Date Author Little interest or pleasure in doing things Not at all 02/08/2025 9:53 AM Melania Phillips Feeling down, depressed, or hopeless Not at all 02/08/2025 9:53 AM EDMelania Rangel Patient Health Questionnaire -2 Score 0 02/08/2025 9:53 AM EDMelania Rangel * Over the past 2 weeks, how often have you been bothered by any of the following problems? Question Answer Entry Date Author Trouble falling or staying asleep, or sleeping too much Not at all 02/08/2025 9:53 AM EDEvelio Rangel Feeling tired or having ernestine le energy Not at all 02/08/2025 9:53 AM Melania Phillips Poor appetite or overeating Not at all 02/08/2025 9: 53 AM EDEvelio Rangel Feeling bad about yourself - or that you are a failure or have let yourself or your family down Not at all 02/08/2025 9:53 AM EDKarina Russell Nazanin jamesrenan Trouble concentrating on thi ngs, such as reading the newspaper or watching television Not at all 02/08/2025 9:53 AM Melania Phillips Moving or speaking so slowly that other people could have noticed. Or the opposite - being so fidgety or restless that you have been moving around a lot more than usual Not at all 02/08/2025 9:53 AM Melania Phillips Thoughts that you would be better off or hurting yourself in some way Not at all 02/08/2025 9:53 AM EDNena Rangel Patient Health Questionnaire -9 Score 0 02/08/2025 9:53 AM Melania Phillips * [facility] Calculation Answer Entry Date Author 3 02/08/2025 9:53 AM Evelio Phillips * How difficult have these problems made it for you to do your work, take care of things at home, or get along with other people? Answer Entry Date Author Not difficult at all 02/08/2025 9:53 AM TAISHA WeirNazanin gaitanrenan * Restart Pain Assessment Timer Answer Entry Date Author Yes 02/08/2025 9:41 AM EDT Evelio Benavides * Weight in (lb) to have BMI = 25 Answer Entry Date Author 161.7 02/08/2025 9:37 AM EDT Melania Benavidesa * BMI (Calculated) Answer Entry Date Author 27.1 02/08/2025 9:37 AM EDT Nazanin Benavidesmetria * Percent Excess Weight Loss Answer Entry Date Author 0 02/08/2025 9:37 AM EDT Melania Benavidesa * Weight Change Since Preop Answer Entry Date Author 79.38 02/08/2025 9:37 AM EDT Nazanin Benavidesmetria * Initial Excess Weight Answer Entry Date Author -68.49 02/08/2025 9:37 AM EDT Melania Benavidesa * IBW in kg (Bariatric) Answer Entry Date Author 68.49 02/08/2025 9:37 AM EDT Nazanin Benavidesmetria * IBW in lb (Bariatric) Answer Entry Date Author 151 02/08/2025 9:37 AM EDT Evelio Benavides * Weight Change Since Last Visit Answer Entry Date Author 79.38 02/08/2025 9:37 AM EDT Evelio Benavides * Percent of IBW Answer Entry Date Author 115.89 02/08/2025 9:37 AM EDT Evelio Benavides * EBW (kg) Answer Entry Date Author 10.87 02/08/2025 9:37 AM EDT Melania Benavidesa * EBW (lb) Answer Entry Date Author 24 02/08/2025 9:37 AM EDT Evelio Benavides * Difference in Weight Since Last Visit Answer Entry Date Author 79.38 02/08/2025 9:37 AM EDT Evelio Benavides * Temp (in Celsius) for LOWER ELWHA IV Answer Entry Date Author 36.6 02/08/2025 9:37 AM EDT Evelio Benavides * IBW/kg (Calculated) Answer Entry Date Author 67.25 02/08/2025 9:37 AM EDT Nazanin Benavidesmetaudreya * Adult Low Range Vt 6mL/kg Answer Entry Date Author 403.5 02/08/2025 9:37 AM EDT Evelio Benavides * Adult Moderate Range Vt 8mL/kg Answer Entry Date Author 538 02/08/2025 9:37 AM EDT Evelio Benavides * Adult High Range Vt 10mL/kg Answer Entry Date Author 672.5 02/08/2025 9:37 AM EDT Evelio Benavides * Pain Score Answer Entry Date Author 0 02/08/2025 9:41 AM EDT Evelio Benavides * BP Cuff Size Answer Entry Date Author Adult 02/08/2025 9:56 AM EDT Evelio Benavides * Patient Position Answer Entry Date Author Sitting 02/08/2025 9:56 AM EDT Evelio Benavides * Pain Screening Answer Entry Date Author 0-10 02/08/2025 9:41 AM EDT Evelio Benavides documented in this encounter Miscellaneous Notes * Progress Notes [...] w/ structural abnormalities. Mr. Aguillon comes from [place]. He has never been told his he [...] , CAUR , CALCIUMUR , PHOSUR , [id number] , [id number] , CREATUR MBD: No results found for: [...] , LH , PROLACTIN , TSH , [id number] , FREET4 , CORTISOL Imaging: Impression & [...] months Tal Zaman MD Division of Nephrology [facility] Counseling Documentation: The patient was counseled regarding COUNSELING TOPICS: diagnostic results, prognosis, risks and benefit of treatment options, risk factor reductions, instructions for management, patient and family education, medication changes, diagnostic impressions, Heart healthy diet, regular physical activity and weight control, Avoidance of NSAIDs and other nephrotoxins, and rn long term care nature of condition. Education provided was verbal [...] Expiration Date: 08/13/2026 [facility] Immediate Urinalysis with reflex microscopic (Culture NOT Included) Standing Status: Future Expected Date: 08/08/2025 Expiration Date: 08/13/2026 Release to patient in [facility]: Immediate Vitamin D 25 Hydroxy Standing Status: Future Expected Date: 08/08/2025 Expiration Date: 08/13/2026 Release to patient in [facility]: Immediate PTH Intact Total Standing Status: Future Expected Date: 08/08/2025 Expiration Date: 08/13/2026 Release to patient in [facility]: Immediate Albumin-creatinine ratio, urine, random Standing Status: Future Expected Date: 08/08/2025 Expiration Date: 08/13/2026 [facility]: Immediate Protein, Random, Urine with Creatinine Standing Status: Future Expected Date: 08/08/2025 Expiration Date: 08/13/2026 Release to patient in [facility]: Immediate Renal Function Panel, Plasma Standing Status: Future Expected Date: 08/08/2025 Expiration Date: 08/13/2026 Release to patient in [facility]: Immediate Problem List Items Addressed This Visit [...] Description 08/13/2025 1:00 PM EDT Office Visit [facility] [address] [place] [address] Tal Zaman MD [address] [place] [phone] Scheduled Orders Name Type Priority Associated Diagnoses [...] Routine CKD stage 3b, GFR 30-44 ml/min ([facility]) 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-MBD) Expected: 08/08/2025 (Approximate), Expires: 08/13/2026 PTH Intact Total Lab Routine CKD stage 3b, GFR 30-44 ml/min ([facility]) 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-MBD) Expected: 08/08/2025 (Approximate), Expires: 08/13/2026 Albumin-creatinine ratio, urine, random Lab Routine CKD stage 3b, GFR 30-44 ml/min ([facility]) 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-MBD) Expected: 08/08/2025 (Approximate), Expires: 08/13/2026 Protein, Random, Urine with Creatinine Lab Routine CKD stage 3b, GFR 30-44 ml/min ([facility]) 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-MBD) Expected: 08/08/2025 (Approximate), Expires: 08/13/2026 Renal Function Panel, Plasma Lab Routine CKD stage 3b, GFR 30-44 ml/min ([facility]) 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-MBD) Expected: 08/08/2025 (Approximate), Expires: 08/13/2026 documented as of this encounter Visit Diagnoses Diagnosis CKD stage 3b, GFR 30-44 ml/min ([facility])- Primary Chronic kidney disease-mineral and bone disorder [...] documented as of this encounter Care Teams Care Aide Relationship Specialty [place] [id number] PCP - General 12/11/24 documented as of this encounter
--- OUTSIDE RECORDS SUMMARY | 2025-04-09 09:46 | XMS_ITS | Encounter Summary ---
Author Organization Healthcare Address [address] [place] [address] Care Team Providers Care Digital Communications Manager Name Role Phone Frankie De Leon MD Primary Care Provider + [phone] Encounter Details Date Type Department Care Team [...] as of this encounter Functional Status * Communicable Disease Screening Question Answer Date of Assessment Author Have you been in contact wit h someone who was sick? No / Unsure 02/08/2025 9:32 AM Enrrique Hopper Do you have any of the follo wing new or worsening symptoms? None of these 02/08/2025 9:32 AM Kennedy Hopper * Travel Screening Question Answer Date of Assessment Author Have you traveled [place] or domestically in the last month? No 02/08/2025 9:32 AM Enrrique Hopper documented as of this encounter Mental Status * Communicable Disease Screening Question Answer Entry Date Author Have you been in contact wit h someone who was sick? No / Unsure 02/08/2025 9:32 AM Enrrique Hopper Do you have any of the follo wing new or worsening symptoms? None of these 02/08/2025 9:32 AM EDT Kennedy Barnett * Travel Screening Question Answer Entry Date Author Have you traveled [place] or domestically in the last month? No 02/08/2025 9:32 AM EDT Enrrique Barnett documented in this encounter Plan of Treatment Upcoming Encounters Date Type Department Care Team (Late st Contact Info) Description 08/13/2025 1:00 PM EDT Office Visit [facility] [address] [place] [address] Tal Zaman MD [address] [place] [phone] documented as of this encounter Visit Diagnoses [...] documented as of this encounter Care Teams Digital Communications Manager Relationship Specialty [place] [id number] PCP - General 12/11/24 documented as of this encounter
--- OUTSIDE RECORDS SUMMARY | 2025-04-09 09:46 | XMS_ITS | Clinical Summary ---
Author Organization Healthcare Address [address] [id number] Care Team Providers Care Chocolate Temperer Name Role Phone Frankie De Leon MD Primary Care Provider + [phone] Medications acetaminophen (Tylenol) 325 MG tablet 10/31/2024 [...] 02/08/2025 9:00 AM EDT Office Visit [facility] Nephrology, Bone & Mineral Metabolism [address], [address] [place] [address] Tal Zaman MD CKD stage [...] Description 08/13/2025 1:00 PM EDT Office Visit [facility] [address] [place] [address] Tal Zaman MD [address] [place] [phone] Health Maintenance Due Date Last Done [...] or (1 - 1-dose 75+ series) 09/22/2023 [id number] Vaccine ( - 2024- season) 2024 02/12/2023, [...] - 80.0 ng/mL 02/08/2025 4:31 PM EDT [facility] Comment:This is you lab orde r and it needs to be done 3 to Blood Venous blood specimen / Unknown Venipuncture / Unknown 02/08/2025 11:03 AM EDT 02/08/2025 11:03 AM EDT Narrative [facility] - 02/08/2025 4:31 PM EDT Testing performed on Asencio Almond Paste Molder, standardized against NIST SRM 2972. When testing [...] MD LAB BLOOD ORDERABLES Final Resul t [facility] [address] [place] [address] * CBC and Differential (02/08/2025 11:03 AM EDT) [facility] Signature WBC Count 9.57 3.70 - 10.30 10*3/uL LAB HEMATOLOGY METHOD 02/08/2025 2:31 PM EDT [facility] RBC Count 4.99 4.60 - 6.10 10*6/uL LAB HEMATOLOGY METHOD 02/08/2025 2:31 PM EDT [facility] HGB 14.9 13.7 - 17.5 g/dL LAB HEMATOLOGY METHOD 02/08/2025 2:31 PM EDT [facility] HCT 44.5 40.0 - 51.0 % LAB HEMATOLOGY METHOD 02/08/2025 2:31 PM EDT [facility] Platelet Count 221 155 - 369 10*3/uL LAB HEMATOLOGY METHOD 02/08/2025 2:31 PM EDT [facility] MCV 89 79 - 98 fL LAB HEMATOLOGY METHOD 02/08/2025 2:31 PM EDT [facility] MCH 29.9 26.0 - 32.0 pg LAB HEMATOLOGY METHOD 02/08/2025 2:31 PM EDT [facility] MCHC 33.5 30.7 - 35.5 g/dL LAB HEMATOLOGY METHOD 02/08/2025 2:31 PM EDT [facility] RDW 12.4 11.5 - 14.5 % LAB HEMATOLOGY METHOD 02/08/2025 2:31 PM EDT [facility] MPV 10.1 8.8 - 12.5 fL LAB HEMATOLOGY METHOD 02/08/2025 2:31 PM EDT [facility] nRBC 0.0 <=0.0 per 100 WBCs LAB HEMATOLOGY METHOD 02/08/2025 2:31 PM EDT [facility] Differential Type Automated LAB HEMATOLOGY METHOD 02/08/2025 2:31 PM EDT [facility] Neutrophils % 64 % LAB HEMATOLOGY METHOD 02/08/2025 2:31 PM EDT [facility] Lymphocytes % 24 % LAB HEMATOLOGY METHOD 02/08/2025 2:31 PM EDT [facility] Monocytes % 9 % LAB HEMATOLOGY METHOD 02/08/2025 2:31 PM EDT [facility] Eosinophils % 2 % LAB HEMATOLOGY METHOD 02/08/2025 2:31 PM EDT [facility] Basophils % 1 % LAB HEMATOLOGY METHOD 02/08/2025 2:31 PM EDT [facility] Immature Granulocytes % 0 % LAB HEMATOLOGY METHOD 02/08/2025 2:31 PM EDT [facility] Neutrophils Absolute 6.06 1.60 - 6.10 10*3/uL LAB HEMATOLOGY METHOD 02/08/2025 2:31 PM EDT [facility] Lymphocytes Absolute 2.31 1.20 - 3.90 10*3/uL LAB HEMATOLOGY METHOD 02/08/2025 2:31 PM EDT [facility] Monocytes Absolute 0.88 0.30 - 0.90 10*3/uL LAB HEMATOLOGY METHOD 02/08/2025 2:31 PM EDT [facility] Eosinophils Absolute 0.22 0.00 - 0.50 10*3/uL LAB HEMATOLOGY METHOD 02/08/2025 2:31 PM EDT [facility] Basophils Absolute 0.07 0.00 - 0.10 10*3/uL LAB HEMATOLOGY METHOD 02/08/2025 2:31 PM EDT [facility] Immature Granulocytes Absolute 0.03 0.00 - 0.06 10*3/uL LAB HEMATOLOGY METHOD 02/08/2025 2:31 PM EDT [facility] Blood Venous blood specimen / Unknown Venipuncture / Unknown 02/08/2025 11:03 AM EDT 02/08/2025 11:03 AM EDT [facility] - 02/08/2025 2:31 PM EDT Therapeutic decision making should be based on absolute values, rather than percentages. us Tal Zaman MD LAB BLOOD ORDERABLES Final Resul t [facility] [address] [place] [id number] * (ABNORMAL) PTH Intact Total (02/08/2025 11:03 AM EDT) PTH Intact Total 93(H) 9 - 77 pg/mL 02/08/2025 4:45 PM EDT [facility] Comment:This is you lab orde r and it needs to be done 3 to Blood Venous blood specimen / Unknown Venipuncture / Unknown 02/08/2025 11:03 AM EDT 02/08/2025 11:03 AM EDT Narrative [facility] - 02/08/2025 4:45 PM EDT Assay performed by immunoassay at the [facility]. Performed on Asencio Almond Paste Molder chemiluminescent immunoassay, tractable to the World Health Organization's first international standard for PTH from the BS, Code 79/500. Results obtained from different test methods or kits cannot be used interchangeably. us Tal Zaman MD LAB BLOOD ORDERABLES Final Resul t [facility] [address] [place] [address] * (ABNORMAL) Renal Function Panel, Plasma (02/08/2025 11:03 AM EDT) Glucose, Plasma 83 74 - 99 mg/dL 02/08/2025 3:20 PM EDT [facility] BUN, Plasma 25(H) 8 - 23 mg/dL 02/08/2025 3:20 PM EDT [facility] Creatinine, Plasma 1.90(H) 0.70 - 1.20 mg/dL 02/08/2025 3:20 PM EDT [facility] BUN/Creatinine Ratio 13 02/08/2025 3:20 PM EDT [facility] Sodium, Plasma 141 136 - 145 mmol/L 02/08/2025 3:20 PM EDT [facility] Potassium, Plasma 4.7 3.6 - 4.9 mmol/L 02/08/2025 3:20 PM EDT [facility] Chloride, Plasma 103 97 - 107 mmol/L 02/08/2025 3:20 PM EDT [facility] CO2, Plasma 26 22 - 29 mmol/L 02/08/2025 3:20 PM EDT [facility] Anion Gap 12 6 - 16 mmol/L 02/08/2025 3:20 PM EDT [facility] Total Calcium, Plasma 9.4 8.9 - 10.2 mg/dL 02/08/2025 3:20 PM EDT [facility] Phosphorus, Plasma 3.7 2.5 - 4.5 mg/dL 02/08/2025 3:20 PM EDT [facility] Albumin, Plasma 4.4 3.5 - 5.2 g/dL 02/08/2025 3:20 PM EDT [facility] eGFRcr 36.1 mL/min/1.7 3m*2 02/08/2025 3:20 PM EDT [facility] Comment:Reported eGFRcr in m L/min/1.73m2 is based the CKD-EPI 2020 equation that does not use a race coefficient. Blood Venous blood specimen / Unknown Venipuncture / Unknown 02/08/2025 11:03 AM EDT 02/08/2025 11:03 AM EDT us Tal Zaman MD LAB BLOOD ORDERABLES Final Resul t Performing Organization Address [facility] de Phone Number [facility] [address] [place] [address] * Protein, Random, Urine with Creatinine (02/08/2025 11:02 AM EDT) Protein, Urine 42 mg/dL 02/08/2025 3:03 PM EDT [facility] Creatinine, Urine 95 mg/dL 02/08/2025 3:03 PM EDT [facility] Protein/Creati nine Ratio 0.4 mg/mg Creat 02/08/2025 3:03 PM EDT [facility] Urine Urine specimen obtained by clean catch procedure / Unknown Non-blood Collection / Unknown 02/08/2025 11:02 AM EDT 02/08/2025 11:02 AM EDT us Tal Zaman MD LAB URINE ORDERABLES Final Resul t Performing Organization Address [facility] de Phone Number [facility] [address] [place] [address] * (ABNORMAL) Urinalysis with reflex microscopic (Culture NOT Included) (02/08/2025 11:02 AM EDT) Color, Urine Yellow LAB URINALYSIS - AUTOMATED METHOD 02/08/2025 2:26 PM EDT [facility] Clarity, Urine Clear LAB URINALYSIS - AUTOMATED METHOD 02/08/2025 2:26 PM EDT [facility] Spec [place], Urine 1.016 1.005 - 1.030 LAB URINALYSIS - AUTOMATED METHOD 02/08/2025 2:26 PM EDT [facility] pH, Urine 6.5 5.0 - 8.0 LAB URINALYSIS - AUTOMATED METHOD 02/08/2025 2:26 PM EDT [facility] Protein, Urine 100(A) Negative mg/dL LAB URINALYSIS - AUTOMATED METHOD 02/08/2025 2:26 PM EDT [facility] Glucose, Urine Negative Negative mg/dL LAB URINALYSIS - AUTOMATED METHOD 02/08/2025 2:26 PM EDT [facility] Ketones, Urine Negative Negative mg/dL LAB URINALYSIS - AUTOMATED METHOD 02/08/2025 2:26 PM EDT [facility] Blood, Urine Negative Negative LAB URINALYSIS - AUTOMATED METHOD 02/08/2025 2:26 PM EDT [facility] Bilirubin, Urine Negative Negative LAB URINALYSIS - AUTOMATED METHOD 02/08/2025 2:26 PM EDT [facility] Urobilinogen, Urine 0.2 0.2 to 1.0 mg/dL LAB URINALYSIS - AUTOMATED METHOD 02/08/2025 2:26 PM EDT [facility] Leukocytes, Urine Negative Negative LAB URINALYSIS - AUTOMATED METHOD 02/08/2025 2:26 PM EDT [facility] Nitrite, Urine Negative Negative LAB URINALYSIS - AUTOMATED METHOD 02/08/2025 2:26 PM EDT [facility] Urine Urine specimen obtained by clean catch procedure / Unknown Non-blood Collection / Unknown 02/08/2025 11:02 AM EDT 02/08/2025 11:02 AM EDT Tal Zaman MD LAB URINE ORDERABLES Final Resul t Performing Organization Address City/State/[facility] de Phone Number [facility] [address] [place] [phone] from Last 3 Months Insurance MEDICARE Care Teams Chocolate Temperer Relationship Specialty [place] [id number] PCP - General 12/11/24
[2025-04-09 10:35] LABS: Chloride 107 mmol/L (98-107); Potassium 5.3 mmoL/L (3.5-5.1); Sodium 137 mmol/L (136-145)
[2025-04-09 10:38] LABS: Anion Gap 13.3 mEq/L (5-15); Blood Urea Nitrogen 45 mg/dl (9-20); Calcium 9.2 mg/dl (8.4-10.2); Carbon Dioxide 22 mmol/L (22.0-30.0); Creatinine,Serum 2.10 mg/dl (0.66-1.25); Estimated Glomerular Filt Rate 31 ml/min (>60); GFR (African American) 37 ML/MIN (>60); Glucose 80 mg/dl (74-100)
== END 2025-04-09 23:59 | disposition home or self-care (01) ==
LOC: LAB.DROPOF 09:44
PROVIDERS: PCP Family Medicine; Visit Provider Nurse Practitioner Family
DX: N18.9 Chronic kidney disease, unspecified (principal)
CPT/HCPCS: 36415; 80048